=== PATIENT | male | born 1950 | race Caucasian/White ===

== ENCOUNTER 2019-10-10 12:33 | Observation (INO) | payer MEDICARE ==
[2019-10-10] MEDS ORDERED: BABY ASPIRIN 81 MG CHEW PO ONE (13:10)
[2019-10-10] MEDS ORDERED: DUONEB 0.5-3 MG/3 ml Neb IH ONE ×2 (13:11→13:31)
--- NOTE | 2019-10-10 13:13 | ERPHSYRPT ---
- History of Present Illness Time Seen by Provider: 10/10/19 12:55 Historian: patient Exam Limitations: no limitations Patient Subjective Stated Complaint: I started having pain last night in my left side of my back that went around into my left arm and left chest. I also had a lot of shortness of breath so I just stayed awake. I have had a lot of heart issues so I took two nitros and that helped. The pain started back this morning and I called my doctor and he told me to come to the ER. I don't have any pain right now. Triage Nursing Assessment: Pt presents to ER per PCP request for intermittent chest pains and shortness of breath that began last night. Pt stated his pain began in left sided back that radiates to left arm and left sided chest. Pt states it did keep him up most of the night. Pain decreased with the use of nitro x 2. States has not taken any ASA. Is on "7 or 8 cardiac meds". Pt is currently not experiencing chest pains or shortness of breath but does have significant cardiac histroy so PCP wanted him evaulated in ER. Pt is alert and oriented x 3. Denies shortness of breath at this time. Pt lungs clear and equal throughout. Pulses strong and no edema noted. Pt ambulates with steady gait but does state he gets dizzy. Abd soft and nontender. Pt denies n/v/d. Skin is pink , warm, and dry. Physician History: 69 years old male with extensive history of coronary artery disease with multiple stenting/CABG, tobacco abuse, COPD, hypertension, hyperlipidemia presented in the ER with chief complaint of sudden onset left back pain with radiation to left anterior chest and will left arm around 3 AM which woke him up from sleep. Patient took 2 nitros and pain started to ease up. Home health nurse came in and called his primary care who recommended evaluation in the ER. Patient currently denies any pain but has some pressure in the left side without any significant aggravating or relieving factors. Patient report this morning along with the pain he had some brief episode of shortness of breath but currently not short of breath. Denies fever chills. Does have a chronic smoker cough which is not any different than usual. Timing/Duration: today, sudden, improved Activities at Onset: sleep Quality: dullness, sharpness Location: back Chest Pain Radiation: arm Severity of Pain-Max: moderate Severity of Pain-Current: mild Modifying Factors: Improves With: nitroglycerin Associated Symptoms: shortness of breath Prior Chest Pain/Cardiac Workup: angina, cardiac cath, echocardiography, heart attack Nitro Today/Relief: 0.4 mg x 2 Aspirin Treatment Today: 81 mg x 1 Allergies/Adverse Reactions: No Known Drug Allergies Allergy (Verified 10/10/19 12:53) Home Medications: Amiodarone HCl 200 mg PO DAILY 10/10/19 [History] Apixaban [Eliquis] 5 mg PO BID 10/10/19 [History] Clopidogrel Bisulfate [Clopidogrel] 75 mg PO DAILY 10/10/19 [History] Levothyroxine Sodium 25 mcg PO DAILY 10/10/19 [History] Loratadine 10 mg PO DAILY 10/10/19 [History] Metformin HCl [Fortamet] 500 mg PO DAILY 10/10/19 [History] Nebivolol HCl 5 MG [Bystolic 5 MG] 5 mg PO DAILY 10/10/19 [History] Nitroglycerin 0.4 mg SL Q2H/PRN PRN 10/10/19 [History] Tamsulosin HCl 0.4 mg [Flomax 0.4 MG] 0.4 mg PO DAILY 10/10/19 [History] Terazosin HCl 10 mg PO HS 10/10/19 [History] allopurinoL [Allopurinol] 100 mg PO HS 10/10/19 [History] Hx Tetanus, Diphtheria Vaccination/Date Given: Yes Hx Influenza Vaccination/Date Given: Yes Hx Pneumococcal Vaccination/Date Given: Yes Immunizations Up to Date: Yes Travel Risk - International Travel Have you traveled outside of the country in past 3 weeks: No Have you or anyone close to you been diagnosed with or: No Do your reside in a community with a known COVID-19 case?: Yes If Yes where:: [facility] - Coronavirus Screening Has patient experienced Coronavirus symptoms: Yes Symptoms experienced: respiratory symptoms (i.e.Cought,shortness of breath) - Review of Systems Constitutional: No Symptoms Eyes: No Symptoms Ears, Nose, & Throat: No Symptoms Respiratory: Cough, Dyspnea Cardiac: Chest Pain Abdominal/Gastrointestinal: No Symptoms Genitourinary Symptoms: No Symptoms Musculoskeletal: No Symptoms Skin: No Symptoms Neurological: No Symptoms Psychological: No Symptoms Endocrine: No Symptoms Hematologic/Lymphatic: No Symptoms Immunological/Allergic: No Symptoms - Past Medical History Pertinent Past Medical History: Yes Neurological History: TIA ENT History: Cataracts Cardiac History: Congenital Heart Disease, Congestive Heart Failure, High Cholesterol, Myocardial Infarction ([place]) Respiratory History: CHF, COPD Endocrine Medical History: Diabetes Type II Psycho-Social History: Anxiety, Depression - Past Surgical History Past Surgical History: Yes Cardiac: CABG, Cardiac Catheterization, Cardiac Stent Other Surgical History: RUPTURED BELLY BUTTON - Social History Smoking Status: Current every day smoker How long have you smoked: YEARS Exposure to second hand smoke: No Drug Use: none Patient Lives Alone: Yes - Nursing Vital Signs Nursing Vital Signs: Initial Vital Signs Temperature 97.6 F 10/10/19 12:34 Pulse Rate 61 10/10/19 12:34 Respiratory Rate 18 10/10/19 12:34 Blood Pressure 112/52 10/10/19 12:34 O2 Sat by Pulse Oximetry 99 10/10/19 12:34 Pain Scale Pain Intensity 0 - Physical Exam General Appearance: no apparent distress Eye Exam: PERRL/EOMI, eyes nml inspection Ears, Nose, Throat Exam: normal ENT inspection, TMs normal, pharynx normal Neck Exam: normal inspection Respiratory Exam: normal breath sounds, wheezing, No chest tenderness Cardiovascular Exam: regular rate/rhythm, normal heart sounds Gastrointestinal/Abdomen Exam: soft, No tenderness Back Exam: normal inspection, normal range of motion, No CVA tenderness Extremity Exam: normal inspection, normal range of motion Neurologic Exam: alert, oriented x 3, cooperative Skin Exam: normal color, warm SpO2 Interpretation: normal SpO2: 99 O2 Delivery: Room Air - Course Nursing assessment & vital signs reviewed: Yes EKG Interpreted by Me: RATE (71), NORMAL AXIS, NORMAL INTERVALS, Other (Atrial paced rhythm) Ordered Tests: Active Orders 24 hr Category Date Time Status Manager [employer]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 STAT Care 10/10/19 13:11 Active EKG-ER Only STAT Care 10/10/19 13:10 Active IV Insertion STAT Care 10/10/19 13:10 Active CHEST 2 VIEWS (PA AND LAT) Stat Exams 10/10/19 13:10 Completed CBC W DIFF Stat Lab 10/10/19 13:30 Completed CMP Stat Lab 10/10/19 13:30 Completed NT PRO BNP Stat Lab 10/10/19 13:30 Completed TROPONIN Q3H Lab 10/10/19 13:30 Completed TROPONIN Q3H Lab 10/10/19 16:15 Ordered TROPONIN Q3H Lab 10/10/19 19:15 Ordered TROPONIN Q3H Lab 10/10/19 22:15 Ordered TROPONIN Q3H Lab 10/11/19 01:15 Ordered Respiratory Therapy Assessment DAILY RT 10/10/19 13:37 Active Medication Summary Discontinued Medications Generic Name Dose Route Start Last Admin Trade Name Gamaq PRN Reason Stop Dose Admin Albuterol/Ipratropium 3 ml 10/10/19 13:11 10/10/19 13:33 Duoneb 0.5-3 Mg/3 Ml Neb IH 10/10/19 13:12 3 ml STAT ONE Administration Albuterol/Ipratropium Confirm 10/10/19 13:31 Duoneb 0.5-3 Mg/3 Ml Neb Administered 10/10/19 13:32 Dose 3 ml IH .STK-MED ONE Aspirin 324 mg 10/10/19 13:10 10/10/19 13:29 Baby Aspirin 81 Mg Chew PO 10/10/19 13:11 324 mg STAT ONE Administration Aspirin Confirm 10/10/19 13:33 Baby Aspirin 81 Mg Chew Administered 10/10/19 13:34 Dose 324 mg .ROUTE .STK-MED ONE Lab/Rad Data: Laboratory Result Diagrams 10/10/19 13:30 10/10/19 13:30 Laboratory Results 10/10/19 10/10/19 10/10/19 Range/Units 13:30 13:30 13:30 WBC 7.8 (4.0-10.5) K/mm3 RBC 4.95 (4.1-5.6) M/mm3 Hgb 13.3 (12.5-18.0) gm/dl Hct 43.2 (42-50) % MCV 87.3 (78-100) fl MCH 26.9 (26-32) pg MCHC 30.8 L (32-36) g/dl RDW 15.7 H (11.5-14.0) % Plt Count 189 (150-450) K/mm3 MPV 10.8 (7.5-11.0) fl Gran % 73.6 H (36.0-66.0) % Eos # (Auto) 0.16 (0-0.5) Absolute Lymphs (auto) 1.28 (1.0-4.6) Absolute Monos (auto) 0.60 (0.0-1.3) Lymphocytes % 16.4 L (24.0-44.0) % Monocytes % 7.7 (0.0-12.0) % Eosinophils % 2.0 (0.00-5.0) % Basophils % 0.3 (0.0-0.4) % Absolute Granulocytes 5.75 (1.4-6.9) Basophils # 0.02 (0-0.4) Sodium 142 (137-145) mmol/L Potassium 3.8 (3.5-5.1) mmol/L Chloride 106 (98-107) mmol/L Carbon Dioxide 29 (22-30) mmol/L Anion Gap 11.1 (5-15) MEQ/L BUN 14 (9-20) mg/dL Creatinine 1.00 (0.66-1.25) mg/dL Estimated GFR > 60.0 ML/MIN Glucose 125 H (74-106) mg/dL Calcium 9.1 (8.4-10.2) mg/dL Total Bilirubin 0.50 (0.2-1.3) mg/dL AST 25 (17-59) U/L ALT 22 (0-50) U/L Alkaline Phosphatase 76 (38-126) U/L Troponin I < 0.012 (0.000-0.034) ng/mL NT-Pro-B Natriuret Pep 362 (0-900) pg/mL Serum Total Protein 7.6 (6.3-8.2) g/dL Albumin 4.1 (3.5-5.0) g/dL - Progress Progress: improved, re-examined Air Movement: good Progress Note: 10/10/19 15:31 69 years old is evaluated for chest pain. EKG showed paced rhythm with no acute ST elevation. Patient chest pain is much improved prior to arrival and has minimal pressure. Given aspirin and later Nitropaste. On reevaluation patient is sleeping comfortably. Initial troponins are negative. Unremarkable chest x-ray for any acute findings but has some old changes. Patient has multiple risk factor for CAD, discussed with Dr. Munoz and patient is being admitted for observation for rule out. Blood Culture(s) Obtained: No Antibiotics given: No Discussed with : Annamaria Counseled pt/family regarding: lab results, diagnosis, rad results, smoking cessation - Departure Departure Disposition: Observation Clinical Impression: Chest pain, rule out acute myocardial infarction Condition: Stable Critical Care Time: No Referrals: RODRICK LEAL MD [Primary Care Provider] -
[2019-10-10] MEDS ORDERED: BABY ASPIRIN 81 MG CHEW ONE (13:33)
--- NOTE | 2019-10-10 13:33 | XRAY ---
Indication: Cough and chest pain. Comparison: None PA/lateral chest hyperinflated with minimal left base fibrosis/scarring. No focal infiltrate, consolidation, or large effusion. Heart is not enlarged with CABG surgery and left dual-lead pacemaker. Bony thorax intact with minimal degenerative changes. Impression: Nonacute hyperinflated chest with chronic features.
[2019-10-10 13:43] LABS: Absolute Neutrophil Ct (ANC) 5.75 (1.4-6.9); BASOPHIL % 0.3 % (0.0-0.4); Basophil (Absolute #) 0.02 (0-0.4); Eosinophil (Absolute #) 0.16 (0-0.5); Hematocrit 43.2 % (42-50); Hemoglobin 13.3 gm/dl (12.5-18.0); Lymphocyte (Absolute #) 1.28 (1.0-4.6); Lymphocytes % 16.4 % (24.0-44.0); Mean Cell Volume 87.3 fl (78-100); Mean Corpuscular Hemoglobin 26.9 pg (26-32); Mean Corpuscular Hgb Concent. 30.8 g/dl (32-36); Mean Platelet Volume 10.8 fl (7.5-11.0); Monocytes % 7.7 % (0.0-12.0); Neutrophil % 73.6 % (36.0-66.0); Platelet Count 189 K/mm3 (150-450); Red Blood Count 4.95 M/mm3 (4.1-5.6); Red Cell Distribution Width 15.7 % (11.5-14.0); White Blood Count 7.8 K/mm3 (4.0-10.5)
[2019-10-10 14:10] LABS: ALBUMIN 4.1 g/dL (3.5-5.0); ALKALINE PHOSPHATASE 76 U/L (38-126); ANION GAP 11.1 MEQ/L (5-15); BLOOD UREA NITROGEN 14 mg/dL (9-20); CHLORIDE 106 mmol/L (98-107); Calcium 9.1 mg/dL (8.4-10.2); Carbon Dioxide 29 mmol/L (22-30); Glucose 125 mg/dL (74-106); NT PRO BNP 362 pg/mL (0-900); Potassium 3.8 mmol/L (3.5-5.1); SGOT/AST 25 U/L (17-59); SGPT/ALT 22 U/L (0-50); SODIUM 142 mmol/L (137-145); Total Protein 7.6 g/dL (6.3-8.2)
[2019-10-10] MEDS ORDERED: NITRO-BID 2% UD PACKETS TOP ONE (15:30)
[2019-10-10] MEDS ORDERED: NITRO-BID 2% UD PACKETS ONE (15:39)
[2019-10-10] MEDS ORDERED: Senokot-S Tablet PO PRN (16:11)
[2019-10-10] MEDS ORDERED: MAALOX ES 30 ML UNIT DOSE PO PRN (16:11)
[2019-10-10] MEDS ORDERED: TYLENOL 325 MG PO PRN (16:11)
[2019-10-10] MEDS ORDERED: MILK OF MAGNESIA 30 ML PO PRN (16:11)
[2019-10-10] MEDS ORDERED: Zofran 4 MG/2 ML VIAL IV PRN (16:11)
[2019-10-10] MEDS: Nicoderm CQ 21 MG TOP SCH (16:43)
[2019-10-10] MEDS ORDERED: Nitrostat 0.4 MG Tablet SL PRN (17:16)
[2019-10-10] MEDS: HUMALOG SQ PRN (21:30)
[2019-10-10] MEDS: Pepcid 20 MG PO SCH (21:30)
[2019-10-10] MEDS: ELIQUIS 2.5 MG TABLET PO SCH (21:30)
[2019-10-10] MEDS ORDERED: ZYLOPRIM 100 MG PO SCH (22:00)
[2019-10-10] MEDS ORDERED: HYTRIN 1 MG PO SCH (22:00)
[2019-10-11 02:20] LABS: Risk Ratio 2.7
[2019-10-11] MEDS ORDERED: Sodium Chloride 0.9% 10 ML FLUSH Syringe IV SCH (06:00)
[2019-10-11] MEDS ORDERED: Glucophage 500 MG PO SCH (08:00)
[2019-10-11] MEDS: HUMALOG SQ PRN (08:06)
[2019-10-11] MEDS: Nicoderm CQ 21 MG TOP SCH (09:34)
[2019-10-11] MEDS: ELIQUIS 2.5 MG TABLET PO SCH (09:35)
[2019-10-11] MEDS: Pepcid 20 MG PO SCH (09:35)
[2019-10-11 09:36] LABS: Hematocrit 42.6 % (42-50); Hemoglobin 13.1 gm/dl (12.5-18.0); Mean Cell Volume 87.1 fl (78-100); Mean Corpuscular Hemoglobin 26.8 pg (26-32); Mean Corpuscular Hgb Concent. 30.8 g/dl (32-36); Mean Platelet Volume 11.1 fl (7.5-11.0); Platelet Count 199 K/mm3 (150-450); Red Blood Count 4.89 M/mm3 (4.1-5.6); Red Cell Distribution Width 15.7 % (11.5-14.0); White Blood Count 7.7 K/mm3 (4.0-10.5)
[2019-10-11 09:47] LABS: ALKALINE PHOSPHATASE 71 U/L (38-126); ANION GAP 10.9 MEQ/L (5-15); BLOOD UREA NITROGEN 17 mg/dL (9-20); CHLORIDE 106 mmol/L (98-107); Carbon Dioxide 30 mmol/L (22-30); Creatinine 1 1.16 mg/dL (0.66-1.25); Glucose 97 mg/dL (74-106); Potassium 4.1 mmol/L (3.5-5.1); SGOT/AST 27 U/L (17-59); SGPT/ALT 22 U/L (0-50); SODIUM 143 mmol/L (137-145); Total Protein 7.2 g/dL (6.3-8.2)
[2019-10-11] MEDS ORDERED: Bystolic 5 MG PO SCH (10:00)
[2019-10-11] MEDS ORDERED: CLARITIN 10 MG PO SCH (10:00)
[2019-10-11] MEDS ORDERED: Flomax 0.4 MG PO SCH (10:00)
[2019-10-11] MEDS ORDERED: SYNTHROID 25 MCG PO SCH (10:00)
[2019-10-11] MEDS ORDERED: PLAVIX 75 MG Tablet PO SCH (10:00)
[2019-10-11] MEDS ORDERED: Cordarone 200 MG PO SCH (10:00)
[2019-10-11] MEDS ORDERED: Imdur 30 MG PO ONE (11:30)
--- NOTE | 2019-10-11 14:05 | PCM.SSS ---
History of Present Illness - Chief Complaint Chief Complaint: Chest pain rule out DC Date: 10/11/19 History of Present Illness: is a 69 year old male seen and examined this am following ER admission for chest pain. Patient reports that he has difficulty remembering things but reports that he started with chest pain yesterday. He took nitro at home and it did not resolve so he came to ER. He also had developed some shortness of breath as well. Patient reports he had an episode of chest pain about 2-3 weeks ago. He reports his chest pain happens even at rest. Patient reports that he had more chest pain overnight and was given nitro at that time which helped. He denies chest pain at this time but reports he was still short of breath this morning. He reports a hx of cardiac bypass and stents placed.He sees Dr Camron Recinos for cardiology. Patient reports that he remembers seeing Minoo Recinos as well and that he was supposed to have some type of urologic procedure but was unable to as he was not cleared by cardiology. He reports taking his PRN nitro at least 2- 3 times per week. Patient also reports that he had stopped smoking for about 17 years and then about 2.5 years ago he started smoking again 1.5 ppd. - Review of Systems Constitutional: No Fever, No Chills Eyes: Other (Patient reports blurry vision and he wears glasses) Ears, Nose, & Throat: Tinnitus (Reports hx of tinnitus), Sinus Drainage Respiratory: Short Of Breath, No Cough Cardiac: Chest Pain, Other (Pacemaker), No Edema, No Palpitations Abdominal/Gastrointestinal: Constipation, Hematochezia, Melena, Other (Hx of hernia repair), No Abdominal Pain, No Nausea, No Vomiting Genitourinary Symptoms: Frequency, Hematuria, Hesitancy, Other (Patient reports seeing urology unsure who but was found to have enlarged prostate. Plan was for a procedure to be done unsure if it was a TURP to help debulk prostate. Patient reports dribbling nocturia and hematuria) Musculoskeletal: Other (No reported concerns) Skin: No Rash Neurological: Headache (Occasional ), Parasthesia (Hands) Psychological: Anxiety, Depression, Other (Patient reports hx of alcohol use meth and cocaine use but denies any recent use. ), No Suicidal Ideations, No Homicidal Ideations Hematologic/Lymphatic: No Anemia, No Blood Clots, No Easy Bleeding Medications & Allergies Home Medications: Home Medication List Amiodarone HCl 200 mg PO DAILY 10/10/19 [History Confirmed 10/10/19] Apixaban [Eliquis] 5 mg PO BID 10/10/19 [History Confirmed 10/10/19] Clopidogrel Bisulfate [Clopidogrel] 75 mg PO DAILY 10/10/19 [History Confirmed 10/10/19] Levothyroxine Sodium 25 mcg PO DAILY 10/10/19 [History Confirmed 10/10/19] Loratadine 10 mg PO DAILY 10/10/19 [History Confirmed 10/10/19] Metformin HCl [Fortamet] 500 mg PO DAILY 10/10/19 [History Confirmed 10/10/19] Nebivolol HCl 5 MG [Bystolic 5 MG] 5 mg PO DAILY 10/10/19 [History Confirmed 10/10/19] Nitroglycerin 0.4 mg SL Q2H/PRN PRN 10/10/19 [History Confirmed 10/10/19] Tamsulosin HCl 0.4 mg [Flomax 0.4 MG] 0.4 mg PO DAILY 10/10/19 [History Confirmed 10/10/19] Terazosin HCl 10 mg PO HS 10/10/19 [History Confirmed 10/10/19] allopurinoL [Allopurinol] 100 mg PO HS 10/10/19 [History Confirmed 10/10/19] Isosorbide Mononitrate 30 mg [Imdur 30 MG] 30 mg PO DAILY #30 tab 10/11/19 [Rx] Allergies/Adverse Reactions: Allergies Allergy/AdvReac Type Severity Reaction Status Date / Time No Known Drug Allergies Allergy Verified 10/10/19 12:53 - Past Medical History Past Medical History: Yes Neurological History: TIA ENT History: Cataracts Cardiac History: Congenital Heart Disease, Congestive Heart Failure, High Cholesterol, Myocardial Infarction (DC) CARDIAC HISTORY: Angina Respiratory History: CHF, COPD Endocrine Medical History: Diabetes Type II History: Other (BPH) Pyscho-Social History: Anxiety, Depression - Past Surgical History Past Surgical History: Yes Cardiac History: CABG, Cardiac Catheterization, Cardiac Stent, Pacemaker GI Surgical History: Other (hernia repair) Other Surgical History: RUPTURED BELLY BUTTON - Social History Smoking Status: Current every day smoker How long have you smoked: YEARS Exposure to second hand smoke: No Alcohol: None Drug Use: none - Physical Exam Vital Signs: Vital Signs - 24 hr Temp Pulse Resp BP BP Pulse Ox 10/11/19 12:00 97.6 F 62 16 129/66 99 10/11/19 11:00 98 10/11/19 07:30 98 10/11/19 07:29 97.7 F 60 15 118/63 98 10/11/19 04:00 97.4 F 64 20 120/64 98 10/11/19 00:00 98.8 F 60 18 106/55 99 10/10/19 20:37 98 10/10/19 20:00 98.6 F 70 20 151/72 95/50 98 10/10/19 16:30 97.8 F 76 151/72 99 10/10/19 16:14 97.8 F 76 18 151/72 99 10/10/19 15:32 99 10/10/19 15:06 60 15 120/64 98 General Appearance: no apparent distress, anxiety Neurologic Exam: alert, oriented x 3, cooperative, manager brand II-XII nml as tested, normal mood/affect Eye Exam: eyes nml inspection, No scleral icterus Ears, Nose, Throat Exam: moist mucous membranes, other (poor dentition) Neck Exam: normal inspection Respiratory Exam: normal breath sounds, No respiratory distress, No crackles/ rales, No wheezing Cardiovascular Exam: regular rate/rhythm, normal heart sounds, murmur, No friction rub, No gallop Gastrointestinal/Abdomen Exam: soft, normal bowel sounds, No tenderness Rectal Exam: deferred Extremity Exam: normal inspection Skin Exam: normal color, warm, dry Results - Labs Lab/Micro Results: Accuchecks Date 10/11/19 Time 11:51 Accucheck Value: 115 Accucheck Value: 151 Accucheck Value: 162 Lab Results-Last 24 Hours 10/10/19 10/10/19 10/10/19 Range/Units 13:30 13:30 13:30 WBC 7.8 (4.0-10.5) K/mm3 RBC 4.95 (4.1-5.6) M/mm3 Hgb 13.3 (12.5-18.0) gm/dl Hct 43.2 (42-50) % MCV 87.3 (78-100) fl MCH 26.9 (26-32) pg MCHC 30.8 L (32-36) g/dl RDW 15.7 H (11.5-14.0) % Plt Count 189 (150-450) K/mm3 MPV 10.8 (7.5-11.0) fl Gran % 73.6 H (36.0-66.0) % Eos # (Auto) 0.16 (0-0.5) Absolute Lymphs (auto) 1.28 (1.0-4.6) Absolute Monos (auto) 0.60 (0.0-1.3) Lymphocytes % 16.4 L (24.0-44.0) % Monocytes % 7.7 (0.0-12.0) % Eosinophils % 2.0 (0.00-5.0) % Basophils % 0.3 (0.0-0.4) % Absolute Granulocytes 5.75 (1.4-6.9) Basophils # 0.02 (0-0.4) Sodium 142 (137-145) mmol/L Potassium 3.8 (3.5-5.1) mmol/L Chloride 106 (98-107) mmol/L Carbon Dioxide 29 (22-30) mmol/L Anion Gap 11.1 (5-15) MEQ/L BUN 14 (9-20) mg/dL Creatinine 1.00 (0.66-1.25) mg/dL Estimated GFR > 60.0 ML/MIN Glucose 125 H (74-106) mg/dL Hemoglobin A1c (4.5-6.0) % Calcium 9.1 (8.4-10.2) mg/dL Total Bilirubin 0.50 (0.2-1.3) mg/dL AST 25 (17-59) U/L ALT 22 (0-50) U/L Alkaline Phosphatase 76 (38-126) U/L Troponin I < 0.012 (0.000-0.034) ng/mL NT-Pro-B Natriuret Pep 362 (0-900) pg/mL Serum Total Protein 7.6 (6.3-8.2) g/dL Albumin 4.1 (3.5-5.0) g/dL Triglycerides (30-150) mg/dL Cholesterol (50-200) mg/dL LDL Cholesterol (30-100) mg/dL HDL Cholesterol (40-60) mg/dL Heart Disease Risk Ratio 10/10/19 10/10/19 10/10/19 Range/Units 16:42 19:40 22:16 WBC (4.0-10.5) K/mm3 RBC (4.1-5.6) M/mm3 Hgb (12.5-18.0) gm/dl Hct (42-50) % MCV (78-100) fl MCH (26-32) pg MCHC (32-36) g/dl RDW (11.5-14.0) % Plt Count (150-450) K/mm3 MPV (7.5-11.0) fl Gran % (36.0-66.0) % Eos # (Auto) (0-0.5) Absolute Lymphs (auto) (1.0-4.6) Absolute Monos (auto) (0.0-1.3) Lymphocytes % (24.0-44.0) % Monocytes % (0.0-12.0) % Eosinophils % (0.00-5.0) % Basophils % (0.0-0.4) % Absolute Granulocytes (1.4-6.9) Basophils # (0-0.4) Sodium (137-145) mmol/L Potassium (3.5-5.1) mmol/L Chloride (98-107) mmol/L Carbon Dioxide (22-30) mmol/L Anion Gap (5-15) MEQ/L BUN (9-20) mg/dL Creatinine (0.66-1.25) mg/dL Estimated GFR ML/MIN Glucose (74-106) mg/dL Hemoglobin A1c (4.5-6.0) % Calcium (8.4-10.2) mg/dL Total Bilirubin (0.2-1.3) mg/dL AST (17-59) U/L ALT (0-50) U/L Alkaline Phosphatase (38-126) U/L Troponin I < 0.012 < 0.012 < 0.012 (0.000-0.034) ng/mL NT-Pro-B Natriuret Pep (0-900) pg/mL Serum Total Protein (6.3-8.2) g/dL Albumin (3.5-5.0) g/dL Triglycerides (30-150) mg/dL Cholesterol (50-200) mg/dL LDL Cholesterol (30-100) mg/dL HDL Cholesterol (40-60) mg/dL Heart Disease Risk Ratio 10/10/19 10/11/19 10/11/19 Range/Units Unknown 01:45 01:45 WBC (4.0-10.5) K/mm3 RBC (4.1-5.6) M/mm3 Hgb (12.5-18.0) gm/dl Hct (42-50) % MCV (78-100) fl MCH (26-32) pg MCHC (32-36) g/dl RDW (11.5-14.0) % Plt Count (150-450) K/mm3 MPV (7.5-11.0) fl Gran % (36.0-66.0) % Eos # (Auto) (0-0.5) Absolute Lymphs (auto) (1.0-4.6) Absolute Monos (auto) (0.0-1.3) Lymphocytes % (24.0-44.0) % Monocytes % (0.0-12.0) % Eosinophils % (0.00-5.0) % Basophils % (0.0-0.4) % Absolute Granulocytes (1.4-6.9) Basophils # (0-0.4) Sodium (137-145) mmol/L Potassium (3.5-5.1) mmol/L Chloride (98-107) mmol/L Carbon Dioxide (22-30) mmol/L Anion Gap (5-15) MEQ/L BUN (9-20) mg/dL Creatinine (0.66-1.25) mg/dL Estimated GFR ML/MIN Glucose (74-106) mg/dL Hemoglobin A1c 6.10 H (4.5-6.0) % Calcium (8.4-10.2) mg/dL Total Bilirubin (0.2-1.3) mg/dL AST (17-59) U/L ALT (0-50) U/L Alkaline Phosphatase (38-126) U/L Troponin I < 0.012 (0.000-0.034) ng/mL NT-Pro-B Natriuret Pep (0-900) pg/mL Serum Total Protein (6.3-8.2) g/dL Albumin (3.5-5.0) g/dL Triglycerides 119 (30-150) mg/dL Cholesterol 87 (50-200) mg/dL LDL Cholesterol 44 (30-100) mg/dL HDL Cholesterol 32 L (40-60) mg/dL Heart Disease Risk Ratio 2.7 10/11/19 10/11/19 Range/Units 09:00 09:00 WBC 7.7 (4.0-10.5) K/mm3 RBC 4.89 (4.1-5.6) M/mm3 Hgb 13.1 (12.5-18.0) gm/dl Hct 42.6 (42-50) % MCV 87.1 (78-100) fl MCH 26.8 (26-32) pg MCHC 30.8 L (32-36) g/dl RDW 15.7 H (11.5-14.0) % Plt Count 199 (150-450) K/mm3 MPV 11.1 H (7.5-11.0) fl Gran % (36.0-66.0) % Eos # (Auto) (0-0.5) Absolute Lymphs (auto) (1.0-4.6) Absolute Monos (auto) (0.0-1.3) Lymphocytes % (24.0-44.0) % Monocytes % (0.0-12.0) % Eosinophils % (0.00-5.0) % Basophils % (0.0-0.4) % Absolute Granulocytes (1.4-6.9) Basophils # (0-0.4) Sodium 143 (137-145) mmol/L Potassium 4.1 (3.5-5.1) mmol/L Chloride 106 (98-107) mmol/L Carbon Dioxide 30 (22-30) mmol/L Anion Gap 10.9 (5-15) MEQ/L BUN 17 (9-20) mg/dL Creatinine 1.16 (0.66-1.25) mg/dL Estimated GFR > 60.0 ML/MIN Glucose 97 (74-106) mg/dL Hemoglobin A1c (4.5-6.0) % Calcium 9.0 (8.4-10.2) mg/dL Total Bilirubin 0.50 (0.2-1.3) mg/dL AST 27 (17-59) U/L ALT 22 (0-50) U/L Alkaline Phosphatase 71 (38-126) U/L Troponin I (0.000-0.034) ng/mL NT-Pro-B Natriuret Pep (0-900) pg/mL Serum Total Protein 7.2 (6.3-8.2) g/dL Albumin 4.0 (3.5-5.0) g/dL Triglycerides (30-150) mg/dL Cholesterol (50-200) mg/dL LDL Cholesterol (30-100) mg/dL HDL Cholesterol (40-60) mg/dL Heart Disease Risk Ratio Accuchecks Date 10/11/19 Time 11:51 Accucheck Value: 115 Accucheck Value: 151 Accucheck Value: 162 - Radiology Impressions Radiology Exams & Impressions: Radiology Procedures Category Date Time Status ABDOMEN AND PELVIS W&WO CONTRA [CT] Urgent Exams 10/11/19 11:00 Taken CHEST 2 VIEWS (PA AND LAT) Stat Exams 10/10/19 13:10 Completed - Other Procedures and Tests Respiratory Therapy 10/10/19 22:11 Oxygen Nasal Cannula 2 lpm 10/12/19 05:00 EKG ONCE 10/13/19 05:00 EKG ONCE Assessment/Plan (1) Hx of hematuria Current Visit: Yes Status: Acute Code(s): Z87.448 - PERSONAL HISTORY OF OTHER DISEASES OF URINARY SYSTEM (2) History of melena Current Visit: Yes Status: Acute Code(s): Z87.19 - PERSONAL HISTORY OF OTHER DISEASES OF THE DIGESTIVE SYSTEM (3) Chest pain, rule out acute myocardial infarction Current Visit: Yes Status: Acute Code(s): R07.9 - CHEST PAIN, UNSPECIFIED Hospital Summary - Hospital Course Hospital Course: 69 years old male with extensive history of coronary artery disease with multiple stenting/CABG, tobacco abuse, COPD, hypertension, hyperlipidemia presented in the ER with chief complaint of sudden onset left back pain with radiation to left anterior chest and left arm around 3 AM which woke him up from sleep. Patient took 2 nitros and pain started to ease up. Home health nurse came in and called his primary care who recommended evaluation in the ER. Patient currently denies any pain but has some pressure in the left side without any significant aggravating or relieving factors. Patient reports this morning along with the pain he had some brief episode of shortness of breath but currently not short of breath. Denies fever chills. Does have a chronic smoker cough which is not any different than usual. Patient was admitted to the hospital for observation. He was monitored on tele and had trops x3 which were neg and EKG x2 which did not show ST changes. Patient reported that he had more chest pain overnight and was given nitro at that time which helped. He had another trop drawn which was neg and repeat EKG which still was neg for ST changes. He denies chest pain at this time but reports he was still short of breath this morning. He reports a hx of cardiac bypass and stents placed.He sees Dr Camron Recinos for cardiology. Patient reports that he remembers seeing Minoo Recinos as well and that he was supposed to have some type of urologic procedure but was unable to as he was not cleared by cardiology. He reports taking his PRN nitro at least 2-3 times per week. Patient also reports that he had stopped smoking for about 17 years and then about 2.5 years ago he started smoking again 1.5 ppd. I discussed this case with Dr Minoo Recinos. It was determined that patient could be given Imdur 30 mg and observed for the rest of the day. If patient remained chest pain free and stable vitals signs he could be discharged home to follow up with Dr Camron Recinos on Sun. If patient still was having chest pain Dr Minoo Recinos agreed to accept transfer to [place] to be evaluated. - Vitals & Intake/Output Vital Signs: Vital Signs Temperature 97.6 F 10/11/19 12:00 Pulse Rate 62 10/11/19 12:00 Respiratory Rate 16 10/11/19 12:00 Blood Pressure 129/66 10/11/19 12:00 O2 Sat by Pulse Oximetry 99 10/11/19 12:00 Intake & Output: Intake & Output 10/09/19 10/10/19 10/11/19 10/12/19 11:59 11:59 11:59 11:59 Intake Total 550 Output Total 300 Balance 250 Weight 71.3 kg - Lab Result Diagrams: 10/11/19 09:00 10/11/19 09:00 Lab Results-Last 24 Hrs: Accuchecks Date 10/11/19 Time 11:51 Accucheck Value: 115 Accucheck Value: 151 Accucheck Value: 162 Lab Results-Last 24 Hours 05/08/20 05/08/20 05/08/20 Range/Units 13:30 13:30 13:30 WBC 7.8 (4.0-10.5) K/mm3 RBC 4.95 (4.1-5.6) M/mm3 Hgb 13.3 (12.5-18.0) gm/dl Hct 43.2 (42-50) % MCV 87.3 (78-100) fl MCH 26.9 (26-32) pg MCHC 30.8 L (32-36) g/dl RDW 15.7 H (11.5-14.0) % Plt Count 189 (150-450) K/mm3 MPV 10.8 (7.5-11.0) fl Gran % 73.6 H (36.0-66.0) % Eos # (Auto) 0.16 (0-0.5) Absolute Lymphs (auto) 1.28 (1.0-4.6) Absolute Monos (auto) 0.60 (0.0-1.3) Lymphocytes % 16.4 L (24.0-44.0) % Monocytes % 7.7 (0.0-12.0) % Eosinophils % 2.0 (0.00-5.0) % Basophils % 0.3 (0.0-0.4) % Absolute Granulocytes 5.75 (1.4-6.9) Basophils # 0.02 (0-0.4) Sodium 142 (137-145) mmol/L Potassium 3.8 (3.5-5.1) mmol/L Chloride 106 (98-107) mmol/L Carbon Dioxide 29 (22-30) mmol/L Anion Gap 11.1 (5-15) MEQ/L BUN 14 (9-20) mg/dL Creatinine 1.00 (0.66-1.25) mg/dL Estimated GFR > 60.0 ML/MIN Glucose 125 H (74-106) mg/dL Hemoglobin A1c (4.5-6.0) % Calcium 9.1 (8.4-10.2) mg/dL Total Bilirubin 0.50 (0.2-1.3) mg/dL AST 25 (17-59) U/L ALT 22 (0-50) U/L Alkaline Phosphatase 76 (38-126) U/L Troponin I < 0.012 (0.000-0.034) ng/mL NT-Pro-B Natriuret Pep 362 (0-900) pg/mL Serum Total Protein 7.6 (6.3-8.2) g/dL Albumin 4.1 (3.5-5.0) g/dL Triglycerides (30-150) mg/dL Cholesterol (50-200) mg/dL LDL Cholesterol (30-100) mg/dL HDL Cholesterol (40-60) mg/dL Heart Disease Risk Ratio 10/10/19 10/10/19 10/10/19 Range/Units 16:42 19:40 22:16 WBC (4.0-10.5) K/mm3 RBC (4.1-5.6) M/mm3 Hgb (12.5-18.0) gm/dl Hct (42-50) % MCV (78-100) fl MCH (26-32) pg MCHC (32-36) g/dl RDW (11.5-14.0) % Plt Count (150-450) K/mm3 MPV (7.5-11.0) fl Gran % (36.0-66.0) % Eos # (Auto) (0-0.5) Absolute Lymphs (auto) (1.0-4.6) Absolute Monos (auto) (0.0-1.3) Lymphocytes % (24.0-44.0) % Monocytes % (0.0-12.0) % Eosinophils % (0.00-5.0) % Basophils % (0.0-0.4) % Absolute Granulocytes (1.4-6.9) Basophils # (0-0.4) Sodium (137-145) mmol/L Potassium (3.5-5.1) mmol/L Chloride (98-107) mmol/L Carbon Dioxide (22-30) mmol/L Anion Gap (5-15) MEQ/L BUN (9-20) mg/dL Creatinine (0.66-1.25) mg/dL Estimated GFR ML/MIN Glucose (74-106) mg/dL Hemoglobin A1c (4.5-6.0) % Calcium (8.4-10.2) mg/dL Total Bilirubin (0.2-1.3) mg/dL AST (17-59) U/L ALT (0-50) U/L Alkaline Phosphatase (38-126) U/L Troponin I < 0.012 < 0.012 < 0.012 (0.000-0.034) ng/mL NT-Pro-B Natriuret Pep (0-900) pg/mL Serum Total Protein (6.3-8.2) g/dL Albumin (3.5-5.0) g/dL Triglycerides (30-150) mg/dL Cholesterol (50-200) mg/dL LDL Cholesterol (30-100) mg/dL HDL Cholesterol (40-60) mg/dL Heart Disease Risk Ratio 10/10/19 10/11/19 10/11/19 Range/Units Unknown 01:45 01:45 WBC (4.0-10.5) K/mm3 RBC (4.1-5.6) M/mm3 Hgb (12.5-18.0) gm/dl Hct (42-50) % MCV (78-100) fl MCH (26-32) pg MCHC (32-36) g/dl RDW (11.5-14.0) % Plt Count (150-450) K/mm3 MPV (7.5-11.0) fl Gran % (36.0-66.0) % Eos # (Auto) (0-0.5) Absolute Lymphs (auto) (1.0-4.6) Absolute Monos (auto) (0.0-1.3) Lymphocytes % (24.0-44.0) % Monocytes % (0.0-12.0) % Eosinophils % (0.00-5.0) % Basophils % (0.0-0.4) % Absolute Granulocytes (1.4-6.9) Basophils # (0-0.4) Sodium (137-145) mmol/L Potassium (3.5-5.1) mmol/L Chloride (98-107) mmol/L Carbon Dioxide (22-30) mmol/L Anion Gap (5-15) MEQ/L BUN (9-20) mg/dL Creatinine (0.66-1.25) mg/dL Estimated GFR ML/MIN Glucose (74-106) mg/dL Hemoglobin A1c 6.10 H (4.5-6.0) % Calcium (8.4-10.2) mg/dL Total Bilirubin (0.2-1.3) mg/dL AST (17-59) U/L ALT (0-50) U/L Alkaline Phosphatase (38-126) U/L Troponin I < 0.012 (0.000-0.034) ng/mL NT-Pro-B Natriuret Pep (0-900) pg/mL Serum Total Protein (6.3-8.2) g/dL Albumin (3.5-5.0) g/dL Triglycerides 119 (30-150) mg/dL Cholesterol 87 (50-200) mg/dL LDL Cholesterol 44 (30-100) mg/dL HDL Cholesterol 32 L (40-60) mg/dL Heart Disease Risk Ratio 2.7 10/11/19 10/11/19 Range/Units 09:00 09:00 WBC 7.7 (4.0-10.5) K/mm3 RBC 4.89 (4.1-5.6) M/mm3 Hgb 13.1 (12.5-18.0) gm/dl Hct 42.6 (42-50) % MCV 87.1 (78-100) fl MCH 26.8 (26-32) pg MCHC 30.8 L (32-36) g/dl RDW 15.7 H (11.5-14.0) % Plt Count 199 (150-450) K/mm3 MPV 11.1 H (7.5-11.0) fl Gran % (36.0-66.0) % Eos # (Auto) (0-0.5) Absolute Lymphs (auto) (1.0-4.6) Absolute Monos (auto) (0.0-1.3) Lymphocytes % (24.0-44.0) % Monocytes % (0.0-12.0) % Eosinophils % (0.00-5.0) % Basophils % (0.0-0.4) % Absolute Granulocytes (1.4-6.9) Basophils # (0-0.4) Sodium 143 (137-145) mmol/L Potassium 4.1 (3.5-5.1) mmol/L Chloride 106 (98-107) mmol/L Carbon Dioxide 30 (22-30) mmol/L Anion Gap 10.9 (5-15) MEQ/L BUN 17 (9-20) mg/dL Creatinine 1.16 (0.66-1.25) mg/dL Estimated GFR > 60.0 ML/MIN Glucose 97 (74-106) mg/dL Hemoglobin A1c (4.5-6.0) % Calcium 9.0 (8.4-10.2) mg/dL Total Bilirubin 0.50 (0.2-1.3) mg/dL AST 27 (17-59) U/L ALT 22 (0-50) U/L Alkaline Phosphatase 71 (38-126) U/L Troponin I (0.000-0.034) ng/mL NT-Pro-B Natriuret Pep (0-900) pg/mL Serum Total Protein 7.2 (6.3-8.2) g/dL Albumin 4.0 (3.5-5.0) g/dL Triglycerides (30-150) mg/dL Cholesterol (50-200) mg/dL LDL Cholesterol (30-100) mg/dL HDL Cholesterol (40-60) mg/dL Heart Disease Risk Ratio Micro Results-Entire Visit: Accuchecks Date 10/11/19 Time 11:51 Accucheck Value: 115 Accucheck Value: 151 Accucheck Value: 162 - Radiology Exams Ordered Rad Exams-Entire Visit: Radiology Procedures Category Date Time Status ABDOMEN AND PELVIS W&WO CONTRA [CT] Urgent Exams 10/11/19 11:00 Taken CHEST 2 VIEWS (PA AND LAT) Stat Exams 10/10/19 13:10 Completed - Procedures and Test Procedures and Tests throughout Hospitalization: Therapy Orders & Screens 10/10/19 13:37 Respiratory Therapy Assessment DAILY Comment: 10/10/19 16:11 EKG Q8HX2,QAMX3,PRN Comment: 10/10/19 16:59 Smoking Cessation Education ONCE Comment: Diagnosis: Chest pain rule out DC Smoking Status: Current every day smoker How long have you smoked: YEARS Do you dip or chew tobacco: No 10/10/19 20:38 EKG ONCE Comment: Diagnosis: Chest pain rule out DC 10/10/19 22:11 Oxygen Nasal Cannula 2 lpm Comment: Diagnosis: Chest pain rule out DC 10/10/19 22:14 EKG STAT Comment: Diagnosis: Chest pain rule out DC 10/11/19 05:00 EKG ONCE Comment: Diagnosis: Chest pain rule out DC 10/12/19 05:00 EKG ONCE Comment: Diagnosis: Chest pain rule out DC 10/13/19 05:00 EKG ONCE Comment: Diagnosis: Chest pain rule out DC - Discharge Disposition: Home, Self-Care Condition: Stable Prescriptions: New Isosorbide Mononitrate 30 mg [Imdur 30 MG] 30 mg PO DAILY #30 tab Continue allopurinoL [Allopurinol] 100 mg PO HS Terazosin HCl 10 mg PO HS Tamsulosin HCl 0.4 mg [Flomax 0.4 MG] 0.4 mg PO DAILY Nitroglycerin 0.4 mg SL Q2H/PRN PRN PRN Reason: Chest Pain Nebivolol HCl 5 MG [Bystolic 5 MG] 5 mg PO DAILY Metformin HCl [Fortamet] 500 mg PO DAILY Loratadine 10 mg PO DAILY Levothyroxine Sodium 25 mcg PO DAILY Clopidogrel Bisulfate [Clopidogrel] 75 mg PO DAILY Apixaban [Eliquis] 5 mg PO BID Amiodarone HCl 200 mg PO DAILY Instructions: Chest Pain (DC) Additional Instructions: HOLD METFORMIN UNTIL Sunday10/13/19 AT 1:20PM FOLLOW UP WITH DR Camron RECINOS SUNDAY Follow up with: RODRICK LEAL MD [Primary Care Provider] - 1 Week
[2019-10-11 16:22] VITALS: BP 105/61; PULSE 61; O2SAT 98
--- NOTE | 2019-10-11 20:30 | XRAY ---
Indication: Painless hematuria. Black stools. Multiple contiguous axial images obtained through the abdomen and pelvis prior to and following 80 cc Isovue-370 contrast as ordered. Enteric contrast also used. Comparison: None Lung bases demonstrates bibasilar fibrosis/scarring. No infiltrate or effusion. Heart is not enlarged. Noncontrasted images demonstrates multiple tiny gallstones, largest 6-7 mm. No other visceral calcification/calculi. 13.3 cm splenomegaly. Contrasted stomach and bowel loops appear nonobstructed. Normal appendix. Mild diffuse scattered colonic fecal debris. Postcontrast images demonstrates normal visceral enhancement and renal excretion. 1 cm mid renal cyst bilaterally. Enlarged/nodular prostate gland impresses on the base of the bladder. Distended urine bladder demonstrates mild circumferential wall thickening, possible cystitis in the right clinical setting. Remaining liver, pancreas, spleen, adrenal glands, kidneys, ureters, and bladder appear unremarkable. Mild scattered aortoiliac calcifications. No AAA or pathological retroperitoneal lymphadenopathy. Osseous structures intact with minimal degenerative changes of the lower lumbar spine. Previous midline ventral hernia surgery with intact mesh graft. Impression: 1. Cholelithiasis. Gallbladder sonogram may yield further information if clinically warranted. 2. Mild fecal stasis without obstruction. 3. Mild circumferential urinary bladder wall thickening. Rule out cystitis. 4. Incidental splenomegaly, enlarged/nodular prostate gland, and bilateral renal cysts. 5. Remaining CT abdomen/pelvis with and without contrast exam is negative. Comment: Preliminary interpretation was made by [facility]. No critical discrepancy.
== END 2019-10-11 16:12 | disposition home or self-care (01) ==
LOC: ED 12:33 → MED SURG 16:06
PROVIDERS: ADMIT Family Medicine; ATTEND Family Medicine
DX: R07.9 Chest pain, unspecified (principal); R06.02 Shortness of breath; R51 Headache; F41.8 Other specified anxiety disorders; I10 Essential (primary) hypertension; E11.9 Type 2 diabetes mellitus without complications; I25.2 Old myocardial infarction; E78.5 Hyperlipidemia, unspecified; J44.9 Chronic obstructive pulmonary disease, unspecified; E78.00 Pure hypercholesterolemia, unspecified; Z72.0 Tobacco use; Z86.73 Personal history of transient ischemic attack (TIA), and cerebral infarction without residual deficits; Z79.01 Long term (current) use of anticoagulants; Z95.1 Presence of aortocoronary bypass graft; Z79.899 Other long term (current) drug therapy; Z87.448 Personal history of other diseases of urinary system; Z87.19 Personal history of other diseases of the digestive system
CPT/HCPCS: 36000; 36415; 71046; 74178; 80053; 80061; 82962; 83036; 83721; 83880; 84484; 85025; 85027; 93005; 93041; 93268; 94640; 94760; 99285; G0378; J1817; A9270-GY

== ENCOUNTER 2020-01-15 18:06 | Observation (INO) | payer MEDICARE ==
[2020-01-15 19:20] LABS: Absolute Neutrophil Ct (ANC) 14.49 (1.4-6.9); BASOPHIL % 0.1 % (0.0-0.4); Basophil (Absolute #) 0.02 (0-0.4); Eosinophil % 0.1 % (0.00-5.0); Eosinophil (Absolute #) 0.01 (0-0.5); Lymphocyte (Absolute #) 0.53 (1.0-4.6); Lymphocytes % 3.2 % (24.0-44.0); Mean Cell Volume 82.1 fl (78-100); Mean Corpuscular Hemoglobin 25.3 pg (26-32); Mean Corpuscular Hgb Concent. 30.8 g/dl (32-36); Monocyte (Absolute #) 1.54 (0.0-1.3); Monocytes % 9.3 % (0.0-12.0); Neutrophil % 87.3 % (36.0-66.0); Platelet Count 163 K/mm3 (150-450); Red Blood Count 4.75 M/mm3 (4.1-5.6); Red Cell Distribution Width 17.6 % (11.5-14.0); White Blood Count 16.6 K/mm3 (4.0-10.5)
[2020-01-15 19:21] LABS: Appearance TURBID (CLEAR); Bacteria MODERATE /HPF (NEGATIVE); Bilirubin NEGATIVE (NEGATIVE); Blood SMALL Ery/ul (0-5); Epithelial Cells RARE /HPF (FEW); Glucose NEGATIVE (NEGATIVE); Ketones NEGATIVE (NEGATIVE); Leukocyte Esterase LARGE (NEGATIVE); Nitrite POSITIVE (NEGATIVE); Protein,Urine Dip 100 (Negative); RBC 26-50 /HPF (0-2); Specific Gravity 1.016 (1.005-1.025); Urobilinogen NEGATIVE mg/dL (0-1); WBC >100 /HPF (0-5)
[2020-01-15 19:27] LABS: ALBUMIN 4.1 g/dL (3.5-5.0); ANION GAP 10.3 MEQ/L (5-15); BILIRUBIN,TOTAL 1.4 mg/dL (0.2-1.3); Calcium 9.2 mg/dL (8.4-10.2); Creatinine 1 1.38 mg/dL (0.66-1.25); MAGNESIUM 2.2 mg/dL (1.6-2.3); Potassium 4.2 mmol/L (3.5-5.1); Total Protein 7.5 g/dL (6.3-8.2)
[2020-01-15] MEDS ORDERED: ROCEPHIN 1 Gm-D5w 50 ml Bag** 1 G/50 ML IVPB IV ONE (19:43)
[2020-01-15] MEDS ORDERED: ROCEPHIN 1 Gm-D5w 50 ml Bag** 1 G/50 ML IVPB IV STA (19:43)
--- NOTE | 2020-01-15 19:44 | ERPHSYRPT ---
- History of Present Illness Time Seen by Provider: 01/15/20 18:30 Exam Limitations: no limitations Patient Subjective Stated Complaint: sob Triage Nursing Assessment: pt to ED c/o SOB, fever and chills since yesterday, no home fever treatment today, 99.5 oral on arrival to ED. pt has no known COVID exposure but states [place] "[place]." pt appears SOB on arrival, O2 sats 97% RA. lung sounds clear bilaterally, heart sounds clear. pulses palpable and strong. pt reports couughing black and yellow mucous x 2 months, does smoke cigarettes. Physician History: Patient is a 69-year-old male presents to our ED via EMS for evaluation of shortness of breath cough fever chills that has been ongoing for the past several days. Patient admits that he is a smoker. Patient has an extensive cardiac history with 9 stents and CABG x5. Patient admits that he has been experiencing intermittent chest pain for the past several weeks. Chest pain was worse this morning. No trauma. No nausea or vomiting. No diaphoresis. Symptoms are intermittent. Patient also complains of urinary frequency and urgency. Patient voices no other complaints at this time. Timing/Duration: day(s) Severity: moderate Modifying Factors: Improves With: nothing Associated Symptoms: shortness of breath, chills, fever, No nausea, No vomiting, No abdominal pain, No diaphoresis, No cough, No headaches, No malaise, No rash, No syncope Allergies/Adverse Reactions: No Known Drug Allergies Allergy (Verified 10/10/19 12:53) Home Medications: Amiodarone HCl 200 mg PO DAILY 10/10/19 [History] Apixaban [Eliquis] 5 mg PO BID 10/10/19 [History] Clopidogrel Bisulfate [Clopidogrel] 75 mg PO DAILY 10/10/19 [History] Levothyroxine Sodium 25 mcg PO DAILY 10/10/19 [History] Loratadine 10 mg PO DAILY 10/10/19 [History] Metformin HCl [Fortamet] 500 mg PO DAILY 10/10/19 [History] Nebivolol HCl 5 MG [Bystolic 5 MG] 5 mg PO DAILY 10/10/19 [History] Nitroglycerin 0.4 mg SL Q2H/PRN PRN 10/10/19 [History] Tamsulosin HCl 0.4 mg [Flomax 0.4 MG] 0.4 mg PO DAILY 10/10/19 [History] Terazosin HCl 10 mg PO HS 10/10/19 [History] allopurinoL [Allopurinol] 100 mg PO HS 10/10/19 [History] Hx Tetanus, Diphtheria Vaccination/Date Given: Yes Hx Influenza Vaccination/Date Given: Yes Hx Pneumococcal Vaccination/Date Given: Yes Immunizations Up to Date: Yes Travel Risk - International Travel Have you traveled outside of the country in past 3 weeks: No - Coronavirus Screening Are you exhibiting any of the following symptoms?: No Close contact with a COVID-19 positive Pt in past 14-21 Days: No - Review of Systems Constitutional: No Symptoms, No Fever, No Chills Eyes: No Symptoms Ears, Nose, & Throat: No Symptoms Respiratory: No Symptoms, Cough, Dyspnea on Exertion (SU), No Dyspnea Cardiac: Chest Pain, No Edema, No Syncope Abdominal/Gastrointestinal: No Abdominal Pain, No Nausea, No Vomiting, No Diarrh ea Genitourinary Symptoms: Frequency Musculoskeletal: No Symptoms, No Back Pain, No Neck Pain Skin: No Symptoms, No Rash Neurological: No Symptoms, No Dizziness, No Focal Weakness, No Sensory Changes Psychological: No Symptoms Endocrine: No Symptoms Hematologic/Lymphatic: No Symptoms Immunological/Allergic: No Symptoms All Other Systems: Reviewed and Negative - Past Medical History Pertinent Past Medical History: Yes Neurological History: TIA ENT History: Cataracts Cardiac History: Congenital Heart Disease, Congestive Heart Failure, High Cholesterol, Myocardial Infarction (DC) Respiratory History: CHF, COPD Endocrine Medical History: Diabetes Type II History: Other Psycho-Social History: Anxiety, Depression - Past Surgical History Past Surgical History: Yes Cardiac: CABG, Cardiac Catheterization, Cardiac Stent, Pacemaker Gastrointestinal: Other Other Surgical History: RUPTURED BELLY BUTTON - Social History Smoking Status: Current every day smoker How long have you smoked: YEARS Exposure to second hand smoke: No Drug Use: none Patient Lives Alone: No - Nursing Vital Signs Nursing Vital Signs: Initial Vital Signs Temperature 99.5 F 01/15/20 18:27 Pulse Rate 118 H 01/15/20 18:27 Respiratory Rate 21 01/15/20 18:27 Blood Pressure 119/74 01/15/20 18:27 O2 Sat by Pulse Oximetry 97 01/15/20 18:27 Pain Scale Pain Intensity 0 - Physical Exam General Appearance: no apparent distress, alert Eye Exam: PERRL/EOMI, eyes nml inspection Ears, Nose, Throat Exam: normal ENT inspection, TMs normal, pharynx normal, moist mucous membranes Neck Exam: normal inspection, non-tender, supple, full range of motion Respiratory Exam: normal breath sounds, lungs clear, No respiratory distress Cardiovascular Exam: regular rate/rhythm, normal heart sounds, normal peripheral pulses Gastrointestinal/Abdomen Exam: soft, normal bowel sounds, No tenderness, No mass Back Exam: normal inspection, normal range of motion, No CVA tenderness, No vertebral tenderness Extremity Exam: normal inspection, normal range of motion, pelvis stable Neurologic Exam: alert, oriented x 3, cooperative, normal mood/affect, nml cerebellar function, nml station & gait, sensation nml, No motor deficits Skin Exam: normal color, warm, dry, No rash Lymphatic Exam: No adenopathy SpO2 Interpretation: normal SpO2: 96 O2 Delivery: Room Air - Course Nursing assessment & vital signs reviewed: Yes EKG Interpreted by Me: RATE (77), Sinus Rhythm, NORMAL AXIS, NORMAL INTERVALS - Radiology Exams Chest X-ray Interpretation: Interpreted by me (No infiltrates or consolidation. Cardiomegaly normal bony thorax. 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 Care 01/15/20 18:40 Active EKG-ER Only STAT Care 01/15/20 18:39 Active IV Insertion STAT Care 01/15/20 18:39 Active Pulse Oximetry (ED) STAT Care 01/15/20 18:39 Active CHEST 1 VIEW (PORTABLE) Stat Exams 01/15/20 18:40 Taken CBC W DIFF Stat Lab 01/15/20 19:11 Completed CMP Stat Lab 01/15/20 19:11 Completed CULTURE,URINE Stat Lab 01/15/20 19:14 Received MAGNESIUM Stat Lab 01/15/20 19:11 Completed TROPONIN Q3H Lab 01/15/20 19:11 Completed TROPONIN Q3H Lab 01/15/20 21:45 Ordered TROPONIN Q3H Lab 01/16/20 00:45 Ordered TROPONIN Q3H Lab 01/16/20 03:45 Ordered TROPONIN Q3H Lab 01/16/20 06:45 Ordered UA W/RFX UR CULTURE Stat Lab 01/15/20 19:14 Completed Transfer Order Routine Transfer 01/15/20 Ordered Medication Summary Discontinued Medications Generic Name Dose Route Start Last Admin Trade Name Shravan PRN Reason Stop Dose Admin Ceftriaxone Sodium/Dextrose 1 g in 50 mls @ 100 mls/hr 01/15/20 19:43 01/15/20 20:24 Rocephin 1 Gm-D5w 50 Ml Bag IV 01/15/20 20:12 Infused STAT STA Infusion Ceftriaxone Sodium/Dextrose Confirm 01/15/20 19:43 Rocephin 1 Gm-D5w 50 Ml Bag Administered 01/15/20 19:44 Dose 1 g in 50 mls @ ud IV .[facility] Lab/Rad Data: Laboratory Result Diagrams 01/15/20 19:11 01/15/20 19:11 Laboratory Results 01/15/20 01/15/20 01/15/20 Range/Units 21:00 19:14 19:11 WBC (4.0-10.5) K/mm3 RBC (4.1-5.6) M/mm3 Hgb (12.5-18.0) gm/dl Hct (42-50) % MCV (78-100) fl MCH (26-32) pg MCHC (32-36) g/dl RDW (11.5-14.0) % Plt Count (150-450) K/mm3 MPV (7.5-11.0) fl Gran % (36.0-66.0) % Eos # (Auto) (0-0.5) Absolute Lymphs (auto) (1.0-4.6) Absolute Monos (auto) (0.0-1.3) Lymphocytes % (24.0-44.0) % Monocytes % (0.0-12.0) % Eosinophils % (0.00-5.0) % Basophils % (0.0-0.4) % Absolute Granulocytes (1.4-6.9) Basophils # (0-0.4) Sodium (137-145) mmol/L Potassium (3.5-5.1) mmol/L Chloride (98-107) mmol/L Carbon Dioxide (22-30) mmol/L Anion Gap (5-15) MEQ/L BUN (9-20) mg/dL Creatinine (0.66-1.25) mg/dL Estimated GFR ML/MIN Glucose (74-106) mg/dL Calcium (8.4-10.2) mg/dL Magnesium (1.6-2.3) mg/dL Total Bilirubin (0.2-1.3) mg/dL AST (17-59) U/L ALT (0-50) U/L Alkaline Phosphatase (38-126) U/L Troponin I < 0.012 (0.000-0.034) ng/mL Serum Total Protein (6.3-8.2) g/dL Albumin (3.5-5.0) g/dL Urine Color JUANY (YELLOW) Urine Appearance TURBID (CLEAR) Urine pH 7.0 (5-6) Ur Specific [place] 1.016 (1.005-1.025) Urine Protein 100 (Negative) Urine Ketones NEGATIVE (NEGATIVE) Urine Blood SMALL (0-5) Peter/ul Urine Nitrite POSITIVE (NEGATIVE) Urine Bilirubin NEGATIVE (NEGATIVE) Urine Urobilinogen NEGATIVE (0-1) mg/dL Ur Leukocyte Esterase LARGE (NEGATIVE) Urine WBC (Auto) >100 (0-5) /HPF Urine RBC (Auto) 26-50 (0-2) /HPF U Epithel Cells (Auto) RARE (FEW) /HPF Urine Bacteria (Auto) MODERATE (NEGATIVE) /HPF Urine Culture Reflexed YES (NO) Urine Glucose NEGATIVE (NEGATIVE) mg/dL SARS-CoV-2 (PCR) NEGATIVE (NEGATIVE) 01/15/20 01/15/20 Range/Units 19:11 19:11 WBC 16.6 H (4.0-10.5) K/mm3 RBC 4.75 (4.1-5.6) M/mm3 Hgb 12.0 L (12.5-18.0) gm/dl Hct 39.0 L (42-50) % MCV 82.1 (78-100) fl MCH 25.3 L (26-32) pg MCHC 30.8 L (32-36) g/dl RDW 17.6 H (11.5-14.0) % Plt Count 163 (150-450) K/mm3 MPV 11.0 (7.5-11.0) fl Gran % 87.3 H (36.0-66.0) % Eos # (Auto) 0.01 (0-0.5) Absolute Lymphs (auto) 0.53 L (1.0-4.6) Absolute Monos (auto) 1.54 H (0.0-1.3) Lymphocytes % 3.2 L (24.0-44.0) % Monocytes % 9.3 (0.0-12.0) % Eosinophils % 0.1 (0.00-5.0) % Basophils % 0.1 (0.0-0.4) % Absolute Granulocytes 14.49 H (1.4-6.9) Basophils # 0.02 (0-0.4) Sodium 137 (137-145) mmol/L Potassium 4.2 (3.5-5.1) mmol/L Chloride 103 (98-107) mmol/L Carbon Dioxide 28 (22-30) mmol/L Anion Gap 10.3 (5-15) MEQ/L BUN 18 (9-20) mg/dL Creatinine 1.38 H (0.66-1.25) mg/dL Estimated GFR 54.0 ML/MIN Glucose 147 H (74-106) mg/dL Calcium 9.2 (8.4-10.2) mg/dL Magnesium 2.2 (1.6-2.3) mg/dL Total Bilirubin 1.40 H (0.2-1.3) mg/dL AST 19 (17-59) U/L ALT 15 (0-50) U/L Alkaline Phosphatase 71 (38-126) U/L Troponin I (0.000-0.034) ng/mL Serum Total Protein 7.5 (6.3-8.2) g/dL Albumin 4.1 (3.5-5.0) g/dL Urine Color (YELLOW) Urine Appearance (CLEAR) Urine pH (5-6) Ur Specific [place] (1.005-1.025) Urine Protein (Negative) Urine Ketones (NEGATIVE) Urine Blood (0-5) Peter/ul Urine Nitrite (NEGATIVE) Urine Bilirubin (NEGATIVE) Urine Urobilinogen (0-1) mg/dL Ur Leukocyte Esterase (NEGATIVE) Urine WBC (Auto) (0-5) /HPF Urine RBC (Auto) (0-2) /HPF U Epithel Cells (Auto) (FEW) /HPF Urine Bacteria (Auto) (NEGATIVE) /HPF Urine Culture Reflexed (NO) Urine Glucose (NEGATIVE) mg/dL SARS-CoV-2 (PCR) (NEGATIVE) - Progress Progress: improved Progress Note: 01/15/20 20:32 Patient has acute coronary syndrome and a urinary tract infection. Leukocytosis of 16,000. In light of patient's extensive cardiac history we will admit patient for cardiac rule out. Patient will also receive antibiotics for UTI. Case discussed with Dr. Murillo who accepts admission to observation. Plan of care discussed with patient. He agrees to admission to [facility] for further evaluation and treatment. Discussed with .: Steve Will see patient in: hospital (observation) Counseled pt/family regarding: lab results, diagnosis, need for follow-up, rad results, smoking cessation - Departure Departure Disposition: Observation Clinical Impression: UTI (urinary tract infection), ACS (acute coronary syndrome), Acute renal injury, Cough Condition: Stable Critical Care Time: No [facility] [place] [Primary Care Provider] -
[2020-01-15] MEDS ORDERED: MAALOX ES 30 ML UNIT DOSE PO PRN (22:51)
[2020-01-15] MEDS ORDERED: Zofran 4 MG/2 ML VIAL IV PRN (22:51)
[2020-01-15] MEDS ORDERED: TYLENOL 325 MG PO PRN (22:51)
[2020-01-15] MEDS ORDERED: Senokot-S Tablet PO PRN (22:51)
[2020-01-15] MEDS ORDERED: MILK OF MAGNESIA 30 ML PO PRN (22:51)
[2020-01-15] MEDS ORDERED: Nicoderm CQ 21 MG TOP SCH (23:00)
[2020-01-16 07:32] LABS: Risk Ratio 5.1
--- NOTE | 2020-01-16 08:55 | PCM.HP ---
History of Present Illness - Chief Complaint Chief Complaint: acs, UTI Date: 01/16/20 History of Present Illness: is a 69 year old male. - Review of Systems Constitutional: Weakness, Other (noted problems with balance yesterday during the episode of 4 hours of chest pain), No Fever, No Chills Eyes: No Symptoms Ears, Nose, & Throat: No Symptoms Respiratory: No Cough, No Short Of Breath Cardiac: Chest Pain, No Edema, No Syncope Abdominal/Gastrointestinal: Nausea, No Abdominal Pain, No Vomiting, No Diarrhea Genitourinary Symptoms: No Dysuria Musculoskeletal: No Back Pain, No Neck Pain Skin: No Rash Neurological: No Dizziness, No Focal Weakness, No Sensory Changes Psychological: No Symptoms Endocrine: No Symptoms Hematologic/Lymphatic: No Symptoms Immunological/Allergic: No Symptoms Medications & Allergies Home Medications: Home Medication List Amiodarone HCl 200 mg PO DAILY 10/10/19 [History Confirmed 01/16/20] Clopidogrel Bisulfate [Clopidogrel] 75 mg PO DAILY 10/10/19 [History Confirmed 01/16/20] Levothyroxine Sodium 25 mcg PO DAILY 10/10/19 [History Confirmed 01/16/20] Loratadine 10 mg PO DAILY 10/10/19 [History Confirmed 01/16/20] Metformin HCl [Fortamet] 500 mg PO DAILY 10/10/19 [History Confirmed 01/16/20] Nebivolol HCl 5 MG [Bystolic 5 MG] 5 mg PO DAILY 10/10/19 [History Confirmed 01/16/20] Nitroglycerin 0.4 mg SL Q2H/PRN PRN 10/10/19 [History Confirmed 01/16/20] Tamsulosin HCl 0.4 mg [Flomax 0.4 MG] 0.4 mg PO DAILY 10/10/19 [History Confirmed 01/16/20] Terazosin HCl 10 mg PO HS 10/10/19 [History Confirmed 01/16/20] allopurinoL [Allopurinol] 100 mg PO DAILY 10/10/19 [History Confirmed 01/16/20] Isosorbide Mononitrate 30 mg [Imdur 30 MG] 30 mg PO BID 01/16/20 [History Confirmed 01/16/20] Allergies/Adverse Reactions: Allergies Allergy/AdvReac Type Severity Reaction Status Date / Time No Known Drug Allergies Allergy Verified 10/10/19 12:53 - Past Medical History Past Medical History: Yes Neurological History: TIA ENT History: Cataracts Cardiac History: Angina, Congestive Heart Failure, High Cholesterol, Myocardial Infarction (NM) CARDIAC HISTORY: Angina Respiratory History: CHF, COPD Endocrine Medical History: Diabetes Type II Musculoskelatal History: Other GI Medical History: Hepatitis History: Other Pyscho-Social History: No Pertinent History Male Reproductive Disorders: Prostate Problems - Past Surgical History Past Surgical History: Yes Neuro Surgical History: No Pertinent History Cardiac History: Angioplasty, CABG, Pacemaker Respiratory Surgery: No Pertinent History GI Surgical History: No Pertinent History Genitourinary Surgical Hx: No Pertinent History Musculskeletal Surgical Hx: No Pertinent History Male Surgical History: No Pertinent History Other Surgical History: RUPTURED BELLY BUTTON - Social History Smoking Status: Current every day smoker How long have you smoked: 51yrs ago Exposure to second hand smoke: Yes Alcohol: None Drug Use: none - Physical Exam Vital Signs: Vital Signs - 24 hr Temp Pulse Resp BP Pulse Ox 01/16/20 08:51 93 L 01/16/20 07:57 97 01/16/20 07:21 99.4 F 63 18 99/53 97 01/16/20 03:25 98 F 88 18 98 01/15/20 23:40 96 01/15/20 23:10 97 F 72 18 107/68 96 01/15/20 22:06 96 01/15/20 21:40 72 106/62 96 01/15/20 20:40 101 H 90/47 95 01/15/20 19:51 105 H 17 92/69 97 01/15/20 18:49 96 01/15/20 18:27 99.5 F 118 H 24 119/74 97 General Appearance: no apparent distress, alert Neurologic Exam: alert, oriented x 3, cooperative, normal mood/affect, nml cerebellar function, nml station & gait, sensation nml, No motor deficits Eye Exam: PERRL/EOMI, eyes nml inspection Ears, Nose, Throat Exam: normal ENT inspection, TMs normal, pharynx normal, moist mucous membranes Neck Exam: normal inspection, non-tender, supple, full range of motion Respiratory Exam: normal breath sounds, lungs clear, No respiratory distress Cardiovascular Exam: regular rate/rhythm, normal heart sounds, normal peripheral pulses Gastrointestinal/Abdomen Exam: soft, normal bowel sounds, No tenderness, No mass Back Exam: normal inspection, normal range of motion, No CVA tenderness, No vertebral tenderness Extremity Exam: normal inspection, normal range of motion, pelvis stable Skin Exam: normal color, warm, dry, No rash Lymphatic Exam: No adenopathy Results - Labs Lab/Micro Results: Lab Results-Last 24 Hours 01/15/20 01/15/20 01/15/20 Range/Units 19:11 19:11 19:11 WBC 16.6 H (4.0-10.5) K/mm3 RBC 4.75 (4.1-5.6) M/mm3 Hgb 12.0 L (12.5-18.0) gm/dl Hct 39.0 L (42-50) % MCV 82.1 (78-100) fl MCH 25.3 L (26-32) pg MCHC 30.8 L (32-36) g/dl RDW 17.6 H (11.5-14.0) % Plt Count 163 (150-450) K/mm3 MPV 11.0 (7.5-11.0) fl Gran % 87.3 H (36.0-66.0) % Eos # (Auto) 0.01 (0-0.5) Absolute Lymphs (auto) 0.53 L (1.0-4.6) Absolute Monos (auto) 1.54 H (0.0-1.3) Lymphocytes % 3.2 L (24.0-44.0) % Monocytes % 9.3 (0.0-12.0) % Eosinophils % 0.1 (0.00-5.0) % Basophils % 0.1 (0.0-0.4) % Absolute Granulocytes 14.49 H (1.4-6.9) Basophils # 0.02 (0-0.4) Sodium 137 (137-145) mmol/L Potassium 4.2 (3.5-5.1) mmol/L Chloride 103 (98-107) mmol/L Carbon Dioxide 28 (22-30) mmol/L Anion Gap 10.3 (5-15) MEQ/L BUN 18 (9-20) mg/dL Creatinine 1.38 H (0.66-1.25) mg/dL Estimated GFR 54.0 ML/MIN Glucose 147 H (74-106) mg/dL Calcium 9.2 (8.4-10.2) mg/dL Magnesium 2.2 (1.6-2.3) mg/dL Total Bilirubin 1.40 H (0.2-1.3) mg/dL AST 19 (17-59) U/L ALT 15 (0-50) U/L Alkaline Phosphatase 71 (38-126) U/L Troponin I < 0.012 (0.000-0.034) ng/mL Serum Total Protein 7.5 (6.3-8.2) g/dL Albumin 4.1 (3.5-5.0) g/dL Triglycerides (30-150) mg/dL Cholesterol (50-200) mg/dL LDL Cholesterol (30-100) mg/dL HDL Cholesterol (40-60) mg/dL Heart Disease Risk Ratio Urine Color (YELLOW) Urine Appearance (CLEAR) Urine pH (5-6) Ur Specific [place] (1.005-1.025) Urine Protein (Negative) Urine Ketones (NEGATIVE) Urine Blood (0-5) Peter/ul Urine Nitrite (NEGATIVE) Urine Bilirubin (NEGATIVE) Urine Urobilinogen (0-1) mg/dL Ur Leukocyte Esterase (NEGATIVE) Urine WBC (Auto) (0-5) /HPF Urine RBC (Auto) (0-2) /HPF U Epithel Cells (Auto) (FEW) /HPF Urine Bacteria (Auto) (NEGATIVE) /HPF Urine Culture Reflexed (NO) Urine Glucose (NEGATIVE) mg/dL SARS-CoV-2 (PCR) (NEGATIVE) 01/15/20 01/15/20 01/15/20 Range/Units 19:14 21:00 22:15 WBC (4.0-10.5) K/mm3 RBC (4.1-5.6) M/mm3 Hgb (12.5-18.0) gm/dl Hct (42-50) % MCV (78-100) fl MCH (26-32) pg MCHC (32-36) g/dl RDW (11.5-14.0) % Plt Count (150-450) K/mm3 MPV (7.5-11.0) fl Gran % (36.0-66.0) % Eos # (Auto) (0-0.5) Absolute Lymphs (auto) (1.0-4.6) Absolute Monos (auto) (0.0-1.3) Lymphocytes % (24.0-44.0) % Monocytes % (0.0-12.0) % Eosinophils % (0.00-5.0) % Basophils % (0.0-0.4) % Absolute Granulocytes (1.4-6.9) Basophils # (0-0.4) Sodium (137-145) mmol/L Potassium (3.5-5.1) mmol/L Chloride (98-107) mmol/L Carbon Dioxide (22-30) mmol/L Anion Gap (5-15) MEQ/L BUN (9-20) mg/dL Creatinine (0.66-1.25) mg/dL Estimated GFR ML/MIN Glucose (74-106) mg/dL Calcium (8.4-10.2) mg/dL Magnesium (1.6-2.3) mg/dL Total Bilirubin (0.2-1.3) mg/dL AST (17-59) U/L ALT (0-50) U/L Alkaline Phosphatase (38-126) U/L Troponin I < 0.012 (0.000-0.034) ng/mL Serum Total Protein (6.3-8.2) g/dL Albumin (3.5-5.0) g/dL Triglycerides (30-150) mg/dL Cholesterol (50-200) mg/dL LDL Cholesterol (30-100) mg/dL HDL Cholesterol (40-60) mg/dL Heart Disease Risk Ratio Urine Color JUANY (YELLOW) Urine Appearance TURBID (CLEAR) Urine pH 7.0 (5-6) Ur Specific [place] 1.016 (1.005-1.025) Urine Protein 100 (Negative) Urine Ketones NEGATIVE (NEGATIVE) Urine Blood SMALL (0-5) Peter/ul Urine Nitrite POSITIVE (NEGATIVE) Urine Bilirubin NEGATIVE (NEGATIVE) Urine Urobilinogen NEGATIVE (0-1) mg/dL Ur Leukocyte Esterase LARGE (NEGATIVE) Urine WBC (Auto) >100 (0-5) /HPF Urine RBC (Auto) 26-50 (0-2) /HPF U Epithel Cells (Auto) RARE (FEW) /HPF Urine Bacteria (Auto) MODERATE (NEGATIVE) /HPF Urine Culture Reflexed YES (NO) Urine Glucose NEGATIVE (NEGATIVE) mg/dL SARS-CoV-2 (PCR) NEGATIVE (NEGATIVE) 01/16/20 01/16/20 01/16/20 Range/Units 00:40 04:05 06:47 WBC (4.0-10.5) K/mm3 RBC (4.1-5.6) M/mm3 Hgb (12.5-18.0) gm/dl Hct (42-50) % MCV (78-100) fl MCH (26-32) pg MCHC (32-36) g/dl RDW (11.5-14.0) % Plt Count (150-450) K/mm3 MPV (7.5-11.0) fl Gran % (36.0-66.0) % Eos # (Auto) (0-0.5) Absolute Lymphs (auto) (1.0-4.6) Absolute Monos (auto) (0.0-1.3) Lymphocytes % (24.0-44.0) % Monocytes % (0.0-12.0) % Eosinophils % (0.00-5.0) % Basophils % (0.0-0.4) % Absolute Granulocytes (1.4-6.9) Basophils # (0-0.4) Sodium (137-145) mmol/L Potassium (3.5-5.1) mmol/L Chloride (98-107) mmol/L Carbon Dioxide (22-30) mmol/L Anion Gap (5-15) MEQ/L BUN (9-20) mg/dL Creatinine (0.66-1.25) mg/dL Estimated GFR ML/MIN Glucose (74-106) mg/dL Calcium (8.4-10.2) mg/dL Magnesium (1.6-2.3) mg/dL Total Bilirubin (0.2-1.3) mg/dL AST (17-59) U/L ALT (0-50) U/L Alkaline Phosphatase (38-126) U/L Troponin I < 0.012 < 0.012 < 0.012 (0.000-0.034) ng/mL Serum Total Protein (6.3-8.2) g/dL Albumin (3.5-5.0) g/dL Triglycerides (30-150) mg/dL Cholesterol (50-200) mg/dL LDL Cholesterol (30-100) mg/dL HDL Cholesterol (40-60) mg/dL Heart Disease Risk Ratio Urine Color (YELLOW) Urine Appearance (CLEAR) Urine pH (5-6) Ur Specific [place] (1.005-1.025) Urine Protein (Negative) Urine Ketones (NEGATIVE) Urine Blood (0-5) Peter/ul Urine Nitrite (NEGATIVE) Urine Bilirubin (NEGATIVE) Urine Urobilinogen (0-1) mg/dL Ur Leukocyte Esterase (NEGATIVE) Urine WBC (Auto) (0-5) /HPF Urine RBC (Auto) (0-2) /HPF U Epithel Cells (Auto) (FEW) /HPF Urine Bacteria (Auto) (NEGATIVE) /HPF Urine Culture Reflexed (NO) Urine Glucose (NEGATIVE) mg/dL SARS-CoV-2 (PCR) (NEGATIVE) 01/16/20 Range/Units 06:47 WBC (4.0-10.5) K/mm3 RBC (4.1-5.6) M/mm3 Hgb (12.5-18.0) gm/dl Hct (42-50) % MCV (78-100) fl MCH (26-32) pg MCHC (32-36) g/dl RDW (11.5-14.0) % Plt Count (150-450) K/mm3 MPV (7.5-11.0) fl Gran % (36.0-66.0) % Eos # (Auto) (0-0.5) Absolute Lymphs (auto) (1.0-4.6) Absolute Monos (auto) (0.0-1.3) Lymphocytes % (24.0-44.0) % Monocytes % (0.0-12.0) % Eosinophils % (0.00-5.0) % Basophils % (0.0-0.4) % Absolute Granulocytes (1.4-6.9) Basophils # (0-0.4) Sodium (137-145) mmol/L Potassium (3.5-5.1) mmol/L Chloride (98-107) mmol/L Carbon Dioxide (22-30) mmol/L Anion Gap (5-15) MEQ/L BUN (9-20) mg/dL Creatinine (0.66-1.25) mg/dL Estimated GFR ML/MIN Glucose (74-106) mg/dL Calcium (8.4-10.2) mg/dL Magnesium (1.6-2.3) mg/dL Total Bilirubin (0.2-1.3) mg/dL AST (17-59) U/L ALT (0-50) U/L Alkaline Phosphatase (38-126) U/L Troponin I (0.000-0.034) ng/mL Serum Total Protein (6.3-8.2) g/dL Albumin (3.5-5.0) g/dL Triglycerides 162 H (30-150) mg/dL Cholesterol 151 (50-200) mg/dL LDL Cholesterol 91 (30-100) mg/dL HDL Cholesterol 30 L (40-60) mg/dL Heart Disease Risk Ratio 5.1 Urine Color (YELLOW) Urine Appearance (CLEAR) Urine pH (5-6) Ur Specific [place] (1.005-1.025) Urine Protein (Negative) Urine Ketones (NEGATIVE) Urine Blood (0-5) Peter/ul Urine Nitrite (NEGATIVE) Urine Bilirubin (NEGATIVE) Urine Urobilinogen (0-1) mg/dL Ur Leukocyte Esterase (NEGATIVE) Urine WBC (Auto) (0-5) /HPF Urine RBC (Auto) (0-2) /HPF U Epithel Cells (Auto) (FEW) /HPF Urine Bacteria (Auto) (NEGATIVE) /HPF Urine Culture Reflexed (NO) Urine Glucose (NEGATIVE) mg/dL SARS-CoV-2 (PCR) (NEGATIVE) - Radiology Impressions Radiology Exams & Impressions: Radiology Procedures Category Date Time Status CHEST 1 VIEW (PORTABLE) Stat Exams 01/15/20 18:40 Taken - Other Procedures and Tests Respiratory Therapy 01/17/20 05:00 EKG ROUTINE 01/18/20 05:00 EKG ROUTINE 01/19/20 05:00 EKG ROUTINE Assessment/Plan (1) Vertigo Current Visit: Yes Status: Acute Assessment & Plan: work-up for possible TIA Code(s): R42 - DIZZINESS AND GIDDINESS (2) Chest pain, rule out acute myocardial infarction Current Visit: No Status: Acute Assessment & Plan: no changes in cardiac rhythm, and negative troponins, consider holter and will obtain echo Code(s): R07.9 - CHEST PAIN, UNSPECIFIED
--- NOTE | 2020-01-16 09:00 | XRAY ---
Indication: Short of breath. Comparison: October 10, 2019. Portable apical lordotic chest unchanged again hyperinflated with minimal left base fibrosis/scarring. Heart is not enlarged again with CABG surgery and left dual-lead pacemaker. Bony thorax intact. No new/acute findings.
[2020-01-16] MEDS ORDERED: ROCEPHIN 1 Gm-D5w 50 ml Bag** 1 G/50 ML IVPB IV SCH (10:00)
[2020-01-16] MEDS ORDERED: Bystolic 5 MG PO SCH (10:00)
[2020-01-16] MEDS ORDERED: Nitrostat 0.4 MG Tablet SL PRN (10:16)
[2020-01-16] MEDS ORDERED: PLAVIX 75 MG Tablet PO SCH (10:30)
[2020-01-16] MEDS ORDERED: CLARITIN 10 MG PO SCH (10:30)
[2020-01-16] MEDS ORDERED: SYNTHROID 25 MCG PO SCH (10:30)
[2020-01-16] MEDS ORDERED: Cordarone 200 MG PO SCH (10:30)
[2020-01-16] MEDS ORDERED: Imdur 30 MG PO SCH (10:30)
[2020-01-16] MEDS ORDERED: ZYLOPRIM 100 MG PO SCH (10:30)
[2020-01-16] MEDS ORDERED: Flomax 0.4 MG PO SCH (10:30)
[2020-01-16] MEDS ORDERED: Glucophage 500 MG PO SCH (11:00)
--- NOTE | 2020-01-16 11:04 | XRAY ---
Indication: Chest pain and dizziness. Two-dimensional sonogram and color Doppler imaging of the carotid arteries of the neck performed. Comparison: None Examination of the right carotid circulation demonstrates widely patent common carotid artery. Mild calcified plaquing at the level of the bulb extending into the origin of the internal carotid artery. External carotid artery widely patent. Normal antegrade vertebral artery flow. PSV of the CCA is 83 cm/s. PSV of the ICA is 95 cm/s. ICA/CCA ratio is 1.1. Examination of the left carotid circulation demonstrates widely patent common carotid artery. Mild calcified plaquing at the level of the bulb extending into origin of internal carotid artery. Widely patent external carotid artery. Normal antegrade vertebral artery flow. PSV of the CCA is 94 cm/s. PSV of the ICA is 108 cm/s. ICA/CCA ratio is 1.1. Impression: Mild calcified plaquing in both carotid bulbs and origin both internal carotid arteries. Velocity measurements and ratios are however negative for hemodynamically significant flow-limiting stenosis.
--- NOTE | 2020-01-16 12:10 | XRAY ---
Indication: Chest pain and dizziness. Multiple contiguous axial images obtained through the head without contrast. Comparison: None Age-appropriate global atrophy. No acute intracranial hemorrhage, abnormal extra-axial fluid collection, or mass effect. Fourth ventricle is midline without hydrocephalus. Cabral-white matter differentiation preserved. Bony calvarium intact. Visualized paranasal sinuses and mastoid air cells are clear. Impression: Negative CT head without contrast exam.
[2020-01-16 16:20] VITALS: BP 91/55; PULSE 62; O2SAT 95
[2020-01-16] MEDS ORDERED: HYTRIN 1 MG PO SCH (22:00)
[2020-01-16] MEDS ORDERED: TERAZOSIN HCL 10 MG PO SCH (22:00)
[2020-01-16] MEDS ORDERED: Nicoderm CQ 21 MG TOP SCH (22:00)
--- NOTE | 2020-01-17 11:33 | PCM.DS ---
Discharge Summary Date of Admission: 01/15/20 22:40 Date of Discharge: 01/16/20 Admitting Physician: LUANA ARMSTRONG Primary Care Provider: [facility] Allergies Allergies No Known Drug Allergies Allergy (Verified 10/10/19 12:53) Hospital Summary - Hospital Course Hospital Course: Pt. was admitted to hospital for further cardiac evaluation, upon h and p that am, I was concerned there may be neurologic component, therefore head ct, carot id doppers, and echo were done, those were found to be negative, pt. had no arrythmias and cardiac evaluation was negative, pt. was feeling normal and it was felt the patient could be safely discharged to home. Pt. will have a holter moniter placed for further evaluation, and follow-up with his insurance special agent, Dr. Pantoja for further cardiac evaluation as he feels warranted. - Vitals & Intake/Output Vital Signs: Vital Signs Temperature 99 F 01/16/20 16:00 Pulse Rate 62 01/16/20 16:00 Respiratory Rate 16 01/16/20 16:00 Blood Pressure 91/55 01/16/20 16:00 O2 Sat by Pulse Oximetry 95 01/16/20 16:00 Intake & Output: Intake & Output 01/14/20 01/15/20 01/16/20 01/17/20 11:59 11:59 11:59 11:59 Intake Total 360 1380 Output Total 300 100 Balance 60 1280 Weight 70.6 kg 70.6 kg - Lab Result Diagrams: 01/15/20 19:11 01/15/20 19:11 Lab Results-Last 24 Hrs: Accuchecks Accucheck Value: 126 Accucheck Value: 136 Micro Results-Entire Visit: Accuchecks Accucheck Value: 126 Accucheck Value: 136 - Radiology Exams Ordered Rad Exams-Entire Visit: Radiology Procedures Category Date Time Status CAROTID BILATERAL [US] Routine Exams 01/16/20 10:29 Completed CHEST 1 VIEW (PORTABLE) Stat Exams 01/15/20 18:40 Completed ECHO W/2D AND DOPPLER [US] Routine Exams 01/16/20 10:28 Taken HEAD WITHOUT CONTRAST [CT] Routine Exams 01/16/20 09:00 Completed - Procedures and Test Procedures and Tests throughout Hospitalization: Therapy Orders & Screens 01/16/20 02:11 EKG ROUTINE Comment: Diagnosis: ACS 01/16/20 18:05 Holter Monitor ROUTINE Comment: Reason For Exam: palpitations Diagnosis: acs, UTI 01/17/20 05:00 EKG ROUTINE Comment: Diagnosis: ACS 01/18/20 05:00 EKG ROUTINE Comment: Diagnosis: ACS 01/19/20 05:00 EKG ROUTINE Comment: Diagnosis: ACS Discharge Exam General Appearance: no apparent distress, alert Neurologic Exam: alert, oriented x 3, cooperative, normal mood/affect, nml cerebellar function, sensation nml, No motor deficits Eye Exam: PERRL, EOMI, eyes nml inspection Ears, Nose, Throat Exam: normal ENT inspection, pharynx normal, moist mucous membranes Neck Exam: normal inspection, non-tender, supple, full range of motion Respiratory Exam: normal breath sounds, lungs clear, No respiratory distress Cardiovascular Exam: regular rate/rhythm, normal heart sounds Gastrointestinal/Abdomen Exam: soft, No tenderness, No mass Male Genitalia Exam: deferred Rectal Exam: deferred Back Exam: normal inspection, normal range of motion, No CVA tenderness, No vertebral tenderness Extremity Exam: normal inspection, normal range of motion Skin Exam: normal color, warm, dry Final Diagnosis/Problem List - Final Discharge Diagnosis/Problem (1) Vertigo Status: Acute Assessment & Plan: Pt. was gently hydrated in ER, this was nearly resolved upon admission to ER and resolved upon admission to the floor. We will further evaluate with head ct, carotid doppler and echo Code(s): R42 - DIZZINESS AND GIDDINESS (2) Chest pain, rule out acute myocardial infarction Status: Acute Assessment & Plan: cardiac work-up was negative for acute cardiac event Code(s): R07.9 - CHEST PAIN, UNSPECIFIED - Discharge Discharge Date: 01/16/20 Disposition: Home, Self-Care Condition: Stable Prescriptions: Continue allopurinoL [Allopurinol] 100 mg PO DAILY Terazosin HCl 10 mg PO HS Tamsulosin HCl 0.4 mg [Flomax 0.4 MG] 0.4 mg PO DAILY Nitroglycerin 0.4 mg SL Q2H/PRN PRN PRN Reason: Chest Pain Nebivolol HCl 5 MG [Bystolic 5 MG] 5 mg PO DAILY Metformin HCl [Fortamet] 500 mg PO DAILY Loratadine 10 mg PO DAILY Levothyroxine Sodium 25 mcg PO DAILY Clopidogrel Bisulfate [Clopidogrel] 75 mg PO DAILY Amiodarone HCl 200 mg PO DAILY Isosorbide Mononitrate 30 mg [Imdur 30 MG] 30 mg PO BID Instructions: Urinary Tract Infection, Adult (DC), Chest Pain (DC) Additional Instructions: Call Gala Pantoja's office on Sunday morning to make a follow-up appointment. Wear Halter monitor for 24hrs and follow instructions per respiratory. Forms: Discharge Instructions
== END 2020-01-16 18:25 | disposition home or self-care (01) ==
LOC: ED 18:06 → MED SURG 22:40
PROVIDERS: ADMIT Family Medicine; ATTEND Family Medicine
DX: R42 Dizziness and giddiness (principal); R07.9 Chest pain, unspecified; N39.0 Urinary tract infection, site not specified; E11.9 Type 2 diabetes mellitus without complications; E78.00 Pure hypercholesterolemia, unspecified; Z86.73 Personal history of transient ischemic attack (TIA), and cerebral infarction without residual deficits; Z79.899 Other long term (current) drug therapy
CPT/HCPCS: 36000; 36415; 70450; 71045; 80053; 80061; 81001; 82962; 83721; 83735; 84484; 85025; 87077; 87086; 87186; 93005; 93041; 93225; 93306; 93880; 94760; 96365; 99284; U0003; 93268; G0378; J0696; A9270-GY

== ENCOUNTER 2020-02-20 02:56 | Observation (INO) | payer MEDICARE ==
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
[2020-02-20] MEDS ORDERED: Sodium Chloride 0.9% 1000 ML 1,000 ML IV SCH (03:30)
[2020-02-20 03:48] LABS: ALBUMIN 3.8 g/dL (3.5-5.0); ANION GAP 9.7 MEQ/L (5-15); BILIRUBIN,TOTAL 0.6 mg/dL (0.2-1.3); Calcium 8.9 mg/dL (8.4-10.2); Creatinine 1 1.27 mg/dL (0.66-1.25); EST GLOMERULAR FILTRATION RATE 59.4 ML/MIN; MAGNESIUM 2.2 mg/dL (1.6-2.3); Potassium 4.2 mmol/L (3.5-5.1); Total Protein 7.1 g/dL (6.3-8.2)
[2020-02-20] MEDS ORDERED: Sodium Chloride 0.9% 1000 ML 1,000 ML ONE (03:49)
[2020-02-20 03:52] LABS: Absolute Neutrophil Ct (ANC) 6.36 (1.4-6.9); BASOPHIL % 0.2 % (0.0-0.4); Basophil (Absolute #) 0.02 (0-0.4); Eosinophil % 2.3 % (0.00-5.0); Hematocrit 38.7 % (42-50); Hemoglobin 11.8 gm/dl (12.5-18.0); INR 1.1 (0.8-3.0); Lymphocyte (Absolute #) 1.68 (1.0-4.6); Lymphocytes % 18.9 % (24.0-44.0); Mean Cell Volume 82.3 fl (78-100); Mean Corpuscular Hemoglobin 25.1 pg (26-32); Mean Corpuscular Hgb Concent. 30.5 g/dl (32-36); Mean Platelet Volume 10.6 fl (7.5-11.0); Monocyte (Absolute #) 0.61 (0.0-1.3); Monocytes % 6.9 % (0.0-12.0); Neutrophil % 71.7 % (36.0-66.0); PROTIME 12.4 SECONDS (8.83-12.87); Platelet Count 186 K/mm3 (150-450); Red Cell Distribution Width 17.7 % (11.5-14.0); White Blood Count 8.9 K/mm3 (4.0-10.5)
[2020-02-20 03:56] LABS: Amourphous Crystal FEW /HPF (NEGATIVE); Appearance CLOUDY (CLEAR); Bacteria MANY /HPF (NEGATIVE); Bilirubin NEGATIVE (NEGATIVE); Blood NEGATIVE Ery/ul (0-5); Glucose NEGATIVE (NEGATIVE); Ketones NEGATIVE (NEGATIVE); Leukocyte Esterase LARGE (NEGATIVE); Mucus MANY /HPF (NEGATIVE); Nitrite POSITIVE (NEGATIVE); Non-Squamous Epithelial Cells RARE /HPF (FEW); Protein,Urine Dip 30 (Negative); Specific Gravity 1.012 (1.005-1.025); Urobilinogen NEGATIVE mg/dL (0-1); WBC >100 /HPF (0-5)
[2020-02-20 03:57] LABS: Epithelial Cells FEW /HPF (FEW)
[2020-02-20 04:05] LABS: Amphetamine,Urine NEGATIVE (NEGATIVE); Barbiturate,Urine NEGATIVE (NEGATIVE); Benzodiazepine,Urine NEGATIVE (NEGATIVE); Cocaine,Urine NEGATIVE (NEGATIVE); Methadone,Urine NEGATIVE (NEGATIVE); Opiate,Urine NEGATIVE (NEGATIVE); PCP,Urine NEGATIVE (NEGATIVE); THC,Urine NEGATIVE (NEGATIVE)
[2020-02-20] MEDS ORDERED: ROCEPHIN 1 Gm-D5w 50 ml Bag** 1 G/50 ML IVPB IV STA (04:14)
[2020-02-20] MEDS ORDERED: ROCEPHIN 1 Gm-D5w 50 ml Bag** 1 G/50 ML IVPB IV ONE (04:20)
[2020-02-20 04:45] LABS: T4 (Thyroxine) 6.5 ug/dL (5.53-10.96); TSH, 3RD Generation 3.98 mIU/L (0.47-4.68)
[2020-02-20] MEDS ORDERED: HUMULIN R SQ PRN (07:49)
[2020-02-20] MEDS ORDERED: TYLENOL 325 MG PO PRN (07:49)
[2020-02-20] MEDS ORDERED: Zofran 4 MG/2 ML VIAL IV PRN (07:49)
--- NOTE | 2020-02-20 08:49 | XRAY ---
Indication: Dizziness and blurry vision 3 days. Multiple contiguous axial images obtained through the head without contrast. Comparison: January 16, 2020. Stable age-appropriate global atrophy. Left mid centrum semiovale demonstrates new 1.4 cm ovoid focus of hypoattenuation favoring ischemia. No acute intracranial hemorrhage, abnormal extra-axial fluid collection, or mass effect. Fourth ventricle is midline without hydrocephalus. Bony calvarium intact. Visualized paranasal sinuses and mastoid air cells are clear. Impression: New small focus ischemia involving left centrum semiovale. No acute hemorrhage or mass effect. Comment: Preliminary interpretation was made by [facility]. No critical discrepancy.
--- NOTE | 2020-02-20 08:57 | XRAY ---
Indication: Weakness, dizziness, and blurry vision 3 days. Conventional contrast enhanced CTA neck performed using 80 cc Isovue 370 contrast. Two-dimensional sagittal and coronal reformatted images obtained. Additional 3-dimensional reformatted images obtained using a separate workstation. Comparison: None. There is a recent carotid ultrasound January 16, 2020. Visualized aortic arch demonstrates minimal calcifications without aneurysm/dissection. Normal branching right brachiocephalic, left common carotid, and left subclavian arteries with very minimal calcifications at the origin of the left common carotid and left subclavian arteries. Examination of the right carotid circulation demonstrates widely patent common carotid artery. At the level of the bulb, there is mild eccentric calcified plaquing slightly extending into the origin of the internal carotid artery without critical stenosis/obstruction. External carotid artery normal in CTA appearance. Examination of the left carotid circulation demonstrate widely patent common carotid artery. At the level of the bulb, there is minimal/mild eccentric calcified plaquing extending into the origin of the internal carotid artery without critical stenosis/obstruction. External carotid artery normal in CTA appearance. Vertebral arteries demonstrates very minimal calcifications in the mid left vertebral artery without critical stenosis/obstruction. Widely patent right vertebral artery. Visualized soft tissues demonstrates 8 mm right thyroid nodule/cyst. Small subcentimeter cervical/submandibular lymph nodes. No pathologic lymphadenopathy. Parotid and submandibular glands are bilaterally symmetric. Supra and infraglottic airway are widely patent. Cervical spine intact with mild multilevel degenerative changes greatest at the C5-C7 levels. Lung apices demonstrates pulmonary emphysema. CTA head and CT head reported separately. Impression: 1. Both carotid bulbs demonstrates minimal/mild arteriosclerotic calcifications, right greater than left without critical stenosis/obstruction. Findings consistent with recent carotid ultrasound. 2. Very minimal calcifications in the left mid vertebral artery without critical stenosis/obstruction. 3. Incidental subcentimeter right thyroid nodule/cyst and pulmonary emphysema. Comment: Preliminary interpretation was made by [facility]. No critical discrepancy.
--- NOTE | 2020-02-20 09:01 | XRAY ---
Indication: Weakness, dizziness, and blurry vision 3 days. Conventional contrast enhanced CTA head performed using 80 cc Isovue 370 contrast. Two-dimensional sagittal and coronal reformatted images obtained. Additional 3-dimensional reformatted images obtained using a separate workstation. Comparison: None. CTA neck reported separately. Distal internal carotid arteries are bilaterally symmetric with minimal calcifications seen in the parasellar segment without critical stenosis, dissection, or AV malformation. Normal carotid terminus with normal branching A1 and M1 segments bilaterally. More distal anterior cerebral, middle cerebral, anterior communicating, and posterior communicating arteries are normal in CTA appearance. Posterior circulation demonstrates distal left vertebral artery dominant in size. Basilar artery normal in course and caliber with normal branching posterior cerebral and superior cerebellar arteries bilaterally. Venous system unremarkable. Whole brain images are negative for abnormal enhancing intra-or extra-axial mass. Impression: 1. Minimal calcifications distal internal carotid arteries bilaterally. Remaining CTA brain is negative for critical stenosis, obstruction, or AV malformation. 2. No enhancing intra/extra-axial mass. Comment: Preliminary interpretation was made by [facility]. No critical discrepancy.
[2020-02-20] MEDS ORDERED: Nitrostat 0.4 MG Tablet SL PRN (09:42)
[2020-02-20] MEDS ORDERED: HUMALOG SQ PRN (09:45)
[2020-02-20] MEDS ORDERED: Nicoderm CQ 21 MG TOP SCH (10:00)
[2020-02-20] MEDS ORDERED: Flomax 0.4 MG PO SCH (10:00)
[2020-02-20] MEDS ORDERED: FLUZONE HIGH-DOSE QUAD 2020-21 IM ONE (10:00)
[2020-02-20] MEDS ORDERED: Lexapro 10 MG PO SCH (10:00)
[2020-02-20] MEDS ORDERED: SYNTHROID 25 MCG PO SCH (10:00)
[2020-02-20] MEDS ORDERED: PLAVIX 75 MG Tablet PO SCH (10:00)
[2020-02-20] MEDS ORDERED: ZYLOPRIM 100 MG PO SCH (10:00)
[2020-02-20] MEDS ORDERED: Bystolic 5 MG PO SCH (10:00)
[2020-02-20] MEDS: Imdur 30 MG PO SCH ×2 (10:46→22:37)
[2020-02-20] MEDS: Sodium Chloride 0.9% 1000 ML 1,000 ML IV SCH (21:22)
[2020-02-20] MEDS ORDERED: ROCEPHIN 1 Gm-D5w 50 ml Bag** 1 G/50 ML IVPB IV SCH (22:00)
[2020-02-20] MEDS ORDERED: TERAZOSIN HCL 10 MG PO SCH (22:00)
[2020-02-20] MEDS ORDERED: HYTRIN 1 MG PO SCH (22:00)
[2020-02-21 04:32] VITALS: PULSE 64
[2020-02-21] MEDS: Sodium Chloride 0.9% 1000 ML 1,000 ML IV SCH (06:16)
[2020-02-21 07:04] VITALS: BP 101/51; O2SAT 99
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
[2020-02-21] MEDS ORDERED: Glucophage 500 MG PO SCH (10:00)
== END 2020-02-21 08:38 | disposition home or self-care (01) ==
LOC: ED 02:56 → MED SURG 07:43 → INTOOBSV 07:43
PROVIDERS: ADMIT Family Medicine; ATTEND Family Medicine
DX: N39.0 Urinary tract infection, site not specified (principal); R41.82 Altered mental status, unspecified; R42 Dizziness and giddiness; R90.89 Other abnormal findings on diagnostic imaging of central nervous system; R51 Headache; E03.9 Hypothyroidism, unspecified; I10 Essential (primary) hypertension; Z79.899 Other long term (current) drug therapy; E11.9 Type 2 diabetes mellitus without complications; Z79.01 Long term (current) use of anticoagulants; Z95.0 Presence of cardiac pacemaker
CPT/HCPCS: 36000; 36415; 70450; 70496; 70498; 80053; 80307; 81001; 82962; 83036; 83605; 83735; 84436; 84443; 84484; 85025; 85610; 87077; 87086; 87186; 93005; 93041; 93268; 94760; 96360; 96365; 99285; 99291; G0008; G0378; Q3014; 90662; J0696; J1817; A9270-GY

== ENCOUNTER 2020-10-21 00:22 | Emergency (ER) | payer MEDICARE ==
[2020-10-21] MEDS ORDERED: Cardizem IV 50 MG/10 ML IV ONE ×2 (00:43→00:45)
[2020-10-21 00:52] LABS: Absolute Neutrophil Ct (ANC) 7.56 (1.4-6.9); BASOPHIL % 0.1 % (0.0-0.4); Basophil (Absolute #) 0.01 (0-0.4); Eosinophil (Absolute #) 0.21 (0-0.5); Lymphocyte (Absolute #) 2.11 (1.0-4.6); Mean Cell Volume 88.4 fl (78-100); Mean Corpuscular Hemoglobin 28.1 pg (26-32); Mean Corpuscular Hgb Concent. 31.8 g/dl (32-36); Monocyte (Absolute #) 0.68 (0.0-1.3); Monocytes % 6.4 % (0.0-12.0); Neutrophil % 71.5 % (36.0-66.0); Platelet Count 196 K/mm3 (150-450); Red Blood Count 4.98 M/mm3 (4.1-5.6); Red Cell Distribution Width 14.9 % (11.5-14.0); White Blood Count 10.6 K/mm3 (4.0-10.5)
[2020-10-21 01:07] LABS: INR 1.1 (0.8-3.0); PROTIME 12.4 SECONDS (8.83-12.87)
--- NOTE | 2020-10-21 01:09 | ERPHSYRPT ---
- History of Present Illness Historian: patient, EMS Exam Limitations: no limitations Patient Subjective Stated Complaint: pt states he has been having chest pain since approx 2200. describes as heaviness and radiates to lt arm, lt neck and jaw, and to back Triage Nursing Assessment: pt alert and oriented, answers questions approp. pt arrive per ambulance and transfers to stretcher per slef. respirations nonlabored with lungs cta. heart rate irreg- afib with rvr. Physician History: 70 yo wm w h/o CABG/CAD/MA/HTN/DM/Hyperlipidemia/1ppd smoker/Afib/Pacer w mid- sternal chest pain w rad to back/LUE since 22:00. Pain described as sharp in arm and tightness in chest. Pain rated 3/10 but has been up to 7/10. Pt had N/dyspnea/diaphoresis. He took 3SL NTG at home w mild relief, and EMS gave 324ASA/1SL NTG. Timing/Duration: other (22:00) Quality: tightness Location: substernal Chest Pain Radiation: arm, back Severity of Pain-Max: moderate Severity of Pain-Current: mild Modifying Factors: Improves With: nitroglycerin Associated Symptoms: nausea, shortness of breath, diaphoresis, No vomiting Prior Chest Pain/Cardiac Workup: angina, cardiac cath Aspirin Treatment Today: 325 mg x 1 Allergies/Adverse Reactions: No Known Drug Allergies Allergy (Verified 10/21/20 00:50) Home Medications: Clopidogrel Bisulfate [Clopidogrel] 75 mg PO DAILY 10/10/19 [History] Levothyroxine Sodium 25 mcg PO DAILY 10/10/19 [History] Metformin HCl [Fortamet] 500 mg PO DAILY 10/10/19 [History] Nebivolol HCl 5 MG [Bystolic 5 MG] 5 mg PO DAILY 10/10/19 [History] Nitroglycerin 0.4 mg SL Q2H/PRN PRN 10/10/19 [History] Tamsulosin HCl 0.4 mg [Flomax 0.4 MG] 0.4 mg PO DAILY 10/10/19 [History] Terazosin HCl 10 mg PO HS 10/10/19 [History] allopurinoL [Allopurinol] 100 mg PO DAILY 10/10/19 [History] Isosorbide Mononitrate 30 mg [Imdur 30 MG] 30 mg PO BID 01/16/20 [History] Escitalopram Oxalate 10 mg PO DAILY 02/20/20 [History] Hx Tetanus, Diphtheria Vaccination/Date Given: Yes Hx Influenza Vaccination/Date Given: Yes Hx Pneumococcal Vaccination/Date Given: Yes Immunizations Up to Date: Yes Travel Risk - International Travel Have you traveled outside of the country in past 3 weeks: No - Coronavirus Screening Are you exhibiting any of the following symptoms?: No Close contact with a COVID-19 positive Pt in past 14-21 Days: No - Vaccine Status Have you recieved a Covid-19 vaccination: No - Review of Systems Constitutional: No Symptoms Eyes: No Symptoms Ears, Nose, & Throat: No Symptoms Respiratory: No Symptoms, Dyspnea Cardiac: No Symptoms, Chest Pain Abdominal/Gastrointestinal: No Symptoms, Nausea Genitourinary Symptoms: No Symptoms Musculoskeletal: No Symptoms Skin: No Symptoms Neurological: No Symptoms Psychological: No Symptoms Endocrine: No Symptoms Hematologic/Lymphatic: No Symptoms Immunological/Allergic: Pollen Allergy - Past Medical History Pertinent Past Medical History: Yes Neurological History: Stroke, TIA ENT History: Cataracts Cardiac History: Angina, Arrhythmia, Congestive Heart Failure, High Cholesterol, Myocardial Infarction (MA) Respiratory History: CHF, COPD, Emphysema Endocrine Medical History: Diabetes Type II, Hypothyroidism Musculoskeletal History: Other GI Medical History: Hepatitis History: Other Psycho-Social History: Anxiety, Depression Male Reproductive Disorders: Prostate Problems Other Medical History: A-Fib - Past Surgical History Past Surgical History: Yes Neuro Surgical History: No Pertinent History Cardiac: Angioplasty, CABG, Pacemaker Respiratory: No Pertinent History Gastrointestinal: No Pertinent History Genitourinary: No Pertinent History Musculoskeletal: Other Male Surgical History: No Pertinent History Other Surgical History: RUPTURED BELLY BUTTON. Right foot surgery - Social History Smoking Status: Current every day smoker How long have you smoked: 51yrs ago Exposure to second hand smoke: Yes Drug Use: marijuana Patient Lives Alone: No Significant Family History: no pertinent family hx - Nursing Vital Signs Nursing Vital Signs: Initial Vital Signs Pulse Rate 133 H 10/21/20 00:23 Respiratory Rate 18 10/21/20 00:23 Blood Pressure 123/79 10/21/20 00:23 O2 Sat by Pulse Oximetry 98 10/21/20 00:23 Pain Scale Pain Intensity 2 - Physical Exam General Appearance: no apparent distress Eye Exam: PERRL/EOMI, eyes nml inspection Ears, Nose, Throat Exam: normal ENT inspection, TMs normal, pharynx normal, moist mucous membranes Neck Exam: normal inspection, non-tender, supple, full range of motion, No meningismus, No mass, No Brudzinski, No Kernig's, No carotid bruit Respiratory Exam: normal breath sounds, lungs clear, respiratory distress, airway intact, No chest tenderness Cardiovascular Exam: irregular (IR-IR) Gastrointestinal/Abdomen Exam: soft, normal bowel sounds, No tenderness Back Exam: normal inspection, normal range of motion, No CVA tenderness Extremity Exam: normal inspection, normal range of motion Neurologic Exam: alert, oriented x 3, cooperative, churn tender II-XII nml as tested, normal mood/affect, sensation nml, No motor deficits, No sensory deficit Skin Exam: normal color, warm, dry Lymphatic Exam: No adenopathy SpO2 Interpretation: normal SpO2: 98 O2 Delivery: Room Air - Course Nursing assessment & vital signs reviewed: Yes EKG Interpreted by Me: RATE (Afib w RVR/PVC's/Prolonged QTc/Poor R wave progression/ST depression V4-V5) - Radiology Exams Chest X-ray Interpretation: Interpreted by me (Pacer/post-surgical chest/Nothing acute) Ordered Tests: Active Orders 24 hr Category Date Time Status EKG-ER Only STAT Care 10/21/20 00:23 Completed CHEST 1 VIEW (PORTABLE) Stat Exams 10/21/20 00:24 Ordered CBC W DIFF Stat Lab 10/21/20 00:53 Completed CMP Stat Lab 10/21/20 00:53 Completed NT PRO BNP Stat Lab 10/21/20 00:53 Completed PROTIME WITH INR Stat Lab 10/21/20 00:53 Completed PTT Stat Lab 10/21/20 00:53 Completed TROPONIN Q3H Lab 10/21/20 00:53 Completed TROPONIN Q3H Lab 10/21/20 03:30 Ordered TROPONIN Q3H Lab 10/21/20 06:30 Ordered TROPONIN Q3H Lab 10/21/20 09:30 Ordered TROPONIN Q3H Lab 10/21/20 12:30 Ordered Medication Summary Discontinued Medications Generic Name Dose Route Start Last Admin Trade Name Freq PRN Reason Stop Dose Admin Diltiazem HCl 10 mg 10/21/20 00:43 10/21/20 00:46 Cardizem Iv 50 Mg/10 Ml IV 10/21/20 00:44 10 mg STAT ONE Administration Diltiazem HCl Confirm 10/21/20 00:45 Cardizem Iv 50 Mg/10 Ml Administered 10/21/20 00:46 Dose 50 mg IV .STK-MED ONE Lab/Rad Data: Laboratory Result Diagrams 10/21/20 00:53 10/21/20 00:53 Laboratory Results 10/21/20 10/21/20 10/21/20 Range/Units 00:53 00:53 00:53 WBC (4.0-10.5) K/mm3 RBC (4.1-5.6) M/mm3 Hgb (12.5-18.0) gm/dl Hct (42-50) % MCV (78-100) fl MCH (26-32) pg MCHC (32-36) g/dl RDW (11.5-14.0) % Plt Count (150-450) K/mm3 MPV (7.5-11.0) fl Gran % (36.0-66.0) % Eos # (Auto) (0-0.5) Absolute Lymphs (auto) (1.0-4.6) Absolute Monos (auto) (0.0-1.3) Lymphocytes % (24.0-44.0) % Monocytes % (0.0-12.0) % Eosinophils % (0.00-5.0) % Basophils % (0.0-0.4) % Absolute Granulocytes (1.4-6.9) Basophils # (0-0.4) PT 12.4 (8.83-12.87) SECONDS INR 1.10 (0.8-3.0) APTT 27.7 (24.1-36.1) SECONDS Sodium 140 (137-145) mmol/L Potassium 4.0 (3.5-5.1) mmol/L Chloride 109 H (98-107) mmol/L Carbon Dioxide 23 (22-30) mmol/L Anion Gap 12.0 (5-15) MEQ/L BUN 17 (9-20) mg/dL Creatinine 1.15 (0.66-1.25) mg/dL Estimated GFR > 60.0 ML/MIN Glucose 179 H (74-106) mg/dL Calcium 9.0 (8.4-10.2) mg/dL Total Bilirubin 0.40 (0.2-1.3) mg/dL AST 24 (17-59) U/L ALT 21 (0-50) U/L Alkaline Phosphatase 79 (38-126) U/L Troponin I < 0.012 (0.000-0.034) ng/mL NT-Pro-B Natriuret Pep 346 (0-900) pg/mL Serum Total Protein 6.8 (6.3-8.2) g/dL Albumin 3.8 (3.5-5.0) g/dL 10/21/20 Range/Units 00:53 WBC 10.6 H (4.0-10.5) K/mm3 RBC 4.98 (4.1-5.6) M/mm3 Hgb 14.0 (12.5-18.0) gm/dl Hct 44.0 (42-50) % MCV 88.4 (78-100) fl MCH 28.1 (26-32) pg MCHC 31.8 L (32-36) g/dl RDW 14.9 H (11.5-14.0) % Plt Count 196 (150-450) K/mm3 MPV 11.0 (7.5-11.0) fl Gran % 71.5 H (36.0-66.0) % Eos # (Auto) 0.21 (0-0.5) Absolute Lymphs (auto) 2.11 (1.0-4.6) Absolute Monos (auto) 0.68 (0.0-1.3) Lymphocytes % 20.0 L (24.0-44.0) % Monocytes % 6.4 (0.0-12.0) % Eosinophils % 2.0 (0.00-5.0) % Basophils % 0.1 (0.0-0.4) % Absolute Granulocytes 7.56 H (1.4-6.9) Basophils # 0.01 (0-0.4) PT (8.83-12.87) SECONDS INR (0.8-3.0) APTT (24.1-36.1) SECONDS Sodium (137-145) mmol/L Potassium (3.5-5.1) mmol/L Chloride (98-107) mmol/L Carbon Dioxide (22-30) mmol/L Anion Gap (5-15) MEQ/L BUN (9-20) mg/dL Creatinine (0.66-1.25) mg/dL Estimated GFR ML/MIN Glucose (74-106) mg/dL Calcium (8.4-10.2) mg/dL Total Bilirubin (0.2-1.3) mg/dL AST (17-59) U/L ALT (0-50) U/L Alkaline Phosphatase (38-126) U/L Troponin I (0.000-0.034) ng/mL NT-Pro-B Natriuret Pep (0-900) pg/mL Serum Total Protein (6.3-8.2) g/dL Albumin (3.5-5.0) g/dL - Progress Progress: improved Progress Note: 10/21/20 01:55 10mg IV Cardizem w improvement in [facility] Spoke w Dr. Pantoja, wants to admit pt to Hospitalist Pt accepted by Dr. Wallace [facility] beds at this time 10/21/20 03:36 Pt stable when ambulance assumed care of pt. Counseled pt/family regarding: lab results, diagnosis, rad results - Departure Departure Disposition: Transfer Clinical Impression: Chest pain, rule out acute myocardial infarction, afib w RVR Condition: Stable Critical Care Time: No Referrals: LUANA ARMSTRONG [Primary Care Provider] -
[2020-10-21 01:10] LABS: PTT 27.7 SECONDS (24.1-36.1)
[2020-10-21 01:21] LABS: ALBUMIN 3.8 g/dL (3.5-5.0); ALKALINE PHOSPHATASE 79 U/L (38-126); BLOOD UREA NITROGEN 17 mg/dL (9-20); CHLORIDE 109 mmol/L (98-107); Carbon Dioxide 23 mmol/L (22-30); Creatinine 1 1.15 mg/dL (0.66-1.25); EST GLOMERULAR FILTRATION RATE > 60.0 ML/MIN; Glucose 179 mg/dL (74-106); NT PRO BNP 346 pg/mL (0-900); SGOT/AST 24 U/L (17-59); SGPT/ALT 21 U/L (0-50); SODIUM 140 mmol/L (137-145); Total Protein 6.8 g/dL (6.3-8.2)
[2020-10-21 03:08] VITALS: BP 114/61; PULSE 67
[2020-10-21 03:39] VITALS: O2SAT 98
--- NOTE | 2020-10-21 09:49 | XRAY ---
Indication: Chest pain. Comparison: January 15, 2020. Portable chest again hyperinflated with minimal bibasilar fibrosis/scarring. No focal infiltrate, consolidation, or large effusion. Heart borderline enlarged again with CABG surgery and left dual-lead pacemaker. Bony thorax intact. Impression: Continued nonacute chest with chronic features.
== END 2020-10-21 03:31 | disposition short-term general hospital (02) ==
LOC: ED 00:22
DX: R07.89 Other chest pain (principal); I48.20 Chronic atrial fibrillation, unspecified; Z95.1 Presence of aortocoronary bypass graft; I25.10 Atherosclerotic heart disease of native coronary artery without angina pectoris; I10 Essential (primary) hypertension; E11.9 Type 2 diabetes mellitus without complications; E78.00 Pure hypercholesterolemia, unspecified; Z95.0 Presence of cardiac pacemaker; F17.200 Nicotine dependence, unspecified, uncomplicated; Z79.899 Other long term (current) drug therapy; I50.9 Heart failure, unspecified; E03.9 Hypothyroidism, unspecified
CPT/HCPCS: 36415; 71045; 80053; 83880; 84484; 85025; 85610; 85730; 93005; 96374; 99285

== ENCOUNTER 2020-12-29 23:55 | Emergency (ER) | payer MEDICARE ==
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
[2020-12-30 00:26] LABS: Absolute Neutrophil Ct (ANC) 5.46 (1.4-6.9); BASOPHIL % 0.1 % (0.0-0.4); Basophil (Absolute #) 0.01 (0-0.4); Eosinophil % 2.9 % (0.00-5.0); Eosinophil (Absolute #) 0.24 (0-0.5); Hematocrit 45.5 % (42-50); Hemoglobin 14.6 gm/dl (12.5-18.0); Lymphocyte (Absolute #) 1.69 (1.0-4.6); Lymphocytes % 20.7 % (24.0-44.0); Mean Cell Volume 88.9 fl (78-100); Mean Corpuscular Hemoglobin 28.5 pg (26-32); Mean Corpuscular Hgb Concent. 32.1 g/dl (32-36); Mean Platelet Volume 10.8 fl (7.5-11.0); Monocyte (Absolute #) 0.76 (0.0-1.3); Monocytes % 9.3 % (0.0-12.0); Platelet Count 184 K/mm3 (150-450); Red Blood Count 5.12 M/mm3 (4.1-5.6); Red Cell Distribution Width 16.1 % (11.5-14.0); White Blood Count 8.2 K/mm3 (4.0-10.5)
[2020-12-30 00:44] LABS: ANION GAP 12.9 MEQ/L (5-15); BILIRUBIN,TOTAL 0.5 mg/dL (0.2-1.3); Calcium 9.4 mg/dL (8.4-10.2); Creatinine 1 1.52 mg/dL (0.66-1.25); EST GLOMERULAR FILTRATION RATE 48.2 ML/MIN; Potassium 4.1 mmol/L (3.5-5.1); Total Protein 7.1 g/dL (6.3-8.2)
[2020-12-30] MEDS ORDERED: BABY ASPIRIN 81 MG CHEW PO ONE (01:03)
[2020-12-30 01:25] LABS: Appearance CLEAR (CLEAR); Bilirubin NEGATIVE (NEGATIVE); Blood NEGATIVE Ery/ul (0-5); Glucose NEGATIVE (NEGATIVE); Ketones NEGATIVE (NEGATIVE); Leukocyte Esterase NEGATIVE (NEGATIVE); Mucus SLIGHT /HPF (NEGATIVE); Nitrite NEGATIVE (NEGATIVE); Protein,Urine Dip NEGATIVE (Negative); Specific Gravity 1.008 (1.005-1.025); Urobilinogen NEGATIVE mg/dL (0-1)
[2020-12-30 01:36] LABS: Bacteria NONE SEEN /HPF (NEGATIVE)
[2020-12-30 01:37] LABS: Amphetamine,Urine NEGATIVE (NEGATIVE); Barbiturate,Urine NEGATIVE (NEGATIVE); Benzodiazepine,Urine NEGATIVE (NEGATIVE); Cocaine,Urine NEGATIVE (NEGATIVE); Methadone,Urine NEGATIVE (NEGATIVE); Opiate,Urine NEGATIVE (NEGATIVE); PCP,Urine NEGATIVE (NEGATIVE); THC,Urine NEGATIVE (NEGATIVE)
[2020-12-30 03:24] VITALS: O2SAT 100
[2020-12-30 03:55] VITALS: BP 101/60; PULSE 72
--- NOTE | 2020-12-30 09:03 | XRAY ---
Indication: Chest pain. Comparison: October 21, 2020. Portable chest unchanged again hyperinflated with minimal bibasilar fibrosis/scarring and borderline cardiomegaly with CABG and left pacemaker. Bony thorax intact. No new/acute abnormalities.
== END 2020-12-30 03:40 | disposition short-term general hospital (02) ==
LOC: ED 23:55
DX: I24.9 Acute ischemic heart disease, unspecified (principal); R07.9 Chest pain, unspecified; N17.9 Acute kidney failure, unspecified; I49.9 Cardiac arrhythmia, unspecified; I50.9 Heart failure, unspecified; E11.9 Type 2 diabetes mellitus without complications; J44.9 Chronic obstructive pulmonary disease, unspecified; E78.00 Pure hypercholesterolemia, unspecified; Z95.0 Presence of cardiac pacemaker
CPT/HCPCS: 36000; 36415; 71045; 80053; 80307; 81001; 83880; 84484; 85025; 93005; 93041; 94760; 99285; U0003; A9270-GY

== ENCOUNTER 2021-06-18 23:22 | Observation (INO) | payer MEDICARE ==
--- NOTE | 2021-06-18 23:32 | ERPHSYRPT ---
- History of Present Illness Time Seen by Provider: 06/18/21 23:27 Historian: patient Exam Limitations: no limitations Physician History: 71 years old male with a history of coronary artery disease status post CABG, paroxysmal atrial fibrillation, diabetes mellitus, tobacco abuse presented in the ER with chief complaint of sudden onset left-sided chest pain almost an hour prior to arrival when he bent over to brass pickler pencil on floor. Continuous, improved after taking 2 nitro and full dose aspirin and currently minimal pain. No difficulty breathing. Denies any palpitations. No fever chills cough or shortness of breath reported. Timing/Duration: hour(s) (1), constant, sudden, improved Activities at Onset: activity Quality: sharpness Location: substernal Chest Pain Radiation: no radiation Severity of Pain-Max: moderate Severity of Pain-Current: mild Modifying Factors: Improves With: nitroglycerin, aspirin Associated Symptoms: denies symptoms Prior Chest Pain/Cardiac Workup: cardiac cath, echocardiography, heart attack Nitro Today/Relief: 0.4 mg x 2 Aspirin Treatment Today: 81 mg x 4 Allergies/Adverse Reactions: No Known Drug Allergies Allergy (Verified 12/30/20 00:09) Home Medications: Clopidogrel Bisulfate [Clopidogrel] 75 mg PO DAILY 10/10/19 [History] Levothyroxine Sodium 25 mcg PO DAILY 10/10/19 [History] Metformin HCl [Fortamet] 500 mg PO DAILY 10/10/19 [History] Nebivolol HCl 5 MG [Bystolic 5 MG] 5 mg PO DAILY 10/10/19 [History] Nitroglycerin 0.4 mg SL Q2H/PRN PRN 10/10/19 [History] Tamsulosin HCl 0.4 mg [Flomax 0.4 MG] 0.4 mg PO DAILY 10/10/19 [History] Terazosin HCl 10 mg PO HS 10/10/19 [History] allopurinoL [Allopurinol] 100 mg PO DAILY 10/10/19 [History] Isosorbide Mononitrate 30 mg [Imdur 30 MG] 30 mg PO BID 01/16/20 [History] Escitalopram Oxalate 10 mg PO DAILY 02/20/20 [History] Hx Tetanus, Diphtheria Vaccination/Date Given: Yes Hx Influenza Vaccination/Date Given: Yes Hx Pneumococcal Vaccination/Date Given: Yes Travel Risk - Vaccine Status Have you recieved a Covid-19 vaccination: No - Review of Systems Constitutional: No Symptoms Eyes: No Symptoms Ears, Nose, & Throat: No Symptoms Respiratory: No Symptoms Cardiac: Chest Pain Abdominal/Gastrointestinal: No Symptoms Genitourinary Symptoms: No Symptoms Musculoskeletal: No Symptoms Skin: No Symptoms Neurological: No Symptoms Psychological: No Symptoms Endocrine: No Symptoms Hematologic/Lymphatic: No Symptoms Immunological/Allergic: No Symptoms - Past Medical History Pertinent Past Medical History: Yes Neurological History: Stroke, TIA ENT History: Cataracts Cardiac History: Angina, Arrhythmia, Congestive Heart Failure, High Cholesterol, Myocardial Infarction ([place]) Respiratory History: CHF, COPD, Emphysema Endocrine Medical History: Diabetes Type II, Hypothyroidism Musculoskeletal History: Other GI Medical History: Hepatitis History: Other Psycho-Social History: Anxiety, Depression Male Reproductive Disorders: Prostate Problems Other Medical History: A-Fib - Past Surgical History Past Surgical History: Yes Neuro Surgical History: No Pertinent History Cardiac: Angioplasty, CABG, Pacemaker Respiratory: No Pertinent History Gastrointestinal: No Pertinent History Genitourinary: No Pertinent History Musculoskeletal: Other Male Surgical History: No Pertinent History Other Surgical History: RUPTURED BELLY BUTTON. Right foot surgery - Social History Smoking Status: Current every day smoker How long have you smoked: 51yrs ago Exposure to second hand smoke: Yes Drug Use: marijuana Patient Lives Alone: No Significant Family History: no pertinent family hx - Nursing Vital Signs Nursing Vital Signs: Initial Vital Signs Temperature 98.1 F 06/18/21 23:27 Pulse Rate 93 H 06/18/21 23:27 Respiratory Rate 16 06/18/21 23:27 Blood Pressure 98/76 06/18/21 23:27 O2 Sat by Pulse Oximetry 99 06/18/21 23:27 Pain Scale Pain Intensity 4 - Physical Exam General Appearance: no apparent distress, alert Eye Exam: PERRL/EOMI, eyes nml inspection Ears, Nose, Throat Exam: normal ENT inspection, TMs normal, pharynx normal, moist mucous membranes Neck Exam: normal inspection, non-tender, supple, full range of motion Respiratory Exam: normal breath sounds, lungs clear, No chest tenderness Cardiovascular Exam: regular rate/rhythm, normal heart sounds Gastrointestinal/Abdomen Exam: soft, No tenderness Back Exam: normal inspection, normal range of motion Extremity Exam: normal inspection, normal range of motion Neurologic Exam: alert, oriented x 3, cooperative Skin Exam: normal color SpO2 Interpretation: normal SpO2: 98 O2 Delivery: Room Air - Course EKG Interpreted by Me: RATE (106), A-fib, NORMAL AXIS, prolonged QT interval, Non-specific ST Changes Ordered Tests: Active Orders 24 hr Category Date Time Status CHEST 1 VIEW (PORTABLE) Stat Exams 06/18/21 23:28 Taken CBC W DIFF Stat Lab 06/18/21 23:53 Completed CK-Creatinine Phosphokinase Stat Lab 06/18/21 23:53 Completed CMP Stat Lab 06/18/21 23:53 Completed Manual Differential NC Stat Lab 06/18/21 23:53 Completed NT PRO BNP Stat Lab 06/18/21 23:53 Completed TROPONIN Q3H Lab 06/18/21 23:53 Completed TROPONIN Q3H Lab 06/19/21 02:30 Ordered TROPONIN Q3H Lab 06/19/21 05:30 Ordered TROPONIN Q3H Lab 06/19/21 08:30 Ordered TROPONIN Q3H Lab 06/19/21 11:30 Ordered Transfer Order Routine Transfer 06/19/21 Ordered Lab/Rad Data: Laboratory Result Diagrams 06/18/21 23:53 06/18/21 23:53 Laboratory Results 06/18/21 06/18/21 06/18/21 Range/Units 23:53 23:53 23:53 WBC 9.1 (4.0-10.5) K/mm3 RBC 4.76 (4.1-5.6) M/mm3 Hgb 14.7 (12.5-18.0) gm/dl Hct 45.6 (42-50) % MCV 95.8 (78-100) fl MCH 30.9 (26-32) pg MCHC 32.2 (32-36) g/dl RDW 14.6 H (11.5-14.0) % Plt Count 179 (150-450) K/mm3 MPV 10.8 (7.5-11.0) fl Segmented Neutrophils 61 (36.-66.) % Lymphocytes (Manual) 28 (24-44) % Monocytes (Manual) 8 (0.0-12.0) % Eosinophils (Manual) 2 (0.00-3.0) % Basophils (Manual) 1 (0.0-1.0) % Platelet Estimate NORMAL (NORMAL) RBC Morphology NORMAL Sodium 138 (137-145) mmol/L Potassium 4.3 (3.5-5.1) mmol/L Chloride 107 (98-107) mmol/L Carbon Dioxide 25 (22-30) mmol/L Anion Gap 10.4 (5-15) MEQ/L BUN 26 H (9-20) mg/dL Creatinine 1.68 H (0.66-1.25) mg/dL Estimated GFR 42.8 ML/MIN Glucose 148 H (74-106) mg/dL Calcium 8.5 (8.4-10.2) mg/dL Total Bilirubin 0.70 (0.2-1.3) mg/dL AST 24 (17-59) U/L ALT 26 (0-50) U/L Alkaline Phosphatase 75 (38-126) U/L Creatine Kinase 72 (55-170) U/L Troponin I < 0.012 (0.000-0.034) ng/mL NT-Pro-B Natriuret Pep 200 (0-900) pg/mL Serum Total Protein 6.5 (6.3-8.2) g/dL Albumin 3.6 (3.5-5.0) g/dL - Progress Progress: improved Air Movement: fair Progress Note: 06/19/21 00:56 71 years old with multiple cardiac risk factors is evaluated for chest pain. EKG did not show any acute ST elevations. Negative initial troponins. Chest x- ray no acute findings reviewed by me, official report is pending. Patient chest pain is improved after nitro and aspirin. Patient pain started almost an hour prior to arrival. He needs trending of cardiac enzymes. I have discussed with Dr. Armijo and patient is admitted for observation. Blood Culture(s) Obtained: No Antibiotics given: No Discussed with : Doug Counseled pt/family regarding: lab results, diagnosis, rad results, smoking cessation - Departure Departure Disposition: Observation Clinical Impression: Chest pain, rule out acute myocardial infarction Condition: Stable Critical Care Time: No Referrals: RODRICK LEAL MD [Primary Care Provider] - Follow up/PCP as directed
[2021-06-18 23:56] LABS: Hematocrit 45.6 % (42-50); Hemoglobin 14.7 gm/dl (12.5-18.0); Mean Cell Volume 95.8 fl (78-100); Mean Corpuscular Hemoglobin 30.9 pg (26-32); Mean Corpuscular Hgb Concent. 32.2 g/dl (32-36); Mean Platelet Volume 10.8 fl (7.5-11.0); Platelet Count 179 K/mm3 (150-450); Red Blood Count 4.76 M/mm3 (4.1-5.6); Red Cell Distribution Width 14.6 % (11.5-14.0); White Blood Count 9.1 K/mm3 (4.0-10.5)
[2021-06-19 00:23] LABS: ALBUMIN 3.6 g/dL (3.5-5.0); ANION GAP 10.4 MEQ/L (5-15); BILIRUBIN,TOTAL 0.7 mg/dL (0.2-1.3); Calcium 8.5 mg/dL (8.4-10.2); Creatinine 1 1.68 mg/dL (0.66-1.25); EST GLOMERULAR FILTRATION RATE 42.8 ML/MIN; Potassium 4.3 mmol/L (3.5-5.1); Total Protein 6.5 g/dL (6.3-8.2)
[2021-06-19 01:12] LABS: Basophil 1 % (0.0-1.0); Eosinophil 2 % (0.00-3.0); Lymphocytes 28 % (24-44); Monocyte 8 % (0.0-12.0); Neutrophils 61 % (36.-66.); Platelet Estimate NORMAL (NORMAL); Total Cells Counted 100
[2021-06-19 02:57] LABS: INFLUENZA A NEGATIVE (NEGATIVE); INFLUENZA B NEGATIVE (NEGATIVE); RESPIRATORY SYNCTIAL VIRUS NEGATIVE (Negative); SARS-CoV-2 Xpert Express NEGATIVE (NEGATIVE)
[2021-06-19] MEDS ORDERED: HUMALOG SQ PRN (03:34)
[2021-06-19] MEDS ORDERED: MORPHINE SULFATE 2 MG INJ IV PRN (03:34)
[2021-06-19] MEDS ORDERED: Zofran 4 MG/2 ML VIAL IV PRN (03:34)
[2021-06-19] MEDS ORDERED: TYLENOL 325 MG PO PRN (03:34)
[2021-06-19] MEDS: DUONEB 0.5-3 MG/3 ml Neb IH SCH ×2 (05:50→19:51)
[2021-06-19] MEDS ORDERED: VENTOLIN COMMON CANISTER IH PRN (05:51)
[2021-06-19 06:40] LABS: Hematocrit 48.8 % (42-50); Hemoglobin 15.7 gm/dl (12.5-18.0); Mean Cell Volume 95.5 fl (78-100); Mean Corpuscular Hemoglobin 30.7 pg (26-32); Mean Corpuscular Hgb Concent. 32.2 g/dl (32-36); Mean Platelet Volume 11.2 fl (7.5-11.0); Platelet Count 187 K/mm3 (150-450); Red Blood Count 5.11 M/mm3 (4.1-5.6); Red Cell Distribution Width 14.8 % (11.5-14.0); White Blood Count 7.4 K/mm3 (4.0-10.5)
[2021-06-19 07:38] LABS: ALBUMIN 3.9 g/dL (3.5-5.0); ANION GAP 13.1 MEQ/L (5-15); BILIRUBIN,TOTAL 0.8 mg/dL (0.2-1.3); Calcium 8.9 mg/dL (8.4-10.2); Creatinine 1 1.6 mg/dL (0.66-1.25); EST GLOMERULAR FILTRATION RATE 45.3 ML/MIN; Potassium 4.4 mmol/L (3.5-5.1); Total Protein 6.9 g/dL (6.3-8.2)
--- NOTE | 2021-06-19 08:55 | XRAY ---
Indication: Chest pain. Comparison: December 30, 2020. Portable apical lordotic chest hyperinflated and clear. Heart remains borderline enlarged again with CABG and left pacemaker. Bony thorax intact again with mild osteopenia and degenerative changes. Impression: Continued nonacute hyperinflated chest with chronic features.
[2021-06-19] MEDS ORDERED: Nitrostat 0.4 MG Tablet SL PRN (09:47)
[2021-06-19] MEDS ORDERED: PROTONIX 40 MG IV IV SCH (10:00)
[2021-06-19] MEDS ORDERED: Toprol Xl 50 MG PO SCH (10:00)
[2021-06-19] MEDS: Cordarone 200 MG PO SCH (10:37)
[2021-06-19] MEDS: ZYLOPRIM 100 MG PO SCH (10:37)
[2021-06-19] MEDS: Flomax 0.4 MG PO SCH (10:37)
[2021-06-19] MEDS: Imdur 30 MG PO SCH (10:37)
[2021-06-19] MEDS: Toprol-Xl 25MG Tablets PO SCH ×2 (10:38→22:54)
[2021-06-19] MEDS: Cymbalta 30 MG Capsule PO SCH (10:38)
[2021-06-19] MEDS: ELIQUIS 2.5 MG TABLET PO SCH ×2 (10:38→22:53)
[2021-06-19] MEDS: Ranexa 500 MG PO SCH ×2 (10:38→22:53)
[2021-06-19] MEDS: JARDIANCE PO SCH (10:39)
[2021-06-19 13:18] LABS: BAND 4 % (0.0-2.0); Basophil 1 % (0.0-1.0); Lymphocytes 18 % (24-44); Monocyte 7 % (0.0-12.0); Neutrophils 70 % (36.-66.); Platelet Estimate NORMAL (NORMAL); Total Cells Counted 100
[2021-06-19] MEDS ORDERED: LIPITOR 40MG PO SCH (22:00)
[2021-06-19] MEDS ORDERED: ZOCOR 20MG PO SCH (22:00)
[2021-06-20] MEDS: Ranexa 500 MG PO SCH (08:59)
[2021-06-20] MEDS: Flomax 0.4 MG PO SCH (08:59)
[2021-06-20] MEDS: Toprol-Xl 25MG Tablets PO SCH (08:59)
[2021-06-20] MEDS: JARDIANCE PO SCH (09:00)
[2021-06-20] MEDS: Imdur 30 MG PO SCH (09:00)
[2021-06-20] MEDS: ELIQUIS 2.5 MG TABLET PO SCH (09:00)
[2021-06-20] MEDS: Cordarone 200 MG PO SCH (09:00)
[2021-06-20] MEDS: Cymbalta 30 MG Capsule PO SCH (09:00)
[2021-06-20] MEDS: ZYLOPRIM 100 MG PO SCH (09:00)
[2021-06-20 12:34] VITALS: BP 90/59; PULSE 96; O2SAT 97
--- NOTE | 2021-06-22 12:05 | SSS ---
DISCHARGE DIAGNOSIS: CHEST PAIN. HISTORY: The patient is a 71-year-old white male patient with a known history of coronary artery disease. He previously had a coronary artery bypass graft. He has atrial fibrillation. The patient was seen in [facility] last week and seen by Dr. Jered Pantoja for similar problem and was discharged within hours and told that he did not have a heart attack. The patient has no follow up from Dr. Jered Pantoja as he has burned his bridges with no show appointments. PAST MEDICAL/SURGICAL HISTORY: Otherwise significant for diabetes mellitus. He is still smoking. The patient's history otherwise is significant for previous stroke and transient ischemic attack. He has chronic obstructive pulmonary disease and emphysema, diabetes mellitus and hypothyroid. He previously also eisenberg angioplasty, coronary artery bypass graft and pacemaker placed. MEDICATIONS: He has medications for dementia although he does not appear to have any obvious dementia problems. He is on Jardiance as well. His home medication list includes: Allopurinol 100 mg at night, amiodarone 200 mg daily, Eliquis 2.5 mg b.i.d., atorvastatin 40 mg a day, benazepril 10 mg tablets one half tablet at night, duloxetine 30 mg a day, Jardiance 10 mg a day, Namenda 5 mg b.i.d., Toprol XL 50 mg 25 mg b.i.d., nitroglycerin sublingual PRN which he has used twice recently. Ranexa 1,000 mg b.i.d. and tamsulosin 0.4 mg at night. ALLERGIES: NKDA. PHYSICAL EXAMINATION: Revealed a well-nourished, well-developed 71-year-old white male patient currently in no acute distress. VITAL SIGNS: His temperature presently is 98.1F, pulse 92, respiratory rate 16, blood pressure 98/76 initially. O2 saturation 99%. HEENT: Normocephalic, atraumatic. Pupils equal round reactive to light. Extraocular movements intact. Oropharynx is pink and moist. NECK: Supple without lymphadenopathy, thyromegaly or JVD. CHEST: Clear to auscultation. HEART: Currently regular rate and rhythm without significant murmurs, rubs or gallops heard. ABDOMEN: Soft. No palpable masses. EXTREMITIES: Without cyanosis, clubbing or edema. NEUROLOGIC: The patient is alert and oriented x3. LAB DATA AND TESTS: The patient's laboratory studies thus far have shown four troponins all less than 0.012. The patient has described some chest pressure sensation since he has been in here but again the troponins have all been negative. His CBC was entirely normal. His metabolic panel showed a glucose 148 nonfasting with BUN of 26 and creatinine 1.68. Electrolytes were otherwise normal. Pro-BNP was normal. His COVID, influenza and respiratory syncytial virus were all negative. The patient's chest x-ray showed chronic nonacute hyperinflated chest. His rhythm tracing shows recent sinus dysrhythmia, few PVC's were noted. His 12-lead showed normal axis with what appeared to be atrial fibrillation at a rate of [address]-T wave changes noted. HOSPITAL COURSE: This is a patient with what appears to be unstable angina pectoris. He has been negative for his troponins presently and fairly recently at [facility] for similar issue. We will give the patient Imdur 30 mg a day and continue to observe him for another several hours. If his troponins continue to be negative and he has no more chest discomfort we will let him go home. He will have a follow up in my office in the next week and we will attempt to re-establish a cardiology consultation for him as apparently he will not be seeing Dr. Jered Pantoja.
== END 2021-06-20 15:58 | disposition home or self-care (01) ==
LOC: ED 23:22 → MED SURG 06-19 03:29
PROVIDERS: ADMIT Family Medicine; ATTEND Family Medicine
DX: R07.9 Chest pain, unspecified (principal); I25.10 Atherosclerotic heart disease of native coronary artery without angina pectoris; I48.0 Paroxysmal atrial fibrillation; E11.9 Type 2 diabetes mellitus without complications; I50.9 Heart failure, unspecified; E78.00 Pure hypercholesterolemia, unspecified; E03.9 Hypothyroidism, unspecified; J44.9 Chronic obstructive pulmonary disease, unspecified; I25.2 Old myocardial infarction; Z79.01 Long term (current) use of anticoagulants; Z20.828 Contact with and (suspected) exposure to other viral communicable diseases; Z72.0 Tobacco use; Z95.1 Presence of aortocoronary bypass graft; Z79.899 Other long term (current) drug therapy
CPT/HCPCS: 0241U; 36415; 71045; 80053; 82550; 82947; 83880; 84484; 85025; 94760; 99285; 93268; J2270; Q3014; A9270-GY; G0378

== ENCOUNTER 2021-08-23 13:52 | Emergency (ER) | payer MEDICARE ==
--- NOTE | 2021-08-23 14:09 | ERPHSYRPT ---
- History of Present Illness Time Seen by Provider: 08/23/21 14:00 Historian: patient Exam Limitations: no limitations Physician History: This is a 71-year-old white male who presents to the emergency department with chest pain. Patient states that the pain began in his left arm which radiated into the left chest anteriorly then into his back. He described this pain is sharp. This morning, the pain is been more of a pressure anteriorly but still radiates into his back. Patient has a significant cardiac history including coronary artery disease, myocardial infarction, four-vessel CABG, pacemaker placement, paroxysmal atrial fibrillation, and CHF. He has had a history of stroke in the past. Patient is on daily aspirin and Plavix. Today, patient did take 2 baby aspirin and 2 nitroglycerin. Patient also has a history of hypertension, diabetes, elevated cholesterol. Patient was seen last week at [facility] for the same issue. Patient is a current daily smoker of cigarettes. Patient's operator technician is Aureliano Pantoja MD Timing/Duration: yesterday Quality: pressure (Current), sharpness (First, initial) Location: central Chest Pain Radiation: back Severity of Pain-Max: moderate Severity of Pain-Current: moderate Modifying Factors: Improves With: nothing Associated Symptoms: denies symptoms Prior Chest Pain/Cardiac Workup: cardiac cath, heart attack, recently seen/treated Nitro Today/Relief: 0.4 mg x 2 Aspirin Treatment Today: 81 mg x 2, provided at home Allergies/Adverse Reactions: No Known Drug Allergies Allergy (Verified 12/30/20 00:09) Home Medications: Nitroglycerin 0.4 mg SL Q2H/PRN PRN 10/10/19 [History] Tamsulosin HCl 0.4 mg [Flomax 0.4 MG] 0.4 mg PO DAILY 10/10/19 [History] allopurinoL [Allopurinol] 100 mg PO DAILY 10/10/19 [History] Amiodarone HCl 200 mg [Cordarone 200 MG] 200 mg PO DAILY 06/19/21 [History] Apixaban [Eliquis 2.5 mg Tablet] 2.5 mg PO BID 06/19/21 [History] Atorvastatin Calcium [Lipitor 40Mg] 40 mg PO HS 06/19/21 [History] Donepezil HCl 10 mg [Aricept 10 MG] 5 mg PO HS 06/19/21 [History] Duloxetine HCl 30 mg [Cymbalta 30 MG Capsule] 30 mg PO DAILY 06/19/21 [History] Empagliflozin [Jardiance] 10 mg PO DAILY 06/19/21 [History] Memantine HCl 5 mg [Namenda 5 MG] 5 mg PO BID 06/19/21 [History] Metoprolol Succinate 50 mg [Toprol Xl 50 MG] 25 mg PO BID 06/19/21 [History] Ranolazine 500 MG [Ranexa 500 MG] 1,000 mg PO BID 06/19/21 [History] Hx Tetanus, Diphtheria Vaccination/Date Given: Yes Hx Influenza Vaccination/Date Given: Yes Hx Pneumococcal Vaccination/Date Given: Yes Travel Risk - International Travel Have you traveled outside of the country in past 3 weeks: No - Coronavirus Screening Are you exhibiting any of the following symptoms?: No Close contact with a COVID-19 positive Pt in past 14-21 Days: No - Vaccine Status Have you recieved a Covid-19 vaccination: No - Review of Systems Constitutional: No Symptoms Eyes: No Symptoms Ears, Nose, & Throat: No Symptoms Respiratory: No Symptoms Cardiac: Chest Pain Abdominal/Gastrointestinal: No Symptoms Genitourinary Symptoms: No Symptoms Musculoskeletal: No Symptoms Skin: No Symptoms Neurological: No Symptoms Psychological: No Symptoms Endocrine: No Symptoms Hematologic/Lymphatic: No Symptoms Immunological/Allergic: No Symptoms All Other Systems: Reviewed and Negative - Past Medical History Pertinent Past Medical History: Yes Neurological History: Stroke, TIA ENT History: Cataracts Cardiac History: Angina, Arrhythmia, Congestive Heart Failure, High Cholesterol, Myocardial Infarction ([place]) Respiratory History: CHF, COPD, Emphysema Endocrine Medical History: Diabetes Type II, Hypothyroidism Musculoskeletal History: Other GI Medical History: Hepatitis History: Other Psycho-Social History: Anxiety, Depression Male Reproductive Disorders: Prostate Problems Other Medical History: A-Fib - Past Surgical History Past Surgical History: Yes Neuro Surgical History: No Pertinent History Cardiac: Angioplasty, CABG, Pacemaker Respiratory: No Pertinent History Gastrointestinal: No Pertinent History Genitourinary: No Pertinent History Musculoskeletal: Other Male Surgical History: No Pertinent History Other Surgical History: RUPTURED BELLY BUTTON. Right foot surgery - Social History Smoking Status: Current every day smoker How long have you smoked: since 10 Exposure to second hand smoke: Yes Drug Use: marijuana Patient Lives Alone: No Significant Family History: no pertinent family hx - Nursing Vital Signs Nursing Vital Signs: Initial Vital Signs Temperature 98.3 F 08/23/21 13:53 Pulse Rate 72 08/23/21 13:53 Respiratory Rate 18 08/23/21 13:53 Blood Pressure 132/76 08/23/21 13:53 O2 Sat by Pulse Oximetry 97 08/23/21 13:53 Pain Scale Pain Intensity 2 - Physical Exam General Appearance: no apparent distress, alert, anxiety Eye Exam: PERRL/EOMI, eyes nml inspection Ears, Nose, Throat Exam: normal ENT inspection, moist mucous membranes Neck Exam: normal inspection, non-tender, supple, full range of motion Respiratory Exam: normal breath sounds, chest tenderness, lungs clear, airway intact, No respiratory distress Cardiovascular Exam: regular rate/rhythm, normal heart sounds, normal peripheral pulses Gastrointestinal/Abdomen Exam: soft, normal bowel sounds, No tenderness Rectal Exam: not done Back Exam: normal inspection, normal range of motion, No CVA tenderness, No vertebral tenderness Extremity Exam: normal inspection, normal range of motion, pelvis stable Neurologic Exam: alert, oriented x 3, cooperative, general doc II-XII nml as tested, normal mood/affect, nml cerebellar function, nml station & gait, sensation nml Skin Exam: normal color, warm, dry Lymphatic Exam: No adenopathy SpO2 Interpretation: normal SpO2: 97 O2 Delivery: Room Air - Course Nursing assessment & vital signs reviewed: Yes EKG Interpreted by Me: RATE (72), Non-specific ST Changes, Other (No acute isc hemic changes. No significant change from EKG dated 06/19/2019) Ordered Tests: Active Orders 24 hr Category Date Time Status EKG-ER Only STAT Care 08/23/21 14:15 Active IV Insertion STAT Care 08/23/21 14:15 Active Pulse Oximetry (ED) STAT Care 08/23/21 14:15 Active CHEST 1 VIEW (PORTABLE) Stat Exams 08/23/21 14:15 Completed CHEST WITH CONTRAST [CT] Stat Exams 08/23/21 15:11 Completed CBC W DIFF Stat Lab 08/23/21 14:00 Completed CMP Stat Lab 08/23/21 14:00 Completed D-DIMER QUANTITATIVE Stat Lab 08/23/21 14:00 Completed NT PRO BNP Stat Lab 08/23/21 14:00 Completed PROTIME WITH INR Stat Lab 08/23/21 14:00 Completed TROPONIN Q3H Lab 08/23/21 14:00 Completed TROPONIN Q3H Lab 08/23/21 17:16 Completed TROPONIN Q3H Lab 08/23/21 20:15 Ordered TROPONIN Q3H Lab 08/23/21 23:15 Ordered TROPONIN Q3H Lab 08/24/21 02:15 Ordered Medication Summary Generic Name Dose Route Start Last Admin Trade Name Freq PRN Reason Stop Dose Admin Sodium Chloride 1,000 mls @ 100 mls/hr 08/23/21 14:15 08/23/21 14:30 Sodium Chloride 0.9% 1000 Ml IV 09/22/21 14:14 100 mls/hr .Q10H LINA Administration Discontinued Medications Generic Name Dose Route Start Last Admin Trade Name Freq PRN Reason Stop Dose Admin Aspirin 162 mg 08/23/21 14:15 08/23/21 14:31 Aspirin 81 Mg Tab.Chew PO 08/23/21 14:16 162 mg STAT ONE Administration Aspirin Confirm 08/23/21 14:19 Aspirin 81 Mg Tab.Chew Administered 08/23/21 14:20 Dose 162 mg .ROUTE .STK-MED ONE Morphine Sulfate 4 mg 08/23/21 14:15 08/23/21 14:33 Morphine Sulfate 4 Mg/Ml Injection IV 08/23/21 14:16 4 mg STAT ONE Administration Morphine Sulfate Confirm 08/23/21 14:19 Morphine Sulfate 4 Mg/Ml Injection Administered 08/23/21 14:20 Dose 4 mg .ROUTE .STK-MED ONE Ondansetron HCl 4 mg 08/23/21 14:15 08/23/21 14:31 Ondansetron Hcl 4 Mg/2 Ml Vial IV 08/23/21 14:16 4 mg STAT ONE Administration Ondansetron HCl Confirm 08/23/21 14:19 Ondansetron Hcl 4 Mg/2 Ml Vial Administered 08/23/21 14:20 Dose 4 mg .ROUTE .STK-MED ONE Lab/Rad Data: Laboratory Result Diagrams 08/23/21 14:00 08/23/21 14:00 Laboratory Results 08/23/21 08/23/21 08/23/21 Range/Units 17:16 14:00 14:00 WBC (4.0-10.5) K/mm3 RBC (4.1-5.6) M/mm3 Hgb (12.5-18.0) gm/dl Hct (42-50) % MCV (78-100) fl MCH (26-32) pg MCHC (32-36) g/dl RDW (11.5-14.0) % Plt Count (150-450) K/mm3 MPV (7.5-11.0) fl Gran % (36.0-66.0) % Eos # (Auto) (0-0.5) Absolute Lymphs (auto) (1.0-4.6) Absolute Monos (auto) (0.0-1.3) Lymphocytes % (24.0-44.0) % Monocytes % (0.0-12.0) % Eosinophils % (0.00-5.0) % Basophils % (0.0-0.4) % Absolute Granulocytes (1.4-6.9) Basophils # (0-0.4) PT 13.0 H (9.4-12.5) SECONDS INR 1.10 (0.8-3.0) D-Dimer 787 H* (215-500) ng/mL Sodium 139 (137-145) mmol/L Potassium 4.6 (3.5-5.1) mmol/L Chloride 105 (98-107) mmol/L Carbon Dioxide 24 (22-30) mmol/L Anion Gap 13.9 (5-15) MEQ/L BUN 17 (9-20) mg/dL Creatinine 1.23 (0.66-1.25) mg/dL Estimated GFR > 60.0 ML/MIN Glucose 152 H (74-106) mg/dL Calcium 9.0 (8.4-10.2) mg/dL Total Bilirubin 0.80 (0.2-1.3) mg/dL AST 22 (17-59) U/L ALT 19 (0-50) U/L Alkaline Phosphatase 75 (38-126) U/L Troponin I < 0.012 (0.000-0.034) ng/mL NT-Pro-B Natriuret Pep 358 (0-900) pg/mL Serum Total Protein 6.9 (6.3-8.2) g/dL Albumin 3.9 (3.5-5.0) g/dL 08/23/21 08/23/21 Range/Units 14:00 14:00 WBC 9.1 (4.0-10.5) K/mm3 RBC 5.18 (4.1-5.6) M/mm3 Hgb 16.3 (12.5-18.0) gm/dl Hct 48.1 (42-50) % MCV 92.9 (78-100) fl MCH 31.5 (26-32) pg MCHC 33.9 (32-36) g/dl RDW 14.1 H (11.5-14.0) % Plt Count 222 (150-450) K/mm3 MPV 11.0 (7.5-11.0) fl Gran % 67.8 H (36.0-66.0) % Eos # (Auto) 0.18 (0-0.5) Absolute Lymphs (auto) 1.95 (1.0-4.6) Absolute Monos (auto) 0.77 (0.0-1.3) Lymphocytes % 21.5 L (24.0-44.0) % Monocytes % 8.5 (0.0-12.0) % Eosinophils % 2.0 (0.00-5.0) % Basophils % 0.2 (0.0-0.4) % Absolute Granulocytes 6.13 (1.4-6.9) Basophils # 0.02 (0-0.4) PT (9.4-12.5) SECONDS INR (0.8-3.0) D-Dimer (215-500) ng/mL Sodium (137-145) mmol/L Potassium (3.5-5.1) mmol/L Chloride (98-107) mmol/L Carbon Dioxide (22-30) mmol/L Anion Gap (5-15) MEQ/L BUN (9-20) mg/dL Creatinine (0.66-1.25) mg/dL Estimated GFR ML/MIN Glucose (74-106) mg/dL Calcium (8.4-10.2) mg/dL Total Bilirubin (0.2-1.3) mg/dL AST (17-59) U/L ALT (0-50) U/L Alkaline Phosphatase (38-126) U/L Troponin I < 0.012 (0.000-0.034) ng/mL NT-Pro-B Natriuret Pep (0-900) pg/mL Serum Total Protein (6.3-8.2) g/dL Albumin (3.5-5.0) g/dL - Progress Progress: improved, re-examined Air Movement: good Progress Note: 08/23/21 17:09 Chest x-ray shows new subtle right base infiltrate versus atelectasis. CTA of chest shows no pulmonary embolus. There is no acute cardiopulmonary abnormality. There is pulmonary emphysema. There are also sub-5 mm gallstones present within the gallbladder. 08/23/21 18:01 Medical decision making: This patient was reexamined. He has no further chest pain. He wants to go home. He does not want to stay in a hospital. I think this is reasonable as long as his second troponin is within normal limits. Patient had a similar work-up less than 1 week ago at [facility]. He was sent home from that visit as well. Patient has no evidence of pneumonia. Patient has no evidence of pulmonary embolus on CTA of the chest. He will contact his heart doctor tomorrow to make arrangements for follow-up appointment. 08/23/21 18:03 Blood Culture(s) Obtained: No Antibiotics given: No Counseled pt/family regarding: lab results, diagnosis, need for follow-up, rad results - Departure Departure Disposition: Home Clinical Impression: Chronic chest pain Condition: Stable Critical Care Time: No Referrals: RODRICK LEAL MD [Primary Care Provider] - Follow up/PCP as directed Additional Instructions: Take all your medications as prescribed. Call your operator technician tomorrow morning, 08/24/2021, to make arrangements for follow-up appointment. Return the emergency department if your symptoms recur.
[2021-08-23] MEDS ORDERED: Zofran 4 MG/2 ML VIAL IV ONE (14:15)
[2021-08-23] MEDS ORDERED: Sodium Chloride 0.9% 1000 ML 1,000 ML IV SCH (14:15)
[2021-08-23] MEDS ORDERED: BABY ASPIRIN 81 MG CHEW PO ONE (14:15)
[2021-08-23] MEDS ORDERED: MORPHINE SULFATE 4 MG INJ IV ONE (14:15)
[2021-08-23] MEDS ORDERED: Zofran 4 MG/2 ML VIAL ONE (14:19)
[2021-08-23] MEDS ORDERED: MORPHINE SULFATE 4 MG INJ ONE (14:19)
[2021-08-23] MEDS ORDERED: BABY ASPIRIN 81 MG CHEW ONE (14:19)
[2021-08-23] MEDS ORDERED: Sodium Chloride 0.9% 1000 ML 1,000 ML ONE (14:20)
[2021-08-23 14:37] LABS: Absolute Neutrophil Ct (ANC) 6.13 (1.4-6.9); Basophil (Absolute #) 0.02 (0-0.4); Eosinophil (Absolute #) 0.18 (0-0.5); Hematocrit 48.1 % (42-50); Hemoglobin 16.3 gm/dl (12.5-18.0); Lymphocyte (Absolute #) 1.95 (1.0-4.6); Lymphocytes % 21.5 % (24.0-44.0); Mean Cell Volume 92.9 fl (78-100); Mean Corpuscular Hemoglobin 31.5 pg (26-32); Mean Corpuscular Hgb Concent. 33.9 g/dl (32-36); Monocyte (Absolute #) 0.77 (0.0-1.3); Monocytes % 8.5 % (0.0-12.0); Neutrophil % 67.8 % (36.0-66.0); Platelet Count 222 K/mm3 (150-450); Red Blood Count 5.18 M/mm3 (4.1-5.6); Red Cell Distribution Width 14.1 % (11.5-14.0); White Blood Count 9.1 K/mm3 (4.0-10.5)
--- NOTE | 2021-08-23 14:47 | XRAY ---
Indication: Cough and short of breath. Comparison: June 18, 2021. Portable apical lordotic chest again hyperinflated with new subtle right base infiltrate versus atelectasis. Remaining heart and lungs unremarkable again with incidental CABG and left pacemaker. Bony thorax intact.
[2021-08-23 14:52] LABS: INR 1.1 (0.8-3.0)
[2021-08-23 15:07] LABS: ALBUMIN 3.9 g/dL (3.5-5.0); ALKALINE PHOSPHATASE 75 U/L (38-126); ANION GAP 13.9 MEQ/L (5-15); BLOOD UREA NITROGEN 17 mg/dL (9-20); CHLORIDE 105 mmol/L (98-107); Carbon Dioxide 24 mmol/L (22-30); Creatinine 1 1.23 mg/dL (0.66-1.25); EST GLOMERULAR FILTRATION RATE > 60.0 ML/MIN; Glucose 152 mg/dL (74-106); NT PRO BNP 358 pg/mL (0-900); Potassium 4.6 mmol/L (3.5-5.1); SGOT/AST 22 U/L (17-59); SGPT/ALT 19 U/L (0-50); SODIUM 139 mmol/L (137-145); Total Protein 6.9 g/dL (6.3-8.2)
--- NOTE | 2021-08-23 16:27 | XRAY ---
Indication: Chest pain. Elevated d-dimer. Multiple contiguous axial images obtained through the chest using 100 cc Isovue 370 contrast and PE protocol. Comparison: None There is good opacification of the pulmonary arteries to include the lobar and segmental branches. No pulmonary embolus. Heart not enlarged demonstrating CABG and left dual-lead pacemaker. Prominent bilateral epicardiac fat. Aorta is mildly arteriosclerotic without aneurysm/dissection. No pathologic mediastinal/hilar lymphadenopathy. Lungs demonstrates moderate diffuse pulmonary emphysema and minimal bibasilar dependent atelectasis. No suspicious pulmonary mass, infiltrate, or effusion. Bony thorax intact with mild osteopenia and mild degenerative changes throughout the spine. Limited upper abdomen demonstrates a few tiny sub-5 mm gallstones. Impression: 1. Negative pulmonary embolus. No acute cardiopulmonary abnormalities. 2. Pulmonary emphysema and sub-5 mm gallstones.
[2021-08-23 17:10] VITALS: O2SAT 97
[2021-08-23 18:15] VITALS: BP 115/66; PULSE 90
== END 2021-08-23 18:15 | disposition home or self-care (01) ==
LOC: ED 13:52
DX: R07.9 Chest pain, unspecified (principal); G89.29 Other chronic pain; E78.5 Hyperlipidemia, unspecified; I11.0 Hypertensive heart disease with heart failure; I50.9 Heart failure, unspecified; E11.9 Type 2 diabetes mellitus without complications; I48.91 Unspecified atrial fibrillation; Z79.01 Long term (current) use of anticoagulants; J43.9 Emphysema, unspecified; Z72.0 Tobacco use; Z79.899 Other long term (current) drug therapy
CPT/HCPCS: 36000; 36415; 71045; 71260; 80053; 83880; 84484; 85025; 85379; 85610; 93005; 94760; 96374; 96375; 99284; J2270; J2405; A9270-GY

== ENCOUNTER 2021-10-02 02:06 | Emergency (ER) | payer MEDICARE ==
--- NOTE | 2021-10-02 02:15 | ERPHSYRPT ---
- History of Present Illness Time Seen by Provider: 10/02/21 02:10 Historian: patient, EMS Exam Limitations: no limitations Physician History: pt had onset CP 45 minutes ago and took 2 nitro with good relief but still some pressure/SOBreath. Has 9 stents and also CABG. He reports he missed his Cardio visit last month due to [place]. pt has chronic controlled afib and takes elliquis Timing/Duration: today Activities at Onset: none Quality: burning, fullness, pressure, tightness Location: substernal Chest Pain Radiation: arm Severity of Pain-Max: moderate Severity of Pain-Current: moderate Modifying Factors: Improves With: nitroglycerin, oxygen Associated Symptoms: shortness of breath Prior Chest Pain/Cardiac Workup: angina, cardiac cath, recently seen/treated Nitro Today/Relief: 0.4 mg x 2, provided at home, mild relief Aspirin Treatment Today: no aspirin today (pt not taking ASA and not given due to his being on Elliquis with increased bleeding risk. ) Allergies/Adverse Reactions: No Known Drug Allergies Allergy (Verified 10/02/21 02:29) Home Medications: Nitroglycerin 0.4 mg SL Q2H/PRN PRN 10/10/19 [History] Tamsulosin HCl 0.4 mg [Flomax 0.4 MG] 0.4 mg PO DAILY 10/10/19 [History] allopurinoL [Allopurinol] 100 mg PO DAILY 10/10/19 [History] Amiodarone HCl 200 mg [Cordarone 200 MG] 200 mg PO DAILY 06/19/21 [History] Apixaban [Eliquis 2.5 mg Tablet] 2.5 mg PO BID 06/19/21 [History] Atorvastatin Calcium [Lipitor 40Mg] 40 mg PO HS 06/19/21 [History] Donepezil HCl 10 mg [Aricept 10 MG] 5 mg PO HS 06/19/21 [History] Duloxetine HCl 30 mg [Cymbalta 30 MG Capsule] 30 mg PO DAILY 06/19/21 [History] Empagliflozin [Jardiance] 10 mg PO DAILY 06/19/21 [History] Memantine HCl 5 mg [Namenda 5 MG] 5 mg PO BID 06/19/21 [History] Metoprolol Succinate 50 mg [Toprol Xl 50 MG] 25 mg PO BID 06/19/21 [History] Ranolazine 500 MG [Ranexa 500 MG] 1,000 mg PO BID 06/19/21 [History] Hx Tetanus, Diphtheria Vaccination/Date Given: Yes Hx Influenza Vaccination/Date Given: Yes Hx Pneumococcal Vaccination/Date Given: Yes Travel Risk - Vaccine Status Have you recieved a Covid-19 vaccination: No - Review of Systems Constitutional: No Fever, No Chills Eyes: No Symptoms Ears, Nose, & Throat: No Symptoms Respiratory: Dyspnea, No Cough Cardiac: Chest Pain, No Edema, No Syncope Abdominal/Gastrointestinal: No Abdominal Pain, No Nausea, No Vomiting, No Diarrhea Genitourinary Symptoms: No Dysuria Musculoskeletal: No Back Pain, No Neck Pain Skin: No Rash Neurological: No Dizziness, No Focal Weakness, No Sensory Changes Psychological: No Symptoms Endocrine: No Symptoms Hematologic/Lymphatic: No Symptoms Immunological/Allergic: No Symptoms All Other Systems: Reviewed and Negative - Past Medical History Pertinent Past Medical History: Yes Neurological History: Stroke, TIA ENT History: Cataracts Cardiac History: Angina, Arrhythmia, Congestive Heart Failure, High Cholesterol, Myocardial Infarction ([place]) Respiratory History: CHF, COPD, Emphysema Endocrine Medical History: Diabetes Type II, Hypothyroidism Musculoskeletal History: Other GI Medical History: Hepatitis History: Other Psycho-Social History: Anxiety, Depression Male Reproductive Disorders: Prostate Problems Other Medical History: A-Fib - Past Surgical History Past Surgical History: Yes Neuro Surgical History: No Pertinent History Cardiac: Angioplasty, CABG, Pacemaker Respiratory: No Pertinent History Gastrointestinal: No Pertinent History Genitourinary: No Pertinent History Musculoskeletal: Other Male Surgical History: No Pertinent History Other Surgical History: RUPTURED BELLY BUTTON. Right foot surgery - Social History Smoking Status: Current every day smoker How long have you smoked: since 10 Exposure to second hand smoke: Yes Drug Use: marijuana Patient Lives Alone: No Significant Family History: no pertinent family hx - Nursing Vital Signs Nursing Vital Signs: Initial Vital Signs Temperature 98.0 F 10/02/21 02:16 Pulse Rate 61 10/02/21 02:16 Respiratory Rate 18 10/02/21 02:16 Blood Pressure 131/82 10/02/21 02:16 O2 Sat by Pulse Oximetry 97 10/02/21 02:16 Pain Scale Pain Intensity 1 - Physical Exam General Appearance: no apparent distress, alert Eye Exam: PERRL/EOMI, eyes nml inspection Ears, Nose, Throat Exam: normal ENT inspection, moist mucous membranes Neck Exam: normal inspection, non-tender, supple, full range of motion Respiratory Exam: normal breath sounds, lungs clear, No respiratory distress Cardiovascular Exam: regular rate/rhythm, normal heart sounds Gastrointestinal/Abdomen Exam: soft, No tenderness, No mass Rectal Exam: deferred Back Exam: normal inspection, No CVA tenderness, No vertebral tenderness Extremity Exam: normal inspection, normal range of motion Neurologic Exam: alert, oriented x 3, cooperative, normal mood/affect, sensation nml, No motor deficits Skin Exam: normal color, warm, dry SpO2 Interpretation: normal SpO2: 100 O2 Delivery: Room Air - Course Nursing assessment & vital signs reviewed: Yes EKG Interpreted by Me: A-fib, NORMAL AXIS, prolonged QT interval, NORMAL QRS, Non-specific ST Changes - Radiology Exams Chest X-ray Interpretation: Reviewed by me, No Pneumonia, Other (mild venous congestion) Ordered Tests: Active Orders 24 hr Category Date Time Status Diesel Dinkey Engineer STAT Care 10/02/21 02:17 Active EKG-ER Only STAT Care 10/02/21 02:16 Active IV Insertion STAT Care 10/02/21 02:16 Active Pulse Oximetry (ED) STAT Care 10/02/21 02:16 Active CHEST 1 VIEW (PORTABLE) Stat Exams 10/02/21 02:16 Taken CBC Stat Lab 10/02/21 02:53 Completed CMP Stat Lab 10/02/21 02:16 Completed D-DIMER QUANTITATIVE Stat Lab 10/02/21 02:16 Completed LIPASE Stat Lab 10/02/21 02:16 Completed NT PRO BNP Stat Lab 10/02/21 02:16 Completed TROPONIN Q3H Lab 10/02/21 02:30 Completed TROPONIN Q3H Lab 10/02/21 04:20 Completed TROPONIN Q3H Lab 10/02/21 08:30 Ordered TROPONIN Q3H Lab 10/02/21 11:30 Ordered TROPONIN Q3H Lab 10/02/21 14:30 Ordered Medication Summary Generic Name Dose Route Start Last Admin Trade Name Freq PRN Reason Stop Dose Admin Sodium Chloride 1,000 mls @ 100 mls/hr 10/02/21 02:30 10/02/21 02:36 Sodium Chloride 0.9% 1000 Ml IV 11/01/21 02:29 100 mls/hr .Q10H LINA Administration Discontinued Medications Generic Name Dose Route Start Last Admin Trade Name Shravan PRN Reason Stop Dose Admin Nitroglycerin 0.4 mg 10/02/21 02:16 10/02/21 02:37 Nitroglycerin 0.4 Mg (Ed) 0.4 Mg Tab.Subl SL 10/02/21 02:17 0.4 mg STAT ONE Administration Lab/Rad Data: Laboratory Result Diagrams 10/02/21 02:53 10/02/21 02:16 Laboratory Results 10/02/21 10/02/21 10/02/21 Range/Units 04:20 02:53 02:30 WBC 8.3 (4.0-10.5) K/mm3 RBC 4.96 (4.1-5.6) M/mm3 Hgb 15.9 (12.5-18.0) gm/dl Hct 47.5 (42-50) % MCV 95.8 (78-100) fl MCH 32.1 H (26-32) pg MCHC 33.5 (32-36) g/dl RDW 14.2 H (11.5-14.0) % Plt Count 173 (150-450) K/mm3 MPV 10.8 (7.5-11.0) fl D-Dimer (215-500) ng/mL Sodium (137-145) mmol/L Potassium (3.5-5.1) mmol/L Chloride (98-107) mmol/L Carbon Dioxide (22-30) mmol/L Anion Gap (5-15) MEQ/L BUN (9-20) mg/dL Creatinine (0.66-1.25) mg/dL Estimated GFR ML/MIN Glucose (74-106) mg/dL Calcium (8.4-10.2) mg/dL Total Bilirubin (0.2-1.3) mg/dL AST (17-59) U/L ALT (0-50) U/L Alkaline Phosphatase (38-126) U/L Troponin I < 0.012 < 0.012 (0.000-0.034) ng/mL NT-Pro-B Natriuret Pep (0-900) pg/mL Serum Total Protein (6.3-8.2) g/dL Albumin (3.5-5.0) g/dL Lipase (23-300) U/L 10/02/21 10/02/21 Range/Units 02:16 02:16 WBC (4.0-10.5) K/mm3 RBC (4.1-5.6) M/mm3 Hgb (12.5-18.0) gm/dl Hct (42-50) % MCV (78-100) fl MCH (26-32) pg MCHC (32-36) g/dl RDW (11.5-14.0) % Plt Count (150-450) K/mm3 MPV (7.5-11.0) fl D-Dimer 463 (215-500) ng/mL Sodium 138 (137-145) mmol/L Potassium 4.2 (3.5-5.1) mmol/L Chloride 101 (98-107) mmol/L Carbon Dioxide 28 (22-30) mmol/L Anion Gap 12.4 (5-15) MEQ/L BUN 20 (9-20) mg/dL Creatinine 1.18 (0.66-1.25) mg/dL Estimated GFR > 60.0 ML/MIN Glucose 390 H (74-106) mg/dL Calcium 9.0 (8.4-10.2) mg/dL Total Bilirubin 0.60 (0.2-1.3) mg/dL AST 23 (17-59) U/L ALT 22 (0-50) U/L Alkaline Phosphatase 78 (38-126) U/L Troponin I (0.000-0.034) ng/mL NT-Pro-B Natriuret Pep 490 (0-900) pg/mL Serum Total Protein 6.9 (6.3-8.2) g/dL Albumin 3.7 (3.5-5.0) g/dL Lipase 247 (23-300) U/L - Progress Progress: improved, re-examined Air Movement: good Progress Note: 10/02/21 03:[address] Hernandez at [facility], who relates that the pt is a super- user there without new actionable findings on recent caths, but did have remote disease and stents placed for that. Normally they do 2 EKGs and trops and if no bumps he follows up with Dr. Minoo Pantoja his senior director there. He currently has a neg trop and BNP and D-Dimer. 10/02/21 05:44 pt now has no CP and feels fine to f/u as outpt. Discussed with Dr. Crum covering and also advised pt of risks for ongoing cardiac event not yet detected ( including [place], complications or ) and he is comfortable with DC to outpt f/u without further workup in ER or hospital, and to return meantime if any symptoms recur. pt has the capacity and mental status to make this choice. 10/02/21 05:55 Blood Culture(s) Obtained: No Antibiotics given: No Discussed with : Gosia Will see patient in: other (Dr. Crum knows pt well and is comfortable with outpt f/u and social service to facilitate since symptoms have now resoved. ) Counseled pt/family regarding: lab results, diagnosis, need for follow-up, rad results - Departure Departure Disposition: Home Clinical Impression: chest pain- resolved Condition: Good Critical Care Time: No Referrals: RODRICK LEAL MD [Primary Care Provider] - Follow up/PCP as directed Instructions: Chest Pain (DC) Additional Instructions: follow-up with your senior director Dr. Pantoja this week with the assistance of licensed clinical social worker if need be. Return meantime if symptoms recur since you are at risk for cardiac events and complications which could occur at any time. Let us know as well if you require any assistance at any time.
[2021-10-02] MEDS ORDERED: Nitrostat 0.4 MG (ED) SL ONE (02:16)
[2021-10-02] MEDS ORDERED: Sodium Chloride 0.9% 1000 ML 1,000 ML IV SCH (02:30)
[2021-10-02] MEDS ORDERED: Sodium Chloride 0.9% 1000 ML 1,000 ML ONE (02:35)
[2021-10-02 02:51] LABS: ALBUMIN 3.7 g/dL (3.5-5.0); ALKALINE PHOSPHATASE 78 U/L (38-126); ANION GAP 12.4 MEQ/L (5-15); BLOOD UREA NITROGEN 20 mg/dL (9-20); CHLORIDE 101 mmol/L (98-107); Carbon Dioxide 28 mmol/L (22-30); Creatinine 1 1.18 mg/dL (0.66-1.25); EST GLOMERULAR FILTRATION RATE > 60.0 ML/MIN; Glucose 390 mg/dL (74-106); LIPASE 247 U/L (23-300); NT PRO BNP 490 pg/mL (0-900); Potassium 4.2 mmol/L (3.5-5.1); SGOT/AST 23 U/L (17-59); SGPT/ALT 22 U/L (0-50); SODIUM 138 mmol/L (137-145); Total Protein 6.9 g/dL (6.3-8.2)
[2021-10-02 02:58] LABS: Hematocrit 47.5 % (42-50); Hemoglobin 15.9 gm/dl (12.5-18.0); Mean Cell Volume 95.8 fl (78-100); Mean Corpuscular Hemoglobin 32.1 pg (26-32); Mean Corpuscular Hgb Concent. 33.5 g/dl (32-36); Mean Platelet Volume 10.8 fl (7.5-11.0); Platelet Count 173 K/mm3 (150-450); Red Blood Count 4.96 M/mm3 (4.1-5.6); Red Cell Distribution Width 14.2 % (11.5-14.0); White Blood Count 8.3 K/mm3 (4.0-10.5)
[2021-10-02 05:10] VITALS: PULSE 60
[2021-10-02 06:08] VITALS: BP 125/76; O2SAT 96
--- NOTE | 2021-10-02 07:41 | XRAY ---
Indication: Chest pain radiating left arm. Comparison: August 23, 2021. Portable apical lordotic chest hyperinflated and clear. Heart within normal limits for AP portable technique again with CABG and left pacemaker. No new/acute findings.
== END 2021-10-02 06:22 | disposition home or self-care (01) ==
LOC: ED 02:06
DX: R07.9 Chest pain, unspecified (principal); R06.02 Shortness of breath; I11.0 Hypertensive heart disease with heart failure; I50.9 Heart failure, unspecified; I48.91 Unspecified atrial fibrillation; J43.9 Emphysema, unspecified; E11.9 Type 2 diabetes mellitus without complications; Z72.0 Tobacco use; Z79.01 Long term (current) use of anticoagulants; Z79.84 Long term (current) use of oral hypoglycemic drugs; Z79.899 Other long term (current) drug therapy
CPT/HCPCS: 36000; 36415; 71045; 80053; 83690; 83880; 84484; 85027; 85379; 93005; 93041; 94760; 96360; 96361; 99285; A9270-GY

== ENCOUNTER 2022-11-15 19:54 | Observation (INO) | payer MEDICARE ==
[2022-11-15 20:29] LABS: Absolute Neutrophil Ct (ANC) 5.09 x10^3/uL (1.4-6.9); BASOPHIL % 0.4 % (0.0-0.4); Basophil (Absolute #) 0.03 x10^3/uL (0-0.4); Eosinophil % 2.2 % (0.00-5.0); Eosinophil (Absolute #) 0.17 x10^3/uL (0-0.5); IMMATURE GRAN # 0.06 x10^3u/L (0.00-0.03); IMMATURE GRAN % 0.8 % (0.00-0.4); Lymphocytes % 24.4 % (24.0-44.0); Mean Cell Volume 96.4 fL (78-100); Mean Corpuscular Hemoglobin 32.1 pg (26-32); Mean Corpuscular Hgb Concent. 33.3 g/dL (32-36); Mean Platelet Volume 10.5 fL (7.5-11.0); Monocyte (Absolute #) 0.55 x10^3/uL (0.0-1.3); Monocytes % 7.1 % (0.0-12.0); Neutrophil % 65.1 % (36.0-66.0); Platelet Count 182 x10^3/uL (150-450); Red Blood Count 4.67 x10^6/uL (4.1-5.6); Red Cell Distribution Width 13.5 % (11.5-14.0); White Blood Count 7.8 x10^3/uL (4.0-10.5)
--- NOTE | 2022-11-15 20:34 | ERPHSYRPT ---
- History of Present Illness Historian: patient, EMS Exam Limitations: other (Poor historian) Patient Subjective Stated Complaint: pt states "I was resting in my recliner when I started to feel a little chest heaviness as well as my heart racing. I went to lay down and it didn't get any better so I call for EMS" Triage Nursing Assessment: pt brought to room 6 via EMS stretcher, pt stood and walked a couple of steps to the bed independently with slow steady gait. pt is alert and oriented times three, able to move all extremities, resp even and unlabored, and able to speak in complete sentences. skin warm dry pink and intact. apical pulse auscultated irregular with rate in 140's. breath sounds clear bilat anterior. no edema noted. peripheral pulses palpable in all 4 extremities. denies chest "pain" at this time but is calling it a "heaviness" rated 7/10. denies nausea, sob, lightheadedness, or dizziness at this time. report earlier when he had chest pain he also felt nauseated but didn't vomit and had sharp pains down his left arm but that was all resolved with the 1 SL NTG he took prior to EMS arrival. Physician History: 72 yo WM w h/o Afib/RI/Stents/CABG/DM/HTN/hyperlipidemia/1-2 ppd tobacco abuse presents per EMS w Afib-Aflutter w RVR/Mid-sternal chest "heaviness" w radiation to his LUE/dyspnea/nausea/diaphoresis beginning at 20:00. Pt was given asa 324mg and SL NTG x2 per EMS. pain was an 8 but currently a 3/10. Initial EKG w Aflutter w RVR/prolonged QTc/Nonspecific ST-Twave changes. Rate spontaneously dropped to less than 100. Timing/Duration: other (1999) Activities at Onset: rest Quality: other (Heaviness) Location: substernal Chest Pain Radiation: arm (LUE) Severity of Pain-Max: severe Severity of Pain-Current: mild Modifying Factors: Improves With: nothing Associated Symptoms: nausea, shortness of breath, diaphoresis Prior Chest Pain/Cardiac Workup: non-cardiac, angina Nitro Today/Relief: 0.4 mg x 2, provided by EMS, mild relief Aspirin Treatment Today: 325 mg x 1, provided by ED Allergies/Adverse Reactions: No Known Drug Allergies Allergy (Verified 11/15/22 19:57) Home Medications: Nitroglycerin 0.4 mg SL Q2H/PRN PRN 10/10/19 [History] Tamsulosin HCl 0.4 mg [Flomax 0.4 MG] 0.4 mg PO DAILY 10/10/19 [History] allopurinoL [Allopurinol] 100 mg PO DAILY 10/10/19 [History] Amiodarone HCl 200 mg [Cordarone 200 MG] 200 mg PO DAILY 06/19/21 [History] Apixaban [Eliquis 2.5 mg Tablet] 2.5 mg PO BID 06/19/21 [History] Atorvastatin Calcium [Lipitor 40Mg] 40 mg PO HS 06/19/21 [History] Donepezil HCl 10 mg [Aricept 10 MG] 5 mg PO HS 06/19/21 [History] Duloxetine HCl 30 mg [Cymbalta 30 MG Capsule] 30 mg PO DAILY 06/19/21 [History] Empagliflozin [Jardiance] 10 mg PO DAILY 06/19/21 [History] Memantine HCl 5 mg [Namenda 5 MG] 5 mg PO BID 06/19/21 [History] Metoprolol Succinate 50 mg [Toprol Xl 50 MG] 25 mg PO BID 06/19/21 [History] Ranolazine 500 MG [Ranexa 500 MG] 1,000 mg PO BID 06/19/21 [History] Hx Tetanus, Diphtheria Vaccination/Date Given: Yes Hx Influenza Vaccination/Date Given: Yes Hx Pneumococcal Vaccination/Date Given: Yes Immunizations Up to Date: Yes Travel Risk - International Travel Have you traveled outside of the country in past 3 weeks: No - Coronavirus Screening Are you exhibiting any of the following symptoms?: No Close contact with a COVID-19 positive Pt in past 14-21 Days: No - Vaccine Status Have you recieved a Covid-19 vaccination: No - Review of Systems Constitutional: No Symptoms Eyes: No Symptoms Ears, Nose, & Throat: No Symptoms Respiratory: No Symptoms, Dyspnea Cardiac: No Symptoms, Chest Pain Abdominal/Gastrointestinal: No Symptoms Genitourinary Symptoms: No Symptoms Musculoskeletal: No Symptoms Skin: No Symptoms Neurological: No Symptoms Psychological: No Symptoms Endocrine: No Symptoms Hematologic/Lymphatic: No Symptoms Immunological/Allergic: No Symptoms - Past Medical History Pertinent Past Medical History: Yes Neurological History: Stroke, TIA ENT History: Cataracts Cardiac History: Angina, Arrhythmia, Congestive Heart Failure, Coronary Artery Disease, High Cholesterol, Myocardial Infarction ([place]) Respiratory History: CHF, COPD, Emphysema Endocrine Medical History: Diabetes Type II, Hypothyroidism Musculoskeletal History: Other GI Medical History: Hepatitis History: Other Psycho-Social History: Anxiety, Depression Male Reproductive Disorders: Prostate Problems Other Medical History: A-Fib - Past Surgical History Past Surgical History: Yes Neuro Surgical History: No Pertinent History Cardiac: Angioplasty, CABG, Pacemaker Respiratory: No Pertinent History Gastrointestinal: No Pertinent History Genitourinary: No Pertinent History Musculoskeletal: Other Male Surgical History: No Pertinent History Other Surgical History: RUPTURED BELLY BUTTON. Right foot surgery - Social History Smoking Status: Current every day smoker How long have you smoked: since 12 Exposure to second hand smoke: Yes Drug Use: none Patient Lives Alone: Yes Significant Family History: no pertinent family hx - Nursing Vital Signs Nursing Vital Signs: Initial Vital Signs Temperature 99.0 F 11/15/22 19:57 Pulse Rate 140 H 11/15/22 19:57 Respiratory Rate 14 11/15/22 19:57 Blood Pressure 145/87 11/15/22 19:57 O2 Sat by Pulse Oximetry 99 11/15/22 19:57 Pain Scale Pain Intensity 2 Tachy/Hypertensive - Physical Exam General Appearance: no apparent distress Eye Exam: PERRL/EOMI, eyes nml inspection Ears, Nose, Throat Exam: normal ENT inspection, TMs normal, pharynx normal, moist mucous membranes Neck Exam: normal inspection, supple, full range of motion Respiratory Exam: normal breath sounds, lungs clear, airway intact, No chest tenderness, No respiratory distress Cardiovascular Exam: tachycardia, capillary refill <2 sec Gastrointestinal/Abdomen Exam: soft, normal bowel sounds Back Exam: normal inspection, normal range of motion, No CVA tenderness, No vertebral tenderness Extremity Exam: normal inspection, normal range of motion Neurologic Exam: alert, oriented x 3, cooperative, manager agency II-XII nml as tested, normal mood/affect, nml cerebellar function, nml station & gait, sensation nml Skin Exam: normal color, warm, dry Lymphatic Exam: inguinal node tender (L), No adenopathy SpO2: 99 O2 Delivery: Room Air - Course Nursing assessment & vital signs reviewed: Yes EKG Interpreted by Me: RATE (Aflutter w RVR/Prolonged QTc/Nonspecific ST-Twave changes/EKG #2 NSR/Rate 76/Normal QT-QTc/IRBBB/No acute ST segment changes) - Radiology Exams Chest X-ray Interpretation: Interpreted by me (Pacer/chronic changes) Ordered Tests: Active Orders 24 hr Category Date Time Status Serology Teacher STAT Care 11/15/22 20:15 Completed EKG-ER Only STAT Care 11/15/22 20:09 Completed IV Insertion STAT Care 11/15/22 20:15 Completed Consistent Carbohydrate Diet 2000 Calorie Diet 11/16/22 Breakfast Active CHEST 1 VIEW (PORTABLE) Stat Exams 11/15/22 20:08 Taken CBC W DIFF Stat Lab 11/15/22 20:21 Completed CMP Stat Lab 11/15/22 20:21 Completed LIPID PROFILE AM.LAB Lab 11/16/22 04:00 Ordered NT PRO BNPII Stat Lab 11/15/22 20:21 Completed PROTIME WITH INR Stat Lab 11/15/22 20:21 Completed PTT Stat Lab 11/15/22 20:21 Completed TROPONIN Q4H Lab 11/15/22 20:21 Completed TROPONIN Q4H Lab 11/15/22 22:08 Completed TROPONIN Q4H Lab 11/16/22 00:15 Ordered TROPONIN Q4H Lab 11/16/22 02:15 Ordered TROPONIN Q4H Lab 11/16/22 04:15 Ordered TROPONIN Q4H Lab 11/16/22 06:15 Ordered EKG Q8HX2,QAMX3,PRN RT 11/15/22 23:00 Completed Transfer Order Routine Transfer 11/15/22 Completed Medication Summary Generic Name Dose Route Start Last Admin Trade Name Freq PRN Reason Stop Dose Admin Acetaminophen 650 mg 11/15/22 23:00 Acetaminophen 325 Mg Tablet PO 12/15/22 22:59 Q4H PRN PRN PAIN AND/OR FEVER Al Hydrox/Mg Hydrox/Simethicone 30 ml 11/15/22 23:00 Mag Hydrox/Al Hydrox/Simeth 30 Ml Udcup PO 12/15/22 22:59 Q4H PRN PRN INDIGESTION Insulin Human Lispro 0 unit 11/15/22 23:00 Insulin Lispro 1 Unit SQ 12/15/22 22:59 UD PRN HYPERGLYCEMIA Magnesium Hydroxide 30 - 60 ml 11/15/22 23:00 Magnesium Hydroxide 30 Ml Udcup PO 12/15/22 22:59 QDP PRN CONSTIPATION Nicotine 21 mg 11/15/22 23:15 Nicotine 21 Mg/Patch Patch TOP 12/15/22 23:14 Q24H LINA Nitroglycerin 0.4 mg 11/15/22 23:00 Nitroglycerin 0.4 Mg Tablet Bottle SL 12/15/22 22:59 .Q5MIN PRN CHEST PAIN Ondansetron HCl 4 mg 11/15/22 23:00 Ondansetron Hcl 4 Mg/2 Ml Vial IV 12/15/22 22:59 Q4H PRN PRN NAUSEA/VOMITING Senna/Docusate Sodium 2 udtab 11/15/22 23:00 Senna/Docusate Sodium 1 Udtab Tablet PO 12/15/22 22:59 BID PRN PRN CONSTIPATION Discontinued Medications Generic Name Dose Route Start Last Admin Trade Name Freq PRN Reason Stop Dose Admin Metoprolol Tartrate 25 mg 11/15/22 22:52 11/15/22 22:54 Metoprolol Tartrate 25 Mg Tab PO 11/15/22 22:53 25 mg STAT ONE Administration Metoprolol Tartrate Confirm 11/15/22 22:54 Metoprolol Tartrate 25 Mg Tab Administered 11/15/22 22:55 Dose 25 mg .ROUTE .[employer]-MED ONE Lab/Rad Data: Laboratory Result Diagrams 11/15/22 20:21 11/15/22 20:21 Laboratory Results 11/15/22 11/15/22 11/15/22 Range/Units 22:08 20:21 20:21 WBC (4.0-10.5) x10^3/uL RBC (4.1-5.6) x10^6/uL Hgb (12.5-18.0) g/dL Hct (42-50) % MCV (78-100) fL MCH (26-32) pg MCHC (32-36) g/dL RDW (11.5-14.0) % Plt Count (150-450) x10^3/uL MPV (7.5-11.0) fL Gran % (36.0-66.0) % Immature Gran % (Auto) (0.00-0.4) % Nucleat RBC Rel Count (0.00-0.1) % Eos # (Auto) (0-0.5) x10^3/uL Immature Gran # (Auto) (0.00-0.03) x10^3u/L Absolute Lymphs (auto) (1.0-4.6) x10^3/uL Absolute Monos (auto) (0.0-1.3) x10^3/uL Absolute Nucleated RBC (0.00-0.01) x10^3u/L Lymphocytes % (24.0-44.0) % Monocytes % (0.0-12.0) % Eosinophils % (0.00-5.0) % Basophils % (0.0-0.4) % Absolute Granulocytes (1.4-6.9) x10^3/uL Basophils # (0-0.4) x10^3/uL PT 10.6 (9.4-12.5) SECONDS INR 0.97 (0.8-3.0) APTT 27.8 (25.1-36.5) SECONDS Sodium (137-145) mmol/L Potassium (3.5-5.1) mmol/L Chloride (98-107) mmol/L Carbon Dioxide (22-30) mmol/L Anion Gap (5-15) MEQ/L BUN (9-20) mg/dL Creatinine (0.66-1.25) mg/dL Estimated GFR ML/MIN Glucose (74-106) mg/dL Calcium (8.4-10.2) mg/dL Total Bilirubin (0.2-1.3) mg/dL AST (17-59) U/L ALT (0-50) U/L Alkaline Phosphatase (38-126) U/L Troponin I < 0.012 < 0.012 (0.000-0.034) ng/mL NT-Pro-B Natriuret Pep 566 (<300) pg/mL Serum Total Protein (6.3-8.2) g/dL Albumin (3.5-5.0) g/dL 11/15/22 11/15/22 Range/Units 20:21 20:21 WBC 7.8 (4.0-10.5) x10^3/uL RBC 4.67 (4.1-5.6) x10^6/uL Hgb 15.0 (12.5-18.0) g/dL Hct 45.0 (42-50) % MCV 96.4 (78-100) fL MCH 32.1 H (26-32) pg MCHC 33.3 (32-36) g/dL RDW 13.5 (11.5-14.0) % Plt Count 182 (150-450) x10^3/uL MPV 10.5 (7.5-11.0) fL Gran % 65.1 (36.0-66.0) % Immature Gran % (Auto) 0.8 H (0.00-0.4) % Nucleat RBC Rel Count 0.0 (0.00-0.1) % Eos # (Auto) 0.17 (0-0.5) x10^3/uL Immature Gran # (Auto) 0.06 H (0.00-0.03) x10^3u/L Absolute Lymphs (auto) 1.90 (1.0-4.6) x10^3/uL Absolute Monos (auto) 0.55 (0.0-1.3) x10^3/uL Absolute Nucleated RBC 0.00 (0.00-0.01) x10^3u/L Lymphocytes % 24.4 (24.0-44.0) % Monocytes % 7.1 (0.0-12.0) % Eosinophils % 2.2 (0.00-5.0) % Basophils % 0.4 (0.0-0.4) % Absolute Granulocytes 5.09 (1.4-6.9) x10^3/uL Basophils # 0.03 (0-0.4) x10^3/uL PT (9.4-12.5) SECONDS INR (0.8-3.0) APTT (25.1-36.5) SECONDS Sodium 142 (137-145) mmol/L Potassium 4.4 (3.5-5.1) mmol/L Chloride 108 H (98-107) mmol/L Carbon Dioxide 26 (22-30) mmol/L Anion Gap 13.4 (5-15) MEQ/L BUN 28 H (9-20) mg/dL Creatinine 1.31 H (0.66-1.25) mg/dL Estimated GFR 56.8 ML/MIN Glucose 188 H (74-106) mg/dL Calcium 8.7 (8.4-10.2) mg/dL Total Bilirubin 0.60 (0.2-1.3) mg/dL AST 24 (17-59) U/L ALT 24 (0-50) U/L Alkaline Phosphatase 70 (38-126) U/L Troponin I (0.000-0.034) ng/mL NT-Pro-B Natriuret Pep (<300) pg/mL Serum Total Protein 6.6 (6.3-8.2) g/dL Albumin 3.6 (3.5-5.0) g/dL - Progress Progress Note: 11/15/22 23:02 Nursing note and vital signs reviewed No food or housing insecurities noted All lab results reviewed and shared w pt CXR result reviewed and shared w pt Obs per Dr. Dhillon Pt w obs admit for chest pain and intermittent Aflutter w RVR Pt in and out of Aflutter w RVR during entire ER visit. Every time he reached treatment threshold, rate would decrease to acceptable level. Pt is a full code Orders entered 11/15/22 23:08 Discussed with : Other Counseled pt/family regarding: lab results, diagnosis, rad results Medical Desision Making - Discussion of managment Care discussed with:: hospitalist Reviewed:: Test results Agreed on:: Treatment plan, place in obs Will see patient: in hospital - Diagnostic Testing Radiological Interpretation: Interpreted by me - Risk of complications The pt has a high risk of morbidity or mortality based on: Drug therapy requiring intensive monitoring for toxicity - Departure Departure Disposition: Observation Clinical Impression: Chest pain, Flutter-fibrillation Condition: Stable Critical Care Time: Yes Critical Care Time(excluding separately billable procedures): Critical 30-74 mins
[2022-11-15 20:40] LABS: ALBUMIN 3.6 g/dL (3.5-5.0); ANION GAP 13.4 MEQ/L (5-15); BILIRUBIN,TOTAL 0.6 mg/dL (0.2-1.3); Calcium 8.7 mg/dL (8.4-10.2); Creatinine 1 1.31 mg/dL (0.66-1.25); EST GLOMERULAR FILTRATION RATE 56.8 ML/MIN; Potassium 4.4 mmol/L (3.5-5.1); Total Protein 6.6 g/dL (6.3-8.2)
[2022-11-15 20:49] LABS: INR 0.97 (0.8-3.0); PROTIME 10.6 SECONDS (9.4-12.5); PTT 27.8 SECONDS (25.1-36.5)
[2022-11-15 20:52] LABS: NT PRO BNPII 566 pg/mL (<300); TROPONIN < 0.012 ng/mL (0.000-0.034)
[2022-11-15] MEDS ORDERED: Lopressor 25MG Tab PO ONE (22:52)
[2022-11-15] MEDS ORDERED: Lopressor 25MG Tab ONE (22:54)
[2022-11-15] MEDS ORDERED: HUMALOG SQ PRN (23:00)
[2022-11-15] MEDS ORDERED: MILK OF MAGNESIA 30 ML PO PRN (23:00)
[2022-11-15] MEDS ORDERED: MAALOX ES 30 ML UNIT DOSE PO PRN (23:00)
[2022-11-15] MEDS ORDERED: TYLENOL 325 MG PO PRN (23:00)
[2022-11-15] MEDS ORDERED: Nitrostat 0.4 MG Tablet SL PRN (23:00)
[2022-11-15] MEDS ORDERED: Senokot-S Tablet PO PRN (23:00)
[2022-11-15] MEDS ORDERED: Zofran 4 MG/2 ML VIAL IV PRN (23:00)
[2022-11-15] MEDS ORDERED: Nicoderm CQ 21 MG TOP SCH (23:15)
--- NOTE | 2022-11-16 01:09 | PCM.HP ---
History of Present Illness - Chief Complaint Chief Complaint: A-Flutter/Chest pain History of Present Illness: 72 yo wm with hx of CAD(hx of 4 vessel CABG 5 years ago, no cath since), DM, HTN, CKD presents with a 1 week hx of chest pain and fluttering sensation in chest. Pt states that he felt his heart racing. He has hx of afib but not flutter. He had CABG 5 years ago but no cath or stress recently. He notes with exertion(walking upstairs) he notes angina similar to sxs having at current. He was in aflutter on admit but now in NSR. He is now chest pain free. Trop unrevealing. - Review of Systems Constitutional: No Symptoms Eyes: No Symptoms Ears, Nose, & Throat: No Symptoms Respiratory: Short Of Breath Cardiac: Chest Pain Abdominal/Gastrointestinal: No Symptoms Genitourinary Symptoms: No Symptoms Musculoskeletal: No Symptoms Skin: No Symptoms Neurological: No Symptoms Psychological: No Symptoms Endocrine: No Symptoms Hematologic/Lymphatic: No Symptoms Medications & Allergies Home Medications: Home Medication List Nitroglycerin 0.4 mg SL Q2H/PRN PRN 10/10/19 [History Confirmed 11/15/22] Tamsulosin HCl 0.4 mg [Flomax 0.4 MG] 0.4 mg PO DAILY 10/10/19 [History Confirmed 11/15/22] allopurinoL [Allopurinol] 100 mg PO DAILY 10/10/19 [History Confirmed 11/15/22] Amiodarone HCl 200 mg [Cordarone 200 MG] 200 mg PO DAILY 06/19/21 [History Confirmed 11/15/22] Apixaban [Eliquis 2.5 mg Tablet] 2.5 mg PO BID 06/19/21 [History Confirmed 11/15/22] Atorvastatin Calcium [Lipitor 40Mg] 40 mg PO HS 06/19/21 [History Confirmed 11/15/22] Donepezil HCl 10 mg [Aricept 10 MG] 5 mg PO HS 06/19/21 [History Confirmed 11/15/22] Duloxetine HCl 30 mg [Cymbalta 30 MG Capsule] 30 mg PO DAILY 06/19/21 [History Confirmed 11/15/22] Empagliflozin [Jardiance] 10 mg PO DAILY 06/19/21 [History Confirmed 11/15/22] Memantine HCl 5 mg [Namenda 5 MG] 5 mg PO BID 06/19/21 [History Confirmed 11/15/22] Metoprolol Succinate 50 mg [Toprol Xl 50 MG] 25 mg PO BID 06/19/21 [History Confirmed 11/15/22] Ranolazine 500 MG [Ranexa 500 MG] 1,000 mg PO BID 06/19/21 [History Confirmed 11/15/22] Aspirin EC 81 mg [Ecotrin 81 mg] 81 mg PO DAILY #60 tablet 06/20/21 [Rx Confirmed 11/15/22] Isosorbide Mononitrate 30 mg [Imdur 30 MG] 30 mg PO DAILY #30 tab 06/20/21 [Rx Confirmed 11/15/22] Allergies/Adverse Reactions: Allergies Allergy/AdvReac Type Severity Reaction Status Date / Time No Known Drug Allergies Allergy Verified 11/15/22 19:57 - Past Medical History Past Medical History: Yes Neurological History: Stroke ENT History: Cataracts Cardiac History: Arrhythmia, Congestive Heart Failure, Coronary Artery Disease, High Cholesterol, Hypertension, Myocardial Infarction ([place]) Respiratory History: COPD Endocrine Medical History: Diabetes Type II Musculoskelatal History: No Pertinent History GI Medical History: Hepatitis History: No Pertinent History Pyscho-Social History: No Pertinent History Male Reproductive Disorders: No Pertinent History Comment: A-Fib - Past Surgical History Past Surgical History: Yes Neuro Surgical History: No Pertinent History Cardiac History: Angioplasty, CABG, Cardiac Catheterization, Cardiac Stent, Internal Defibrillator, Pacemaker Respiratory Surgery: Chest Surgery GI Surgical History: No Pertinent History Genitourinary Surgical Hx: No Pertinent History Musculskeletal Surgical Hx: No Pertinent History Male Surgical History: No Pertinent History Other Surgical History: RUPTURED BELLY BUTTON. Right foot surgery - Social History Smoking Status: Current every day smoker How long have you smoked: since 12 Exposure to second hand smoke: Yes Alcohol: None Drug Use: none Significant Family History: no pertinent family hx - Physical Exam Vital Signs: Vital Signs - 24 hr Temp Pulse Pulse Resp BP BP Pulse Ox 11/16/22 00:10 99 11/15/22 23:56 97.8 F 94 H 18 132/84 97 11/15/22 23:00 77 25 H 112/75 96 11/15/22 22:00 76 21 119/73 97 11/15/22 21:02 89 14 117/77 97 11/15/22 20:57 79 18 121/79 98 11/15/22 20:56 80 18 121/79 97 11/15/22 20:00 79 16 125/79 97 11/15/22 19:57 99.0 F 140 H 145 H 14 145/87 99 General Appearance: no apparent distress Neurologic Exam: alert, oriented x 3, cooperative Eye Exam: PERRL/EOMI Ears, Nose, Throat Exam: normal ENT inspection Neck Exam: normal inspection Respiratory Exam: normal breath sounds Cardiovascular Exam: regular rate/rhythm, normal heart sounds Gastrointestinal/Abdomen Exam: soft, normal bowel sounds, No tenderness Back Exam: normal inspection Extremity Exam: normal inspection Results - Labs Lab/Micro Results: Lab Results-Last 24 Hours 11/15/22 11/15/22 11/15/22 Range/Units 20:21 20:21 20:21 WBC 7.8 (4.0-10.5) x10^3/uL RBC 4.67 (4.1-5.6) x10^6/uL Hgb 15.0 (12.5-18.0) g/dL Hct 45.0 (42-50) % MCV 96.4 (78-100) fL MCH 32.1 H (26-32) pg MCHC 33.3 (32-36) g/dL RDW 13.5 (11.5-14.0) % Plt Count 182 (150-450) x10^3/uL MPV 10.5 (7.5-11.0) fL Gran % 65.1 (36.0-66.0) % Immature Gran % (Auto) 0.8 H (0.00-0.4) % Nucleat RBC Rel Count 0.0 (0.00-0.1) % Eos # (Auto) 0.17 (0-0.5) x10^3/uL Immature Gran # (Auto) 0.06 H (0.00-0.03) x10^3u/L Absolute Lymphs (auto) 1.90 (1.0-4.6) x10^3/uL Absolute Monos (auto) 0.55 (0.0-1.3) x10^3/uL Absolute Nucleated RBC 0.00 (0.00-0.01) x10^3u/L Lymphocytes % 24.4 (24.0-44.0) % Monocytes % 7.1 (0.0-12.0) % Eosinophils % 2.2 (0.00-5.0) % Basophils % 0.4 (0.0-0.4) % Absolute Granulocytes 5.09 (1.4-6.9) x10^3/uL Basophils # 0.03 (0-0.4) x10^3/uL PT 10.6 (9.4-12.5) SECONDS INR 0.97 (0.8-3.0) APTT 27.8 (25.1-36.5) SECONDS Sodium 142 (137-145) mmol/L Potassium 4.4 (3.5-5.1) mmol/L Chloride 108 H (98-107) mmol/L Carbon Dioxide 26 (22-30) mmol/L Anion Gap 13.4 (5-15) MEQ/L BUN 28 H (9-20) mg/dL Creatinine 1.31 H (0.66-1.25) mg/dL Estimated GFR 56.8 ML/MIN Glucose 188 H (74-106) mg/dL Calcium 8.7 (8.4-10.2) mg/dL Total Bilirubin 0.60 (0.2-1.3) mg/dL AST 24 (17-59) U/L ALT 24 (0-50) U/L Alkaline Phosphatase 70 (38-126) U/L Troponin I (0.000-0.034) ng/mL NT-Pro-B Natriuret Pep (<300) pg/mL Serum Total Protein 6.6 (6.3-8.2) g/dL Albumin 3.6 (3.5-5.0) g/dL 11/15/22 11/15/22 Range/Units 20:21 22:08 WBC (4.0-10.5) x10^3/uL RBC (4.1-5.6) x10^6/uL Hgb (12.5-18.0) g/dL Hct (42-50) % MCV (78-100) fL MCH (26-32) pg MCHC (32-36) g/dL RDW (11.5-14.0) % Plt Count (150-450) x10^3/uL MPV (7.5-11.0) fL Gran % (36.0-66.0) % Immature Gran % (Auto) (0.00-0.4) % Nucleat RBC Rel Count (0.00-0.1) % Eos # (Auto) (0-0.5) x10^3/uL Immature Gran # (Auto) (0.00-0.03) x10^3u/L Absolute Lymphs (auto) (1.0-4.6) x10^3/uL Absolute Monos (auto) (0.0-1.3) x10^3/uL Absolute Nucleated RBC (0.00-0.01) x10^3u/L Lymphocytes % (24.0-44.0) % Monocytes % (0.0-12.0) % Eosinophils % (0.00-5.0) % Basophils % (0.0-0.4) % Absolute Granulocytes (1.4-6.9) x10^3/uL Basophils # (0-0.4) x10^3/uL PT (9.4-12.5) SECONDS INR (0.8-3.0) APTT (25.1-36.5) SECONDS Sodium (137-145) mmol/L Potassium (3.5-5.1) mmol/L Chloride (98-107) mmol/L Carbon Dioxide (22-30) mmol/L Anion Gap (5-15) MEQ/L BUN (9-20) mg/dL Creatinine (0.66-1.25) mg/dL Estimated GFR ML/MIN Glucose (74-106) mg/dL Calcium (8.4-10.2) mg/dL Total Bilirubin (0.2-1.3) mg/dL AST (17-59) U/L ALT (0-50) U/L Alkaline Phosphatase (38-126) U/L Troponin I < 0.012 < 0.012 (0.000-0.034) ng/mL NT-Pro-B Natriuret Pep 566 (<300) pg/mL Serum Total Protein (6.3-8.2) g/dL Albumin (3.5-5.0) g/dL - Radiology Impressions Radiology Exams & Impressions: Radiology Procedures Category Date Time Status CHEST 1 VIEW (PORTABLE) Stat Exams 11/15/22 20:08 Taken - Other Procedures and Tests Respiratory Therapy 11/16/22 00:15 Smoking Cessation Education ONCE 11/16/22 06:00 EKG ROUTINE 11/17/22 06:00 EKG ROUTINE 11/18/22 06:00 EKG ROUTINE Assessment/Plan (1) Chest pain Current Visit: Yes Status: Acute Assessment & Plan: 1. Chest pain: suspect pt has stable angina. Per hx notes typical chest pain with heavy exertion. At current experienced CP with aflutter with RVR. Continue rule out. Suspect will need cath as outpt/ 2. Aflutter: complicated by RVR. Now back in NSR. Continue amio/metop. Continue AC 3. CHF: does not appear to be decompensated. Will follow. 4. CKD: Close to baseline. Will follow 5. DM: Continue outpt regimen 6. FEN: oral diet 7. PX: On AC. Ash Dhillon MD entire encounter done via telemedicine Code(s): R07.9 - CHEST PAIN, UNSPECIFIED Telemedicine Encounter - Telemedicine Encounter Telemedicine Encounter: The entirety of this encounter was performed via Telemedicine"
[2022-11-16 05:19] LABS: Risk Ratio 4.9
[2022-11-16 08:48] VITALS: BP 109/61; PULSE 67; O2SAT 96
--- NOTE | 2022-11-16 08:52 | XRAY ---
Indication: Chest pain. Comparison: October 02, 2021 Portable chest again hyperinflated and clear. Heart not enlarged for AP portable technique again with CABG and left pacemaker. Bony thorax intact again with osteopenia and mild degenerative changes. Impression: Continued nonacute hyperinflated chest with chronic features.
[2022-11-16] MEDS ORDERED: ELIQUIS 2.5 MG TABLET PO SCH (10:00)
[2022-11-16] MEDS ORDERED: ZYLOPRIM 100 MG PO SCH (10:00)
[2022-11-16] MEDS ORDERED: Ranexa 500 MG PO SCH (10:00)
[2022-11-16] MEDS ORDERED: Cordarone 200 MG PO SCH (10:00)
[2022-11-16] MEDS ORDERED: Namenda 5 MG PO SCH (10:00)
[2022-11-16] MEDS ORDERED: ECOTRIN 81 MG PO SCH (10:00)
[2022-11-16] MEDS ORDERED: Cymbalta 30 MG Capsule PO SCH (10:00)
[2022-11-16] MEDS ORDERED: Toprol Xl 50 MG PO SCH (10:00)
[2022-11-16] MEDS ORDERED: Imdur 30 MG PO SCH (10:00)
[2022-11-16] MEDS ORDERED: JARDIANCE PO SCH (10:00)
--- NOTE | 2022-11-16 13:49 | PCM.DS ---
Discharge Summary Date of Admission: 11/15/22 23:15 Date of Discharge: 11/16/2022 Admitting Physician: MEETA VELEZ MD Consults: None Primary Care Provider: RODRICK LEAL Allergies Allergies No Known Drug Allergies Allergy (Verified 11/15/22 19:57) Hospital Summary - Hospital Course Hospital Course: Mr. Davila is a 72 year-old gentleman with CAD, DM2, HTN, CKD, and Afib/Aflutter who presented on 11/15 with chest pain and shortness of breath in the setting of aflutter with RVR. He received IV metoprolol in the ED along with some fluids, and upon arrival to the floor, he was in NSR and symptom free. He will be discharged on his home medications with follow-up with Cardiology. - Vitals & Intake/Output Vital Signs: Vital Signs Temperature 96.9 F 11/16/22 08:00 Pulse Rate 67 11/16/22 08:00 Respiratory Rate 16 11/16/22 08:00 Blood Pressure 109/61 11/16/22 08:00 O2 Sat by Pulse Oximetry 96 11/16/22 08:00 Intake & Output: Intake & Output 11/14/22 11/15/22 11/16/22 11/17/22 11:59 11:59 11:59 11:59 Intake Total 480 Balance 480 Weight 77.9 kg - Lab Result Diagrams: 11/15/22 20:21 11/15/22 20:21 Lab Results-Last 24 Hrs: Lab Results-Last 24 Hours 11/15/22 11/15/22 11/15/22 Range/Units 20:21 20:21 20:21 WBC 7.8 (4.0-10.5) x10^3/uL RBC 4.67 (4.1-5.6) x10^6/uL Hgb 15.0 (12.5-18.0) g/dL Hct 45.0 (42-50) % MCV 96.4 (78-100) fL MCH 32.1 H (26-32) pg MCHC 33.3 (32-36) g/dL RDW 13.5 (11.5-14.0) % Plt Count 182 (150-450) x10^3/uL MPV 10.5 (7.5-11.0) fL Gran % 65.1 (36.0-66.0) % Immature Gran % (Auto) 0.8 H (0.00-0.4) % Nucleat RBC Rel Count 0.0 (0.00-0.1) % Eos # (Auto) 0.17 (0-0.5) x10^3/uL Immature Gran # (Auto) 0.06 H (0.00-0.03) x10^3u/L Absolute Lymphs (auto) 1.90 (1.0-4.6) x10^3/uL Absolute Monos (auto) 0.55 (0.0-1.3) x10^3/uL Absolute Nucleated RBC 0.00 (0.00-0.01) x10^3u/L Lymphocytes % 24.4 (24.0-44.0) % Monocytes % 7.1 (0.0-12.0) % Eosinophils % 2.2 (0.00-5.0) % Basophils % 0.4 (0.0-0.4) % Absolute Granulocytes 5.09 (1.4-6.9) x10^3/uL Basophils # 0.03 (0-0.4) x10^3/uL PT 10.6 (9.4-12.5) SECONDS INR 0.97 (0.8-3.0) APTT 27.8 (25.1-36.5) SECONDS Sodium 142 (137-145) mmol/L Potassium 4.4 (3.5-5.1) mmol/L Chloride 108 H (98-107) mmol/L Carbon Dioxide 26 (22-30) mmol/L Anion Gap 13.4 (5-15) MEQ/L BUN 28 H (9-20) mg/dL Creatinine 1.31 H (0.66-1.25) mg/dL Estimated GFR 56.8 ML/MIN Glucose 188 H (74-106) mg/dL Calcium 8.7 (8.4-10.2) mg/dL Total Bilirubin 0.60 (0.2-1.3) mg/dL AST 24 (17-59) U/L ALT 24 (0-50) U/L Alkaline Phosphatase 70 (38-126) U/L Troponin I (0.000-0.034) ng/mL NT-Pro-B Natriuret Pep (<300) pg/mL Serum Total Protein 6.6 (6.3-8.2) g/dL Albumin 3.6 (3.5-5.0) g/dL Triglycerides (30-150) mg/dL Cholesterol (50-200) mg/dL LDL Cholesterol (30-100) mg/dL HDL Cholesterol (40-60) mg/dL Heart Disease Risk Ratio 11/15/22 11/15/22 11/16/22 Range/Units 20:21 22:08 04:44 WBC (4.0-10.5) x10^3/uL RBC (4.1-5.6) x10^6/uL Hgb (12.5-18.0) g/dL Hct (42-50) % MCV (78-100) fL MCH (26-32) pg MCHC (32-36) g/dL RDW (11.5-14.0) % Plt Count (150-450) x10^3/uL MPV (7.5-11.0) fL Gran % (36.0-66.0) % Immature Gran % (Auto) (0.00-0.4) % Nucleat RBC Rel Count (0.00-0.1) % Eos # (Auto) (0-0.5) x10^3/uL Immature Gran # (Auto) (0.00-0.03) x10^3u/L Absolute Lymphs (auto) (1.0-4.6) x10^3/uL Absolute Monos (auto) (0.0-1.3) x10^3/uL Absolute Nucleated RBC (0.00-0.01) x10^3u/L Lymphocytes % (24.0-44.0) % Monocytes % (0.0-12.0) % Eosinophils % (0.00-5.0) % Basophils % (0.0-0.4) % Absolute Granulocytes (1.4-6.9) x10^3/uL Basophils # (0-0.4) x10^3/uL PT (9.4-12.5) SECONDS INR (0.8-3.0) APTT (25.1-36.5) SECONDS Sodium (137-145) mmol/L Potassium (3.5-5.1) mmol/L Chloride (98-107) mmol/L Carbon Dioxide (22-30) mmol/L Anion Gap (5-15) MEQ/L BUN (9-20) mg/dL Creatinine (0.66-1.25) mg/dL Estimated GFR ML/MIN Glucose (74-106) mg/dL Calcium (8.4-10.2) mg/dL Total Bilirubin (0.2-1.3) mg/dL AST (17-59) U/L ALT (0-50) U/L Alkaline Phosphatase (38-126) U/L Troponin I < 0.012 < 0.012 0.012 (0.000-0.034) ng/mL NT-Pro-B Natriuret Pep 566 (<300) pg/mL Serum Total Protein (6.3-8.2) g/dL Albumin (3.5-5.0) g/dL Triglycerides (30-150) mg/dL Cholesterol (50-200) mg/dL LDL Cholesterol (30-100) mg/dL HDL Cholesterol (40-60) mg/dL Heart Disease Risk Ratio 11/16/22 Range/Units 04:44 WBC (4.0-10.5) x10^3/uL RBC (4.1-5.6) x10^6/uL Hgb (12.5-18.0) g/dL Hct (42-50) % MCV (78-100) fL MCH (26-32) pg MCHC (32-36) g/dL RDW (11.5-14.0) % Plt Count (150-450) x10^3/uL MPV (7.5-11.0) fL Gran % (36.0-66.0) % Immature Gran % (Auto) (0.00-0.4) % Nucleat RBC Rel Count (0.00-0.1) % Eos # (Auto) (0-0.5) x10^3/uL Immature Gran # (Auto) (0.00-0.03) x10^3u/L Absolute Lymphs (auto) (1.0-4.6) x10^3/uL Absolute Monos (auto) (0.0-1.3) x10^3/uL Absolute Nucleated RBC (0.00-0.01) x10^3u/L Lymphocytes % (24.0-44.0) % Monocytes % (0.0-12.0) % Eosinophils % (0.00-5.0) % Basophils % (0.0-0.4) % Absolute Granulocytes (1.4-6.9) x10^3/uL Basophils # (0-0.4) x10^3/uL PT (9.4-12.5) SECONDS INR (0.8-3.0) APTT (25.1-36.5) SECONDS Sodium (137-145) mmol/L Potassium (3.5-5.1) mmol/L Chloride (98-107) mmol/L Carbon Dioxide (22-30) mmol/L Anion Gap (5-15) MEQ/L BUN (9-20) mg/dL Creatinine (0.66-1.25) mg/dL Estimated GFR ML/MIN Glucose (74-106) mg/dL Calcium (8.4-10.2) mg/dL Total Bilirubin (0.2-1.3) mg/dL AST (17-59) U/L ALT (0-50) U/L Alkaline Phosphatase (38-126) U/L Troponin I (0.000-0.034) ng/mL NT-Pro-B Natriuret Pep (<300) pg/mL Serum Total Protein (6.3-8.2) g/dL Albumin (3.5-5.0) g/dL Triglycerides 306 H (30-150) mg/dL Cholesterol 150 (50-200) mg/dL LDL Cholesterol 82 (30-100) mg/dL HDL Cholesterol 31 L (40-60) mg/dL Heart Disease Risk Ratio 4.9 - Radiology Exams Ordered Rad Exams-Entire Visit: Radiology Procedures Category Date Time Status CHEST 1 VIEW (PORTABLE) Stat Exams 11/15/22 20:08 Completed - Procedures and Test Procedures and Tests throughout Hospitalization: Therapy Orders & Screens 11/15/22 23:00 EKG Q8HX2,QAMX3,PRN Comment: 11/16/22 00:15 Smoking Cessation Education ONCE Comment: Diagnosis: A-Flutter/Chest pain Smoking Status: Current every day smoker How long have you smoked: since 12 Have you smoked in the past 12 months: Yes Approximately how many cigarettes per day: 30 Do you dip or chew tobacco: No 11/16/22 06:00 EKG ROUTINE Comment: 11/17/22 06:00 EKG ROUTINE Comment: 11/18/22 06:00 EKG ROUTINE Comment: Discharge Exam General Appearance: no apparent distress Neurologic Exam: alert, oriented x 3 Eye Exam: PERRL, EOMI Ears, Nose, Throat Exam: normal ENT inspection Neck Exam: normal inspection Respiratory Exam: normal breath sounds Cardiovascular Exam: regular rate/rhythm Gastrointestinal/Abdomen Exam: soft, normal bowel sounds Male Genitalia Exam: deferred Rectal Exam: deferred Back Exam: normal inspection Extremity Exam: normal inspection Final Diagnosis/Problem List - Final Discharge Diagnosis/Problem (1) Chest pain, rule out acute myocardial infarction Current Visit: No Status: Acute Assessment & Plan: PRINCIPLE DIAGNOSES Chest Pain Shortness of Breath Aflutter with RVR SECONDARY DIAGNOSES Coronary Artery Disease s/p CABG Chart Diagnosis of Congestive Heart Failure Hypertension Chronic Kidney Disease Atrial Fibrillation with RVR Code(s): R07.9 - CHEST PAIN, UNSPECIFIED - Discharge Disposition: Home, Self-Care Condition: Stable Prescriptions: No Action allopurinoL [Allopurinol] 100 mg PO DAILY Tamsulosin HCl 0.4 mg [Flomax 0.4 MG] 0.4 mg PO DAILY Nitroglycerin 0.4 mg SL Q2H/PRN PRN PRN Reason: Chest Pain Atorvastatin Calcium [Lipitor 40Mg] 40 mg PO HS Ranolazine 500 MG [Ranexa 500 MG] 1,000 mg PO BID Memantine HCl 5 mg [Namenda 5 MG] 5 mg PO BID Metoprolol Succinate 50 mg [Toprol Xl 50 MG] 25 mg PO BID Apixaban [Eliquis 2.5 mg Tablet] 2.5 mg PO BID Amiodarone HCl 200 mg [Cordarone 200 MG] 200 mg PO DAILY Empagliflozin [Jardiance] 10 mg PO DAILY Duloxetine HCl 30 mg [Cymbalta 30 MG Capsule] 30 mg PO DAILY Donepezil HCl 10 mg [Aricept 10 MG] 5 mg PO HS Aspirin EC 81 mg [Ecotrin 81 mg] 81 mg PO DAILY #60 tablet Isosorbide Mononitrate 30 mg [Imdur 30 MG] 30 mg PO DAILY #30 tab Instructions: Chest Pain That Is Not Caused by the Heart (DC) Additional Instructions: [employer] [facility] HAS BEEN SET UP. THEY WILL CONTACT YOU FOR AN APPOINTMENT. THEIR PHONE NUMBER IS [phone] Follow up with: LUANA ARMSTRONG MD [ACTIVE STAFF] - 11/28/22 11:00 am TOY RECINOS [CONSULTING PHYSICIAN] - 11/23/22 3:00 pm Forms: Discharge Instructions
[2022-11-16] MEDS ORDERED: ZOCOR 20MG PO SCH (22:00)
[2022-11-16] MEDS ORDERED: Aricept 10 MG PO SCH (22:00)
[2022-11-16] MEDS ORDERED: Flomax 0.4 MG PO SCH (22:00)
[2022-11-16] MEDS ORDERED: LIPITOR 40MG PO SCH (22:00)
== END 2022-11-16 11:03 | disposition home or self-care (01) ==
LOC: ED 19:54 → MED SURG 23:15
PROVIDERS: ADMIT Internal Medicine Critical Care Medicine; ATTEND Family Medicine
DX: R07.9 Chest pain, unspecified (principal); I48.20 Chronic atrial fibrillation, unspecified; I25.10 Atherosclerotic heart disease of native coronary artery without angina pectoris; E11.22 Type 2 diabetes mellitus with diabetic chronic kidney disease; I13.0 Hypertensive heart and chronic kidney disease with heart failure and stage 1 through stage 4 chronic kidney disease, or unspecified chronic kidney disease; N18.9 Chronic kidney disease, unspecified; I50.9 Heart failure, unspecified; Z79.01 Long term (current) use of anticoagulants; Z79.899 Other long term (current) drug therapy; Z20.828 Contact with and (suspected) exposure to other viral communicable diseases; Z95.1 Presence of aortocoronary bypass graft; Z72.0 Tobacco use
CPT/HCPCS: 36000; 36415; 71045; 80053; 80061; 83721; 83880; 84484; 85025; 85610; 85730; 93005; 93041; 93268; 99285; G0378; Q3014; A9270-GY

== ENCOUNTER 2022-11-20 22:05 | Emergency (ER) | payer MEDICARE ==
[2022-11-20] MEDS ORDERED: BABY ASPIRIN 81 MG CHEW PO ONE (22:20)
[2022-11-20] MEDS ORDERED: BABY ASPIRIN 81 MG CHEW ONE (22:23)
--- NOTE | 2022-11-20 22:26 | ERPHSYRPT ---
- History of Present Illness Time Seen by Provider: 11/20/22 22:06 Source: patient Exam Limitations: no limitations Patient Subjective Stated Complaint: pt states he has chest pressure. Triage Nursing Assessment: pt came into the er via ambulance; pt is axo x4; c/o chest pressure; pt denies CP; c/o nausea; clear apical heart tone; clear lung sounds; no edema present; strong addis radial pulses; strong addis pedal pulses; skin PDW; hypertensive; c/o SOB Physician History: Patient is here with chest pain. Patient has a known cardiac history. Was seen last week for chest pain and atrial flutter. Patient had negative troponins at that point time was admitted overnight. Patient states that he did call his personal lines insurance agent, Dr. Pantoja. However he is unsure of when his next appointment is. No falls or trauma. Patient states that he was at home when his chest pain developed. Nonexertional. No fever or chills, other symptoms tonight. Timing/Duration: today Severity: moderate Allergies/Adverse Reactions: No Known Drug Allergies Allergy (Verified 11/20/22 22:07) Home Medications: Nitroglycerin 0.4 mg SL Q2H/PRN PRN 10/10/19 [History] Tamsulosin HCl 0.4 mg [Flomax 0.4 MG] 0.4 mg PO DAILY 10/10/19 [History] allopurinoL [Allopurinol] 100 mg PO DAILY 10/10/19 [History] Amiodarone HCl 200 mg [Cordarone 200 MG] 200 mg PO DAILY 06/19/21 [History] Apixaban [Eliquis 2.5 mg Tablet] 2.5 mg PO BID 06/19/21 [History] Atorvastatin Calcium [Lipitor 40Mg] 40 mg PO HS 06/19/21 [History] Donepezil HCl 10 mg [Aricept 10 MG] 5 mg PO HS 06/19/21 [History] Duloxetine HCl 30 mg [Cymbalta 30 MG Capsule] 30 mg PO DAILY 06/19/21 [History] Empagliflozin [Jardiance] 10 mg PO DAILY 06/19/21 [History] Memantine HCl 5 mg [Namenda 5 MG] 5 mg PO BID 06/19/21 [History] Metoprolol Succinate 50 mg [Toprol Xl 50 MG] 25 mg PO BID 06/19/21 [History] Ranolazine 500 MG [Ranexa 500 MG] 1,000 mg PO BID 06/19/21 [History] Hx Tetanus, Diphtheria Vaccination/Date Given: Yes Hx Influenza Vaccination/Date Given: Yes Hx Pneumococcal Vaccination/Date Given: Yes Travel Risk - International Travel Have you traveled outside of the country in past 3 weeks: No - Coronavirus Screening Are you exhibiting any of the following symptoms?: No Close contact with a COVID-19 positive Pt in past 14-21 Days: No - Vaccine Status Have you recieved a Covid-19 vaccination: No - Review of Systems Constitutional: No Fever, No Chills Eyes: No Symptoms Ears, Nose, & Throat: No Symptoms Respiratory: No Cough, No Dyspnea Cardiac: Chest Pain, No Edema, No Syncope Abdominal/Gastrointestinal: No Abdominal Pain, No Nausea, No Vomiting, No Diarrhea Genitourinary Symptoms: No Dysuria Musculoskeletal: No Back Pain, No Neck Pain Skin: No Rash Neurological: No Dizziness, No Focal Weakness, No Sensory Changes Psychological: No Symptoms Endocrine: No Symptoms All Other Systems: Reviewed and Negative - Past Medical History Pertinent Past Medical History: Yes Neurological History: Stroke ENT History: Cataracts Cardiac History: Arrhythmia, Congestive Heart Failure, Coronary Artery Disease, High Cholesterol, Hypertension, Myocardial Infarction (SC) Respiratory History: COPD Endocrine Medical History: Diabetes Type II Musculoskeletal History: No Pertinent History GI Medical History: Hepatitis History: No Pertinent History Psycho-Social History: No Pertinent History Male Reproductive Disorders: No Pertinent History Other Medical History: A-Fib - Past Surgical History Past Surgical History: Yes Neuro Surgical History: No Pertinent History Cardiac: Angioplasty, CABG, Cardiac Catheterization, Cardiac Stent, Internal Defibrillator, Pacemaker Respiratory: Chest Surgery Gastrointestinal: No Pertinent History Genitourinary: No Pertinent History Musculoskeletal: No Pertinent History Male Surgical History: No Pertinent History Other Surgical History: RUPTURED BELLY BUTTON. Right foot surgery - Social History Smoking Status: Current every day smoker How long have you smoked: since 10 Exposure to second hand smoke: Yes Drug Use: none Patient Lives Alone: Yes Significant Family History: no pertinent family hx - Nursing Vital Signs Nursing Vital Signs: Initial Vital Signs Temperature 97.8 F 11/20/22 22:05 Pulse Rate 66 11/20/22 22:05 Respiratory Rate 14 11/20/22 22:05 Blood Pressure 157/84 11/20/22 22:05 O2 Sat by Pulse Oximetry 99 11/20/22 22:05 Pain Scale Pain Intensity 0 - Physical Exam General Appearance: no apparent distress, alert Eye Exam: PERRL/EOMI, eyes nml inspection Ears, Nose, Throat Exam: normal ENT inspection, TMs normal, pharynx normal, moist mucous membranes Neck Exam: normal inspection, non-tender, supple, full range of motion Respiratory Exam: normal breath sounds, lungs clear, No respiratory distress Cardiovascular Exam: regular rate/rhythm, normal heart sounds, normal peripheral pulses Gastrointestinal/Abdomen Exam: soft, normal bowel sounds, No tenderness, No mass Back Exam: normal inspection, normal range of motion, No CVA tenderness, No vertebral tenderness Extremity Exam: normal inspection, normal range of motion, pelvis stable Neurologic Exam: alert, oriented x 3, cooperative, normal mood/affect, nml cerebellar function, nml station & gait, sensation nml, No motor deficits Skin Exam: normal color, warm, dry, No rash Lymphatic Exam: No adenopathy SpO2: 99 - Course Nursing assessment & vital signs reviewed: Yes EKG Interpreted by Me: Sinus Rhythm (Sinus rhythm no EKG changes) Ordered Tests: Active Orders 24 hr Category Date Time Status EKG-ER Only STAT Care 11/20/22 22:20 Active IV Insertion STAT Care 11/20/22 22:20 Active CHEST 1 VIEW (PORTABLE) Stat Exams 11/20/22 22:20 Taken CBC W DIFF Stat Lab 11/20/22 22:30 Completed CMP Stat Lab 11/20/22 22:30 Completed D-DIMER QUANTITATIVE Stat Lab 11/20/22 22:30 Completed LIPASE Stat Lab 11/20/22 22:30 Completed NT PRO BNPII Stat Lab 11/20/22 22:30 Completed TROPONIN Q4H Lab 11/20/22 22:30 Completed TROPONIN Q4H Lab 11/21/22 00:20 Completed TROPONIN Q4H Lab 11/21/22 06:30 Ordered Medication Summary Discontinued Medications Generic Name Dose Route Start Last Admin Trade Name Freq PRN Reason Stop Dose Admin Aspirin 324 mg 11/20/22 22:20 11/20/22 22:23 Aspirin 81 Mg Tab.Chew PO 11/20/22 22:21 324 mg STAT ONE Administration Aspirin Confirm 11/20/22 22:23 Aspirin 81 Mg Tab.Chew Administered 11/20/22 22:24 Dose 324 mg .ROUTE .STK-MED ONE Lab/Rad Data: Laboratory Result Diagrams 11/20/22 22:30 11/20/22 22:30 Laboratory Results 11/21/22 11/20/22 11/20/22 Range/Units 00:20 22:30 22:30 WBC (4.0-10.5) x10^3/uL RBC (4.1-5.6) x10^6/uL Hgb (12.5-18.0) g/dL Hct (42-50) % MCV (78-100) fL MCH (26-32) pg MCHC (32-36) g/dL RDW (11.5-14.0) % Plt Count (150-450) x10^3/uL MPV (7.5-11.0) fL Gran % (36.0-66.0) % Immature Gran % (Auto) (0.00-0.4) % Nucleat RBC Rel Count (0.00-0.1) % Eos # (Auto) (0-0.5) x10^3/uL Immature Gran # (Auto) (0.00-0.03) x10^3u/L Absolute Lymphs (auto) (1.0-4.6) x10^3/uL Absolute Monos (auto) (0.0-1.3) x10^3/uL Absolute Nucleated RBC (0.00-0.01) x10^3u/L Lymphocytes % (24.0-44.0) % Monocytes % (0.0-12.0) % Eosinophils % (0.00-5.0) % Basophils % (0.0-0.4) % Absolute Granulocytes (1.4-6.9) x10^3/uL Basophils # (0-0.4) x10^3/uL D-Dimer (0.0-0.50) mg/L Sodium (137-145) mmol/L Potassium (3.5-5.1) mmol/L Chloride (98-107) mmol/L Carbon Dioxide (22-30) mmol/L Anion Gap (5-15) MEQ/L BUN (9-20) mg/dL Creatinine (0.66-1.25) mg/dL Estimated GFR ML/MIN Glucose (74-106) mg/dL Calcium (8.4-10.2) mg/dL Total Bilirubin (0.2-1.3) mg/dL AST (17-59) U/L ALT (0-50) U/L Alkaline Phosphatase (38-126) U/L Troponin I < 0.012 < 0.012 (0.000-0.034) ng/mL NT-Pro-B Natriuret Pep 126 (<300) pg/mL Serum Total Protein (6.3-8.2) g/dL Albumin (3.5-5.0) g/dL Lipase (23-300) U/L 11/20/22 11/20/22 11/20/22 Range/Units 22:30 22:30 22:30 WBC 8.3 (4.0-10.5) x10^3/uL RBC 4.53 (4.1-5.6) x10^6/uL Hgb 14.2 (12.5-18.0) g/dL Hct 42.6 (42-50) % MCV 94.0 (78-100) fL MCH 31.3 (26-32) pg MCHC 33.3 (32-36) g/dL RDW 13.4 (11.5-14.0) % Plt Count 187 (150-450) x10^3/uL MPV 10.2 (7.5-11.0) fL Gran % 74.3 H (36.0-66.0) % Immature Gran % (Auto) 0.8 H (0.00-0.4) % Nucleat RBC Rel Count 0.0 (0.00-0.1) % Eos # (Auto) 0.17 (0-0.5) x10^3/uL Immature Gran # (Auto) 0.07 H (0.00-0.03) x10^3u/L Absolute Lymphs (auto) 1.25 (1.0-4.6) x10^3/uL Absolute Monos (auto) 0.62 (0.0-1.3) x10^3/uL Absolute Nucleated RBC 0.00 (0.00-0.01) x10^3u/L Lymphocytes % 15.1 L (24.0-44.0) % Monocytes % 7.5 (0.0-12.0) % Eosinophils % 2.1 (0.00-5.0) % Basophils % 0.2 (0.0-0.4) % Absolute Granulocytes 6.16 (1.4-6.9) x10^3/uL Basophils # 0.02 (0-0.4) x10^3/uL D-Dimer 0.38 (0.0-0.50) mg/L Sodium 137 (137-145) mmol/L Potassium 4.4 (3.5-5.1) mmol/L Chloride 102 (98-107) mmol/L Carbon Dioxide 26 (22-30) mmol/L Anion Gap 13.3 (5-15) MEQ/L BUN 26 H (9-20) mg/dL Creatinine 1.18 (0.66-1.25) mg/dL Estimated GFR > 60.0 ML/MIN Glucose 132 H (74-106) mg/dL Calcium 8.8 (8.4-10.2) mg/dL Total Bilirubin 1.00 (0.2-1.3) mg/dL AST 21 (17-59) U/L ALT 20 (0-50) U/L Alkaline Phosphatase 69 (38-126) U/L Troponin I (0.000-0.034) ng/mL NT-Pro-B Natriuret Pep (<300) pg/mL Serum Total Protein 7.5 (6.3-8.2) g/dL Albumin 4.0 (3.5-5.0) g/dL Lipase 97 (23-300) U/L - Progress Progress: improved Progress Note: 11/20/22 22:26 differential diagnosis includes: PNA, STEMI, NSTEMI, other infection, musculoskeletal pain, pneumothorax - We'll obtain basic labs, fluids, EKG, troponin, chest x-ray - EKG shows no ST changes - my read. See full read below. - O2 saturations consistently greater than 95%. - CXR shows no pneumonia, pneumothorax - my read 11/21/22 01:08 Patient has 2 negative troponins here in the emergency department tonight. Chest pain improved. Given recent full cardiac rule out last week I do believe we are okay with 2 negative troponins tonight. I do not believe that patient would benefit from another overnight hospital admission. Low suspicion for acute myocardial infarction given no ischemic changes on EKG and 2 negative troponins. Patient will call his personal lines insurance agent for seen tomorrow morning. He may return here sooner for new or changing symptoms. Counseled pt/family regarding: lab results, diagnosis, need for follow-up, rad results Medical Desision Making - External Record(s) Reviewed Records reviewed as a part of evaluation & management: Discharge Summary - Diagnostic Testing Diagnostic test were ordered, analyzed, and reviewed by me: Yes Radiological Interpretation: Interpreted by me, Reviewed by me - Departure Departure Disposition: Home Clinical Impression: Atypical chest pain Condition: Stable Critical Care Time: No Referrals: RODRICK LEAL MD [Primary Care Provider] - Follow up/PCP as directed Instructions: Chest Pain (DC) Additional Instructions: follow up with your primary care provider.
[2022-11-20 22:38] LABS: Absolute Neutrophil Ct (ANC) 6.16 x10^3/uL (1.4-6.9); BASOPHIL % 0.2 % (0.0-0.4); Basophil (Absolute #) 0.02 x10^3/uL (0-0.4); Eosinophil % 2.1 % (0.00-5.0); Eosinophil (Absolute #) 0.17 x10^3/uL (0-0.5); Hematocrit 42.6 % (42-50); Hemoglobin 14.2 g/dL (12.5-18.0); IMMATURE GRAN # 0.07 x10^3u/L (0.00-0.03); IMMATURE GRAN % 0.8 % (0.00-0.4); Lymphocyte (Absolute #) 1.25 x10^3/uL (1.0-4.6); Lymphocytes % 15.1 % (24.0-44.0); Mean Corpuscular Hemoglobin 31.3 pg (26-32); Mean Corpuscular Hgb Concent. 33.3 g/dL (32-36); Mean Platelet Volume 10.2 fL (7.5-11.0); Monocyte (Absolute #) 0.62 x10^3/uL (0.0-1.3); Monocytes % 7.5 % (0.0-12.0); Neutrophil % 74.3 % (36.0-66.0); Platelet Count 187 x10^3/uL (150-450); Red Blood Count 4.53 x10^6/uL (4.1-5.6); Red Cell Distribution Width 13.4 % (11.5-14.0); White Blood Count 8.3 x10^3/uL (4.0-10.5)
[2022-11-20 22:58] LABS: ALKALINE PHOSPHATASE 69 U/L (38-126); ANION GAP 13.3 MEQ/L (5-15); BLOOD UREA NITROGEN 26 mg/dL (9-20); CHLORIDE 102 mmol/L (98-107); Calcium 8.8 mg/dL (8.4-10.2); Carbon Dioxide 26 mmol/L (22-30); Creatinine 1 1.18 mg/dL (0.66-1.25); EST GLOMERULAR FILTRATION RATE > 60.0 ML/MIN; Glucose 132 mg/dL (74-106); LIPASE 97 U/L (23-300); Potassium 4.4 mmol/L (3.5-5.1); SGOT/AST 21 U/L (17-59); SGPT/ALT 20 U/L (0-50); SODIUM 137 mmol/L (137-145); Total Protein 7.5 g/dL (6.3-8.2)
[2022-11-21 01:05] VITALS: O2SAT 99
[2022-11-21 01:08] VITALS: BP 136/78; PULSE 72
--- NOTE | 2022-11-21 08:48 | XRAY ---
Indication: Chest pain. Comparison: November 15, 2022 Portable apical lordotic chest again hyperinflated and clear. Heart not enlarged again with CABG and left pacemaker. Bony thorax intact again with osteopenia and mild degenerative changes. No new/acute findings.
== END 2022-11-21 01:16 | disposition home or self-care (01) ==
LOC: ED 22:05
DX: R07.89 Other chest pain (principal); E78.5 Hyperlipidemia, unspecified; I11.0 Hypertensive heart disease with heart failure; I50.9 Heart failure, unspecified; E11.9 Type 2 diabetes mellitus without complications; Z79.01 Long term (current) use of anticoagulants; Z79.84 Long term (current) use of oral hypoglycemic drugs; Z79.899 Other long term (current) drug therapy; Z28.310 Unvaccinated for COVID-19; Z72.0 Tobacco use
CPT/HCPCS: 36000; 36415; 71045; 80053; 83690; 83880; 84484; 85025; 85379; 93005; 99284; A9270-GY

== ENCOUNTER 2023-04-23 12:56 | Emergency (ER) | payer MEDICARE ==
--- NOTE | 2023-04-23 13:12 | ERPHSYRPT ---
- History of Present Illness Time Seen by Provider: 04/23/23 13:11 Source: patient, family (Additional history and independent history of this patient was provided by the patient's brother) Exam Limitations: no limitations Physician History: This is a 73-year-old white male patient who presents to the emergency department with increasing confusion over the last several weeks per his and his brother's report. In talking to his brother, the patient has been noncompliant with his medication. In fact, the brother says he does not have any of it. Part of his drug regimen is a medication to help control dementia (Aricept). Patient is getting lost walking around his home and outside his home and cannot find his way back to his home. Patient does not have a headache. He denies chest pain. He denies shortness of breath. He has no abdominal pain. Patient continues to smoke cigarettes daily. Patient has a history of gout, hypertension, diabetes, hyperlipidemia, atrial fibrillation on Eliquis, dementia, CHF, COPD. He takes amiodarone for control of his atrial fibrillation. Patient also has significant coronary artery disease (atrial fibrillation, CABG, cardiac stent, internal pacemaker/defibrillator). Timing/Duration: week(s) (Over several weeks), worse Severity: mild (Abdomen is worsening) Character of Deficits: none Deficits: no difficulties Baseline/Normal Cognition: alert but confused Current Cognition: alert but confused Baseline Gait: walks w/o assistance Associated Symptoms: confusion, No slurred speech, No trouble walking, No chest pain Allergies/Adverse Reactions: No Known Drug Allergies Allergy (Verified 11/20/22 22:07) Home Medications: Nitroglycerin 0.4 mg SL Q2H/PRN PRN 10/10/19 [History] Tamsulosin HCl 0.4 mg [Flomax 0.4 MG] 0.4 mg PO DAILY 10/10/19 [History] allopurinoL [Allopurinol] 100 mg PO DAILY 10/10/19 [History] Amiodarone HCl 200 mg [Cordarone 200 MG] 200 mg PO DAILY 06/19/21 [History] Apixaban [Eliquis 2.5 mg Tablet] 2.5 mg PO BID 06/19/21 [History] Atorvastatin Calcium [Lipitor 40Mg] 40 mg PO HS 06/19/21 [History] Donepezil HCl 10 mg [Aricept 10 MG] 5 mg PO HS 06/19/21 [History] Duloxetine HCl 30 mg [Cymbalta 30 MG Capsule] 30 mg PO DAILY 06/19/21 [History] Empagliflozin [Jardiance] 10 mg PO DAILY 06/19/21 [History] Memantine HCl 5 mg [Namenda 5 MG] 5 mg PO BID 06/19/21 [History] Metoprolol Succinate 50 mg [Toprol Xl 50 MG] 25 mg PO BID 06/19/21 [History] Ranolazine 500 MG [Ranexa 500 MG] 1,000 mg PO BID 06/19/21 [History] Hx Tetanus, Diphtheria Vaccination/Date Given: Yes Hx Influenza Vaccination/Date Given: Yes Hx Pneumococcal Vaccination/Date Given: Yes Travel Risk - International Travel Have you traveled outside of the country in past 3 weeks: No - Coronavirus Screening Are you exhibiting any of the following symptoms?: No Close contact with a COVID-19 positive Pt in past 14-21 Days: No - Vaccine Status Have you recieved a Covid-19 vaccination: No - Review of Systems Constitutional: No Symptoms Eyes: No Symptoms Ears, Nose, & Throat: No Symptoms Respiratory: No Symptoms Cardiac: No Symptoms Abdominal/Gastrointestinal: No Symptoms Genitourinary Symptoms: No Symptoms Musculoskeletal: No Symptoms Skin: No Symptoms Neurological: Other (Increasing confusion over the last several weeks) Psychological: No Symptoms Endocrine: No Symptoms Hematologic/Lymphatic: No Symptoms Immunological/Allergic: No Symptoms All Other Systems: Reviewed and Negative - Past Medical History Pertinent Past Medical History: Yes Neurological History: Stroke ENT History: Cataracts Cardiac History: Arrhythmia, Congestive Heart Failure, Coronary Artery Disease, High Cholesterol, Hypertension, Myocardial Infarction (NM) Respiratory History: COPD Endocrine Medical History: Diabetes Type II Musculoskeletal History: No Pertinent History GI Medical History: Hepatitis History: No Pertinent History Psycho-Social History: No Pertinent History Male Reproductive Disorders: No Pertinent History Other Medical History: A-Fib - Past Surgical History Past Surgical History: Yes Neuro Surgical History: No Pertinent History Cardiac: Angioplasty, CABG, Cardiac Catheterization, Cardiac Stent, Internal Defibrillator, Pacemaker Respiratory: Chest Surgery Gastrointestinal: No Pertinent History Genitourinary: No Pertinent History Musculoskeletal: No Pertinent History Male Surgical History: No Pertinent History Other Surgical History: RUPTURED BELLY BUTTON. Right foot surgery - Social History Smoking Status: Current every day smoker How long have you smoked: since 10 Exposure to second hand smoke: Yes Drug Use: none Patient Lives Alone: Yes Significant Family History: no pertinent family hx - Nursing Vital Signs Nursing Vital Signs: Initial Vital Signs Pulse Rate 79 04/23/23 13:14 Respiratory Rate 16 04/23/23 13:14 Blood Pressure 133/67 04/23/23 13:14 O2 Sat by Pulse Oximetry 98 04/23/23 13:14 Pain Scale Pain Intensity 0 - [place] Coma Scale Best Eye Response (Jeff): (4) open spontaneously Best Verbal Response (Jeff): (4) confused conversation Best Motor Response ([place]): (6) obeys commands [place] Total: 14 - Physical Exam General Appearance: no apparent distress, alert, anxiety Eye Exam: bilateral eye: normal inspection, PERRL, EOMI Ears, Nose, Throat Exam: normal ENT inspection, moist mucous membranes Neck Exam: normal inspection, non-tender, supple, full range of motion Respiratory: normal breath sounds, lungs clear, airway intact, No chest ten derness, No respiratory distress Cardiovascular: regular rate/rhythm, normal heart sounds, normal peripheral pulses Gastrointestinal: soft, normal bowel sounds, No tenderness Rectal Exam: not done Back Exam: normal inspection, normal range of motion, No CVA tenderness, No vertebral tenderness Extremity Exam: normal inspection, normal range of motion, pelvis stable Mental Status: alert, oriented x 3 caseworker protective services Exam: normal hearing, normal speech, PERRL, tongue midline Coordination/Gait: normal gait, normal cerebellar function Motor/Sensory: no motor deficit, no sensory deficit, no pronator drift Skin Exam: normal color, warm, dry SpO2 Interpretation: normal O2 Delivery: Room Air - Course Nursing assessment & vital signs reviewed: Yes EKG Interpreted by Me: RATE (64), Non-specific ST Changes, Other (This patient has an internal pacemaker/defibrillator. There is atrial paced complexes present. There is no evidence of any acute ischemic changes on today's twelve- lead EKG.) Ordered Tests: Active Orders 24 hr Category Date Time Status EKG-ER Only STAT Care 04/23/23 13:26 Active IV Insertion STAT Care 04/23/23 13:26 Active NPO (ED) STAT Care 04/23/23 13:27 Active Pulse Oximetry (ED) STAT Care 04/23/23 13:26 Active HEAD WITHOUT CONTRAST [CT] Stat Exams 04/23/23 13:27 Completed CBC W DIFF Stat Lab 04/23/23 13:50 Completed CMP Stat Lab 04/23/23 13:50 Completed MAGNESIUM Stat Lab 04/23/23 13:50 Completed TROPONIN Q4H Lab 04/23/23 13:50 Completed TROPONIN Q4H Lab 04/23/23 17:30 Ordered TROPONIN Q4H Lab 04/23/23 21:30 Ordered UA W/RFX UR CULTURE Stat Lab 04/23/23 15:17 Completed Medication Summary Generic Name Dose Route Start Last Admin Trade Name Freq PRN Reason Stop Dose Admin Sodium Chloride 1,000 mls @ 50 mls/hr 04/23/23 13:30 04/23/23 13:52 Sodium Chloride 0.9% 1000 Ml IV 05/23/23 13:29 50 mls/hr .Q20H LINA Administration Discontinued Medications Generic Name Dose Route Start Last Admin Trade Name Freq PRN Reason Stop Dose Admin Insulin Human Regular 12 unit 04/23/23 15:11 04/23/23 15:42 Insulin Regular, Human 1 Unit IV 04/23/23 15:12 12 unit STAT ONE Administration Insulin Human Regular Confirm 04/23/23 15:38 Insulin Regular, Human 1 Unit Administered 04/23/23 15:39 Dose 12 unit .ROUTE [employer] [facility] Lab/Rad Data: Laboratory Result Diagrams 04/23/23 13:50 04/23/23 13:50 Laboratory Results 04/23/23 04/23/23 04/23/23 Range/Units 15:17 13:50 13:50 WBC (4.0-10.5) x10^3/uL RBC (4.1-5.6) x10^6/uL Hgb (12.5-18.0) g/dL Hct (42-50) % MCV (78-100) fL MCH (26-32) pg MCHC (32-36) g/dL RDW (11.5-14.0) % Plt Count (150-450) x10^3/uL MPV (7.5-11.0) fL Gran % (36.0-66.0) % Immature Gran % (Auto) (0.00-0.4) % Nucleat RBC Rel Count (0.00-0.1) % Eos # (Auto) (0-0.5) x10^3/uL Immature Gran # (Auto) (0.00-0.03) x10^3u/L Absolute Lymphs (auto) (1.0-4.6) x10^3/uL Absolute Monos (auto) (0.0-1.3) x10^3/uL Absolute Nucleated RBC (0.00-0.01) x10^3u/L Lymphocytes % (24.0-44.0) % Monocytes % (0.0-12.0) % Eosinophils % (0.00-5.0) % Basophils % (0.0-0.4) % Absolute Granulocytes (1.4-6.9) x10^3/uL Basophils # (0-0.4) x10^3/uL Sodium (137-145) mmol/L Potassium (3.5-5.1) mmol/L Chloride (98-107) mmol/L Carbon Dioxide (22-30) mmol/L Anion Gap (5-15) MEQ/L BUN (9-20) mg/dL Creatinine (0.66-1.25) mg/dL Estimated GFR ML/MIN Glucose (74-106) mg/dL Calcium (8.4-10.2) mg/dL Magnesium (1.6-2.3) mg/dL Total Bilirubin (0.2-1.3) mg/dL AST (17-59) U/L ALT (0-50) U/L Alkaline Phosphatase (38-126) U/L Ammonia < 9 L (9-30) umol/L Troponin I < 0.012 (0.000-0.034) ng/mL Serum Total Protein (6.3-8.2) g/dL Albumin (3.5-5.0) g/dL Urine Color Yellow (Yellow) Urine Appearance Clear (Clear) Urine pH 6.5 (4.6-8.0) Ur Specific [place] >=1.030 A (1.005-1.030) Urine Protein Negative (Negative) Urine Glucose (UA) >=1000 A (Negative) mg/dL Urine Ketones Negative (Negative) Urine Blood Negative (Negative) Urine Nitrite Negative (Negative) Urine Bilirubin Negative (Negative) Urine Urobilinogen 1.0 A (0.2) mg/dL Ur Leukocyte Esterase Negative (Negative) U Hyaline Cast (Auto) NONE SEEN (0-2) /LPF Urine Microscopic RBC 0-2 (0-5) /HPF Urine Microscopic WBC NONE SEEN (0-5) /HPF Ur Epithelial Cells Rare (None Seen) /HPF Urine Bacteria None Seen (None Seen) /HPF Urine Culture Reflexed NO (NO) 04/23/23 04/23/23 Range/Units 13:50 13:50 WBC 9.3 (4.0-10.5) x10^3/uL RBC 4.68 (4.1-5.6) x10^6/uL Hgb 15.5 (12.5-18.0) g/dL Hct 43.5 (42-50) % MCV 92.9 (78-100) fL MCH 33.1 H (26-32) pg MCHC 35.6 (32-36) g/dL RDW 11.9 (11.5-14.0) % Plt Count 183 (150-450) x10^3/uL MPV 10.7 (7.5-11.0) fL Gran % 73.1 H (36.0-66.0) % Immature Gran % (Auto) 0.6 H (0.00-0.4) % Nucleat RBC Rel Count 0.0 (0.00-0.1) % Eos # (Auto) 0.14 (0-0.5) x10^3/uL Immature Gran # (Auto) 0.06 H (0.00-0.03) x10^3u/L Absolute Lymphs (auto) 1.65 (1.0-4.6) x10^3/uL Absolute Monos (auto) 0.62 (0.0-1.3) x10^3/uL Absolute Nucleated RBC 0.00 (0.00-0.01) x10^3u/L Lymphocytes % 17.8 L (24.0-44.0) % Monocytes % 6.7 (0.0-12.0) % Eosinophils % 1.5 (0.00-5.0) % Basophils % 0.3 (0.0-0.4) % Absolute Granulocytes 6.75 (1.4-6.9) x10^3/uL Basophils # 0.03 (0-0.4) x10^3/uL Sodium 127 L (137-145) mmol/L Potassium 4.7 (3.5-5.1) mmol/L Chloride 98 (98-107) mmol/L Carbon Dioxide 21 L (22-30) mmol/L Anion Gap 13.0 (5-15) MEQ/L BUN 22 H (9-20) mg/dL Creatinine 1.10 (0.66-1.25) mg/dL Estimated GFR 70.0 ML/MIN Glucose 468 H (74-106) mg/dL Calcium 8.7 (8.4-10.2) mg/dL Magnesium 2.2 (1.6-2.3) mg/dL Total Bilirubin 1.40 H (0.2-1.3) mg/dL AST 23 (17-59) U/L ALT 20 (0-50) U/L Alkaline Phosphatase 84 (38-126) U/L Ammonia (9-30) umol/L Troponin I (0.000-0.034) ng/mL Serum Total Protein 6.9 (6.3-8.2) g/dL Albumin 3.6 (3.5-5.0) g/dL Urine Color (Yellow) Urine Appearance (Clear) Urine pH (4.6-8.0) Ur Specific [place] (1.005-1.030) Urine Protein (Negative) Urine Glucose (UA) (Negative) mg/dL Urine Ketones (Negative) Urine Blood (Negative) Urine Nitrite (Negative) Urine Bilirubin (Negative) Urine Urobilinogen (0.2) mg/dL Ur Leukocyte Esterase (Negative) U Hyaline Cast (Auto) (0-2) /LPF Urine Microscopic RBC (0-5) /HPF Urine Microscopic WBC (0-5) /HPF Ur Epithelial Cells (None Seen) /HPF Urine Bacteria (None Seen) /HPF Urine Culture Reflexed (NO) - Progress Progress: improved, re-examined Progress Note: 04/23/23 15:09 This patient's medical issue is 1 of moderate complexity. Level complexity in the work-up performed is based on review the patient's past medical history, review of the patient's medication list, review of patient's drug allergy list, history present illness and physical findings on examination. Patient's brother provided additional, independent history. Work-up in this patient includes placement of intravenous line, twelve-lead EKG, troponin level, CT scan of the head, urinalysis, CBC, CMP, ammonia level. CT scan of the head without contrast was interpreted by the radiologist and the impression reads stable atrophy with small remote infarct left centrum semiovale. No new or acute intracranial abnormalities. 04/23/23 15:54 I reviewed and interpreted the laboratory results on this patient. Patient does have a low sodium of 127. He has hyperglycemia. There is no evidence of DKA. We will provide the patient with a liter of normal saline solution. We will provide the patient with 12 units of regular insulin and recheck his blood sugar level in approximately 1 hour after the intravenous insulin is given. Patient has been noncompliant with his medication. We will attempt to obtain an early follow-up appointment with the patient's primary care provider. I believe that the patient's dementia is worsening. In addition, he is noncompliant with medication and this can exacerbate his symptoms. Counseled pt/family regarding: lab results, diagnosis, need for follow-up, rad results Medical Desision Making - Independent Historian Additional History obtained from: Family - Diagnostic Testing Radiological Interpretation: Reviewed by me, Teleradiologist Report - Risk of complications Low Risk: Low risk of morbidity from additional dx testing or treatment - Departure Departure Disposition: Home Clinical Impression: Noncompliance, Dementia, Hyperglycemia, Hyponatremia Condition: Stable Critical Care Time: No Referrals: RODRICK LEAL MD [COURTESY STAFF] - Follow up/PCP as directed Additional Instructions: Drink plenty of fluids. Take your medications as prescribed. Follow-up with your primary care provider at the scheduled date and time of your appointment.
[2023-04-23] MEDS ORDERED: Sodium Chloride 0.9% 1000 ML 1,000 ML ONE (13:51)
[2023-04-23] MEDS: Sodium Chloride 0.9% 1000 ML 1,000 ML IV SCH (13:52)
[2023-04-23 13:54] LABS: Absolute Neutrophil Ct (ANC) 6.75 x10^3/uL (1.4-6.9); BASOPHIL % 0.3 % (0.0-0.4); Basophil (Absolute #) 0.03 x10^3/uL (0-0.4); Eosinophil % 1.5 % (0.00-5.0); Eosinophil (Absolute #) 0.14 x10^3/uL (0-0.5); Hematocrit 43.5 % (42-50); Hemoglobin 15.5 g/dL (12.5-18.0); IMMATURE GRAN # 0.06 x10^3u/L (0.00-0.03); IMMATURE GRAN % 0.6 % (0.00-0.4); Lymphocyte (Absolute #) 1.65 x10^3/uL (1.0-4.6); Lymphocytes % 17.8 % (24.0-44.0); Mean Cell Volume 92.9 fL (78-100); Mean Corpuscular Hemoglobin 33.1 pg (26-32); Mean Corpuscular Hgb Concent. 35.6 g/dL (32-36); Mean Platelet Volume 10.7 fL (7.5-11.0); Monocyte (Absolute #) 0.62 x10^3/uL (0.0-1.3); Monocytes % 6.7 % (0.0-12.0); Neutrophil % 73.1 % (36.0-66.0); Platelet Count 183 x10^3/uL (150-450); Red Blood Count 4.68 x10^6/uL (4.1-5.6); Red Cell Distribution Width 11.9 % (11.5-14.0); White Blood Count 9.3 x10^3/uL (4.0-10.5)
[2023-04-23 14:08] LABS: ALBUMIN 3.6 g/dL (3.5-5.0); BILIRUBIN,TOTAL 1.4 mg/dL (0.2-1.3); Calcium 8.7 mg/dL (8.4-10.2); Creatinine 1 1.1 mg/dL (0.66-1.25); MAGNESIUM 2.2 mg/dL (1.6-2.3); Potassium 4.7 mmol/L (3.5-5.1); Total Protein 6.9 g/dL (6.3-8.2)
--- NOTE | 2023-04-23 14:15 | XRAY ---
Indication: Confusion. Multiple contiguous axial images obtained through the head without contrast. Comparison: February 20, 2020 Again age-appropriate global atrophy with small remote infarct left mid centrum semiovale. No acute intracranial hemorrhage, abnormal extra-axial fluid collection, or mass effect. Fourth ventricle is midline without hydrocephalus. Bony calvarium intact. Visualized paranasal sinuses and mastoid air cells are clear. Impression: Stable atrophy and small remote infarct left centrum semiovale. No new or acute intracranial abnormalities.
[2023-04-23 15:06] VITALS: BP 110/64; PULSE 63; RESP 16; O2SAT 96
[2023-04-23] MEDS ORDERED: HUMULIN R ONE (15:38)
[2023-04-23] MEDS: HUMULIN R IV ONE (15:42)
[2023-04-23 15:43] LABS: Appearance Clear (Clear); Bacteria None Seen /HPF (None Seen); Bilirubin Negative (Negative); Blood Negative (Negative); Epithelial Cells Rare /HPF (None Seen); Glucose, Urine >=1000 mg/dL (Negative); Hyaline Casts NONE SEEN /LPF (0-2); Ketones Negative (Negative); Leukocyte Esterase Negative (Negative); Nitrite Negative (Negative); Ph 6.5 (4.6-8.0); Protein,Urine Dip Negative (Negative); RBC 0-2 /HPF (0-5); Specific Gravity >=1.030 (1.005-1.030)
[2023-04-23 15:53] LABS: ADD URINE CULTURE? NO (NO); WBC NONE SEEN /HPF (0-5)
[2023-04-23] MEDS ORDERED: Sodium Chloride 0.9% 500 ML 500 ML IV ONE (16:06)
[2023-04-23] MEDS: Sodium Chloride 0.9% 500 ML 500 ML IV ONE (16:07)
== END 2023-04-23 18:46 | disposition home or self-care (01) ==
LOC: ED 12:56
DX: F03.90 Unspecified dementia, unspecified severity, without behavioral disturbance, psychotic disturbance, mood disturbance, and anxiety (principal); E11.65 Type 2 diabetes mellitus with hyperglycemia; E87.1 Hypo-osmolality and hyponatremia; Z91.148 Patient's other noncompliance with medication regimen for other reason; R07.9 Chest pain, unspecified; I10 Essential (primary) hypertension; E78.5 Hyperlipidemia, unspecified; Z79.01 Long term (current) use of anticoagulants; Z79.84 Long term (current) use of oral hypoglycemic drugs; Z79.899 Other long term (current) drug therapy; Z28.310 Unvaccinated for COVID-19; Z72.0 Tobacco use
CPT/HCPCS: 36000; 36415; 70450; 80053; 81001; 82140; 82947; 83735; 84484; 85025; 93005; 94760; 96360; 96361; 96374; 99284; J1815

== ENCOUNTER 2023-12-05 11:50 | Emergency (ER) | payer MEDICARE, OTHER ==
--- NOTE | 2023-12-05 12:04 | ERPHSYRPT ---
- History of Present Illness Time Seen by Provider: 12/05/23 12:04 Source: patient, family Exam Limitations: clinical condition Physician History: This is a 73-year-old white male patient of Dr. Armstrong who has multiple, significant medical issues including progressively worsening dementia, prostate issues, hypertension, hypothyroidism, hyperlipidemia, atrial fibrillation on Eliquis, CHF, coronary artery disease (CABG and stent) hepatitis and has an internal defibrillator/pacemaker in place and continues to smoke tobacco cigarettes and presents with worsening confusion and possible facial droop that has been present for 4 days. Patient lives with his brother who is his primary clinical biostatistician. Home health evaluated the patient today and and because of the above concerns, pain was brought into the emergency department. Patient is also lost 50 pounds in 6 months and has not been eating well. Patient denies chest pain and denies shortness of breath. The NIHSS scale is negative. Timing/Duration: day(s) (4) Severity: mild Associated Symptoms: denies symptoms Allergies/Adverse Reactions: No Known Drug Allergies Allergy (Verified 12/05/23 12:15) Home Medications: Nitroglycerin 0.4 mg SL Q2H/PRN PRN 10/10/19 [History] Tamsulosin HCl 0.4 mg [Flomax 0.4 MG] 0.4 mg PO DAILY 10/10/19 [History] allopurinoL [Allopurinol] 100 mg PO DAILY 10/10/19 [History] Apixaban [Eliquis 2.5 mg Tablet] 2.5 mg PO BID 06/19/21 [History] Atorvastatin Calcium [Lipitor 40Mg] 40 mg PO HS 06/19/21 [History] Donepezil HCl 10 mg [Aricept 10 MG] 28 mg PO HS 06/19/21 [History] Duloxetine HCl 30 mg [Cymbalta 30 MG Capsule] 30 mg PO DAILY 06/19/21 [History] Memantine HCl 5 mg [Namenda 5 MG] 5 mg PO BID 06/19/21 [History] Metoprolol Succinate 50 mg [Toprol Xl 50 MG] 25 mg PO BID 06/19/21 [History] Ranolazine 500 MG [Ranexa 500 MG] 1,000 mg PO BID 06/19/21 [History] Levothyroxine Sodium 25 mcg PO DAILY 12/05/23 [History] Midodrine HCl 2.5 mg PO TID 12/05/23 [History] Tirzepatide [Mounjaro] 2.5 mg SQ WEEKLY 12/05/23 [History] Hx Tetanus, Diphtheria Vaccination/Date Given: Yes Hx Influenza Vaccination/Date Given: Yes Hx Pneumococcal Vaccination/Date Given: Yes Travel Risk - International Travel Have you traveled outside of the country in past 3 weeks: No - Emerging Infectious Disease Are you exhibiting symptoms associated with any current EIDs: No - Review of Systems Constitutional: No Symptoms Eyes: No Symptoms Ears, Nose, & Throat: No Symptoms Respiratory: No Symptoms Cardiac: No Symptoms Abdominal/Gastrointestinal: No Symptoms Genitourinary Symptoms: No Symptoms Musculoskeletal: No Symptoms Skin: No Symptoms Neurological: No Symptoms Psychological: Other (Pleasantly confused) Endocrine: No Symptoms Hematologic/Lymphatic: No Symptoms Immunological/Allergic: No Symptoms All Other Systems: Reviewed and Negative - Past Medical History Pertinent Past Medical History: Yes Neurological History: Stroke ENT History: Cataracts Cardiac History: Arrhythmia, Congestive Heart Failure, Coronary Artery Disease, High Cholesterol, Hypertension, Myocardial Infarction ([place]) Respiratory History: COPD Endocrine Medical History: Diabetes Type II Musculoskeletal History: No Pertinent History GI Medical History: Hepatitis History: No Pertinent History Psycho-Social History: No Pertinent History Male Reproductive Disorders: No Pertinent History Other Medical History: A-Fib - Past Surgical History Past Surgical History: Yes Neuro Surgical History: No Pertinent History Cardiac: Angioplasty, CABG, Cardiac Catheterization, Cardiac Stent, Internal Defibrillator, Pacemaker Respiratory: Chest Surgery Gastrointestinal: No Pertinent History Genitourinary: No Pertinent History Musculoskeletal: No Pertinent History Male Surgical History: No Pertinent History Other Surgical History: RUPTURED BELLY BUTTON. Right foot surgery Significant Family History: no pertinent family hx - Social History Smoking Status: Current every day smoker How long have you smoked: since 10 Exposure to second hand smoke: Yes Drug Use: none Patient Lives Alone: Yes - Nursing Vital Signs Nursing Vital Signs: Initial Vital Signs Blood Pressure 116/70 12/05/23 12:02 Pain Scale Pain Intensity 0 - Physical Exam General Appearance: no apparent distress, alert Eye Exam: PERRL/EOMI, eyes nml inspection Ears, Nose, Throat Exam: normal ENT inspection, moist mucous membranes Neck Exam: normal inspection, non-tender, supple, full range of motion Respiratory Exam: normal breath sounds, lungs clear, airway intact, No chest tenderness, No respiratory distress Cardiovascular Exam: regular rate/rhythm, normal heart sounds, normal peripheral pulses Gastrointestinal/Abdomen Exam: soft, normal bowel sounds, No tenderness Rectal Exam: not done Back Exam: normal inspection, normal range of motion, No CVA tenderness Extremity Exam: normal inspection, normal range of motion, pelvis stable Neurologic Exam: alert, cooperative, 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 Patient has significant dementia) Skin Exam: normal color, warm, dry Lymphatic Exam: No adenopathy SpO2 Interpretation: normal O2 Delivery: Room Air - Course Nursing assessment & vital signs reviewed: Yes EKG Interpreted by Me: RATE (60), NORMAL AXIS, Other (This is an atrial paced twelve-lead EKG without evidence of any acute ischemia. QTc measured 442.) Ordered Tests: Active Orders 24 hr Category Date Time Status Microbiology Director STAT Care 12/05/23 12:29 Active EKG-ER Only STAT Care 12/05/23 12:28 Active IV Insertion STAT Care 12/05/23 12:28 Active NPO (ED) STAT Care 12/05/23 12:28 Active Pulse Oximetry (ED) STAT Care 12/05/23 12:28 Active Re-Check Vital Signs STAT Care 12/05/23 12:28 Completed HEAD WITHOUT CONTRAST [CT] Stat Exams 12/05/23 12:29 Completed CBC W DIFF Stat Lab 12/05/23 12:48 Completed CMP Stat Lab 12/05/23 12:48 Completed CULTURE,URINE Stat Lab 12/05/23 14:25 Received MAGNESIUM Stat Lab 12/05/23 12:48 Completed MONO SCREEN Stat Lab 12/05/23 12:48 Completed TSH [TSH, 3RD Generation] Stat Lab 12/05/23 12:48 Completed UA W/RFX UR CULTURE Stat Lab 12/05/23 13:57 Completed Lab/Rad Data: Laboratory Result Diagrams 12/05/23 12:48 12/05/23 12:48 Laboratory Results 12/05/23 12/05/23 12/05/23 Range/Units 13:57 12:48 12:48 WBC (4.23-9.07) x10^3/uL RBC (4.63-6.08) x10^6/uL Hgb (13.7-17.5) g/dL Hct (40.1-51.0) % MCV (79.0-92.2) fL MCH (25.7-32.2) pg MCHC (32.3-36.5) g/dL RDW (11.6-14.4) % Plt Count (163-337) x10^3/uL MPV (9.4-12.4) fL Gran % (34.0-67.9) % Immature Gran % (Auto) (0.001-0.429) % Nucleat RBC Rel Count (0.00-0.2) % Eos # (Auto) (0.04-0.54) x10^3/uL Immature Gran # (Auto) (0.001-0.031) x10^3u/L Absolute Lymphs (auto) (1.32-3.57) x10^3/uL Absolute Monos (auto) (0.30-0.82) x10^3/uL Absolute Nucleated RBC (0.00-0.012) x10^3u/L Lymphocytes % (21.8-53.1) % Monocytes % (5.3-12.2) % Eosinophils % (0.8-7.0) % Basophils % (0.2-1.2) % Absolute Granulocytes (1.78-5.38) x10^3/uL Basophils # (0.01-0.08) x10^3/uL Sodium (135-145) mmol/L Potassium (3.5-5.1) mmol/L Chloride (98-107) mmol/L Carbon Dioxide (22-30) mmol/L Anion Gap (5-15) MEQ/L BUN (9-20) mg/dL Creatinine (0.66-1.25) mg/dL Estimated GFR ML/MIN Glucose (74-106) mg/dL Calcium (8.4-10.2) mg/dL Magnesium (1.6-2.3) mg/dL Total Bilirubin (0.2-1.3) mg/dL AST (17-59) U/L ALT (0-50) U/L Alkaline Phosphatase (38-126) U/L Ammonia (9-30) umol/L Serum Total Protein (6.3-8.2) g/dL Albumin (3.5-5.0) g/dL Free T4 (0.78-2.19) ng/dL TSH 3rd Generation (0.470-4.680) mIU/L Urine Color Dark Yellow (Yellow) Urine Appearance Clear (Clear) Urine pH 6.0 (4.6-8.0) Ur Specific Coral >=1.030 A (1.005-1.030) Urine Protein 30 (Negative) Urine Glucose (UA) Negative (Negative) mg/dL Urine Ketones Trace A (Negative) Urine Blood Negative (Negative) Urine Nitrite Negative (Negative) Urine Bilirubin Negative (Negative) Urine Urobilinogen 1.0 A (0.2) mg/dL Ur Leukocyte Esterase Negative (Negative) U Hyaline Cast (Auto) NONE SEEN (0-2) /LPF Urine Microscopic RBC 0-2 (0-5) /HPF Urine Microscopic WBC 3-5 (0-5) /HPF Ur Epithelial Cells None Seen (None Seen) /HPF Urine Bacteria None Seen (None Seen) /HPF Urine Culture Reflexed ORDERED SEPARATELY (NO) Monoscreen NEGATIVE (NEGATIVE) Influenza Type A Ag NEGATIVE (NEGATIVE) Influenza Type B Ag NEGATIVE (NEGATIVE) RSV (PCR) NEGATIVE (NEGATIVE) SARS-CoV-2 (PCR) NEGATIVE (NEGATIVE) 12/05/23 12/05/23 12/05/23 Range/Units 12:48 12:48 12:48 WBC (4.23-9.07) x10^3/uL RBC (4.63-6.08) x10^6/uL Hgb (13.7-17.5) g/dL Hct (40.1-51.0) % MCV (79.0-92.2) fL MCH (25.7-32.2) pg MCHC (32.3-36.5) g/dL RDW (11.6-14.4) % Plt Count (163-337) x10^3/uL MPV (9.4-12.4) fL Gran % (34.0-67.9) % Immature Gran % (Auto) (0.001-0.429) % Nucleat RBC Rel Count (0.00-0.2) % Eos # (Auto) (0.04-0.54) x10^3/uL Immature Gran # (Auto) (0.001-0.031) x10^3u/L Absolute Lymphs (auto) (1.32-3.57) x10^3/uL Absolute Monos (auto) (0.30-0.82) x10^3/uL Absolute Nucleated RBC (0.00-0.012) x10^3u/L Lymphocytes % (21.8-53.1) % Monocytes % (5.3-12.2) % Eosinophils % (0.8-7.0) % Basophils % (0.2-1.2) % Absolute Granulocytes (1.78-5.38) x10^3/uL Basophils # (0.01-0.08) x10^3/uL Sodium (135-145) mmol/L Potassium (3.5-5.1) mmol/L Chloride (98-107) mmol/L Carbon Dioxide (22-30) mmol/L Anion Gap (5-15) MEQ/L BUN (9-20) mg/dL Creatinine (0.66-1.25) mg/dL Estimated GFR ML/MIN Glucose (74-106) mg/dL Calcium (8.4-10.2) mg/dL Magnesium (1.6-2.3) mg/dL Total Bilirubin (0.2-1.3) mg/dL AST (17-59) U/L ALT (0-50) U/L Alkaline Phosphatase (38-126) U/L Ammonia < 9 L (9-30) umol/L Serum Total Protein (6.3-8.2) g/dL Albumin (3.5-5.0) g/dL Free T4 1.41 (0.78-2.19) ng/dL TSH 3rd Generation 0.515 (0.470-4.680) mIU/L Urine Color (Yellow) Urine Appearance (Clear) Urine pH (4.6-8.0) Ur Specific Coral (1.005-1.030) Urine Protein (Negative) Urine Glucose (UA) (Negative) mg/dL Urine Ketones (Negative) Urine Blood (Negative) Urine Nitrite (Negative) Urine Bilirubin (Negative) Urine Urobilinogen (0.2) mg/dL Ur Leukocyte Esterase (Negative) U Hyaline Cast (Auto) (0-2) /LPF Urine Microscopic RBC (0-5) /HPF Urine Microscopic WBC (0-5) /HPF Ur Epithelial Cells (None Seen) /HPF Urine Bacteria (None Seen) /HPF Urine Culture Reflexed (NO) Monoscreen (NEGATIVE) Influenza Type A Ag (NEGATIVE) Influenza Type B Ag (NEGATIVE) RSV (PCR) (NEGATIVE) SARS-CoV-2 (PCR) (NEGATIVE) 12/05/23 12/05/23 Range/Units 12:48 12:48 WBC 8.7 (4.23-9.07) x10^3/uL RBC 4.41 L (4.63-6.08) x10^6/uL Hgb 14.2 (13.7-17.5) g/dL Hct 40.7 (40.1-51.0) % MCV 92.3 H (79.0-92.2) fL MCH 32.2 (25.7-32.2) pg MCHC 34.9 (32.3-36.5) g/dL RDW 12.4 (11.6-14.4) % Plt Count 212 (163-337) x10^3/uL MPV 9.9 (9.4-12.4) fL Gran % 68.8 H (34.0-67.9) % Immature Gran % (Auto) 2.1 H (0.001-0.429) % Nucleat RBC Rel Count 0.0 (0.00-0.2) % Eos # (Auto) 0.12 (0.04-0.54) x10^3/uL Immature Gran # (Auto) 0.18 H (0.001-0.031) x10^3u/L Absolute Lymphs (auto) 1.68 (1.32-3.57) x10^3/uL Absolute Monos (auto) 0.71 (0.30-0.82) x10^3/uL Absolute Nucleated RBC 0.00 (0.00-0.012) x10^3u/L Lymphocytes % 19.3 L (21.8-53.1) % Monocytes % 8.1 (5.3-12.2) % Eosinophils % 1.4 (0.8-7.0) % Basophils % 0.3 (0.2-1.2) % Absolute Granulocytes 6.00 H (1.78-5.38) x10^3/uL Basophils # 0.03 (0.01-0.08) x10^3/uL Sodium 136 (135-145) mmol/L Potassium 3.9 (3.5-5.1) mmol/L Chloride 102 (98-107) mmol/L Carbon Dioxide 29 (22-30) mmol/L Anion Gap 9.5 (5-15) MEQ/L BUN 22 H (9-20) mg/dL Creatinine 1.16 (0.66-1.25) mg/dL Estimated GFR 65.7 ML/MIN Glucose 143 H (74-106) mg/dL Calcium 9.1 (8.4-10.2) mg/dL Magnesium 2.0 (1.6-2.3) mg/dL Total Bilirubin 0.60 (0.2-1.3) mg/dL AST 24 (17-59) U/L ALT 19 (0-50) U/L Alkaline Phosphatase 66 (38-126) U/L Ammonia (9-30) umol/L Serum Total Protein 6.4 (6.3-8.2) g/dL Albumin 3.5 (3.5-5.0) g/dL Free T4 (0.78-2.19) ng/dL TSH 3rd Generation (0.470-4.680) mIU/L Urine Color (Yellow) Urine Appearance (Clear) Urine pH (4.6-8.0) Ur Specific Coral (1.005-1.030) Urine Protein (Negative) Urine Glucose (UA) (Negative) mg/dL Urine Ketones (Negative) Urine Blood (Negative) Urine Nitrite (Negative) Urine Bilirubin (Negative) Urine Urobilinogen (0.2) mg/dL Ur Leukocyte Esterase (Negative) U Hyaline Cast (Auto) (0-2) /LPF Urine Microscopic RBC (0-5) /HPF Urine Microscopic WBC (0-5) /HPF Ur Epithelial Cells (None Seen) /HPF Urine Bacteria (None Seen) /HPF Urine Culture Reflexed (NO) Monoscreen (NEGATIVE) Influenza Type A Ag (NEGATIVE) Influenza Type B Ag (NEGATIVE) RSV (PCR) (NEGATIVE) SARS-CoV-2 (PCR) (NEGATIVE) - Progress Progress: unchanged Progress Note: 12/05/23 13:05 My medical decision making and the assignment of moderate complexity in this p atient today is based on review of the patient's past medical history, review of the patient's medication list, review the patient drug allergy list, history present illness and physical findings on examination. The workup in this patient includes placement of intravenous line, infusion of normal saline solution, urinalysis, ammonia level, magnesium level, C, CMP, twelve-lead EKG, CT scan of the head without contrast, monotest and viral studies. Differential diagnosis includes but is not limited to viral illness, urinary tract infection, dehydration, electrolyte abnormalities, acute intracranial abnormality. 12/05/23 13:46 CT scan of the head without contrast was interpreted by the radiologist and I reviewed the impression. Impression states stable global atrophy. Small remote infarct left centrum semiovale. No new or acute intracranial abnormalities. 12/05/23 14:51 I interpreted the patient's laboratory data results. Based on the patient's laboratory data results, the patient does not have any acute or emergent medical findings. Counseled pt/family regarding: lab results, diagnosis, need for follow-up, rad results Medical Desision Making - Independent Historian Additional History obtained from: Family - Diagnostic Testing Diagnostic test were ordered, analyzed, and reviewed by me: Yes Radiological Interpretation: Reviewed by me, Teleradiologist Report - Risk of complications Low Risk: Low risk of morbidity from additional dx testing or treatment - Departure Departure Disposition: Home Clinical Impression: Dementia, Confusion Condition: Stable Critical Care Time: No Referrals: LUANA ARMSTRONG MD [Primary Care Provider] - Follow up/PCP as directed Additional Instructions: Give patient plenty of liquids to drink before advancing diet. Call the patient's primary care provider today to make arrangement for follow-up appointment for further evaluation and management. Continue this patient's other medications.
[2023-12-05 12:15] VITALS: TEMP 97.3
[2023-12-05 12:53] LABS: BASOPHIL % 0.3 % (0.2-1.2); Basophil (Absolute #) 0.03 x10^3/uL (0.01-0.08); Eosinophil % 1.4 % (0.8-7.0); Eosinophil (Absolute #) 0.12 x10^3/uL (0.04-0.54); Hematocrit 40.7 % (40.1-51.0); Hemoglobin 14.2 g/dL (13.7-17.5); IMMATURE GRAN # 0.18 x10^3u/L (0.001-0.031); IMMATURE GRAN % 2.1 % (0.001-0.429); Lymphocyte (Absolute #) 1.68 x10^3/uL (1.32-3.57); Lymphocytes % 19.3 % (21.8-53.1); Mean Cell Volume 92.3 fL (79.0-92.2); Mean Corpuscular Hemoglobin 32.2 pg (25.7-32.2); Mean Corpuscular Hgb Concent. 34.9 g/dL (32.3-36.5); Mean Platelet Volume 9.9 fL (9.4-12.4); Monocyte (Absolute #) 0.71 x10^3/uL (0.30-0.82); Monocytes % 8.1 % (5.3-12.2); Neutrophil % 68.8 % (34.0-67.9); Platelet Count 212 x10^3/uL (163-337); Red Blood Count 4.41 x10^6/uL (4.63-6.08); Red Cell Distribution Width 12.4 % (11.6-14.4); White Blood Count 8.7 x10^3/uL (4.23-9.07)
[2023-12-05 13:23] LABS: ALBUMIN 3.5 g/dL (3.5-5.0); ANION GAP 9.5 MEQ/L (5-15); BILIRUBIN,TOTAL 0.6 mg/dL (0.2-1.3); Calcium 9.1 mg/dL (8.4-10.2); Creatinine 1 1.16 mg/dL (0.66-1.25); EST GLOMERULAR FILTRATION RATE 65.7 ML/MIN; Potassium 3.9 mmol/L (3.5-5.1); Total Protein 6.4 g/dL (6.3-8.2)
--- NOTE | 2023-12-05 13:31 | XRAY ---
Indication: Confusion. Facial drooping. Multiple contiguous axial images obtained throughout without contrast. Comparison: April 23, 2023 Again age-appropriate global atrophy and small remote infarct left mid centrum semiovale. Again no acute intracranial hemorrhage, abnormal extra-axial fluid collection, or mass effect. Fourth ventricle is midline without hydrocephalus. Bony calvarium intact. Visualized paranasal sinuses and mastoid air cells are clear. Impression: Stable atrophy and small remote infarct left centrum semiovale. No new or acute intracranial abnormalities.
[2023-12-05 13:48] LABS: INFLUENZA A NEGATIVE (NEGATIVE); INFLUENZA B NEGATIVE (NEGATIVE); RESPIRATORY SYNCTIAL VIRUS NEGATIVE (NEGATIVE); SARS-CoV-2 Xpert Express NEGATIVE (NEGATIVE)
[2023-12-05 14:33] VITALS: BP 97/48; PULSE 60; RESP 19; O2SAT 98
[2023-12-05 14:38] LABS: Appearance Clear (Clear); Bacteria None Seen /HPF (None Seen); Bilirubin Negative (Negative); Blood Negative (Negative); Epithelial Cells None Seen /HPF (None Seen); Glucose, Urine Negative (Negative); Hyaline Casts NONE SEEN /LPF (0-2); Ketones Trace (Negative); Leukocyte Esterase Negative (Negative); Nitrite Negative (Negative); Protein,Urine Dip 30 (Negative); RBC 0-2 /HPF (0-5); Specific Gravity >=1.030 (1.005-1.030)
[2023-12-05 14:39] LABS: ADD URINE CULTURE? ORDERED SEPARATELY (NO)
== END 2023-12-05 15:13 | disposition home or self-care (01) ==
LOC: ED 11:50
DX: F03.90 Unspecified dementia, unspecified severity, without behavioral disturbance, psychotic disturbance, mood disturbance, and anxiety (principal); F05 Delirium due to known physiological condition; I11.0 Hypertensive heart disease with heart failure; I50.9 Heart failure, unspecified; E78.5 Hyperlipidemia, unspecified; E11.9 Type 2 diabetes mellitus without complications; Z79.01 Long term (current) use of anticoagulants; Z79.85 Long-term (current) use of injectable non-insulin antidiabetic drugs; Z79.899 Other long term (current) drug therapy; Z72.0 Tobacco use
CPT/HCPCS: 0241U; 36000; 36415; 70450; 80053; 81001; 82140; 83735; 84439; 84443; 85025; 86308; 87086; 93005; 93041; 94760; 99284

== ENCOUNTER 2023-12-07 14:35 | Emergency (ER) | payer MEDICARE, OTHER ==
[2023-12-07 14:39] VITALS: TEMP 97.7
--- NOTE | 2023-12-07 15:26 | ERPHSYRPT ---
<OTONIEL DOMINGO DeborahBeatriz - Last Filed: 12/07/23 21:46> - History of Present Illness Source: patient Exam Limitations: no limitations Patient Subjective Stated Complaint: pt here for general co of not feeling well, unsure who called ambulance, pt is normally confused . Triage Nursing Assessment: pt arrived per ems alert, but confused, resp easy, skin w/d/p. abd soft, moves all ext well, no edema noted Timing/Duration: today Severity: mild Modifying Factors: Improves With: nothing Associated Symptoms: weakness Hx Tetanus, Diphtheria Vaccination/Date Given: Yes Hx Influenza Vaccination/Date Given: Yes Hx Pneumococcal Vaccination/Date Given: Yes Immunizations Up to Date: Yes <ABRAHAM PEARSON - Last Filed: 12/10/23 00:37> - History of Present Illness Time Seen by Provider: 12/07/23 15:26 Physician History: The patient, with a history of Alzheimer's disease, presents with worsening confusion and weakness. The family member reports that the patient was unable to stand, had an altered color, and was slurring his words. The patient admits to feeling a little confused for quite a while. He also reports weakness but deny any recent falls. The patient has been experiencing breathing difficulties, which have been ongoing for the past week. He was previously hospitalized for tests related to this issue. The patient denies any recent fevers, sickness, chest pain, or urinary symptoms. He also denies any abdominal pain. The patient's Alzheimer's disease has been worsening, with increased difficulty following directions. The family member reports that the patient's condition has been deteriorating for quite a while. (ABRAHAM PEARSON) Allergies/Adverse Reactions: No Known Drug Allergies Allergy (Verified 12/07/23 14:37) Home Medications: Nitroglycerin 0.4 mg SL Q2H/PRN PRN 10/10/19 [History] Tamsulosin HCl 0.4 mg [Flomax 0.4 MG] 0.4 mg PO DAILY 10/10/19 [History] allopurinoL [Allopurinol] 100 mg PO DAILY 10/10/19 [History] Apixaban [Eliquis 2.5 mg Tablet] 2.5 mg PO BID 06/19/21 [History] Atorvastatin Calcium [Lipitor 40Mg] 40 mg PO HS 06/19/21 [History] Donepezil HCl 10 mg [Aricept 10 MG] 28 mg PO HS 06/19/21 [History] Duloxetine HCl 30 mg [Cymbalta 30 MG Capsule] 30 mg PO DAILY 06/19/21 [History] Memantine HCl 5 mg [Namenda 5 MG] 5 mg PO BID 06/19/21 [History] Metoprolol Succinate 50 mg [Toprol Xl 50 MG] 25 mg PO BID 06/19/21 [Histo ry] Ranolazine 500 MG [Ranexa 500 MG] 1,000 mg PO BID 06/19/21 [History] Levothyroxine Sodium 25 mcg PO DAILY 12/05/23 [History] Midodrine HCl 2.5 mg PO TID 12/05/23 [History] Tirzepatide [Mounjaro] 2.5 mg SQ WEEKLY 12/05/23 [History] Travel Risk - International Travel Have you traveled outside of the country in past 3 weeks: No - Emerging Infectious Disease Are you exhibiting symptoms associated with any current EIDs: No <ABRAHAM PEARSON - Last Filed: 12/10/23 00:37> - Review of Systems All Other Systems: Reviewed and Negative <ABRAHAM PEARSON - Last Filed: 12/10/23 00:37> - Past Medical History Pertinent Past Medical History: Yes Neurological History: Stroke ENT History: Cataracts Cardiac History: Arrhythmia, Congestive Heart Failure, Coronary Artery Disease, High Cholesterol, Hypertension, Myocardial Infarction ([place]) Respiratory History: COPD Endocrine Medical History: Diabetes Type II Musculoskeletal History: No Pertinent History GI Medical History: Hepatitis History: No Pertinent History Psycho-Social History: No Pertinent History Male Reproductive Disorders: No Pertinent History Other Medical History: A-Fib - Past Surgical History Past Surgical History: Yes Neuro Surgical History: No Pertinent History Cardiac: Angioplasty, CABG, Cardiac Catheterization, Cardiac Stent, Internal Defibrillator, Pacemaker Respiratory: Chest Surgery Gastrointestinal: No Pertinent History Genitourinary: No Pertinent History Musculoskeletal: No Pertinent History Male Surgical History: No Pertinent History Other Surgical History: RUPTURED BELLY BUTTON. Right foot surgery Significant Family History: no pertinent family hx - Social History Smoking Status: Current every day smoker How long have you smoked: since 10 Exposure to second hand smoke: Yes Drug Use: none Patient Lives Alone: Yes - Social Determinants of Health Will the patient participate in the screening: Yes Do you worry about a steady place to live?: No Do you have any problems with any of the following?: No known problems In the past 12 months,have you had to go without utilities?: No Transportation Issues: No Has anyone in your support network made you feel unsafe?: No Have you or anyone in your house had to go without enough: No <ABRAHAM PEARSON - Last Filed: 12/10/23 00:37> - Physical Exam General Appearance: no apparent distress Eye Exam: PERRL/EOMI, eyes nml inspection Ears, Nose, Throat Exam: normal ENT inspection Neck Exam: normal inspection, non-tender, supple, full range of motion Respiratory Exam: normal breath sounds, lungs clear, airway intact, No respiratory distress Cardiovascular Exam: regular rate/rhythm, normal heart sounds, capillary refill <2 sec, No edema Gastrointestinal/Abdomen Exam: soft, normal bowel sounds, No tenderness Neurologic Exam: alert, cooperative, orthopedic dentist II-XII nml as tested, normal mood/affect, nml cerebellar function, sensation nml, disoriented, confusion, No motor deficits, No facial droop, No slurred speech, No dysarthria Skin Exam: normal color, warm, dry SpO2 Interpretation: normal SpO2: 99 O2 Delivery: Room Air <ABRAHAM PEARSON - Last Filed: 12/10/23 00:37> - Nursing Vital Signs Nursing Vital Signs: Initial Vital Signs Temperature 97.7 F 12/07/23 14:37 Pulse Rate 69 12/07/23 14:37 Respiratory Rate 18 12/07/23 14:37 Blood Pressure 115/73 12/07/23 14:37 O2 Sat by Pulse Oximetry 99 12/07/23 14:37 Pain Scale Pain Intensity 0 - Course Nursing assessment & vital signs reviewed: Yes <ABRAHAM PEARSON - Last Filed: 12/10/23 00:37> Ordered Tests: Medication Summary Discontinued Medications Generic Name Dose Route Start Last Admin Trade Name Freq PRN Reason Stop Dose Admin Sodium Chloride 1,000 mls @ 999 mls/hr 12/07/23 15:37 12/07/23 17:20 Sodium Chloride 0.9% 1000 Ml IV 12/07/23 16:37 Infused .Q1H1M STA Infusion Sodium Chloride Confirm 12/07/23 16:18 Sodium Chloride 0.9% 1000 Ml Administered 12/07/23 16:19 Dose 1,000 mls @ ud .ROUTE .K-MED ONE Lab/Rad Data: Laboratory Result Diagrams 12/07/23 15:36 12/07/23 15:45 Laboratory Results 12/07/23 12/07/23 12/07/23 Range/Units 21:35 18:47 15:55 WBC (4.23-9.07) x10^3/uL RBC (4.63-6.08) x10^6/uL Hgb (13.7-17.5) g/dL Hct (40.1-51.0) % MCV (79.0-92.2) fL MCH (25.7-32.2) pg MCHC (32.3-36.5) g/dL RDW (11.6-14.4) % Plt Count (163-337) x10^3/uL MPV (9.4-12.4) fL Gran % (34.0-67.9) % Immature Gran % (Auto) (0.001-0.429) % Nucleat RBC Rel Count (0.00-0.2) % Eos # (Auto) (0.04-0.54) x10^3/uL Immature Gran # (Auto) (0.001-0.031) x10^3u/L Absolute Lymphs (auto) (1.32-3.57) x10^3/uL Absolute Monos (auto) (0.30-0.82) x10^3/uL Absolute Nucleated RBC (0.00-0.012) x10^3u/L Lymphocytes % (21.8-53.1) % Monocytes % (5.3-12.2) % Eosinophils % (0.8-7.0) % Basophils % (0.2-1.2) % Absolute Granulocytes (1.78-5.38) x10^3/uL Basophils # (0.01-0.08) x10^3/uL Sodium (135-145) mmol/L Potassium (3.5-5.1) mmol/L Chloride (98-107) mmol/L Carbon Dioxide (22-30) mmol/L Anion Gap (5-15) MEQ/L BUN (9-20) mg/dL Creatinine (0.66-1.25) mg/dL Estimated GFR ML/MIN Glucose (74-106) mg/dL Lactic Acid (0.4-2.0) Calcium (8.4-10.2) mg/dL Magnesium (1.6-2.3) mg/dL Total Bilirubin (0.2-1.3) mg/dL AST (17-59) U/L ALT (0-50) U/L Alkaline Phosphatase (38-126) U/L Ammonia < 9 L (9-30) umol/L Serum Total Protein (6.3-8.2) g/dL Albumin (3.5-5.0) g/dL Urine Color Yellow (Yellow) Urine Appearance Clear (Clear) Urine pH 6.0 (4.6-8.0) Ur Specific [place] 1.015 (1.005-1.030) Urine Protein Negative (Negative) Urine Glucose (UA) Negative (Negative) mg/dL Urine Ketones Negative (Negative) Urine Blood Negative (Negative) Urine Nitrite Negative (Negative) Urine Bilirubin Negative (Negative) Urine Urobilinogen 0.2 (0.2) mg/dL Ur Leukocyte Esterase Negative (Negative) U Hyaline Cast (Auto) NONE SEEN (0-2) /LPF Urine Microscopic RBC 0-2 (0-5) /HPF Urine Microscopic WBC 0-2 (0-5) /HPF Ur Epithelial Cells None Seen (None Seen) /HPF Urine Bacteria None Seen (None Seen) /HPF Urine Culture Reflexed NO (NO) Influenza Type A Ag NEGATIVE (NEGATIVE) Influenza Type B Ag NEGATIVE (NEGATIVE) RSV (PCR) NEGATIVE (NEGATIVE) SARS-CoV-2 (PCR) NEGATIVE (NEGATIVE) 12/07/23 12/07/23 12/07/23 Range/Units 15:45 15:45 15:36 WBC (4.23-9.07) x10^3/uL RBC (4.63-6.08) x10^6/uL Hgb (13.7-17.5) g/dL Hct (40.1-51.0) % MCV (79.0-92.2) fL MCH (25.7-32.2) pg MCHC (32.3-36.5) g/dL RDW (11.6-14.4) % Plt Count (163-337) x10^3/uL MPV (9.4-12.4) fL Gran % (34.0-67.9) % Immature Gran % (Auto) (0.001-0.429) % Nucleat RBC Rel Count (0.00-0.2) % Eos # (Auto) (0.04-0.54) x10^3/uL Immature Gran # (Auto) (0.001-0.031) x10^3u/L Absolute Lymphs (auto) (1.32-3.57) x10^3/uL Absolute Monos (auto) (0.30-0.82) x10^3/uL Absolute Nucleated RBC (0.00-0.012) x10^3u/L Lymphocytes % (21.8-53.1) % Monocytes % (5.3-12.2) % Eosinophils % (0.8-7.0) % Basophils % (0.2-1.2) % Absolute Granulocytes (1.78-5.38) x10^3/uL Basophils # (0.01-0.08) x10^3/uL Sodium 138 (135-145) mmol/L Potassium 4.0 (3.5-5.1) mmol/L Chloride 103 (98-107) mmol/L Carbon Dioxide 28 (22-30) mmol/L Anion Gap 10.5 (5-15) MEQ/L BUN 13 (9-20) mg/dL Creatinine 1.13 (0.66-1.25) mg/dL Estimated GFR 67.8 ML/MIN Glucose 144 H (74-106) mg/dL Lactic Acid 2.0 (0.4-2.0) Calcium 9.3 (8.4-10.2) mg/dL Magnesium 2.1 (1.6-2.3) mg/dL Total Bilirubin 0.60 (0.2-1.3) mg/dL AST 28 (17-59) U/L ALT 21 (0-50) U/L Alkaline Phosphatase 67 (38-126) U/L Ammonia (9-30) umol/L Serum Total Protein 6.8 (6.3-8.2) g/dL Albumin 3.6 (3.5-5.0) g/dL Urine Color (Yellow) Urine Appearance (Clear) Urine pH (4.6-8.0) Ur Specific [place] (1.005-1.030) Urine Protein (Negative) Urine Glucose (UA) (Negative) mg/dL Urine Ketones (Negative) Urine Blood (Negative) Urine Nitrite (Negative) Urine Bilirubin (Negative) Urine Urobilinogen (0.2) mg/dL Ur Leukocyte Esterase (Negative) U Hyaline Cast (Auto) (0-2) /LPF Urine Microscopic RBC (0-5) /HPF Urine Microscopic WBC (0-5) /HPF Ur Epithelial Cells (None Seen) /HPF Urine Bacteria (None Seen) /HPF Urine Culture Reflexed (NO) Influenza Type A Ag (NEGATIVE) Influenza Type B Ag (NEGATIVE) RSV (PCR) (NEGATIVE) SARS-CoV-2 (PCR) (NEGATIVE) 12/07/23 Range/Units 15:36 WBC 10.1 H (4.23-9.07) x10^3/uL RBC 4.58 L (4.63-6.08) x10^6/uL Hgb 14.6 (13.7-17.5) g/dL Hct 42.6 (40.1-51.0) % MCV 93.0 H (79.0-92.2) fL MCH 31.9 (25.7-32.2) pg MCHC 34.3 (32.3-36.5) g/dL RDW 12.5 (11.6-14.4) % Plt Count 264 (163-337) x10^3/uL MPV 10.3 (9.4-12.4) fL Gran % 68.8 H (34.0-67.9) % Immature Gran % (Auto) 2.1 H (0.001-0.429) % Nucleat RBC Rel Count 0.0 (0.00-0.2) % Eos # (Auto) 0.11 (0.04-0.54) x10^3/uL Immature Gran # (Auto) 0.21 H (0.001-0.031) x10^3u/L Absolute Lymphs (auto) 2.04 (1.32-3.57) x10^3/uL Absolute Monos (auto) 0.75 (0.30-0.82) x10^3/uL Absolute Nucleated RBC 0.00 (0.00-0.012) x10^3u/L Lymphocytes % 20.2 L (21.8-53.1) % Monocytes % 7.4 (5.3-12.2) % Eosinophils % 1.1 (0.8-7.0) % Basophils % 0.4 (0.2-1.2) % Absolute Granulocytes 6.97 H (1.78-5.38) x10^3/uL Basophils # 0.04 (0.01-0.08) x10^3/uL Sodium (135-145) mmol/L Potassium (3.5-5.1) mmol/L Chloride (98-107) mmol/L Carbon Dioxide (22-30) mmol/L Anion Gap (5-15) MEQ/L BUN (9-20) mg/dL Creatinine (0.66-1.25) mg/dL Estimated GFR ML/MIN Glucose (74-106) mg/dL Lactic Acid (0.4-2.0) Calcium (8.4-10.2) mg/dL Magnesium (1.6-2.3) mg/dL Total Bilirubin (0.2-1.3) mg/dL AST (17-59) U/L ALT (0-50) U/L Alkaline Phosphatase (38-126) U/L Ammonia (9-30) umol/L Serum Total Protein (6.3-8.2) g/dL Albumin (3.5-5.0) g/dL Urine Color (Yellow) Urine Appearance (Clear) Urine pH (4.6-8.0) Ur Specific [place] (1.005-1.030) Urine Protein (Negative) Urine Glucose (UA) (Negative) mg/dL Urine Ketones (Negative) Urine Blood (Negative) Urine Nitrite (Negative) Urine Bilirubin (Negative) Urine Urobilinogen (0.2) mg/dL Ur Leukocyte Esterase (Negative) U Hyaline Cast (Auto) (0-2) /LPF Urine Microscopic RBC (0-5) /HPF Urine Microscopic WBC (0-5) /HPF Ur Epithelial Cells (None Seen) /HPF Urine Bacteria (None Seen) /HPF Urine Culture Reflexed (NO) Influenza Type A Ag (NEGATIVE) Influenza Type B Ag (NEGATIVE) RSV (PCR) (NEGATIVE) SARS-CoV-2 (PCR) (NEGATIVE) - Progress Progress: improved, re-examined Counseled pt/family regarding: lab results, diagnosis, need for follow-up <OTONIEL DOMINGO - Last Filed: 12/07/23 21:46> - Progress Progress Note: 12/07/23 21:47 Transfer of care of this patient to [place] at shift change (7 PM). Dr[address] Pearson performed history physical exam on this patient and ordered several studies. I followed up on the study results and interpreted them. Patient does not have any acute, emergent findings based on his laboratory data results. Patient received 1 L of normal saline solution. He states he is feeling better. Patient was reexamined by me. Patient is smiling happy and eating [employer] hamburger without any complaints. We are awaiting the viral study results. Once these return, I anticipate him being discharged to home. (OTONIEL DOMINGO) Medical Desision Making - Independent Historian Additional History obtained from: Family - Diagnostic Testing Diagnostic test were ordered, analyzed, and reviewed by me: Yes - Risk of complications Low Risk: Low risk of morbidity from additional dx testing or treatment <OTONIEL DOMINGO - Last Filed: 12/07/23 21:46> - Departure Departure Disposition: Home Critical Care Time: No <OTONIEL DOMINGO - Last Filed: 12/07/23 21:46> <ABRAHAM PEARSON - Last Filed: 12/10/23 00:37> - Departure Clinical Impression: Chronic fatigue and malaise Condition: Stable Referrals: LUANA ARMSTRONG MD [Primary Care Provider] - Follow up/PCP as directed Instructions: Fatigue ED Additional Instructions: Plenty of fluids. Take your medication as prescribed. Call your primary care provider on 12/10/2023 to make arrangements for follow-up to be seen in the next 3 to 5 days.
[2023-12-07 15:28] VITALS: RESP 16
[2023-12-07 15:43] LABS: Absolute Neutrophil Ct (ANC) 6.97 x10^3/uL (1.78-5.38); BASOPHIL % 0.4 % (0.2-1.2); Basophil (Absolute #) 0.04 x10^3/uL (0.01-0.08); Eosinophil % 1.1 % (0.8-7.0); Eosinophil (Absolute #) 0.11 x10^3/uL (0.04-0.54); Hematocrit 42.6 % (40.1-51.0); Hemoglobin 14.6 g/dL (13.7-17.5); IMMATURE GRAN # 0.21 x10^3u/L (0.001-0.031); IMMATURE GRAN % 2.1 % (0.001-0.429); Lymphocyte (Absolute #) 2.04 x10^3/uL (1.32-3.57); Lymphocytes % 20.2 % (21.8-53.1); Mean Corpuscular Hemoglobin 31.9 pg (25.7-32.2); Mean Corpuscular Hgb Concent. 34.3 g/dL (32.3-36.5); Mean Platelet Volume 10.3 fL (9.4-12.4); Monocyte (Absolute #) 0.75 x10^3/uL (0.30-0.82); Monocytes % 7.4 % (5.3-12.2); Neutrophil % 68.8 % (34.0-67.9); Platelet Count 264 x10^3/uL (163-337); Red Blood Count 4.58 x10^6/uL (4.63-6.08); Red Cell Distribution Width 12.5 % (11.6-14.4); White Blood Count 10.1 x10^3/uL (4.23-9.07)
[2023-12-07 15:50] LABS: ALBUMIN 3.6 g/dL (3.5-5.0); ANION GAP 10.5 MEQ/L (5-15); BILIRUBIN,TOTAL 0.6 mg/dL (0.2-1.3); Calcium 9.3 mg/dL (8.4-10.2); Creatinine 1 1.13 mg/dL (0.66-1.25); EST GLOMERULAR FILTRATION RATE 67.8 ML/MIN; Total Protein 6.8 g/dL (6.3-8.2)
[2023-12-07] MEDS ORDERED: Sodium Chloride 0.9% 1000 ML 1,000 ML ONE (16:18)
[2023-12-07] MEDS: Sodium Chloride 0.9% 1000 ML 1,000 ML IV STA (16:19)
[2023-12-07 19:04] VITALS: PULSE 70
[2023-12-07 19:13] LABS: Appearance Clear (Clear); Bacteria None Seen /HPF (None Seen); Bilirubin Negative (Negative); Blood Negative (Negative); Epithelial Cells None Seen /HPF (None Seen); Glucose, Urine Negative (Negative); Hyaline Casts NONE SEEN /LPF (0-2); Ketones Negative (Negative); Leukocyte Esterase Negative (Negative); Nitrite Negative (Negative); Protein,Urine Dip Negative (Negative); RBC 0-2 /HPF (0-5); Specific Gravity 1.015 (1.005-1.030); Urobilinogen 0.2 mg/dL (0.2); WBC 0-2 /HPF (0-5)
[2023-12-07 19:14] LABS: ADD URINE CULTURE? NO (NO)
[2023-12-07 22:18] LABS: INFLUENZA A NEGATIVE (NEGATIVE); INFLUENZA B NEGATIVE (NEGATIVE); RESPIRATORY SYNCTIAL VIRUS NEGATIVE (NEGATIVE); SARS-CoV-2 Xpert Express NEGATIVE (NEGATIVE)
[2023-12-07 22:36] VITALS: BP 99/50; O2SAT 99
== END 2023-12-07 22:39 | disposition home or self-care (01) ==
LOC: ED 14:35
DX: R53.82 Chronic fatigue, unspecified (principal); R53.1 Weakness; R06.00 Dyspnea, unspecified; G30.9 Alzheimer's disease, unspecified; F02.80 Dementia in other diseases classified elsewhere, unspecified severity, without behavioral disturbance, psychotic disturbance, mood disturbance, and anxiety; I11.0 Hypertensive heart disease with heart failure; I50.9 Heart failure, unspecified; E11.9 Type 2 diabetes mellitus without complications; Z79.01 Long term (current) use of anticoagulants; Z79.85 Long-term (current) use of injectable non-insulin antidiabetic drugs; Z79.899 Other long term (current) drug therapy; Z72.0 Tobacco use
CPT/HCPCS: 0241U; 36000; 36415; 80053; 81001; 82140; 83605; 83735; 85025; 93041; 94760; 96360; 99284

== ENCOUNTER 2024-05-01 12:52 | Emergency (ER) | payer MEDICARE ==
[2024-05-01 13:17] VITALS: TEMP 97.4
[2024-05-01] MEDS ORDERED: TYLENOL 325 MG ONE (14:11)
[2024-05-01 14:15] VITALS: PULSE 58; O2SAT 96
[2024-05-01] MEDS: TYLENOL 325 MG PO STA (14:15)
--- NOTE | 2024-05-01 14:20 | XRAY ---
CLINICAL HISTORY: pain COMPARISON: No prior studies are available for comparison. TECHNIQUE: X-ray images of the left wrist were obtained in PA, lateral, and oblique projections. FINDINGS: Bone Structure: The bone structure is normal and aligned. No evidence of fracture or dislocation. No osseous lesions or abnormalities were identified. The sesamoid bone of the first metacarpal head. Mild osteoarthritis of the carpo-metacarpal, and first metacarpophalangeal joints. Joint Spaces: Joint spaces are normal. No evidence of joint effusion or subluxation. Soft Tissues: Mild soft tissue swelling. No calcifications or foreign bodies were noted. IMPRESSION: 1. No evidence of acute fracture, or dislocation. 2. Subtle sclerosis of the distal radius. 3. Mild soft tissue swelling. 4. Mild osteoarthritis of the carpo-metacarpal, and first metacarpophalangeal joints. DISCLAIMER:A subtle bone abnormality or fracture may not be readily apparent on x-rays, thus clinical correlation and further imaging including follow up CT, MRI, or follow up x-rays are advised as needed. Electronically Signed by: Hiren Ding MD. (05/01/2024 14:15:11 EST)
--- NOTE | 2024-05-01 14:43 | XRAY ---
CLINICAL HISTORY: pain COMPARISON: No prior studies are available for comparison. TECHNIQUE: X-ray images of the left hand were obtained in anteroposterior (AP), lateral, and oblique projections. FINDINGS: Bone Structure: The bone structure is normal and aligned. No evidence of fracture or dislocation. No osseous lesions or abnormalities were identified. Osteoarthritis of the carpo-metacarpal, and first metacarpophalangeal joints. Tiny calcification of the metatarsophalangeal joint. Joint Spaces: Reduced interphalangeal joint spaces. No evidence of joint effusion or subluxation. Soft Tissues: Mild soft tissue swelling. No calcifications or foreign bodies were noted. IMPRESSION: 1. No evidence of acute fracture, or dislocation. 2. Mild soft tissue swelling. 3. Subtle sclerosis of the distal radius. 4. Osteoarthritis of the carpo-metacarpal, and first metacarpophalangeal joints. Tiny calcification of the metatarsophalangeal joint. DISCLAIMER:A subtle bone abnormality or fracture may not be readily apparent on x-rays, thus clinical correlation and further imaging including follow up CT, MRI, or follow up x-rays are advised as needed. Electronically Signed by: Hiren Ding MD. (05/01/2024 14:39:56 EST)
--- NOTE | 2024-05-01 15:21 | ERPHSYRPT ---
- History of Present Illness Time Seen by Provider: 05/01/24 13:06 Source: patient Patient Subjective Stated Complaint: wrist/hand pain- left Triage Nursing Assessment: Patient ambulated back to ED and transferred self to bed. Patient A+O X 3. Patient's skin pink, warm and dry. Patient states he was changing his pants yesterday when he got tripped and fell landing on his left wrist/hand. Left wrist/hand noted to be red, warm, bruised, swollen and painful 01/11. Physician History: 74 years old male with history of atrial fibs/flutter on Eliquis, hypertension, some element of dementia, hypothyroidism is brought in the ER by his son with complaint of left wrist pain and swelling after he fell yesterday. Patient apparently was taking off his shorts and trying to put back on his pants which got stuck in the foot and he lost balance and tried to stop himself with his rest. Complaining of moderate intensity sharp pain with some swelling on the dorsal aspect of wrist and hand. No numbness or tingling in the fingertips. Did not hit his head or any other injuries. Painful movements at the fingers and wrist. Mild diffuse swelling dorsum of left hand and wrist with mild restricted range of motion at the wrist because of swelling. Minimal tenderness at the wrist. Some tenderness on the dorsum of hand. Distal neurovascular intact. He is given Tylenol for symptomatic relief, x-rays wrist and hand are negative for fracture dislocation. Placed in volar metal premade splint by RN with this intact distal neurovascular. Patient is on Eliquis, after prolonged discussion with patient and family about pain medication is given a few Hannibal's to go home and recommended using cane/walker to avoid a fall which could be more dangerous because of him being on Eliquis. They agreed to go hide with Hannibal's. Recommended outpatient follow-up. Discussed signs symptoms of worsening needing return to ER which the seem understanding. Stable for discharge. Allergies/Adverse Reactions: No Known Drug Allergies Allergy (Verified 05/01/24 13:07) Home Medications: Nitroglycerin 0.4 mg SL Q2H/PRN PRN 10/10/19 [History] Tamsulosin HCl 0.4 mg [Flomax 0.4 MG] 0.4 mg PO DAILY 10/10/19 [History] allopurinoL [Allopurinol] 100 mg PO DAILY 10/10/19 [History] Apixaban [Eliquis 2.5 mg Tablet] 2.5 mg PO BID 06/19/21 [History] Atorvastatin Calcium [Lipitor 40Mg] 40 mg PO HS 06/19/21 [History] Donepezil HCl 10 mg [Aricept 10 MG] 28 mg PO HS 06/19/21 [History] Duloxetine HCl 30 mg [Cymbalta 30 MG Capsule] 30 mg PO DAILY 06/19/21 [History] Memantine HCl 5 mg [Namenda 5 MG] 5 mg PO BID 06/19/21 [History] Metoprolol Succinate 50 mg [Toprol Xl 50 MG] 25 mg PO BID 06/19/21 [History] Ranolazine 500 MG [Ranexa 500 MG] 1,000 mg PO BID 06/19/21 [History] Levothyroxine Sodium 25 mcg PO DAILY 12/05/23 [History] Midodrine HCl 2.5 mg PO TID 12/05/23 [History] Tirzepatide [Mounjaro] 2.5 mg SQ WEEKLY 12/05/23 [History] Hx Tetanus, Diphtheria Vaccination/Date Given: Yes Hx Influenza Vaccination/Date Given: Yes Hx Pneumococcal Vaccination/Date Given: Yes Immunizations Up to Date: Yes Travel Risk - International Travel Have you traveled outside of the country in past 3 weeks: No - Emerging Infectious Disease Are you exhibiting symptoms associated with any current EIDs: No - Review of Systems Constitutional: No Symptoms Ears, Nose, & Throat: No Symptoms Respiratory: No Symptoms Cardiac: No Symptoms Abdominal/Gastrointestinal: No Symptoms Musculoskeletal: Fall, Injury, Joint Pain, Joint Swelling Skin: No Symptoms Neurological: No Symptoms Hematologic/Lymphatic: Easy Bleeding - Past Medical History Pertinent Past Medical History: Yes Neurological History: Stroke ENT History: Cataracts Cardiac History: Arrhythmia, Congestive Heart Failure, Coronary Artery Disease, High Cholesterol, Hypertension, Myocardial Infarction (SD) Respiratory History: COPD Endocrine Medical History: Diabetes Type II Musculoskeletal History: No Pertinent History GI Medical History: Hepatitis History: No Pertinent History Psycho-Social History: No Pertinent History Male Reproductive Disorders: No Pertinent History Other Medical History: A-Fib - Past Surgical History Past Surgical History: Yes Neuro Surgical History: No Pertinent History Cardiac: Angioplasty, CABG, Cardiac Catheterization, Cardiac Stent, Internal Defibrillator, Pacemaker Respiratory: Chest Surgery Gastrointestinal: No Pertinent History Genitourinary: No Pertinent History Musculoskeletal: No Pertinent History Male Surgical History: No Pertinent History Other Surgical History: RUPTURED BELLY BUTTON. Right foot surgery Significant Family History: no pertinent family hx - Social History Smoking Status: Current every day smoker How long have you smoked: since 10 Exposure to second hand smoke: Yes Drug Use: none Patient Lives Alone: Yes - Social Determinants of Health Will the patient participate in the screening: Yes Do you worry about a steady place to live?: No Do you have any problems with any of the following?: No known problems In the past 12 months,have you had to go without utilities?: No Transportation Issues: No Has anyone in your support network made you feel unsafe?: No Have you or anyone in your house had to go without enough: No - Nursing Vital Signs Nursing Vital Signs: Initial Vital Signs Blood Pressure 113/77 05/01/24 13:00 Pain Scale Pain Intensity 5 - Physical Exam General Appearance: no apparent distress Neck Exam: normal inspection, full range of motion Cardiovascular/Respiratory Exam: normal breath sounds, regular rate/rhythm Abdominal Exam: soft Back Exam: normal inspection, normal range of motion Shoulder Exam: normal inspection, non-tender, no evidence of injury Elbow/Forearm Exam: normal inspection, non-tender, no evidence of injury, normal ROM Wrist Exam: bone tenderness, limited ROM, soft tissue tenderness, swelling Hand Exam: normal inspection, no evidence of injury, normal ROM, bone tenderness (Dorsum of hand with some soft tissue swelling), soft tissue tenderness, swelling Neuro/Tendon Exam: normal sensation, normal motor functions Mental Status Exam: alert, oriented x 3, cooperative Skin Exam: normal color SpO2 Interpretation: normal SpO2: 96 O2 Delivery: Room Air Procedures - Splinting Location of Splint: Left Type of Splint: Aluminum Splint Ordered Tests: Active Orders 24 hr Category Date Time Status HAND (MINIMUM 3 VIEWS) Stat Exams 05/01/24 13:06 Completed WRIST (MIN 3 VIEWS) Stat Exams 05/01/24 13:06 Completed Medication Summary Discontinued Medications Generic Name Dose Route Start Last Admin Trade Name Freq PRN Reason Stop Dose Admin Acetaminophen 975 mg 05/01/24 14:03 05/01/24 14:15 Acetaminophen 325 Mg Tablet PO 05/01/24 14:04 975 mg STAT STA Administration Acetaminophen Confirm 05/01/24 14:11 Acetaminophen 325 Mg Tablet Administered 05/01/24 14:12 Dose 975 mg .ROUTE .STK-MED ONE Hydrocodone Bitart/Acetaminophen 2 tab 05/01/24 15:21 05/01/24 15:27 Hydrocodone/Apap 5/325 1 Tab Tablet PO 05/01/24 15:22 2 tab SENT HOME W/ PATIENT ONE Administration Hydrocodone Bitart/Acetaminophen Confirm 05/01/24 15:24 Hydrocodone/Apap 5/325 1 Tab Tablet Administered 05/01/24 15:25 Dose 2 tab .ROUTE .STK-MED ONE - Progress Progress: improved, pain not gone completely Progress Note: 05/01/24 15:33 74 years old male with history of atrial fibs/flutter on Eliquis, hypertension, some element of dementia, hypothyroidism is brought in the ER by his son with complaint of left wrist pain and swelling after he fell yesterday. Patient apparently was taking off his shorts and trying to put back on his pants which got stuck in the foot and he lost balance and tried to stop himself with his rest. Complaining of moderate intensity sharp pain with some swelling on the dorsal aspect of wrist and hand. No numbness or tingling in the fingertips. Did not hit his head or any other injuries. Painful movements at the fingers and wrist. Mild diffuse swelling dorsum of left hand and wrist with mild restricted range of motion at the wrist because of swelling. Minimal tenderness at the wrist. Some tenderness on the dorsum of hand. Distal neurovascular intact. He is given Tylenol for symptomatic relief, x-rays wrist and hand are negative for fracture dislocation. Placed in volar metal premade splint by RN with this intact distal neurovascular. Patient is on Eliquis, after prolonged discussion with patient and family about pain medication is given a few Hannibal's to go home and recommended using cane/walker to avoid a fall which could be more dangerous because of him being on Eliquis. They agreed to go hide with Hannibal's. Recommended outpatient follow-up. Discussed signs symptoms of worsening needing return to ER which the seem understanding. Stable for discharge. Counseled pt/family regarding: diagnosis, need for follow-up, rad results Medical Desision Making - Independent Historian Additional History obtained from: Child - Diagnostic Testing Diagnostic test were ordered, analyzed, and reviewed by me: Yes Radiological Interpretation: Interpreted by me, Reviewed by me, Teleradiologist Report - Risk of complications The pt has a mod risk of morbidity or mortality based on: Need for prescription drug management - Departure Departure Disposition: Home Clinical Impression: Wrist sprain Condition: Stable Critical Care Time: No Referrals: LUANA ARMSTRONG MD [Primary Care Provider] - Follow up with PCP 1 day DUY MARTINEZ MD [ACTIVE STAFF] - Follow up/PCP as directed (For reevaluation appointment on Sunday) Instructions: Common Wrist Injuries ED Additional Instructions: Take pain medication/Tylenol as needed only. Use cane or walker for ambulation to avoid a fall while being on pain medications. Intermittent ice application. Keep it elevated. Follow-up with orthopedics for reevaluation. Return to ER for increasing pain swelling, difficulty movements etc. Prescriptions: Hydrocodone/Acetaminophen [Hydrocodone-Acetamin 5-325 mg] 1 tab PO Q8HPRN PRN 3 Days #6 tablet MDD 3 PRN Reason: Pain
[2024-05-01 15:23] VITALS: BP 115/64; RESP 16
[2024-05-01] MEDS ORDERED: NORCO 5/325 MG ONE (15:24)
[2024-05-01] MEDS: NORCO 5/325 MG PO ONE (15:27)
== END 2024-05-01 15:34 | disposition home or self-care (01) ==
LOC: ED 12:52
DX: S63.502A Unspecified sprain of left wrist, initial encounter (principal); W18.39XA Other fall on same level, initial encounter; I11.0 Hypertensive heart disease with heart failure; I50.9 Heart failure, unspecified; E11.9 Type 2 diabetes mellitus without complications; Z79.01 Long term (current) use of anticoagulants; Z79.85 Long-term (current) use of injectable non-insulin antidiabetic drugs; Z79.891 Long term (current) use of opiate analgesic; Z79.899 Other long term (current) drug therapy; Z72.0 Tobacco use
CPT/HCPCS: 73110; 73130; 99283; A4570; A9270-GY

== ENCOUNTER 2024-10-02 13:25 | Observation (INO) | payer MEDICARE, OTHER ==
--- NOTE | 2024-10-02 14:28 | ERPHSYRPT ---
- History of Present Illness Time Seen by Provider: 10/02/24 14:15 Source: patient Exam Limitations: no limitations Patient Subjective Stated Complaint: pt states that he is having abd pain, upper back pain, chest pain Triage Nursing Assessment: pt ambulated into the er; pt is axo x4; c/o abd pain; pt states 4/10 pain to abd, upper back, chest; clear apical heart tone; active bowel sounds in all quads; pt denies N/V/D; no bruising or deformity to upper back; skin PDW; no respiratory distress present; vitals wnl Physician History: 74-year-old male history of diabetes, cardiac stents, high cholesterol, hypertension and is a current smoker presents to our ED for evaluation of chest pain, back pain, nausea. Chest pain x 1 day. Son at bedside states that patient has baseline dementia and is a poor historian however he does live alone. Patient's symptoms have been ongoing for several weeks. Symptoms have gotten progressively worse. Patient's oral intake has decreased. Son reports that patient has significant weight loss but could not quantify it. Symptoms are progressive. Symptoms are moderate in intensity. No specific worsening or improving factors. Patient voices no other complaints or concerns at this time. Portions of this note were created with voice recognition technology. There may be grammatical, spelling, punctuation or sound alike errors Timing/Duration: week(s) Severity: moderate Modifying Factors: Improves With: nothing Associated Symptoms: denies symptoms Allergies/Adverse Reactions: No Known Drug Allergies Allergy (Verified 10/02/24 13:43) Home Medications: Nitroglycerin 0.4 mg SL Q2H/PRN PRN 10/10/19 [History] Tamsulosin HCl 0.4 mg [Flomax 0.4 MG] 0.4 mg PO DAILY 10/10/19 [History] allopurinoL [Allopurinol] 100 mg PO DAILY 10/10/19 [History] Apixaban [Eliquis 2.5 mg Tablet] 2.5 mg PO BID 06/19/21 [History] Atorvastatin Calcium [Lipitor 40Mg] 40 mg PO HS 06/19/21 [History] Donepezil HCl 10 mg [Aricept 10 MG] 28 mg PO HS 06/19/21 [History] Duloxetine HCl 30 mg [Cymbalta 30 MG Capsule] 30 mg PO DAILY 06/19/21 [History] Memantine HCl 5 mg [Namenda 5 MG] 5 mg PO BID 06/19/21 [History] Metoprolol Succinate 50 mg [Toprol Xl 50 MG] 25 mg PO BID 06/19/21 [History] Ranolazine 500 MG [Ranexa 500 MG] 1,000 mg PO BID 06/19/21 [History] Levothyroxine Sodium 25 mcg PO DAILY 12/05/23 [History] Midodrine HCl 2.5 mg PO TID 12/05/23 [History] Tirzepatide [Mounjaro] 2.5 mg SQ WEEKLY 12/05/23 [History] Hx Tetanus, Diphtheria Vaccination/Date Given: Yes Hx Influenza Vaccination/Date Given: Yes Hx Pneumococcal Vaccination/Date Given: Yes Travel Risk - International Travel Have you traveled outside of the country in past 3 weeks: No - Emerging Infectious Disease Are you exhibiting symptoms associated with any current EIDs: Yes Symptoms: Abdominal Pain - Review of Systems Constitutional: No Symptoms, No Fever, No Chills Eyes: No Symptoms Ears, Nose, & Throat: No Symptoms Respiratory: No Symptoms, No Cough, No Dyspnea Cardiac: No Symptoms, No Chest Pain, No Edema, No Syncope Abdominal/Gastrointestinal: No Symptoms, No Abdominal Pain, No Nausea, No Vomiting, No Diarrhea Genitourinary Symptoms: No Symptoms, No Dysuria Musculoskeletal: No Symptoms, No Back Pain, No Neck Pain Skin: No Symptoms, No Rash Neurological: No Symptoms, No Dizziness, No Focal Weakness, No Sensory Changes Psychological: No Symptoms Endocrine: No Symptoms Hematologic/Lymphatic: No Symptoms Immunological/Allergic: No Symptoms All Other Systems: Reviewed and Negative - Past Medical History Pertinent Past Medical History: Yes Neurological History: Stroke ENT History: Cataracts Cardiac History: Arrhythmia, Congestive Heart Failure, Coronary Artery Disease, High Cholesterol, Hypertension, Myocardial Infarction ([place]) Respiratory History: COPD Endocrine Medical History: Diabetes Type II Musculoskeletal History: No Pertinent History GI Medical History: Hepatitis History: No Pertinent History Psycho-Social History: No Pertinent History Male Reproductive Disorders: No Pertinent History Other Medical History: A-Fib - Past Surgical History Past Surgical History: Yes Neuro Surgical History: No Pertinent History Cardiac: Angioplasty, CABG, Cardiac Catheterization, Cardiac Stent, Internal Defibrillator, Pacemaker Respiratory: Chest Surgery Gastrointestinal: No Pertinent History Genitourinary: No Pertinent History Musculoskeletal: No Pertinent History Male Surgical History: No Pertinent History Other Surgical History: RUPTURED BELLY BUTTON. Right foot surgery Significant Family History: no pertinent family hx - Social History Smoking Status: Current every day smoker How long have you smoked: since 10 Exposure to second hand smoke: Yes Drug Use: none - Social Determinants of Health Will the patient participate in the screening: Yes Do you worry about a steady place to live?: No Do you have any problems with any of the following?: No known problems In the past 12 months,have you had to go without utilities?: No Transportation Issues: No Has anyone in your support network made you feel unsafe?: No Have you or anyone in your house had to go w/o enough food: No - Nursing Vital Signs Nursing Vital Signs: Initial Vital Signs Temperature 96.4 F 10/02/24 13:43 Pulse Rate 87 10/02/24 13:43 Respiratory Rate 20 10/02/24 13:43 Blood Pressure 110/76 10/02/24 13:43 O2 Sat by Pulse Oximetry 99 10/02/24 13:43 Pain Scale Pain Intensity 4 - Physical Exam General Appearance: no apparent distress, alert Eye Exam: PERRL/EOMI, eyes nml inspection Ears, Nose, Throat Exam: normal ENT inspection, moist mucous membranes Neck Exam: normal inspection, non-tender, supple, full range of motion Respiratory Exam: normal breath sounds, lungs clear, airway intact, No respiratory distress Cardiovascular Exam: regular rate/rhythm, normal heart sounds, normal peripheral pulses Gastrointestinal/Abdomen Exam: soft, normal bowel sounds, No tenderness, No mass Back Exam: normal inspection, normal range of motion, No CVA tenderness, No vertebral tenderness Extremity Exam: normal inspection, normal range of motion, pelvis stable Neurologic Exam: alert, oriented x 3, cooperative, normal mood/affect, sensation nml, No motor deficits Skin Exam: normal color, warm, dry, No rash Lymphatic Exam: No adenopathy SpO2 Interpretation: normal SpO2: 99 O2 Delivery: Room Air - Course Nursing assessment & vital signs reviewed: Yes EKG Interpreted by Me: RATE (82 A-flutter), NORMAL AXIS, NORMAL INTERVALS, NORMAL QRS - CT Exams Abdomen/Pelvis CT Interpretation: Tele-radiologist Report (Emphysema, pulmonary fibrosis, fecal stasis, gallstones, bilateral renal cysts) Ordered Tests: Active Orders 24 hr Category Date Time Status [employer] Supervisor STAT Care 10/02/24 14:21 Active EKG-ER Only STAT Care 10/02/24 14:20 Active IV Insertion STAT Care 10/02/24 14:20 Active Pulse Oximetry (ED) STAT Care 10/02/24 14:20 Active ABDOMEN AND PELVIS W/0 CONTRAS [CT] Stat Exams 10/02/24 17:38 Taken CHEST 1 VIEW (PORTABLE) Stat Exams 10/02/24 14:21 Completed CBC W DIFF Stat Lab 10/02/24 14:33 Completed CMP Stat Lab 10/02/24 14:33 Completed D-DIMER QUANTITATIVE Stat Lab 10/02/24 14:33 Completed LIPASE Stat Lab 10/02/24 14:33 Completed MAG [MAGNESIUM] Stat Lab 10/02/24 17:25 Completed NT PRO BNPII Stat Lab 10/02/24 14:33 Completed TROPONIN Q4H Lab 10/02/24 14:33 Completed TROPONIN Q4H Lab 10/02/24 17:23 Completed TROPONIN Q4H Lab 10/02/24 22:30 Ordered Urine Triage Profile Stat Lab 10/02/24 17:42 Completed Transfer Order Routine Transfer 10/02/24 Ordered Medication Summary Generic Name Dose Route Start Last Admin Trade Name Freq PRN Reason Stop Dose Admin Sodium Chloride 1,000 mls @ 100 mls/hr 10/02/24 15:45 10/02/24 16:06 Sodium Chloride 0.9% 1000 Ml IV 11/01/24 15:44 100 mls/hr .Q10H LINA Administration Lab/Rad Data: Laboratory Result Diagrams 10/02/24 14:33 10/02/24 14:33 Laboratory Results 10/02/24 10/02/24 10/02/24 Range/Units 17:42 17:25 17:23 WBC (4.23-9.07) x10^3/uL RBC (4.63-6.08) x10^6/uL Hgb (13.7-17.5) g/dL Hct (40.1-51.0) % MCV (79.0-92.2) fL MCH (25.7-32.2) pg MCHC (32.3-36.5) g/dL RDW (11.6-14.4) % Plt Count (163-337) x10^3/uL MPV (9.4-12.4) fL Gran % (34.0-67.9) % Immature Gran % (Auto) (0.001-0.429) % Nucleat RBC Rel Count (0.00-0.2) % Eos # (Auto) (0.04-0.54) x10^3/uL Immature Gran # (Auto) (0.001-0.031) x10^3u/L Absolute Lymphs (auto) (1.32-3.57) x10^3/uL Absolute Monos (auto) (0.30-0.82) x10^3/uL Absolute Nucleated RBC (0.00-0.012) x10^3u/L Lymphocytes % (21.8-53.1) % Monocytes % (5.3-12.2) % Eosinophils % (0.8-7.0) % Basophils % (0.2-1.2) % Absolute Granulocytes (1.78-5.38) x10^3/uL Basophils # (0.01-0.08) x10^3/uL D-Dimer (0.0-0.50) mg/L Sodium (135-145) mmol/L Potassium (3.5-5.1) mmol/L Chloride (98-107) mmol/L Carbon Dioxide (22-30) mmol/L Anion Gap (5-15) MEQ/L BUN (9-20) mg/dL Creatinine (0.66-1.25) mg/dL Estimated GFR ML/MIN Glucose (74-106) mg/dL Calcium (8.4-10.2) mg/dL Magnesium 2.1 (1.6-2.3) mg/dL Total Bilirubin (0.2-1.3) mg/dL AST (17-59) U/L ALT (0-50) U/L Alkaline Phosphatase (38-126) U/L Troponin I < 0.012 (0.000-0.033) ng/mL NT-Pro-B Natriuret Pep (<300) pg/mL Serum Total Protein (6.3-8.2) g/dL Albumin (3.5-5.0) g/dL Lipase (23-300) U/L Urine Opiates Level NEGATIVE (NEGATIVE) Ur Methadone NEGATIVE (NEGATIVE) Urine Barbiturates NEGATIVE (NEGATIVE) Ur Phencyclidine (PCP) NEGATIVE (NEGATIVE) Urine Amphetamine NEGATIVE (NEGATIVE) U Benzodiazepine Level NEGATIVE (NEGATIVE) Urine Cocaine NEGATIVE (NEGATIVE) Urine Marijuana (THC) NEGATIVE (NEGATIVE) 10/02/24 10/02/24 10/02/24 Range/Units 14:33 14:33 14:33 WBC (4.23-9.07) x10^3/uL RBC (4.63-6.08) x10^6/uL Hgb (13.7-17.5) g/dL Hct (40.1-51.0) % MCV (79.0-92.2) fL MCH (25.7-32.2) pg MCHC (32.3-36.5) g/dL RDW (11.6-14.4) % Plt Count (163-337) x10^3/uL MPV (9.4-12.4) fL Gran % (34.0-67.9) % Immature Gran % (Auto) (0.001-0.429) % Nucleat RBC Rel Count (0.00-0.2) % Eos # (Auto) (0.04-0.54) x10^3/uL Immature Gran # (Auto) (0.001-0.031) x10^3u/L Absolute Lymphs (auto) (1.32-3.57) x10^3/uL Absolute Monos (auto) (0.30-0.82) x10^3/uL Absolute Nucleated RBC (0.00-0.012) x10^3u/L Lymphocytes % (21.8-53.1) % Monocytes % (5.3-12.2) % Eosinophils % (0.8-7.0) % Basophils % (0.2-1.2) % Absolute Granulocytes (1.78-5.38) x10^3/uL Basophils # (0.01-0.08) x10^3/uL D-Dimer 0.33 (0.0-0.50) mg/L Sodium 140 (135-145) mmol/L Potassium 4.5 (3.5-5.1) mmol/L Chloride 104 (98-107) mmol/L Carbon Dioxide 25 (22-30) mmol/L Anion Gap 15.6 H (5-15) MEQ/L BUN 18 (9-20) mg/dL Creatinine 1.58 H (0.66-1.25) mg/dL Estimated GFR 45.1 ML/MIN Glucose 102 (74-106) mg/dL Calcium 9.2 (8.4-10.2) mg/dL Magnesium (1.6-2.3) mg/dL Total Bilirubin 1.70 H (0.2-1.3) mg/dL AST 26 (17-59) U/L ALT 17 (0-50) U/L Alkaline Phosphatase 72 (38-126) U/L Troponin I < 0.012 (0.000-0.033) ng/mL NT-Pro-B Natriuret Pep 1670 (<300) pg/mL Serum Total Protein 6.8 (6.3-8.2) g/dL Albumin 4.1 (3.5-5.0) g/dL Lipase 81 (23-300) U/L Urine Opiates Level (NEGATIVE) Ur Methadone (NEGATIVE) Urine Barbiturates (NEGATIVE) Ur Phencyclidine (PCP) (NEGATIVE) Urine Amphetamine (NEGATIVE) U Benzodiazepine Level (NEGATIVE) Urine Cocaine (NEGATIVE) Urine Marijuana (THC) (NEGATIVE) 10/02/24 Range/Units 14:33 WBC 6.3 (4.23-9.07) x10^3/uL RBC 4.96 (4.63-6.08) x10^6/uL Hgb 15.3 (13.7-17.5) g/dL Hct 46.2 (40.1-51.0) % MCV 93.1 H (79.0-92.2) fL MCH 30.8 (25.7-32.2) pg MCHC 33.1 (32.3-36.5) g/dL RDW 13.7 (11.6-14.4) % Plt Count 198 (163-337) x10^3/uL MPV 10.1 (9.4-12.4) fL Gran % 72.2 H (34.0-67.9) % Immature Gran % (Auto) 0.5 H (0.001-0.429) % Nucleat RBC Rel Count 0.0 (0.00-0.2) % Eos # (Auto) 0.14 (0.04-0.54) x10^3/uL Immature Gran # (Auto) 0.03 (0.001-0.031) x10^3u/L Absolute Lymphs (auto) 1.07 L (1.32-3.57) x10^3/uL Absolute Monos (auto) 0.49 (0.30-0.82) x10^3/uL Absolute Nucleated RBC 0.00 (0.00-0.012) x10^3u/L Lymphocytes % 16.9 L (21.8-53.1) % Monocytes % 7.7 (5.3-12.2) % Eosinophils % 2.2 (0.8-7.0) % Basophils % 0.5 (0.2-1.2) % Absolute Granulocytes 4.57 (1.78-5.38) x10^3/uL Basophils # 0.03 (0.01-0.08) x10^3/uL D-Dimer (0.0-0.50) mg/L Sodium (135-145) mmol/L Potassium (3.5-5.1) mmol/L Chloride (98-107) mmol/L Carbon Dioxide (22-30) mmol/L Anion Gap (5-15) MEQ/L BUN (9-20) mg/dL Creatinine (0.66-1.25) mg/dL Estimated GFR ML/MIN Glucose (74-106) mg/dL Calcium (8.4-10.2) mg/dL Magnesium (1.6-2.3) mg/dL Total Bilirubin (0.2-1.3) mg/dL AST (17-59) U/L ALT (0-50) U/L Alkaline Phosphatase (38-126) U/L Troponin I (0.000-0.033) ng/mL NT-Pro-B Natriuret Pep (<300) pg/mL Serum Total Protein (6.3-8.2) g/dL Albumin (3.5-5.0) g/dL Lipase (23-300) U/L Urine Opiates Level (NEGATIVE) Ur Methadone (NEGATIVE) Urine Barbiturates (NEGATIVE) Ur Phencyclidine (PCP) (NEGATIVE) Urine Amphetamine (NEGATIVE) U Benzodiazepine Level (NEGATIVE) Urine Cocaine (NEGATIVE) Urine Marijuana (THC) (NEGATIVE) - Progress Progress: improved Progress Note: 74-year-old male Struve dementia with a significant cardiovascular history including diabetes, hypertension hypercholesterolemia CABG and cardiac stent, a flutter on Eliquis presents to our ED for evaluation of chest pain and nausea. Patient also complains of vague abdominal pain. Symptoms have been ongoing for over a day. Preliminary workup is negative. EKG sinus rhythm. Troponin negative. CT abdomen pelvis negative for acute pathology. Additionally patient has been experiencing decreased oral intake and generalized weakness. Patient lives alone and is a fall risk. Patient will be admitted for further evaluation and treatment. Case discussed with who accepts admission to observation. Portions of this note were created with voice recognition technology. There may be grammatical, spelling, punctuation or sound alike errors Complexity of problem addressed is moderate acute complicated. No critical care time. Complexity of data reviewed and analyzed as extensive. Test ordered test reviewed results analyzed and correlated clinically with history and physical exam. Risk of complication and or risk of morbidity/mortality of patient management is high. Patient requires hospitalization for further evaluation and treatment. Vital stable. Time spent to admit patient is approximately 20 minutes. Plan of care established for shared decision making. No social determinants of health present to impede follow-up. Portions of this note were created with voice recognition technology. There may be grammatical, spelling, punctuation or sound alike errors 10/02/24 19:[address] Barry at 7:38 PM 10/02/24 19:39 Counseled pt/family regarding: lab results, diagnosis, need for follow-up, rad results - Departure Departure Disposition: Observation Clinical Impression: Atrial flutter, Abdominal pain, Chest pain, ACS (acute coronary syndrome), Dementia, Acute renal injury, Generalized weakness Condition: Stable Critical Care Time: No Referrals: LUANA ARMSTRONG MD [Primary Care Provider, [facility]] - Follow up/PCP as directed
[2024-10-02 14:39] LABS: Absolute Neutrophil Ct (ANC) 4.57 x10^3/uL (1.78-5.38); BASOPHIL % 0.5 % (0.2-1.2); Basophil (Absolute #) 0.03 x10^3/uL (0.01-0.08); Eosinophil % 2.2 % (0.8-7.0); Eosinophil (Absolute #) 0.14 x10^3/uL (0.04-0.54); Hematocrit 46.2 % (40.1-51.0); Hemoglobin 15.3 g/dL (13.7-17.5); IMMATURE GRAN # 0.03 x10^3u/L (0.001-0.031); IMMATURE GRAN % 0.5 % (0.001-0.429); Lymphocyte (Absolute #) 1.07 x10^3/uL (1.32-3.57); Lymphocytes % 16.9 % (21.8-53.1); Mean Cell Volume 93.1 fL (79.0-92.2); Mean Corpuscular Hemoglobin 30.8 pg (25.7-32.2); Mean Corpuscular Hgb Concent. 33.1 g/dL (32.3-36.5); Mean Platelet Volume 10.1 fL (9.4-12.4); Monocyte (Absolute #) 0.49 x10^3/uL (0.30-0.82); Monocytes % 7.7 % (5.3-12.2); Neutrophil % 72.2 % (34.0-67.9); Platelet Count 198 x10^3/uL (163-337); Red Blood Count 4.96 x10^6/uL (4.63-6.08); Red Cell Distribution Width 13.7 % (11.6-14.4); White Blood Count 6.3 x10^3/uL (4.23-9.07)
--- NOTE | 2024-10-02 14:45 | XRAY ---
Indication: Chest pain. Comparison: November 20, 2022 Portable apical lordotic chest again hyperinflated. New minimal right base infiltrate/atelectasis without consolidation/large effusion. Heart not enlarged again with CABG and left pacemaker. Bony thorax intact again with osteopenia and mild degenerative changes.
[2024-10-02 15:08] LABS: ALBUMIN 4.1 g/dL (3.5-5.0); ANION GAP 15.6 MEQ/L (5-15); BILIRUBIN,TOTAL 1.7 mg/dL (0.2-1.3); Calcium 9.2 mg/dL (8.4-10.2); Creatinine 1 1.58 mg/dL (0.66-1.25); EST GLOMERULAR FILTRATION RATE 45.1 ML/MIN; Potassium 4.5 mmol/L (3.5-5.1); Total Protein 6.8 g/dL (6.3-8.2)
[2024-10-02] MEDS ORDERED: Sodium Chloride 0.9% 1000 ML 1,000 ML ONE (16:05)
[2024-10-02] MEDS: Sodium Chloride 0.9% 1000 ML 1,000 ML IV SCH ×2 (16:06→22:11)
[2024-10-02 18:25] LABS: Amphetamine,Urine NEGATIVE (NEGATIVE); Barbiturate,Urine NEGATIVE (NEGATIVE); Benzodiazepine,Urine NEGATIVE (NEGATIVE); Cocaine,Urine NEGATIVE (NEGATIVE); Methadone,Urine NEGATIVE (NEGATIVE); Opiate,Urine NEGATIVE (NEGATIVE); PCP,Urine NEGATIVE (NEGATIVE); THC,Urine NEGATIVE (NEGATIVE)
[2024-10-02] MEDS ORDERED: HUMALOG SQ PRN (20:59)
--- NOTE | 2024-10-02 21:04 | PCM.HP ---
History of Present Illness - Chief Complaint Chief Complaint: Chest pain, ACS Date: 10/02/24 History of Present Illness: is a 74 year old male With past medical significant for dementia, diabetes mellitus type 2, hypertension, hypothyroidism, atrial flutter on E liquis, gout, coronary artery disease status post CABG, active smoker who lives alone quite independent in his daily life came to ER complaining of chest pain with some nausea P patient told me chest pain is localized in left chest area radiating to his left arm jaw and right ear. He denied having shortness of breath. He did not have any other GI urinary symptoms. In the ER the EKG was completely unremarkable the initial 2 sets of the troponin were negative. BNP was running a bit high. X-ray was not impressive at all. He got CT abdomen pelvis that came out negative. He got admitted to rule out for ACS and for symptom management. - Review of Systems All Other Systems: Reviewed and Negative (14 systems reviewed and marked ve except mentioned in [facility]) Medications & Allergies Home Medications: Home Medication List Nitroglycerin 0.4 mg SL Q2H/PRN PRN 10/10/19 [History Confirmed 05/01/24] Tamsulosin HCl 0.4 mg [Flomax 0.4 MG] 0.4 mg PO DAILY 10/10/19 [History Confirmed 05/01/24] allopurinoL [Allopurinol] 100 mg PO DAILY 10/10/19 [History Confirmed 05/01/24] Apixaban [Eliquis 2.5 mg Tablet] 2.5 mg PO BID 06/19/21 [History Confirmed 05/01/24] Atorvastatin Calcium [Lipitor 40Mg] 40 mg PO HS 06/19/21 [History Confirmed 05/01/24] Donepezil HCl 10 mg [Aricept 10 MG] 28 mg PO HS 06/19/21 [History Confirmed 05/01/24] Duloxetine HCl 30 mg [Cymbalta 30 MG Capsule] 30 mg PO DAILY 06/19/21 [History Confirmed 05/01/24] Memantine HCl 5 mg [Namenda 5 MG] 5 mg PO BID 06/19/21 [History Confirmed 05/01/24] Metoprolol Succinate 50 mg [Toprol Xl 50 MG] 25 mg PO BID 06/19/21 [History Confirmed 05/01/24] Ranolazine 500 MG [Ranexa 500 MG] 1,000 mg PO BID 06/19/21 [History Confirmed 05/01/24] Aspirin EC 81 mg [Ecotrin 81 mg] 81 mg PO DAILY #60 tablet 06/20/21 [Rx Confirmed 05/01/24] Levothyroxine Sodium 25 mcg PO DAILY 12/05/23 [History Confirmed 05/01/24] Midodrine HCl 2.5 mg PO TID 12/05/23 [History Confirmed 05/01/24] Tirzepatide [Mounjaro] 2.5 mg SQ WEEKLY 12/05/23 [History Confirmed 05/01/24] Hydrocodone/Acetaminophen [Hydrocodone-Acetamin 5-325 mg] 1 tab PO Q8HPRN PRN 3 Days #6 tablet MDD 3 05/01/24 [Rx] Allergies/Adverse Reactions: Allergies Allergy/AdvReac Type Severity Reaction Status Date / Time No Known Drug Allergies Allergy Verified 10/02/24 13:43 - Past Medical History Past Medical History: Yes Neurological History: Stroke ENT History: Cataracts Cardiac History: Arrhythmia, Congestive Heart Failure, Coronary Artery Disease, High Cholesterol, Hypertension, Myocardial Infarction (MT) Respiratory History: COPD Endocrine Medical History: Diabetes Type II Musculoskelatal History: No Pertinent History GI Medical History: Hepatitis History: No Pertinent History Pyscho-Social History: No Pertinent History Male Reproductive Disorders: No Pertinent History Comment: A-Fib - Past Surgical History Past Surgical History: Yes Neuro Surgical History: No Pertinent History Cardiac History: Angioplasty, CABG, Cardiac Catheterization, Cardiac Stent, Internal Defibrillator, Pacemaker Respiratory Surgery: Chest Surgery GI Surgical History: No Pertinent History Genitourinary Surgical Hx: No Pertinent History Musculskeletal Surgical Hx: No Pertinent History Male Surgical History: No Pertinent History Other Surgical History: RUPTURED BELLY BUTTON. Right foot surgery. CABG x3 2005 Significant Family History: no pertinent family hx (No family history pertaining to this admission reported.) - Social History Smoking Status: Current every day smoker How long have you smoked: 35 years Exposure to second hand smoke: Yes Alcohol: None Drug Use: none - Social Determinants of Health Will the patient participate in the screening: Yes Do you worry about a steady place to live?: Yes Do you have any problems with any of the following?: No known problems In the past 12 months,have you had to go without utilities?: No Have you or anyone in your house had to go without enough: No Transportation Issues: No Has anyone in your support network made you feel unsafe?: No Does the patient want assistance with any of the above?: No - Physical Exam Vital Signs: Vital Signs - 24 hr Temp Pulse Resp BP BP Pulse Ox 10/02/24 20:19 97.7 F 63 17 107/64 95 10/02/24 20:00 60 17 103/64 97 10/02/24 19:39 99 10/02/24 19:30 70 21 104/70 95 10/02/24 19:00 83 14 104/69 97 10/02/24 18:30 74 19 97/73 97 10/02/24 18:00 89 12 111/73 98 10/02/24 17:30 113 H 17 109/69 99 10/02/24 17:00 94 H 20 107/70 96 10/02/24 16:30 84 19 98/65 97 10/02/24 16:01 94 H 18 102/64 96 10/02/24 15:30 139 H 28 H 108/71 95 10/02/24 15:00 108 H 20 110/79 98 10/02/24 14:43 96 10/02/24 14:30 80 17 89/66 98 10/02/24 14:00 147 H 16 106/69 97 10/02/24 13:44 98 H 14 110/76 97 10/02/24 13:43 96.4 F 87 20 110/76 99 Additional Findings: 10/02/24 21:43 HEENT Very old aged, average built in no distress NECK Supple,no thyromegaly, CVS S1+S2 + 0, no murmers RESP Bilateral equal air entry without Crepts/Wheezes heard GIT Soft non tender,non distended Skin, No rah, no Bruises LEGS No Edema PSYCH Normal,mood, impaired judgement NEURO AOX2, no focal deficit Results - Labs Lab/Micro Results: Lab Results-Last 24 Hours 10/02/24 10/02/24 10/02/24 Range/Units 14:33 14:33 14:33 WBC 6.3 (4.23-9.07) x10^3/uL RBC 4.96 (4.63-6.08) x10^6/uL Hgb 15.3 (13.7-17.5) g/dL Hct 46.2 (40.1-51.0) % MCV 93.1 H (79.0-92.2) fL MCH 30.8 (25.7-32.2) pg MCHC 33.1 (32.3-36.5) g/dL RDW 13.7 (11.6-14.4) % Plt Count 198 (163-337) x10^3/uL MPV 10.1 (9.4-12.4) fL Gran % 72.2 H (34.0-67.9) % Immature Gran % (Auto) 0.5 H (0.001-0.429) % Nucleat RBC Rel Count 0.0 (0.00-0.2) % Eos # (Auto) 0.14 (0.04-0.54) x10^3/uL Immature Gran # (Auto) 0.03 (0.001-0.031) x10^3u/L Absolute Lymphs (auto) 1.07 L (1.32-3.57) x10^3/uL Absolute Monos (auto) 0.49 (0.30-0.82) x10^3/uL Absolute Nucleated RBC 0.00 (0.00-0.012) x10^3u/L Lymphocytes % 16.9 L (21.8-53.1) % Monocytes % 7.7 (5.3-12.2) % Eosinophils % 2.2 (0.8-7.0) % Basophils % 0.5 (0.2-1.2) % Absolute Granulocytes 4.57 (1.78-5.38) x10^3/uL Basophils # 0.03 (0.01-0.08) x10^3/uL D-Dimer (0.0-0.50) mg/L Sodium 140 (135-145) mmol/L Potassium 4.5 (3.5-5.1) mmol/L Chloride 104 (98-107) mmol/L Carbon Dioxide 25 (22-30) mmol/L Anion Gap 15.6 H (5-15) MEQ/L BUN 18 (9-20) mg/dL Creatinine 1.58 H (0.66-1.25) mg/dL Estimated GFR 45.1 ML/MIN Glucose 102 (74-106) mg/dL Calcium 9.2 (8.4-10.2) mg/dL Magnesium (1.6-2.3) mg/dL Total Bilirubin 1.70 H (0.2-1.3) mg/dL AST 26 (17-59) U/L ALT 17 (0-50) U/L Alkaline Phosphatase 72 (38-126) U/L Troponin I < 0.012 (0.000-0.033) ng/mL NT-Pro-B Natriuret Pep 1670 (<300) pg/mL Serum Total Protein 6.8 (6.3-8.2) g/dL Albumin 4.1 (3.5-5.0) g/dL Lipase 81 (23-300) U/L Urine Opiates Level (NEGATIVE) Ur Methadone (NEGATIVE) Urine Barbiturates (NEGATIVE) Ur Phencyclidine (PCP) (NEGATIVE) Urine Amphetamine (NEGATIVE) U Benzodiazepine Level (NEGATIVE) Urine Cocaine (NEGATIVE) Urine Marijuana (THC) (NEGATIVE) 10/02/24 10/02/24 10/02/24 Range/Units 14:33 17:23 17:25 WBC (4.23-9.07) x10^3/uL RBC (4.63-6.08) x10^6/uL Hgb (13.7-17.5) g/dL Hct (40.1-51.0) % MCV (79.0-92.2) fL MCH (25.7-32.2) pg MCHC (32.3-36.5) g/dL RDW (11.6-14.4) % Plt Count (163-337) x10^3/uL MPV (9.4-12.4) fL Gran % (34.0-67.9) % Immature Gran % (Auto) (0.001-0.429) % Nucleat RBC Rel Count (0.00-0.2) % Eos # (Auto) (0.04-0.54) x10^3/uL Immature Gran # (Auto) (0.001-0.031) x10^3u/L Absolute Lymphs (auto) (1.32-3.57) x10^3/uL Absolute Monos (auto) (0.30-0.82) x10^3/uL Absolute Nucleated RBC (0.00-0.012) x10^3u/L Lymphocytes % (21.8-53.1) % Monocytes % (5.3-12.2) % Eosinophils % (0.8-7.0) % Basophils % (0.2-1.2) % Absolute Granulocytes (1.78-5.38) x10^3/uL Basophils # (0.01-0.08) x10^3/uL D-Dimer 0.33 (0.0-0.50) mg/L Sodium (135-145) mmol/L Potassium (3.5-5.1) mmol/L Chloride (98-107) mmol/L Carbon Dioxide (22-30) mmol/L Anion Gap (5-15) MEQ/L BUN (9-20) mg/dL Creatinine (0.66-1.25) mg/dL Estimated GFR ML/MIN Glucose (74-106) mg/dL Calcium (8.4-10.2) mg/dL Magnesium 2.1 (1.6-2.3) mg/dL Total Bilirubin (0.2-1.3) mg/dL AST (17-59) U/L ALT (0-50) U/L Alkaline Phosphatase (38-126) U/L Troponin I < 0.012 (0.000-0.033) ng/mL NT-Pro-B Natriuret Pep (<300) pg/mL Serum Total Protein (6.3-8.2) g/dL Albumin (3.5-5.0) g/dL Lipase (23-300) U/L Urine Opiates Level (NEGATIVE) Ur Methadone (NEGATIVE) Urine Barbiturates (NEGATIVE) Ur Phencyclidine (PCP) (NEGATIVE) Urine Amphetamine (NEGATIVE) U Benzodiazepine Level (NEGATIVE) Urine Cocaine (NEGATIVE) Urine Marijuana (THC) (NEGATIVE) 10/02/24 Range/Units 17:42 WBC (4.23-9.07) x10^3/uL RBC (4.63-6.08) x10^6/uL Hgb (13.7-17.5) g/dL Hct (40.1-51.0) % MCV (79.0-92.2) fL MCH (25.7-32.2) pg MCHC (32.3-36.5) g/dL RDW (11.6-14.4) % Plt Count (163-337) x10^3/uL MPV (9.4-12.4) fL Gran % (34.0-67.9) % Immature Gran % (Auto) (0.001-0.429) % Nucleat RBC Rel Count (0.00-0.2) % Eos # (Auto) (0.04-0.54) x10^3/uL Immature Gran # (Auto) (0.001-0.031) x10^3u/L Absolute Lymphs (auto) (1.32-3.57) x10^3/uL Absolute Monos (auto) (0.30-0.82) x10^3/uL Absolute Nucleated RBC (0.00-0.012) x10^3u/L Lymphocytes % (21.8-53.1) % Monocytes % (5.3-12.2) % Eosinophils % (0.8-7.0) % Basophils % (0.2-1.2) % Absolute Granulocytes (1.78-5.38) x10^3/uL Basophils # (0.01-0.08) x10^3/uL D-Dimer (0.0-0.50) mg/L Sodium (135-145) mmol/L Potassium (3.5-5.1) mmol/L Chloride (98-107) mmol/L Carbon Dioxide (22-30) mmol/L Anion Gap (5-15) MEQ/L BUN (9-20) mg/dL Creatinine (0.66-1.25) mg/dL Estimated GFR ML/MIN Glucose (74-106) mg/dL Calcium (8.4-10.2) mg/dL Magnesium (1.6-2.3) mg/dL Total Bilirubin (0.2-1.3) mg/dL AST (17-59) U/L ALT (0-50) U/L Alkaline Phosphatase (38-126) U/L Troponin I (0.000-0.033) ng/mL NT-Pro-B Natriuret Pep (<300) pg/mL Serum Total Protein (6.3-8.2) g/dL Albumin (3.5-5.0) g/dL Lipase (23-300) U/L Urine Opiates Level NEGATIVE (NEGATIVE) Ur Methadone NEGATIVE (NEGATIVE) Urine Barbiturates NEGATIVE (NEGATIVE) Ur Phencyclidine (PCP) NEGATIVE (NEGATIVE) Urine Amphetamine NEGATIVE (NEGATIVE) U Benzodiazepine Level NEGATIVE (NEGATIVE) Urine Cocaine NEGATIVE (NEGATIVE) Urine Marijuana (THC) NEGATIVE (NEGATIVE) - Radiology Impressions Radiology Exams & Impressions: Radiology Procedures Category Date Time Status ABDOMEN AND PELVIS W/0 CONTRAS [CT] Stat Exams 10/02/24 17:38 Taken CHEST 1 VIEW (PORTABLE) Stat Exams 10/02/24 14:21 Completed Telemedicine Encounter - Telemedicine Encounter Telemedicine Encounter: The entirety of this encounter was performed via TelemedicineThis visit was performed using real-time audio and video connection between my location and thepatients locationwith the assistance of a surrogateat the patients location. Written or verbal consent was obtained from the patient/guardian to perform this visit usingCloudEngine technology. Any patient questions regarding the telemedicine interaction were answered. Chest pain Admit on telemetry EKG unremarkable 2 sets of troponin negative Urine toxicology unremarkable Will obtain echocardiogram Nausea Without abdominal pain LFTs and lipase unremarkable CT abdominal pelvis negative Acute kidney injury Creatinine was 1.24 back in 2023 Current creatinine 1.5 Patient got needed fluid in ER I will keep holding further fluid Avoiding nephrotoxins and Repeat creatinine in the morning Diabetes mellitus type 2 Will check HbA1c Continue/scale coverage for now Hypertension Blood pressure towards softer side Holding home blood pressure meds Coronary artery disease Status post CABG Will resume home meds Atrial fibrillation Continue Eliquis/beta-lucie Heart rate well-controlled Dementia Will resume home meds Supportive therapy Patient lives alone might need placement will involve embedded case manager Active smoker Patient smokes 2 pack/day Offered nicotine patch DVT prophylaxis SCD/Eliquis CODE STATUS full Discharge planning pending clinical stability but I have reviewed patient lab medicine imaging in detail, meds reconcilation pending
[2024-10-02] MEDS: Nicoderm CQ 21 MG TOP SCH (21:34)
[2024-10-03 05:15] LABS: Hematocrit 44.9 % (40.1-51.0); Hemoglobin 14.9 g/dL (13.7-17.5); Mean Cell Volume 93.3 fL (79.0-92.2); Mean Corpuscular Hgb Concent. 33.2 g/dL (32.3-36.5); Mean Platelet Volume 10.3 fL (9.4-12.4); Platelet Count 193 x10^3/uL (163-337); Red Blood Count 4.81 x10^6/uL (4.63-6.08); Red Cell Distribution Width 13.9 % (11.6-14.4); White Blood Count 7.6 x10^3/uL (4.23-9.07)
[2024-10-03 05:30] LABS: ANION GAP 15.7 MEQ/L (5-15); Creatinine 1 1.47 mg/dL (0.66-1.25); EST GLOMERULAR FILTRATION RATE 49.1 ML/MIN; Potassium 4.2 mmol/L (3.5-5.1)
--- NOTE | 2024-10-03 05:36 | PCM.NOTE ---
Date and Time: 10/03/24529 Subjective Assessment: Mr. Davila is a 74-year-old male with a significant past medical history of dementia, coronary artery disease status post CABG, atrial flutter on Eliquis, hypertension, type 2 diabetes mellitus, hypothyroidism, and gout, who presented to the emergency department 10/02/24 with localized chest pain radiating to his left arm, jaw, and right ear, associated with nausea but without shortness of breath or other systemic complaints. Initial evaluation revealed an unremarkable EKG and two negative troponin sets. BNP was mildly elevated, but chest X-ray showed no acute cardiopulmonary findings. CT of the abdomen and pelvis was obtained due to associated nausea and was negative for intra-abdominal pathology. The patient was admitted for ACS rule-out and symptom monitoring on telemetry. Of note, creatinine was elevated at 1.47 compared to his 2023 baseline of 1.24, likely representing mild acute kidney injury, possibly prerenal in context of his ED presentation. His nausea appears non-specific and unrelated to any clear GI pathology, and he remains hemodynamically stable with no abdominal tenderness or lab abnormalities. Blood pressure has been trending low-normal, prompting a temporary hold on home antihypertensives. 10/03/24: Met and examined the patient at bedside. He endorses continued intermittent chest discomfort. He describes the pain as localized to the left chest and radiating to his left arm, jaw, and right ear, associated with nausea but without shortness of breath or other systemic complaints. No CP during my interview but states this occurred just about an hour ago. EKG reveals atrial flutter with a controlled ventricular rate of 69 bpm; however, nursing staff reports intermittent episodes of tachycardia with heart rates in the 130s. History is limited due to baseline cognitive impairment. After discussion with the patient's daughter and review of the outpatient medication list from his primary care provider, it appears the patient has not been adherent to his prescribed metoprolol regimen. Cardiology has been consulted for further evaluation and management of atrial flutter and rate control. - Review of Systems Constitutional: No Symptoms Eyes: No Symptoms Ears, Nose, & Throat: No Symptoms Respiratory: No Symptoms Cardiac: Chest Pain Abdominal/Gastrointestinal: No Symptoms Genitourinary Symptoms: No Symptoms Musculoskeletal: No Symptoms Skin: No Symptoms Neurological: No Symptoms Psychological: No Symptoms Endocrine: No Symptoms Hematologic/Lymphatic: No Symptoms Immunological/Allergic: No Symptoms Objective Exam General Appearance: no apparent distress Neurologic Exam: alert, oriented x 3, cooperative, confusion Skin Exam: normal color Eye Exam: PERRL Ears, Nose, Throat Exam: normal ENT inspection Neck Exam: normal inspection Lymphatic Exam: adenopathy Respiratory Exam: normal breath sounds, lungs clear Cardiovascular Exam: irregular Gastrointestinal/Abdomen Exam: soft, normal bowel sounds Extremity Exam: normal inspection Back Exam: normal inspection Male Genitalia Exam: deferred Rectal Exam: deferred Objective Data Vital Signs: Vital Signs - 24 hr Temp Pulse Resp BP BP Pulse Ox 10/03/24 04:00 98.6 F 89 16 96/62 95 10/03/24 00:00 98.9 F 69 17 114/58 96 10/02/24 20:19 97.7 F 63 17 107/64 95 10/02/24 20:00 60 17 103/64 97 10/02/24 19:39 99 10/02/24 19:30 70 21 104/70 95 10/02/24 19:00 83 14 104/69 97 10/02/24 18:30 74 19 97/73 97 10/02/24 18:00 89 12 111/73 98 10/02/24 17:30 113 H 17 109/69 99 10/02/24 17:00 94 H 20 107/70 96 10/02/24 16:30 84 19 98/65 97 10/02/24 16:01 94 H 18 102/64 96 10/02/24 15:30 139 H 28 H 108/71 95 10/02/24 15:00 108 H 20 110/79 98 10/02/24 14:43 96 10/02/24 14:30 80 17 89/66 98 10/02/24 14:00 147 H 16 106/69 97 10/02/24 13:44 98 H 14 110/76 97 10/02/24 13:43 96.4 F 87 20 110/76 99 Pain Assessment - Last Documented Pain Intensity 4 Intake and Output: Intake & Output 09/30/24 10/01/24 10/02/24 10/03/24 11:59 11:59 11:59 11:59 Intake Total 720 Output Total 750 Balance -30 Weight 67.6 kg Lab Results: Lab Results-Last 24 Hours 10/02/24 10/02/24 10/02/24 Range/Units 14:33 14:33 14:33 WBC 6.3 (4.23-9.07) x10^3/uL RBC 4.96 (4.63-6.08) x10^6/uL Hgb 15.3 (13.7-17.5) g/dL Hct 46.2 (40.1-51.0) % MCV 93.1 H (79.0-92.2) fL MCH 30.8 (25.7-32.2) pg MCHC 33.1 (32.3-36.5) g/dL RDW 13.7 (11.6-14.4) % Plt Count 198 (163-337) x10^3/uL MPV 10.1 (9.4-12.4) fL Gran % 72.2 H (34.0-67.9) % Immature Gran % (Auto) 0.5 H (0.001-0.429) % Nucleat RBC Rel Count 0.0 (0.00-0.2) % Eos # (Auto) 0.14 (0.04-0.54) x10^3/uL Immature Gran # (Auto) 0.03 (0.001-0.031) x10^3u/L Absolute Lymphs (auto) 1.07 L (1.32-3.57) x10^3/uL Absolute Monos (auto) 0.49 (0.30-0.82) x10^3/uL Absolute Nucleated RBC 0.00 (0.00-0.012) x10^3u/L Lymphocytes % 16.9 L (21.8-53.1) % Monocytes % 7.7 (5.3-12.2) % Eosinophils % 2.2 (0.8-7.0) % Basophils % 0.5 (0.2-1.2) % Absolute Granulocytes 4.57 (1.78-5.38) x10^3/uL Basophils # 0.03 (0.01-0.08) x10^3/uL D-Dimer (0.0-0.50) mg/L Sodium 140 (135-145) mmol/L Potassium 4.5 (3.5-5.1) mmol/L Chloride 104 (98-107) mmol/L Carbon Dioxide 25 (22-30) mmol/L Anion Gap 15.6 H (5-15) MEQ/L BUN 18 (9-20) mg/dL Creatinine 1.58 H (0.66-1.25) mg/dL Estimated GFR 45.1 ML/MIN Glucose 102 (74-106) mg/dL POC Glucometer (74 to 106) mg/dL Hemoglobin A1c (4.5-6.0) % Calcium 9.2 (8.4-10.2) mg/dL Magnesium (1.6-2.3) mg/dL Total Bilirubin 1.70 H (0.2-1.3) mg/dL AST 26 (17-59) U/L ALT 17 (0-50) U/L Alkaline Phosphatase 72 (38-126) U/L Troponin I < 0.012 (0.000-0.033) ng/mL NT-Pro-B Natriuret Pep 1670 (<300) pg/mL Serum Total Protein 6.8 (6.3-8.2) g/dL Albumin 4.1 (3.5-5.0) g/dL Lipase 81 (23-300) U/L Urine Opiates Level (NEGATIVE) Ur Methadone (NEGATIVE) Urine Barbiturates (NEGATIVE) Ur Phencyclidine (PCP) (NEGATIVE) Urine Amphetamine (NEGATIVE) U Benzodiazepine Level (NEGATIVE) Urine Cocaine (NEGATIVE) Urine Marijuana (THC) (NEGATIVE) 10/02/24 10/02/24 10/02/24 Range/Units 14:33 14:33 17:23 WBC (4.23-9.07) x10^3/uL RBC (4.63-6.08) x10^6/uL Hgb (13.7-17.5) g/dL Hct (40.1-51.0) % MCV (79.0-92.2) fL MCH (25.7-32.2) pg MCHC (32.3-36.5) g/dL RDW (11.6-14.4) % Plt Count (163-337) x10^3/uL MPV (9.4-12.4) fL Gran % (34.0-67.9) % Immature Gran % (Auto) (0.001-0.429) % Nucleat RBC Rel Count (0.00-0.2) % Eos # (Auto) (0.04-0.54) x10^3/uL Immature Gran # (Auto) (0.001-0.031) x10^3u/L Absolute Lymphs (auto) (1.32-3.57) x10^3/uL Absolute Monos (auto) (0.30-0.82) x10^3/uL Absolute Nucleated RBC (0.00-0.012) x10^3u/L Lymphocytes % (21.8-53.1) % Monocytes % (5.3-12.2) % Eosinophils % (0.8-7.0) % Basophils % (0.2-1.2) % Absolute Granulocytes (1.78-5.38) x10^3/uL Basophils # (0.01-0.08) x10^3/uL D-Dimer 0.33 (0.0-0.50) mg/L Sodium (135-145) mmol/L Potassium (3.5-5.1) mmol/L Chloride (98-107) mmol/L Carbon Dioxide (22-30) mmol/L Anion Gap (5-15) MEQ/L BUN (9-20) mg/dL Creatinine (0.66-1.25) mg/dL Estimated GFR ML/MIN Glucose (74-106) mg/dL POC Glucometer (74 to 106) mg/dL Hemoglobin A1c 6.75 H (4.5-6.0) % Calcium (8.4-10.2) mg/dL Magnesium (1.6-2.3) mg/dL Total Bilirubin (0.2-1.3) mg/dL AST (17-59) U/L ALT (0-50) U/L Alkaline Phosphatase (38-126) U/L Troponin I < 0.012 (0.000-0.033) ng/mL NT-Pro-B Natriuret Pep (<300) pg/mL Serum Total Protein (6.3-8.2) g/dL Albumin (3.5-5.0) g/dL Lipase (23-300) U/L Urine Opiates Level (NEGATIVE) Ur Methadone (NEGATIVE) Urine Barbiturates (NEGATIVE) Ur Phencyclidine (PCP) (NEGATIVE) Urine Amphetamine (NEGATIVE) U Benzodiazepine Level (NEGATIVE) Urine Cocaine (NEGATIVE) Urine Marijuana (THC) (NEGATIVE) 10/02/24 10/02/24 10/02/24 Range/Units 17:25 17:42 21:01 WBC (4.23-9.07) x10^3/uL RBC (4.63-6.08) x10^6/uL Hgb (13.7-17.5) g/dL Hct (40.1-51.0) % MCV (79.0-92.2) fL MCH (25.7-32.2) pg MCHC (32.3-36.5) g/dL RDW (11.6-14.4) % Plt Count (163-337) x10^3/uL MPV (9.4-12.4) fL Gran % (34.0-67.9) % Immature Gran % (Auto) (0.001-0.429) % Nucleat RBC Rel Count (0.00-0.2) % Eos # (Auto) (0.04-0.54) x10^3/uL Immature Gran # (Auto) (0.001-0.031) x10^3u/L Absolute Lymphs (auto) (1.32-3.57) x10^3/uL Absolute Monos (auto) (0.30-0.82) x10^3/uL Absolute Nucleated RBC (0.00-0.012) x10^3u/L Lymphocytes % (21.8-53.1) % Monocytes % (5.3-12.2) % Eosinophils % (0.8-7.0) % Basophils % (0.2-1.2) % Absolute Granulocytes (1.78-5.38) x10^3/uL Basophils # (0.01-0.08) x10^3/uL D-Dimer (0.0-0.50) mg/L Sodium (135-145) mmol/L Potassium (3.5-5.1) mmol/L Chloride (98-107) mmol/L Carbon Dioxide (22-30) mmol/L Anion Gap (5-15) MEQ/L BUN (9-20) mg/dL Creatinine (0.66-1.25) mg/dL Estimated GFR ML/MIN Glucose (74-106) mg/dL POC Glucometer 92 (74 to 106) mg/dL Hemoglobin A1c (4.5-6.0) % Calcium (8.4-10.2) mg/dL Magnesium 2.1 (1.6-2.3) mg/dL Total Bilirubin (0.2-1.3) mg/dL AST (17-59) U/L ALT (0-50) U/L Alkaline Phosphatase (38-126) U/L Troponin I (0.000-0.033) ng/mL NT-Pro-B Natriuret Pep (<300) pg/mL Serum Total Protein (6.3-8.2) g/dL Albumin (3.5-5.0) g/dL Lipase (23-300) U/L Urine Opiates Level NEGATIVE (NEGATIVE) Ur Methadone NEGATIVE (NEGATIVE) Urine Barbiturates NEGATIVE (NEGATIVE) Ur Phencyclidine (PCP) NEGATIVE (NEGATIVE) Urine Amphetamine NEGATIVE (NEGATIVE) U Benzodiazepine Level NEGATIVE (NEGATIVE) Urine Cocaine NEGATIVE (NEGATIVE) Urine Marijuana (THC) NEGATIVE (NEGATIVE) 10/02/24 10/03/24 10/03/24 Range/Units 21:56 05:12 05:12 WBC 7.6 (4.23-9.07) x10^3/uL RBC 4.81 (4.63-6.08) x10^6/uL Hgb 14.9 (13.7-17.5) g/dL Hct 44.9 (40.1-51.0) % MCV 93.3 H (79.0-92.2) fL MCH 31.0 (25.7-32.2) pg MCHC 33.2 (32.3-36.5) g/dL RDW 13.9 (11.6-14.4) % Plt Count 193 (163-337) x10^3/uL MPV 10.3 (9.4-12.4) fL Gran % (34.0-67.9) % Immature Gran % (Auto) (0.001-0.429) % Nucleat RBC Rel Count (0.00-0.2) % Eos # (Auto) (0.04-0.54) x10^3/uL Immature Gran # (Auto) (0.001-0.031) x10^3u/L Absolute Lymphs (auto) (1.32-3.57) x10^3/uL Absolute Monos (auto) (0.30-0.82) x10^3/uL Absolute Nucleated RBC (0.00-0.012) x10^3u/L Lymphocytes % (21.8-53.1) % Monocytes % (5.3-12.2) % Eosinophils % (0.8-7.0) % Basophils % (0.2-1.2) % Absolute Granulocytes (1.78-5.38) x10^3/uL Basophils # (0.01-0.08) x10^3/uL D-Dimer (0.0-0.50) mg/L Sodium 139 (135-145) mmol/L Potassium 4.2 (3.5-5.1) mmol/L Chloride 104 (98-107) mmol/L Carbon Dioxide 24 (22-30) mmol/L Anion Gap 15.7 H (5-15) MEQ/L BUN 24 H (9-20) mg/dL Creatinine 1.47 H (0.66-1.25) mg/dL Estimated GFR 49.1 ML/MIN Glucose 71 L (74-106) mg/dL POC Glucometer (74 to 106) mg/dL Hemoglobin A1c (4.5-6.0) % Calcium 9.0 (8.4-10.2) mg/dL Magnesium (1.6-2.3) mg/dL Total Bilirubin (0.2-1.3) mg/dL AST (17-59) U/L ALT (0-50) U/L Alkaline Phosphatase (38-126) U/L Troponin I < 0.012 (0.000-0.033) ng/mL NT-Pro-B Natriuret Pep (<300) pg/mL Serum Total Protein (6.3-8.2) g/dL Albumin (3.5-5.0) g/dL Lipase (23-300) U/L Urine Opiates Level (NEGATIVE) Ur Methadone (NEGATIVE) Urine Barbiturates (NEGATIVE) Ur Phencyclidine (PCP) (NEGATIVE) Urine Amphetamine (NEGATIVE) U Benzodiazepine Level (NEGATIVE) Urine Cocaine (NEGATIVE) Urine Marijuana (THC) (NEGATIVE) Radiology Exams: Radiology Procedures Category Date Time Status ABDOMEN AND PELVIS W/0 CONTRAS [CT] Stat Exams 10/02/24 17:38 Taken CHEST 1 VIEW (PORTABLE) Stat Exams 10/02/24 14:21 Completed ECHO W/2D AND DOPPLER [US] Routine Exams 10/03/24 21:42 Ordered Medications: Medications Generic Name Dose Route Start Last Admin Trade Name Freq PRN Reason Stop Dose Admin Insulin Human Lispro 0 unit 10/02/24 20:59 Insulin Lispro 1 Unit SQ 11/01/24 20:58 UD PRN HYPERGLYCEMIA Nicotine 21 mg 10/02/24 21:00 10/02/24 21:34 Nicotine 21 Mg/Patch Patch TOP 11/01/24 20:59 21 mg Q24H LINA Administration Discontinued Medications Generic Name Dose Route Start Last Admin Trade Name Freq PRN Reason Stop Dose Admin Sodium Chloride 1,000 mls @ 100 mls/hr 10/02/24 15:45 10/02/24 16:06 Sodium Chloride 0.9% 1000 Ml IV 11/01/24 15:44 100 mls/hr .Q10H LINA Administration Sodium Chloride Confirm 10/02/24 16:05 Sodium Chloride 0.9% 1000 Ml Administered 10/02/24 16:06 Dose 1,000 mls @ ud .ROUTE .STK-MED ONE Sodium Chloride 1,000 mls @ 100 mls/hr 10/02/24 21:00 10/02/24 22:11 Sodium Chloride 0.9% 1000 Ml IV 11/01/24 20:59 Not Given .Q10H LINA Assessment/Plan (1) Chest pain Current Visit: Yes Status: Acute Assessment & Plan: -EKG with aflutter HR 69 -Trops x 3 negative -tele -UDS negative -echo ordered and pending -CXR No cardiomegaly- minimal infiltrate/atelectasis without consolidation/effusion -abdominal CT with fecal stasis otherwise negative -Cardiology consulted - appreciate recs -Patient does not take home meds as prescribed Code(s): R07.9 - CHEST PAIN, UNSPECIFIED (2) Nausea Current Visit: Yes Status: Acute Assessment & Plan: -abdomen CT final as stated above -anti emetics prn -LFTs/lipase unremarkable Code(s): R11.0 - NAUSEA (3) MISHEL (acute kidney injury) Current Visit: Yes Status: Acute Assessment & Plan: -Creatinine was 1.24 back in 2023 -Admission creatinine 1.5 now at 1.47 - improved -Received IVF in ED -Avoid nephrotoxins -Monitor renal/lytes Code(s): N17.9 - ACUTE KIDNEY FAILURE, UNSPECIFIED (4) Type 2 diabetes mellitus Current Visit: Yes Status: Acute Assessment & Plan: -ADA diet -SSI -A1c (5) HTN (hypertension) Current Visit: Yes Status: Acute Assessment & Plan: -Holding BP meds due to hypotension on admission Code(s): I10 - ESSENTIAL (PRIMARY) HYPERTENSION (6) CAD (coronary artery disease) Current Visit: Yes Status: Acute Assessment & Plan: -Status post CABG -resume home meds Code(s): I25.10 - ATHSCL HEART DISEASE OF [place] CORONARY ARTERY W/O ANG PCTRS (7) Afib Current Visit: Yes Status: Acute Assessment & Plan: -Continue Eliquis/beta-lucie -Heart rate well-controlled Code(s): I48.91 - UNSPECIFIED ATRIAL FIBRILLATION (8) Dementia Current Visit: Yes Status: Acute Assessment & Plan: -continue home meds -Supportive therapy -Patient lives alone might need placement will involve case packer Code(s): F03.90 - UNSP DEMENTIA, UNSP SEVERITY, WITHOUT BEH/PSYCH/MOOD/ANX (9) Tobacco dependence Current Visit: Yes Status: Acute Assessment & Plan: -Patient smokes 2 pack/day -nicotine patch DVT prophylaxis SCD/Eliquis CODE STATUS full Discharge planning pending clinical stability Code(s): F17.200 - NICOTINE DEPENDENCE, UNSPECIFIED, UNCOMPLICATED
--- NOTE | 2024-10-03 08:39 | XRAY ---
Indication: Abdomen pain. Multiple contiguous axial images obtained through the abdomen and pelvis without contrast. Comparison: October 11, 2019 Lung bases again demonstrates pulmonary emphysema and scattered peripheral fibrosis/scarring. No infiltrate or effusion. Heart not enlarged again with pacer lead. Noncontrasted stomach and bowel loops appear nonobstructed with normal appendix. There is again mild diffuse scattered colonic fecal debris. Mildly distended gallbladder again demonstrates tiny gallstones. Again a few bilateral renal cysts, largest left midpole measuring 2.2 cm. No free fluid/air. Remaining liver, gallbladder, pancreas, spleen, adrenal glands, kidneys, ureters, and bladder are unremarkable for noncontrast exam. There remains mild scattered aortoiliac calcifications without AAA. Osseous structures intact again with osteopenia. No ventral or inguinal hernias. Impression: 1. Again mild diffuse colonic fecal stasis. 2. Chronic findings including pulmonary emphysema, pulmonary fibrosis/scarring, cholelithiasis, bilateral renal cysts, arteriosclerotic disease, and osteopenia. 2. No new/acute findings on this noncontrast exam.
[2024-10-03] MEDS: Toprol-Xl 25MG Tablets PO SCH (08:54)
[2024-10-03] MEDS: Toprol-Xl 25MG Tablets PO ONE (11:21)
[2024-10-03] MEDS ORDERED: NORCO 5/325 MG PO PRN (13:42)
[2024-10-03] MEDS: Flomax 0.4 MG PO SCH (14:09)
[2024-10-03] MEDS: Ranexa 500 MG PO SCH (14:09)
[2024-10-03] MEDS: SYNTHROID 25 MCG PO SCH (14:09)
[2024-10-03] MEDS: ECOTRIN 81 MG PO SCH (14:09)
[2024-10-03] MEDS: Abilify 10 MG PO SCH (14:09)
[2024-10-03] MEDS: PROAMATINE PO SCH (17:17)
[2024-10-03] MEDS: DESYREL 50 MG PO SCH (21:57)
[2024-10-03] MEDS: Namenda 5 MG PO SCH (21:57)
[2024-10-03] MEDS: ZOCOR 20MG PO SCH (21:57)
[2024-10-03] MEDS: Aricept 10 MG PO SCH (21:57)
[2024-10-04] MEDS: Ativan 1 MG PO PRN (02:08)
[2024-10-04 06:43] LABS: Absolute Neutrophil Ct (ANC) 4.71 x10^3/uL (1.78-5.38); BASOPHIL % 0.4 % (0.2-1.2); Basophil (Absolute #) 0.03 x10^3/uL (0.01-0.08); Eosinophil % 2.3 % (0.8-7.0); Eosinophil (Absolute #) 0.17 x10^3/uL (0.04-0.54); Hematocrit 43.7 % (40.1-51.0); Hemoglobin 14.2 g/dL (13.7-17.5); IMMATURE GRAN # 0.03 x10^3u/L (0.001-0.031); IMMATURE GRAN % 0.4 % (0.001-0.429); Lymphocyte (Absolute #) 1.89 x10^3/uL (1.32-3.57); Lymphocytes % 25.5 % (21.8-53.1); Mean Cell Volume 94.2 fL (79.0-92.2); Mean Corpuscular Hemoglobin 30.6 pg (25.7-32.2); Mean Corpuscular Hgb Concent. 32.5 g/dL (32.3-36.5); Mean Platelet Volume 10.1 fL (9.4-12.4); Monocyte (Absolute #) 0.59 x10^3/uL (0.30-0.82); Neutrophil % 63.4 % (34.0-67.9); Platelet Count 166 x10^3/uL (163-337); Red Blood Count 4.64 x10^6/uL (4.63-6.08); Red Cell Distribution Width 13.6 % (11.6-14.4); White Blood Count 7.4 x10^3/uL (4.23-9.07)
[2024-10-04 07:01] LABS: ALBUMIN 4.1 g/dL (3.5-5.0); ANION GAP 18.3 MEQ/L (5-15); BILIRUBIN,TOTAL 1.4 mg/dL (0.2-1.3); Calcium 9.3 mg/dL (8.4-10.2); Creatinine 1 1.54 mg/dL (0.66-1.25); EST GLOMERULAR FILTRATION RATE 46.5 ML/MIN; Potassium 4.3 mmol/L (3.5-5.1); Total Protein 6.8 g/dL (6.3-8.2)
[2024-10-04] MEDS ORDERED: Dextrose 5%-1/2NS IV Soln. 500 ML 500 ML IV SCH (08:00)
[2024-10-04] MEDS: Dextrose 5%-1/2NS IV Soln. 500 ML 500 ML IV SCH (08:39)
[2024-10-04] MEDS ORDERED: Toprol Xl 50 MG PO SCH (10:00)
--- NOTE | 2024-10-04 10:16 | PCM.NOTE ---
Date and Time: 10/04/24 1010 Subjective Assessment: Mr. Davila is a 74-year-old male with a significant past medical history of dementia, coronary artery disease status post CABG, atrial flutter on Eliquis, hypertension, type 2 diabetes mellitus, hypothyroidism, and gout, who presented to the emergency department 10/02/24 with localized chest pain radiating to his left arm, jaw, and right ear, associated with nausea but without shortness of breath or other systemic complaints. Initial evaluation revealed an unremarkable EKG and two negative troponin sets. BNP was mildly elevated, but chest X-ray showed no acute cardiopulmonary findings. CT of the abdomen and pelvis was obtained due to associated nausea and was negative for intra-abdominal pathology. The patient was admitted for ACS rule-out and symptom monitoring on telemetry. Of note, creatinine was elevated at 1.47 compared to his 2023 baseline of 1.24, likely representing mild acute kidney injury, possibly prerenal in context of his ED presentation. His nausea appears non-specific and unrelated to any clear GI pathology, and he remains hemodynamically stable with no abdominal tenderness or lab abnormalities. Blood pressure has been trending low-normal, prompting a temporary hold on home antihypertensives. 10/03/24: Met and examined the patient at bedside. He endorses continued intermittent chest discomfort. He describes the pain as localized to the left chest and radiating to his left arm, jaw, and right ear, associated with nausea but without shortness of breath or other systemic complaints. No CP during my interview but states this occurred just about an hour ago. EKG reveals atrial flutter with a controlled ventricular rate of 69 bpm; however, nursing staff reports intermittent episodes of tachycardia with heart rates in the 130s. History is limited due to baseline cognitive impairment. After discussion with the patient's daughter and review of the outpatient medication list from his primary care provider, it appears the patient has not been adherent to his prescribed metoprolol regimen. Cardiology has been consulted for further evaluation and management of atrial flutter and rate control. 10/04/24: Met with and examined the patient at bedside. He again reports ongoing intermittent chest discomfort, described as localized to the left chest with radiation to the left arm, jaw, and right ear. The discomfort is associated with nausea but no shortness of breath or other systemic symptoms. He again was asymptomatic during our encounter today. Cardiology has been consulted for further evaluation and management of atrial flutter and rate control. The patient is noted to be hypernatremic today with MISHEL; heart rate is currently controlled, and we are awaiting cardiology recommendations for ongoing management. Echo from 10/04/24 shows mild atrial enlargement and normal ventricular chamber sizes. Mild concentric LVH is present with mildly reduced systolic function (EF 4045%) due to mild global hypokinesis. Diastolic function couldnt be assessed due to atrial flutter. RV function is normal. There is mild aortic sclerosis without stenosis and mild tricuspid regurgitation. PA pressure and RA pressure are normal. No pericardial effusion. Pacer leads noted in the right atrium and ventricle. - Review of Systems Constitutional: No Symptoms Eyes: No Symptoms Ears, Nose, & Throat: No Symptoms Respiratory: Short Of Breath Cardiac: Chest Pain Abdominal/Gastrointestinal: No Symptoms Genitourinary Symptoms: No Symptoms Musculoskeletal: No Symptoms Skin: No Symptoms Neurological: No Symptoms Psychological: No Symptoms Endocrine: No Symptoms Hematologic/Lymphatic: No Symptoms Immunological/Allergic: No Symptoms Objective Exam General Appearance: no apparent distress Neurologic Exam: alert, oriented x 3, cooperative, disoriented, confusion Skin Exam: normal color Eye Exam: PERRL Ears, Nose, Throat Exam: normal ENT inspection Neck Exam: normal inspection Respiratory Exam: normal breath sounds, lungs clear Cardiovascular Exam: irregular Gastrointestinal/Abdomen Exam: soft, normal bowel sounds Extremity Exam: normal inspection Back Exam: normal inspection Male Genitalia Exam: deferred Rectal Exam: deferred Objective Data Vital Signs: Vital Signs - 24 hr Temp Pulse Resp BP Pulse Ox 10/04/24 07:43 98.3 F 70 16 113/58 94 L 10/04/24 04:00 97.3 F 84 20 120/89 95 10/03/24 23:37 97.0 F 80 17 119/70 95 10/03/24 20:46 72 10/03/24 19:10 96.9 F 69 20 109/61 94 L 10/03/24 16:00 98.0 F 60 20 116/74 96 10/03/24 11:20 98.1 F 133 H 22 114/71 95 Pain Assessment - Last Documented Pain Intensity 0 Intake and Output: Intake & Output 10/01/24 10/02/24 10/03/24 10/04/24 11:59 11:59 11:59 11:59 Intake Total 960 1800 Output Total 1100 600 Balance -140 1200 Weight 67.6 kg Lab Results: Lab Results-Last 24 Hours 10/03/24 10/03/24 10/03/24 Range/Units 11:07 13:45 21:50 WBC (4.23-9.07) x10^3/uL RBC (4.63-6.08) x10^6/uL Hgb (13.7-17.5) g/dL Hct (40.1-51.0) % MCV (79.0-92.2) fL MCH (25.7-32.2) pg MCHC (32.3-36.5) g/dL RDW (11.6-14.4) % Plt Count (163-337) x10^3/uL MPV (9.4-12.4) fL Gran % (34.0-67.9) % Immature Gran % (Auto) (0.001-0.429) % Nucleat RBC Rel Count (0.00-0.2) % Eos # (Auto) (0.04-0.54) x10^3/uL Immature Gran # (Auto) (0.001-0.031) x10^3u/L Absolute Lymphs (auto) (1.32-3.57) x10^3/uL Absolute Monos (auto) (0.30-0.82) x10^3/uL Absolute Nucleated RBC (0.00-0.012) x10^3u/L Lymphocytes % (21.8-53.1) % Monocytes % (5.3-12.2) % Eosinophils % (0.8-7.0) % Basophils % (0.2-1.2) % Absolute Granulocytes (1.78-5.38) x10^3/uL Basophils # (0.01-0.08) x10^3/uL Sodium (135-145) mmol/L Potassium (3.5-5.1) mmol/L Chloride (98-107) mmol/L Carbon Dioxide (22-30) mmol/L Anion Gap (5-15) MEQ/L BUN (9-20) mg/dL Creatinine (0.66-1.25) mg/dL Estimated GFR ML/MIN Glucose (74-106) mg/dL POC Glucometer 130 H 83 (74 to 106) mg/dL Calcium (8.4-10.2) mg/dL Total Bilirubin (0.2-1.3) mg/dL AST (17-59) U/L ALT (0-50) U/L Alkaline Phosphatase (38-126) U/L Troponin I < 0.012 (0.000-0.033) ng/mL Serum Total Protein (6.3-8.2) g/dL Albumin (3.5-5.0) g/dL 10/04/24 10/04/24 10/04/24 Range/Units 06:42 06:42 07:32 WBC 7.4 (4.23-9.07) x10^3/uL RBC 4.64 (4.63-6.08) x10^6/uL Hgb 14.2 (13.7-17.5) g/dL Hct 43.7 (40.1-51.0) % MCV 94.2 H (79.0-92.2) fL MCH 30.6 (25.7-32.2) pg MCHC 32.5 (32.3-36.5) g/dL RDW 13.6 (11.6-14.4) % Plt Count 166 (163-337) x10^3/uL MPV 10.1 (9.4-12.4) fL Gran % 63.4 (34.0-67.9) % Immature Gran % (Auto) 0.4 (0.001-0.429) % Nucleat RBC Rel Count 0.0 (0.00-0.2) % Eos # (Auto) 0.17 (0.04-0.54) x10^3/uL Immature Gran # (Auto) 0.03 (0.001-0.031) x10^3u/L Absolute Lymphs (auto) 1.89 (1.32-3.57) x10^3/uL Absolute Monos (auto) 0.59 (0.30-0.82) x10^3/uL Absolute Nucleated RBC 0.00 (0.00-0.012) x10^3u/L Lymphocytes % 25.5 (21.8-53.1) % Monocytes % 8.0 (5.3-12.2) % Eosinophils % 2.3 (0.8-7.0) % Basophils % 0.4 (0.2-1.2) % Absolute Granulocytes 4.71 (1.78-5.38) x10^3/uL Basophils # 0.03 (0.01-0.08) x10^3/uL Sodium 148 H D (135-145) mmol/L Potassium 4.3 (3.5-5.1) mmol/L Chloride 108 H (98-107) mmol/L Carbon Dioxide 26 (22-30) mmol/L Anion Gap 18.3 H (5-15) MEQ/L BUN 23 H (9-20) mg/dL Creatinine 1.54 H (0.66-1.25) mg/dL Estimated GFR 46.5 ML/MIN Glucose 99 (74-106) mg/dL POC Glucometer 81 (74 to 106) mg/dL Calcium 9.3 (8.4-10.2) mg/dL Total Bilirubin 1.40 H (0.2-1.3) mg/dL AST 30 (17-59) U/L ALT 23 (0-50) U/L Alkaline Phosphatase 66 (38-126) U/L Troponin I (0.000-0.033) ng/mL Serum Total Protein 6.8 (6.3-8.2) g/dL Albumin 4.1 (3.5-5.0) g/dL Radiology Exams: Radiology Procedures Category Date Time Status ABDOMEN AND PELVIS W/0 CONTRAS [CT] Stat Exams 10/02/24 17:38 Completed CHEST 1 VIEW (PORTABLE) Stat Exams 10/02/24 14:21 Completed ECHO W/2D AND DOPPLER [US] Routine Exams 10/03/24 21:42 Taken Medications: Medications Generic Name Dose Route Start Last Admin Trade Name Freq PRN Reason Stop Dose Admin Hydrocodone Bitart/Acetaminophen 1 tab 10/03/24 13:42 Hydrocodone/Apap 5/325 1 Tab Tablet PO 10/08/24 13:41 Q8HPRN PRN PAIN Aripiprazole 5 mg 10/03/24 14:00 10/04/24 08:41 Aripiprazole 10 Mg Tablet PO 11/02/24 13:59 5 mg DAILY LINA Administration Aspirin 81 mg 10/03/24 14:00 10/04/24 08:40 Aspirin 81 Mg Tablet.Ec PO 11/02/24 13:59 81 mg DAILY LINA Administration Donepezil HCl 10 mg 10/03/24 22:00 10/04/24 08:40 Donepezil Hcl 10 Mg Tablet PO 11/02/24 21:59 10 mg BID LINA Administration Dextrose/Sodium Chloride 500 mls @ 50 mls/hr 10/04/24 08:00 10/04/24 08:39 Dextrose 5%-1/2ns Iv Soln. 500 Ml IV 10/04/24 17:59 50 mls/hr .Q10H LINA Administration Insulin Human Lispro 0 unit 10/02/24 20:59 Insulin Lispro 1 Unit SQ 11/01/24 20:58 UD PRN HYPERGLYCEMIA Levothyroxine Sodium 25 mcg 10/03/24 14:00 10/04/24 08:41 Levothyroxine Sodium 25 Mcg Tablet PO 11/02/24 13:59 25 mcg DAILY LINA Administration Lorazepam 1 mg 10/03/24 13:42 10/04/24 02:08 Lorazepam 1 Mg Tablet PO 11/02/24 13:41 1 mg TID PRN PRN Administration ANXIETY Memantine 10 mg 10/03/24 22:00 10/03/24 21:57 Memantine Hcl 5 Mg Tablet PO 11/02/24 21:59 10 mg BID LINA Administration Metoprolol Succinate 25 mg 10/03/24 10:00 10/04/24 08:41 Metoprolol Succinate 25 Mg Xl Tab PO 11/02/24 09:59 25 mg DAILY LINA Administration Midodrine 2.5 mg 10/03/24 17:00 10/04/24 08:41 Midodrine Hcl 5 Mg Tablet PO 11/02/24 16:59 2.5 mg TIDWM LINA Administration Nicotine 21 mg 10/02/24 21:00 10/03/24 21:56 Nicotine 21 Mg/Patch Patch TOP 11/01/24 20:59 21 mg Q24H LINA Administration Nitroglycerin 0.4 mg 10/03/24 13:42 Nitroglycerin 0.4 Mg Tablet Bottle SL 11/02/24 13:41 .PRN PRN CHEST PAIN Ranolazine 1,000 mg 10/03/24 14:00 10/04/24 08:40 Ranolazine 500 Mg Tab.Sr.12h PO 11/02/24 13:59 1,000 mg DAILY LINA Administration Simvastatin 40 mg 10/03/24 22:00 10/03/24 21:57 Simvastatin 20 Mg Tablet PO 11/02/24 21:59 40 mg HS LINA Administration Tamsulosin HCl 0.8 mg 10/03/24 14:00 10/04/24 08:39 Tamsulosin Hcl 0.4 Mg Cap PO 11/02/24 13:59 0.8 mg DAILY LINA Administration Trazodone HCl 50 mg 10/03/24 22:00 10/03/24 21:57 Trazodone Hcl 50 Mg Tablet PO 11/02/24 21:59 50 mg HS LINA Administration Discontinued Medications Generic Name Dose Route Start Last Admin Trade Name Freq PRN Reason Stop Dose Admin Sodium Chloride 1,000 mls @ 100 mls/hr 10/02/24 15:45 10/02/24 16:06 Sodium Chloride 0.9% 1000 Ml IV 11/01/24 15:44 100 mls/hr .Q10H LINA Administration Sodium Chloride Confirm 10/02/24 16:05 Sodium Chloride 0.9% 1000 Ml Administered 10/02/24 16:06 Dose 1,000 mls @ ud .ROUTE .STK-MED ONE Sodium Chloride 1,000 mls @ 100 mls/hr 10/02/24 21:00 10/02/24 22:11 Sodium Chloride 0.9% 1000 Ml IV 11/01/24 20:59 Not Given .Q10H LINA Dextrose/Sodium Chloride 500 mls @ 50 mls/hr 10/04/24 08:00 Dextrose 5%-1/2ns Iv Soln. 500 Ml IV 11/03/24 07:59 .Q10H LINA Metoprolol Succinate 12.5 mg 10/03/24 08:30 10/03/24 11:21 Metoprolol Succinate 25 Mg Xl Tab PO 10/03/24 08:31 Not Given ONCE ONE Multi-Disciplinary Progress Notes: Multi-Disciplinary Progress Notes 10/04/24 01:36 Radiology Note by MARTINEZ RUIZ TRANSTHORACIC ECHOCARDIOGRAM 10/04/2024: 1. Mildly dilated atria. Normal ventricular chamber sizes. 2. Mild concentric left ventricular hypertrophy. 3. Mildly depressed left ventricular systolic function due to mild global hypokinesis. Estimated EF 40-45%. 4. Unable to determine grade of diastolic dysfunction due to underlying atrial flutter. 5. Normal right ventricular systolic function. 6. Mild aortic sclerosis without stenosis. 7. Doppler: Mild tricuspid regurgitation. 8. Normal PA systolic pressure (25 mmHg). 9. Normal right atrial pressure (3 mmHg). 10. No pericardial effusion. 11. Pacer lead noted in right atrium and right ventricle. Martinez Ruiz MD [facility] Initialized on 10/04/24 01:36 - END OF NOTE 10/03/24 13:20 Case Management Note by Princess Bowles S/W JENNY AND NILAM (JESUS AND SISTER) AND EXPLAINED PATIENT HAD RIGHT TO REFUSE PLACEMENT.THEY REQUESTED WE CONTACT YANCI PHELAN AT DR ARMSTRONG'S OFFICE TO SEE IF SHE WOULD EXPLAIN THAT PATIENT NEEDS MORE HELP THAN LIVING AT HOME. CALLED YANCI AT MD OFFICE AND SHE STATED THAT THEY THOUGHT PATIENT NEEDED NH PLACEMENT. EXPLAINED THAT PATIENT WAS REFUSING AND THAT IF MD FELT HE WAS NOT CAPABLE OF MAKING THAT DECISION, THEN HE COULD DETERMINE IF PATIENT WAS INCOMPETENT. AT THAT POINT, FAMILY COULD PURSUE [employer] AFTER DOCUMENTATION OF THAT INCOMPETENCE. FAMILY HAS APPT WITH DR ARMSTRONG NEXT SUNDAY TO BEGIN THE PROCESS. [facility] SET UP. CONTACTED [facility] AND LEFT MESSAGE TO CONITNUE SERVICES AND TO SEE IF HE QUALIFIED FOR ADDITIONAL SERVICES. [facility]CO CONTACTED AND THEY WILL F/U WITH PATIENT. S/W PATIENT AND SISTER, NILAM, IN THE ROOM AND EXPLAINED THE ABOVE. SISTER STATED THAT HER HAD TO HAVE SURGERY IN [facility] AND THEY WOULD NOT BE HOME MUCH IN OCTOBER AND THEY ARE THE PRIMARY CAREGIVERS. JENNY LEE, ALSO STATED THEY HAVE LOOKING INTO ASSISTED LIVING AND HE WILL F/U THAT. Initialized on 10/03/24 13:20 - END OF NOTE 10/03/24 11:44 Case Management Note by Princess Bowles [facility]. THEY WILL NEED NOTIFIED AT [place] [phone]. THEY WILL NEED FAXED THE DC INSTRUCTIONS, DC MED LIST AND DC SUMMARY (IF AVAILABLE) TO [phone]. Initialized on 10/03/24 11:44 - END OF NOTE 10/03/24 10:17 Case Management Note by Brianna Vaughan LONG DISCUSSION WITH PT REGARDING HIS FAMILY'S WISHES FOR HIM TO GO TO THE [place]. PATIENT IS ADAMANT THAT HE WILL NOT GO TO THE [place]AY UNDER ANY CIRCUMSTANCES. REPORTS THAT THE HE IS INDEPENDENT WITH ALL ADL'S. COOKS HIS MEALS WITH HIS [employer]. PAYS ALL OF HIS OWN BILLS AND MANAGES HIS OWN MONEY. DOES REPORT THAT HE HAS USED MEALS ON WHEELS WITH [facility]. IS VERY OPEN TO HAVING [facility] WELL A REFERRAL TO THE ACO AND [facility] FOR ANY [facility] SUPPORT SERVICES THAT HE WILL QUALIFY FOR. STATES, "I AM 74 YEARS OLD, AND I HAVE BEEN TAKING CARE OF MYSELF FOR A LONG TIME, AND I AM GOING TO STAY IN MY HOME AND TAKE CARE OF MYSELF." DISCUSSED THAT HIS FAMILY IS VERY CONCERNED FOR HIS WELL BEING AND SAFETY. PT STATES, "I AM SICK OF MY SISTER ARGUING WITH ME, SHE THINKS SHE IS ALWAYS RIGHT, AND I WILL FIRE HER FROM POWER OF TERRITORY MANAGER." EMOTIONAL SUPPORT PROVIDED. Initialized on 10/03/24 10:17 - END OF NOTE Assessment/Plan (1) Chest pain Current Visit: Yes Status: Acute Assessment & Plan: -EKG with aflutter HR 69 -Trops x 3 negative -tele -UDS negative -echo ordered and pending -CXR No cardiomegaly- minimal infiltrate/atelectasis without consolidation/effusion -abdominal CT with fecal stasis otherwise negative -Cardiology consulted - appreciate recs -Patient does not take home meds as prescribed 10/04: -cards consult pending -Echo from 10/04/24 shows mild atrial enlargement and normal ventricular chamber sizes. Mild concentric LVH is present with mildly reduced systolic function (EF 4045%) due to mild global hypokinesis. Diastolic function couldnt be assessed due to atrial flutter. RV function is normal. There is mild aortic sclerosis without stenosis and mild tricuspid regurgitation. PA pressure and RA pressure are normal. No pericardial effusion. Pacer leads noted in the right atrium and ventricle. Code(s): R07.9 - CHEST PAIN, UNSPECIFIED (2) Nausea Current Visit: Yes Status: Acute Assessment & Plan: -abdomen CT final as stated above -anti emetics prn -LFTs/lipase unremarkable 10/04: -resolved Code(s): R11.0 - NAUSEA (3) MISHEL (acute kidney injury) Current Visit: Yes Status: Acute Assessment & Plan: -Creatinine was 1.24 back in 2023 -Admission creatinine 1.5 now at 1.47 - improved -Received IVF in ED -Avoid nephrotoxins -Monitor renal/lytes 10/04: -creat at 1.54- gentle hydration initiated in the setting of hypernatremia - d5 1/2 NS Code(s): N17.9 - ACUTE KIDNEY FAILURE, UNSPECIFIED Hypernatremia - sodium level at 148- no edema on exam -Will start d5 06/05 NS- for 500ml and reassess this afternoon - monitor for fluid overload (4) Type 2 diabetes mellitus Current Visit: Yes Status: Acute Assessment & Plan: -ADA diet -SSI -A1c (5) HTN (hypertension) Current Visit: Yes Status: Acute Assessment & Plan: -Holding BP meds due to hypotension on admission Code(s): I10 - ESSENTIAL (PRIMARY) HYPERTENSION (6) CAD (coronary artery disease) Current Visit: Yes Status: Acute Assessment & Plan: -Status post CABG -resume home meds Code(s): I25.10 - ATHSCL HEART DISEASE OF [place] CORONARY ARTERY W/O ANG PCTRS (7) Afib Current Visit: Yes Status: Acute Assessment & Plan: -Continue Eliquis/beta-lucie -Heart rate now controlled -cards consulted for further evaluation and management of atrial flutter and rate control Code(s): I48.91 - UNSPECIFIED ATRIAL FIBRILLATION (8) Dementia Current Visit: Yes Status: Acute Assessment & Plan: -continue home meds -Supportive therapy -Patient lives alone might need placement will involve catalytic case operator Code(s): F03.90 - UNSP DEMENTIA, UNSP SEVERITY, WITHOUT BEH/PSYCH/MOOD/ANX (9) Tobacco dependence Current Visit: Yes Status: Acute Assessment & Plan: -Patient smokes 2 pack/day -nicotine patch DVT prophylaxis SCD/Eliquis CODE STATUS full Code(s): R07.9 - CHEST PAIN, UNSPECIFIED (2) Nausea Current Visit: Yes Status: Acute Code(s): R11.0 - NAUSEA (3) MISHEL (acute kidney injury) Current Visit: Yes Status: Acute Code(s): N17.9 - ACUTE KIDNEY FAILURE, UNSPECIFIED (4) Type 2 diabetes mellitus Current Visit: Yes Status: Acute (5) HTN (hypertension) Current Visit: Yes Status: Acute Code(s): I10 - ESSENTIAL (PRIMARY) HYPERTENSION (6) CAD (coronary artery disease) Current Visit: Yes Status: Acute Code(s): I25.10 - ATHSCL HEART DISEASE OF [place] CORONARY ARTERY W/O ANG PCTRS (7) Afib Current Visit: Yes Status: Acute Code(s): I48.91 - UNSPECIFIED ATRIAL FIBRILLATION (8) Dementia Current Visit: Yes Status: Acute Code(s): F03.90 - UNSP DEMENTIA, UNSP SE VERITY, WITHOUT BEH/PSYCH/MOOD/ANX (9) Tobacco dependence Current Visit: Yes Status: Acute Code(s): F17.200 - NICOTINE DEPENDENCE, UNSPECIFIED, UNCOMPLICATED (10) Hypernatremia Current Visit: Yes Status: Acute Code(s): E87.0 - HYPEROSMOLALITY AND HYPERNATREMIA (11) Hyponatremia Current Visit: No Status: Acute Code(s): E87.1 - HYPO-OSMOLALITY AND HYPONATREMIA
[2024-10-04 11:44] LABS: ANION GAP 14.3 MEQ/L (5-15); BILIRUBIN,TOTAL 1.3 mg/dL (0.2-1.3); Creatinine 1 1.57 mg/dL (0.66-1.25); EST GLOMERULAR FILTRATION RATE 45.4 ML/MIN; Potassium 3.8 mmol/L (3.5-5.1); Total Protein 6.8 g/dL (6.3-8.2)
[2024-10-04] MEDS ORDERED: Zofran 4 MG/2 ML VIAL IV PRN (13:02)
[2024-10-04] MEDS: Nitrostat 0.4 MG Tablet SL PRN (13:35)
--- NOTE | 2024-10-04 14:24 | PCM.CONS ---
History of Present Illness - Date of Consult Date of Encounter: 10/04/24 Consulting Director Of Search Engine Marketing: MARTINEZ RUIZ MD Requesting Provider: Attending Provider: KAN FONG MD Primary Care Provider: PCP: LUANA ARMSTRONG Consent was: Given for this tele-med encounter - Consult Narrative Reason for Consult: Chest pain HPI: Patient is a 74-year-old male with history of CADS/P CABGx3 in 2005 S/P PCi x3 (last time greater than 7 years ago), CHF, atrial fibrillation, CVA, HTN, and hypercholesterolemiawho presented with chest pain. cc:: The requesting physician will be sent a copy of the consult. Review of Systems - Review of Systems ROS Unobtainable: due to mental status (Has dementia) - Past Medical History Past Medical History: Yes Neurological History: Stroke ENT History: Cataracts Cardiac History: Arrhythmia, Congestive Heart Failure, Coronary Artery Disease, High Cholesterol, Hypertension, Myocardial Infarction ([place]) Respiratory History: COPD Endocrine Medical History: Diabetes Type II Musculoskelatal History: No Pertinent History GI Medical History: Hepatitis History: No Pertinent History Pyscho-Social History: No Pertinent History Male Reproductive Disorders: No Pertinent History Comment: A-Fib - Past Surgical History Past Surgical History: Yes Neuro Surgical History: No Pertinent History Cardiac History: Angioplasty, CABG, Cardiac Catheterization, Cardiac Stent, Internal Defibrillator, Pacemaker Respiratory Surgery: Chest Surgery GI Surgical History: No Pertinent History Genitourinary Surgical Hx: No Pertinent History Musculskeletal Surgical Hx: No Pertinent History Male Surgical History: No Pertinent History Other Surgical History: RUPTURED BELLY BUTTON. Right foot surgery. CABG x3 2005 Significant Family History: no pertinent family hx (No family history pertaining to this admission reported.) - Social History Smoking Status: Current every day smoker How long have you smoked: 35 years Exposure to second hand smoke: Yes Alcohol: None Drug Use: none - Social Determinants of Health Will the patient participate in the screening: Yes Do you worry about a steady place to live?: Yes Do you have any problems with any of the following?: No known problems In the past 12 months,have you had to go without utilities?: No Have you or anyone in your house had to go without enough: No Transportation Issues: No Has anyone in your support network made you feel unsafe?: No Does the patient want assistance with any of the above?: No Medications & Allergies Home Medications: Home Medication List Nitroglycerin 0.4 mg SL .PRN PRN 10/10/19 [History Confirmed 10/03/24] Tamsulosin HCl 0.4 mg [Flomax 0.4 MG] 0.8 mg PO DAILY 10/10/19 [History Confirmed 10/03/24] Atorvastatin Calcium [Lipitor 40Mg] 40 mg PO HS 06/19/21 [History Confirmed 10/03/24] Donepezil HCl 10 mg [Aricept 10 MG] 23 mg PO HS 06/19/21 [History Confirmed 10/03/24] Memantine HCl 5 mg [Namenda 5 MG] 10 mg PO BID 06/19/21 [History Confirmed 10/03/24] Ranolazine 500 MG [Ranexa 500 MG] 1,000 mg PO DAILY 06/19/21 [History Confirmed 10/03/24] Aspirin EC 81 mg [Ecotrin 81 mg] 81 mg PO DAILY #60 tablet 06/20/21 [Rx Confirmed 10/03/24] Levothyroxine Sodium 25 mcg PO DAILY 12/05/23 [History Confirmed 10/03/24] Midodrine HCl 2.5 mg PO TID 12/05/23 [History Confirmed 10/03/24] Aripiprazole 10 mg [Abilify 10 MG] 5 mg PO DAILY 10/03/24 [History Confirmed 10/03/24] Metformin HCl [Metformin HCl ER] 1,000 mg PO DAILY 10/05/24 [History Confirmed 10/05/24] Metoprolol Succinate 25 mg Xl* [Toprol-Xl 25MG Tablets] 25 mg PO BID 30 Days #60 tablet 10/06/24 [Rx] Rivaroxaban [Xarelto] 15 mg PO HS 21 Days #21 tablet 10/06/24 [Rx] Allergies/Adverse Reactions: Allergies Allergy/AdvReac Type Severity Reaction Status Date / Time No Known Drug Allergies Allergy Verified 10/02/24 13:43 Exam - Vitals Vital Signs: Vital Signs - 24 hr Temp Pulse Resp BP BP Pulse Ox 10/04/24 13:40 90 116/57 10/04/24 13:35 74 117/66 10/04/24 11:34 98.2 F 56 L 18 104/58 96 10/04/24 07:43 98.3 F 70 16 113/58 94 L 10/04/24 04:00 97.3 F 84 20 120/89 95 10/03/24 23:37 97.0 F 80 17 119/70 95 10/03/24 20:46 72 10/03/24 19:10 96.9 F 69 20 109/61 94 L 10/03/24 16:00 98.0 F 60 20 116/74 96 General:: no acute distress, alert HEENT: EOMI, No JVD Cardiovascular Exam: normal heart sounds, irregular, No murmur, No friction rub, No gallop Respiratory Exam: lungs clear SpO2: 96 Gastrointestinal/Abdomen Exam: normal bowel sounds Extremity Exam: other (2+ DP pulses bilaterally), No edema Neurologic: 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, confusion (mild related to his dementia), No motor deficits Results Vital Signs: Vital Signs - 24 hr Temp Pulse Resp BP BP Pulse Ox 10/04/24 13:40 90 116/57 10/04/24 13:35 74 117/66 10/04/24 11:34 98.2 F 56 L 18 104/58 96 10/04/24 07:43 98.3 F 70 16 113/58 94 L 10/04/24 04:00 97.3 F 84 20 120/89 95 10/03/24 23:37 97.0 F 80 17 119/70 95 10/03/24 20:46 72 10/03/24 19:10 96.9 F 69 20 109/61 94 L 10/03/24 16:00 98.0 F 60 20 116/74 96 Pain Assessment - Last Documented Pain Intensity 5 Pain Scale Used 0-10 Pain Scale Intake and Output: Intake & Output 10/02/24 10/03/24 10/04/24 10/05/24 11:59 11:59 11:59 11:59 Intake Total 960 1800 340 Output Total 1100 600 Balance -140 1200 340 Weight 67.6 kg LAB: I have reviewed the Labs in [employer]. Radiology Exams: Radiology Procedures Category Date Time Status ABDOMEN AND PELVIS W/0 CONTRAS [CT] Stat Exams 10/02/24 17:38 Completed CHEST 1 VIEW (PORTABLE) Stat Exams 10/02/24 14:21 Completed ECHO W/2D AND DOPPLER [US] Routine Exams 10/03/24 21:42 Taken TTE 10/04/2024: 1. Mildly dilated atria. Normal ventricular chamber sizes. 2. Mild concentric left ventricular hypertrophy. 3. Mildly depressed left ventricular systolic function due to mild global hypokinesis. Estimated EF 40-45%. 4. Unable to determine grade of diastolic dysfunction due to underlying atrial flutter. 5. Normal right ventricular systolic function. 6. Mild aortic sclerosis without stenosis. 7. Doppler: Mild tricuspid regurgitation. 8. Normal PA systolic pressure (25 mmHg). 9. Normal right atrial pressure (3 mmHg). 10. No pericardial effusion. 11. Pacer leads noted in right atrium and right ventricle. CXR (AP) 10/02/2024: S/P CABG. Left sided dual chamber PPM. NACPD. Regadenoson MPS 08/13/2023: 1. No ischemia. 2. LVEF 30%. CT of Abdomen and Pelvis without contrast 10/02/2024: 1. No acute findings. Tracing 1 Attestation: I have reviewed this EKG and interpreted as documented below. EKG Narrative: ECGs: 10/03/2024: Typical atrial flutter with variable AV block with occasional ventricular pacing at 69 bpm. No ischemic changes. 10/02/2024: Typical atrial flutter with variable AV block with occasional ventricular pacing at 82 bpm. No ischemic changes. Multi-Disciplinary Progress Notes: Multi-Disciplinary Progress Notes 10/04/24 01:36 Radiology Note by MARTINEZ RUIZ TRANSTHORACIC ECHOCARDIOGRAM 10/04/2024: 1. Mildly dilated atria. Normal ventricular chamber sizes. 2. Mild concentric left ventricular hypertrophy. 3. Mildly depressed left ventricular systolic function due to mild global hypokinesis. Estimated EF 40-45%. 4. Unable to determine grade of diastolic dysfunction due to underlying atrial flutter. 5. Normal right ventricular systolic function. 6. Mild aortic sclerosis without stenosis. 7. Doppler: Mild tricuspid regurgitation. 8. Normal PA systolic pressure (25 mmHg). 9. Normal right atrial pressure (3 mmHg). 10. No pericardial effusion. 11. Pacer lead noted in right atrium and right ventricle. Martinez Ruiz MD [facility] Initialized on 10/04/24 01:36 - END OF NOTE Assessment & Plan (1) Chest pain Current Visit: Yes Status: Acute Assessment & Plan: Presentation is not consistent with acute coronary syndrome with his negative troponin-I HS. Has both typical and atypical features for angina. Was not nitrate response with episode during today's encounter. Unable to reach his [id number] with medical POA by phone today to get more details of his medical history. Patient's dementia limits his ability to give a complete history. Will increase metoprolol succinate to 25 mg BID and recheck 2 troponins today 3 hours apart. Will follow BP on higher metoprolol dose with him also taking midodrine. Code(s): R07.9 - CHEST PAIN, UNSPECIFIED (2) CAD (coronary artery disease) Current Visit: Yes Status: Chronic Qualifiers: Coronary Disease-Associated Artery/Lesion type: bypass graft [place] vs. transplanted heart: [place] heart Associated angina: without angina Qualified Code(s): I25.810 - Atherosclerosis of coronary artery bypass graft(s) without angina pectoris Assessment & Plan: S/P CABG x3 in 2004 S/P PCI at unknown time. Lack of coronary ischemia on regadenoson MPS 14 month ago is reassuring as well as his negative troponins on day of presentation. Suspect his symptoms are noncardiac but will check repeat troponins today. If negative, OK to discharge patient from cardiac perspective and follow-up with his civil rights representative. Code(s): I25.10 - ATHSCL HEART DISEASE OF [place] CORONARY ARTERY W/O ANG PCTRS (3) Typical atrial flutter Current Visit: Yes Status: Chronic Assessment & Plan: Rapid ventricular response developed 5/2 am secondary to staff not knowing he was on metoprolol at home. This resolved with restarting this AV solange blocking agent. Due to his high risk of having an embolic event, will start Eliquis 5 mg by mouth BID. Code(s): I48.3 - TYPICAL ATRIAL FLUTTER - Encounter Encounter: "The entirety of this encounter was performed via Telemedicine using audio and visual". Patient granted permission for this type of encounter. Case discussed with Dariela Monteiro NP. Martinez Ruiz MD [facility] [phone]
[2024-10-04] MEDS: ZOFRAN ODT 4 MG PO PRN (14:45)
[2024-10-04] MEDS: Toprol-Xl 25MG Tablets PO SCH (22:12)
--- NOTE | 2024-10-05 05:43 | PCM.NOTE ---
Date and Time: 10/05/24 0542 Subjective Assessment: Mr. Davila is a 74-year-old male with a significant past medical history of dementia, coronary artery disease status post CABG, atrial flutter on Eliquis, hypertension, type 2 diabetes mellitus, hypothyroidism, and gout, who presented to the emergency department 10/02/24 with localized chest pain radiating to his left arm, jaw, and right ear, associated with nausea but without shortness of breath or other systemic complaints. Initial evaluation revealed an unremarkable EKG and two negative troponin sets. BNP was mildly elevated, but chest X-ray showed no acute cardiopulmonary findings. CT of the abdomen and pelvis was obtained due to associated nausea and was negative for intra-abdominal pathology. The patient was admitted for ACS rule-out and symptom monitoring on telemetry. Of note, creatinine was elevated at 1.47 compared to his 2023 baseline of 1.24, likely representing mild acute kidney injury, possibly prerenal in context of his ED presentation. His nausea appears non-specific and unrelated to any clear GI pathology, and he remains hemodynamically stable with no abdominal tenderness or lab abnormalities. Blood pressure has been trending low-normal, prompting a temporary hold on home antihypertensives. 10/03/24: Met and examined the patient at bedside. He endorses continued intermittent chest discomfort. He describes the pain as localized to the left chest and radiating to his left arm, jaw, and right ear, associated with nausea but without shortness of breath or other systemic complaints. No CP during my interview but states this occurred just about an hour ago. EKG reveals atrial flutter with a controlled ventricular rate of 69 bpm; however, nursing staff reports intermittent episodes of tachycardia with heart rates in the 130s. History is limited due to baseline cognitive impairment. After discussion with the patient's daughter and review of the outpatient medication list from his primary care provider, it appears the patient has not been adherent to his prescribed metoprolol regimen. Cardiology has been consulted for further evaluation and management of atrial flutter and rate control. 10/04/24: Met with and examined the patient at bedside. He again reports ongoing intermittent chest discomfort, described as localized to the left chest with radiation to the left arm, jaw, and right ear. The discomfort is associated with nausea but no shortness of breath or other systemic symptoms. He again was asymptomatic during our encounter today. Cardiology has been consulted for further evaluation and management of atrial flutter and rate control. The patient is noted to be hypernatremic today with MISHEL; heart rate is currently controlled, and we are awaiting cardiology recommendations for ongoing management. Echo from 10/04/24 shows mild atrial enlargement and normal ventricular chamber sizes. Mild concentric LVH is present with mildly reduced systolic function (EF 4045%) due to mild global hypokinesis. Diastolic function couldnt be assessed due to atrial flutter. RV function is normal. There is mild aortic sclerosis without stenosis and mild tricuspid regurgitation. PA pressure and RA pressure are normal. No pericardial effusion. Pacer leads noted in the right atrium and ventricle. 10/05/24: Met with patient bedside. No complaints this morning. During hospitalization, the patient was noted to have marked cognitive impairment with fluctuating lucidity. Due to significant confusion, poor short-term memory, and inability to safely manage medications or care independently, the patient is not safe for discharge home. He has expressed openness to care home placement. Case management has been engaged to assist with disposition planning, including [place] [facility]. Cardiology consulted and discussed case with Dr. Jeffrey. He does not feel that chest pain is consistent with acute coronary syndrome with his negative troponin-I HS. Has both typical and atypical features for angina. Was not nitrate response with episode during yesterday's encounter. Patient has a history of AFIB and was not taking his metoprolol at home. With HR's up to the 130's during admisision -Plan to increase metoprolol succinate to 25 mg BID and recheck 2 troponins today 3 hours apart. Will follow BP on higher metoprolol dose with him also taking midodrine. 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 commission director - Review of Systems Constitutional: No Symptoms Eyes: No Symptoms Ears, Nose, & Throat: No Symptoms Respiratory: No Symptoms Cardiac: No Symptoms Abdominal/Gastrointestinal: No Symptoms Genitourinary Symptoms: No Symptoms Musculoskeletal: No Symptoms Skin: No Symptoms Neurological: No Symptoms Psychological: No Symptoms Endocrine: No Symptoms Hematologic/Lymphatic: No Symptoms Immunological/Allergic: No Symptoms Objective Exam General Appearance: no apparent distress Neurologic Exam: alert, cooperative, disoriented, confusion Skin Exam: normal color Eye Exam: PERRL Ears, Nose, Throat Exam: normal ENT inspection Neck Exam: normal inspection Respiratory Exam: normal breath sounds, lungs clear Cardiovascular Exam: irregular Gastrointestinal/Abdomen Exam: soft, normal bowel sounds Extremity Exam: normal inspection Back Exam: normal inspection Male Genitalia Exam: deferred Rectal Exam: deferred Objective Data Vital Signs: Vital Signs - 24 hr Temp Pulse Resp BP BP Pulse Ox 10/05/24 04:00 97.9 F 62 20 124/57 95 10/04/24 23:39 97.2 F 62 18 119/57 95 10/04/24 20:00 67 10/04/24 19:47 97.1 F 61 20 116/65 96 10/04/24 16:00 97.5 F 60 18 110/63 94 L 10/04/24 14:35 96 10/04/24 13:40 90 116/57 10/04/24 13:35 74 117/66 10/04/24 11:34 98.2 F 56 L 18 104/58 96 10/04/24 07:43 98.3 F 70 16 113/58 94 L Pain Assessment - Last Documented Pain Intensity 5 Pain Scale Used 0-10 Pain Scale Intake and Output: Intake & Output 10/02/24 10/03/24 10/04/24 10/05/24 11:59 11:59 11:59 11:59 Intake Total 960 1800 1320 Output Total 1100 600 Balance -140 1200 1320 Weight 67.6 kg Lab Results: Lab Results-Last 24 Hours 10/04/24 10/04/24 10/04/24 Range/Units 06:42 06:42 07:32 WBC 7.4 (4.23-9.07) x10^3/uL RBC 4.64 (4.63-6.08) x10^6/uL Hgb 14.2 (13.7-17.5) g/dL Hct 43.7 (40.1-51.0) % MCV 94.2 H (79.0-92.2) fL MCH 30.6 (25.7-32.2) pg MCHC 32.5 (32.3-36.5) g/dL RDW 13.6 (11.6-14.4) % Plt Count 166 (163-337) x10^3/uL MPV 10.1 (9.4-12.4) fL Gran % 63.4 (34.0-67.9) % Immature Gran % (Auto) 0.4 (0.001-0.429) % Nucleat RBC Rel Count 0.0 (0.00-0.2) % Eos # (Auto) 0.17 (0.04-0.54) x10^3/uL Immature Gran # (Auto) 0.03 (0.001-0.031) x10^3u/L Absolute Lymphs (auto) 1.89 (1.32-3.57) x10^3/uL Absolute Monos (auto) 0.59 (0.30-0.82) x10^3/uL Absolute Nucleated RBC 0.00 (0.00-0.012) x10^3u/L Lymphocytes % 25.5 (21.8-53.1) % Monocytes % 8.0 (5.3-12.2) % Eosinophils % 2.3 (0.8-7.0) % Basophils % 0.4 (0.2-1.2) % Absolute Granulocytes 4.71 (1.78-5.38) x10^3/uL Basophils # 0.03 (0.01-0.08) x10^3/uL Sodium 148 H D (135-145) mmol/L Potassium 4.3 (3.5-5.1) mmol/L Chloride 108 H (98-107) mmol/L Carbon Dioxide 26 (22-30) mmol/L Anion Gap 18.3 H (5-15) MEQ/L BUN 23 H (9-20) mg/dL Creatinine 1.54 H (0.66-1.25) mg/dL Estimated GFR 46.5 ML/MIN Glucose 99 (74-106) mg/dL POC Glucometer 81 (74 to 106) mg/dL Calcium 9.3 (8.4-10.2) mg/dL Total Bilirubin 1.40 H (0.2-1.3) mg/dL AST 30 (17-59) U/L ALT 23 (0-50) U/L Alkaline Phosphatase 66 (38-126) U/L Troponin I (0.000-0.033) ng/mL Serum Total Protein 6.8 (6.3-8.2) g/dL Albumin 4.1 (3.5-5.0) g/dL 10/04/24 10/04/24 10/04/24 Range/Units 11:17 11:26 16:08 WBC (4.23-9.07) x10^3/uL RBC (4.63-6.08) x10^6/uL Hgb (13.7-17.5) g/dL Hct (40.1-51.0) % MCV (79.0-92.2) fL MCH (25.7-32.2) pg MCHC (32.3-36.5) g/dL RDW (11.6-14.4) % Plt Count (163-337) x10^3/uL MPV (9.4-12.4) fL Gran % (34.0-67.9) % Immature Gran % (Auto) (0.001-0.429) % Nucleat RBC Rel Count (0.00-0.2) % Eos # (Auto) (0.04-0.54) x10^3/uL Immature Gran # (Auto) (0.001-0.031) x10^3u/L Absolute Lymphs (auto) (1.32-3.57) x10^3/uL Absolute Monos (auto) (0.30-0.82) x10^3/uL Absolute Nucleated RBC (0.00-0.012) x10^3u/L Lymphocytes % (21.8-53.1) % Monocytes % (5.3-12.2) % Eosinophils % (0.8-7.0) % Basophils % (0.2-1.2) % Absolute Granulocytes (1.78-5.38) x10^3/uL Basophils # (0.01-0.08) x10^3/uL Sodium 141 (135-145) mmol/L Potassium 3.8 (3.5-5.1) mmol/L Chloride 104 (98-107) mmol/L Carbon Dioxide 27 (22-30) mmol/L Anion Gap 14.3 (5-15) MEQ/L BUN 24 H (9-20) mg/dL Creatinine 1.57 H (0.66-1.25) mg/dL Estimated GFR 45.4 ML/MIN Glucose 138 H (74-106) mg/dL POC Glucometer 124 H (74 to 106) mg/dL Calcium 9.0 (8.4-10.2) mg/dL Total Bilirubin 1.30 (0.2-1.3) mg/dL AST 27 (17-59) U/L ALT 19 (0-50) U/L Alkaline Phosphatase 59 (38-126) U/L Troponin I < 0.012 (0.000-0.033) ng/mL Serum Total Protein 6.8 (6.3-8.2) g/dL Albumin 4.0 (3.5-5.0) g/dL 10/04/24 10/04/24 10/04/24 Range/Units 16:46 18:55 22:16 WBC (4.23-9.07) x10^3/uL RBC (4.63-6.08) x10^6/uL Hgb (13.7-17.5) g/dL Hct (40.1-51.0) % MCV (79.0-92.2) fL MCH (25.7-32.2) pg MCHC (32.3-36.5) g/dL RDW (11.6-14.4) % Plt Count (163-337) x10^3/uL MPV (9.4-12.4) fL Gran % (34.0-67.9) % Immature Gran % (Auto) (0.001-0.429) % Nucleat RBC Rel Count (0.00-0.2) % Eos # (Auto) (0.04-0.54) x10^3/uL Immature Gran # (Auto) (0.001-0.031) x10^3u/L Absolute Lymphs (auto) (1.32-3.57) x10^3/uL Absolute Monos (auto) (0.30-0.82) x10^3/uL Absolute Nucleated RBC (0.00-0.012) x10^3u/L Lymphocytes % (21.8-53.1) % Monocytes % (5.3-12.2) % Eosinophils % (0.8-7.0) % Basophils % (0.2-1.2) % Absolute Granulocytes (1.78-5.38) x10^3/uL Basophils # (0.01-0.08) x10^3/uL Sodium (135-145) mmol/L Potassium (3.5-5.1) mmol/L Chloride (98-107) mmol/L Carbon Dioxide (22-30) mmol/L Anion Gap (5-15) MEQ/L BUN (9-20) mg/dL Creatinine (0.66-1.25) mg/dL Estimated GFR ML/MIN Glucose (74-106) mg/dL POC Glucometer 163 H 153 H (74 to 106) mg/dL Calcium (8.4-10.2) mg/dL Total Bilirubin (0.2-1.3) mg/dL AST (17-59) U/L ALT (0-50) U/L Alkaline Phosphatase (38-126) U/L Troponin I < 0.012 (0.000-0.033) ng/mL Serum Total Protein (6.3-8.2) g/dL Albumin (3.5-5.0) g/dL Radiology Exams: Radiology Procedures Category Date Time Status ECHO W/2D AND DOPPLER [US] Routine Exams 10/03/24 21:42 Taken Medications: Medications Generic Name Dose Route Start Last Admin Trade Name Freq PRN Reason Stop Dose Admin Hydrocodone Bitart/Acetaminophen 1 tab 10/03/24 13:42 Hydrocodone/Apap 5/325 1 Tab Tablet PO 10/08/24 13:41 Q8HPRN PRN PAIN Aripiprazole 5 mg 10/03/24 14:00 10/04/24 08:41 Aripiprazole 10 Mg Tablet PO 11/02/24 13:59 5 mg DAILY LINA Administration Aspirin 81 mg 10/03/24 14:00 10/04/24 08:40 Aspirin 81 Mg Tablet.Ec PO 11/02/24 13:59 81 mg DAILY LINA Administration Donepezil HCl 10 mg 10/03/24 22:00 10/04/24 22:12 Donepezil Hcl 10 Mg Tablet PO 11/02/24 21:59 10 mg BID LINA Administration Insulin Human Lispro 0 unit 10/02/24 20:59 Insulin Lispro 1 Unit SQ 11/01/24 20:58 UD PRN HYPERGLYCEMIA Levothyroxine Sodium 25 mcg 10/03/24 14:00 10/04/24 08:41 Levothyroxine Sodium 25 Mcg Tablet PO 11/02/24 13:59 25 mcg DAILY LINA Administration Lorazepam 1 mg 10/03/24 13:42 10/04/24 02:08 Lorazepam 1 Mg Tablet PO 11/02/24 13:41 1 mg TID PRN PRN Administration ANXIETY Memantine 10 mg 10/03/24 22:00 10/04/24 22:12 Memantine Hcl 5 Mg Tablet PO 11/02/24 21:59 10 mg BID LINA Administration Metoprolol Succinate 25 mg 10/04/24 22:00 10/04/24 22:12 Metoprolol Succinate 25 Mg Xl Tab PO 11/03/24 21:59 25 mg BID LINA Administration Midodrine 2.5 mg 10/03/24 17:00 10/04/24 17:18 Midodrine Hcl 5 Mg Tablet PO 11/02/24 16:59 Not Given TIDWM LINA Nicotine 21 mg 10/02/24 21:00 10/04/24 22:10 Nicotine 21 Mg/Patch Patch TOP 11/01/24 20:59 21 mg Q24H LINA Administration Nitroglycerin 0.4 mg 10/03/24 13:42 10/04/24 13:40 Nitroglycerin 0.4 Mg Tablet Bottle SL 11/02/24 13:41 0.4 mg .PRN PRN Administration CHEST PAIN Ondansetron HCl 4 mg 10/04/24 13:29 10/04/24 14:45 Zofran 4 Mg/Udtablet Orally Disintegrating PO 11/03/24 13:28 4 mg Q4H PRN PRN Administration NAUSEA/VOMITING Ranolazine 1,000 mg 10/03/24 14:00 10/04/24 08:40 Ranolazine 500 Mg Tab.Sr.12h PO 11/02/24 13:59 1,000 mg DAILY LINA Administration Simvastatin 40 mg 10/03/24 22:00 10/04/24 22:12 Simvastatin 20 Mg Tablet PO 11/02/24 21:59 40 mg HS LINA Administration Tamsulosin HCl 0.8 mg 10/03/24 14:00 10/04/24 08:39 Tamsulosin Hcl 0.4 Mg Cap PO 11/02/24 13:59 0.8 mg DAILY LINA Administration Trazodone HCl 50 mg 10/03/24 22:00 10/04/24 22:12 Trazodone Hcl 50 Mg Tablet PO 11/02/24 21:59 50 mg HS LINA Administration Discontinued Medications Generic Name Dose Route Start Last Admin Trade Name Freq PRN Reason Stop Dose Admin Sodium Chloride 1,000 mls @ 100 mls/hr 10/02/24 15:45 10/02/24 16:06 Sodium Chloride 0.9% 1000 Ml IV 11/01/24 15:44 100 mls/hr .Q10H LINA Administration Sodium Chloride Confirm 10/02/24 16:05 Sodium Chloride 0.9% 1000 Ml Administered 10/02/24 16:06 Dose 1,000 mls @ ud .ROUTE .STK-MED ONE Sodium Chloride 1,000 mls @ 100 mls/hr 10/02/24 21:00 10/02/24 22:11 Sodium Chloride 0.9% 1000 Ml IV 11/01/24 20:59 Not Given .Q10H LINA Dextrose/Sodium Chloride 500 mls @ 50 mls/hr 10/04/24 08:00 Dextrose 5%-1/2ns Iv Soln. 500 Ml IV 11/03/24 07:59 .Q10H LINA Dextrose/Sodium Chloride 500 mls @ 50 mls/hr 10/04/24 08:00 10/04/24 08:39 Dextrose 5%-1/2ns Iv Soln. 500 Ml IV 10/04/24 17:59 50 mls/hr .Q10H LINA Administration Metoprolol Succinate 12.5 mg 10/03/24 08:30 10/03/24 11:21 Metoprolol Succinate 25 Mg Xl Tab PO 10/03/24 08:31 Not Given ONCE ONE Metoprolol Succinate 25 mg 10/03/24 10:00 10/04/24 08:41 Metoprolol Succinate 25 Mg Xl Tab PO 11/02/24 09:59 25 mg DAILY LINA Administration Ondansetron HCl 4 mg 10/04/24 13:02 Ondansetron Hcl 4 Mg/2 Ml Vial IV 11/03/24 13:01 Q6H PRN PRN NAUSEA/VOMITING Assessment/Plan (1) Chest pain Current Visit: Yes Status: Acute Assessment & Plan: -EKG with aflutter HR 69 -Trops x 3 negative -tele -UDS negative -echo ordered and pending -CXR No cardiomegaly- minimal infiltrate/atelectasis without consolidation/effusion -abdominal CT with fecal stasis otherwise negative -Cardiology consulted - appreciate recs -Patient does not take home meds as prescribed 10/04: -cards consult pending -Echo from 10/04/24 shows mild atrial enlargement and normal ventricular chamber sizes. Mild concentric LVH is present with mildly reduced systolic function (EF 4045%) due to mild global hypokinesis. Diastolic function couldnt be assessed due to atrial flutter. RV function is normal. There is mild aortic sclerosis without stenosis and mild tricuspid regurgitation. PA pressure and RA pressure are normal. No pericardial effusion. Pacer leads noted in the right atrium and ventricle. 10/05: -Discussed case with Dr. Jeffrey- agree with plan. He does not feel that chest pain is consistent with acute coronary syndrome with his negative troponin-I HS. Has both typical and atypical features for angina. Was not nitrate response with episode during yesterday's encounter. Patient has a history of AFIB and was not taking his metoprolol at home. With HR's up to the 130's during admisision -Plan to increase metoprolol succinate to 25 mg BID and recheck 2 troponins today 3 hours apart. Will follow BP on higher metoprolol dose with him also taking midodrine. 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 commission director Code(s): R07.9 - CHEST PAIN, UNSPECIFIED (2) Nausea Current Visit: Yes Status: Acute Assessment & Plan: -abdomen CT final as stated above -anti emetics prn -LFTs/lipase unremarkable 10/04: -resolved Code(s): R11.0 - NAUSEA (3) MISHEL (acute kidney injury) Current Visit: Yes Status: Acute Assessment & Plan: -Creatinine was 1.24 back in 2023 -Admission creatinine 1.5 now at 1.47 - improved -Received IVF in ED -Avoid nephrotoxins -Monitor renal/lytes 10/04: -creat at 1.54- gentle hydration initiated in the setting of hypernatremia - d5 1/2 NS 10/05: -Unable to maintain IV access in patient as he keeps removing it- unknown baseline creat truly -Nursing advised to encourage oral fluid intake Code(s): N17.9 - ACUTE KIDNEY FAILURE, UNSPECIFIED Hypernatremia - sodium level at 148- no edema on exam -Will start d5 1/2 NS- for 500ml and reassess this afternoon - monitor for fluid overload 10/05/24: -resolved - sodium reviewed at 141 (4) Type 2 diabetes mellitus Current Visit: Yes Status: Acute Assessment & Plan: -ADA diet -SSI -A1c (5) HTN (hypertension) Current Visit: Yes Status: Acute Assessment & Plan: -Holding BP meds due to hypotension on admission Code(s): I10 - ESSENTIAL (PRIMARY) HYPERTENSION (6) CAD (coronary artery disease) Current Visit: Yes Status: Acute Assessment & Plan: -Status post CABG -resume home meds Code(s): I25.10 - ATHSCL HEART DISEASE OF [place] CORONARY ARTERY W/O ANG PCTRS (7) Afib Current Visit: Yes Status: Acute Assessment & Plan: -Continue Eliquis/beta-lucie -Heart rate now controlled -cards consulted for further evaluation and management of atrial flutter and rate control 10/05: -Cardiology consulted- note reviewed and plan discussed - agree with increase metoprolol succinate to 25 mg BID and recheck 2 troponins today 3 hours apart. Will follow BP on higher metoprolol dose with him also taking midodrine. Okay to discharge Code(s): I48.91 - UNSPECIFIED ATRIAL FIBRILLATION (8) Dementia Current Visit: Yes Status: Acute Assessment & Plan: -continue home meds -Supportive therapy -Patient lives alone might need placement will involve child support case officer 10/05: -During hospitalization, the patient was noted to have marked cognitive impairment with fluctuating lucidity. Due to significant confusion, poor short- term memory, and inability to safely manage medications or care independently, the patient is not safe for discharge home. He has expressed openness to care home placement. Case management has been engaged to assist with disposition planning, including evaluation for [place] [facility] facility [facility]. Code(s): F03.90 - UNSP DEMENTIA, UNSP SEVERITY, WITHOUT BEH/PSYCH/MOOD/ANX (9) Tobacco dependence Current Visit: Yes Status: Acute Assessment & Plan: -Patient smokes 2 pack/day -nicotine patch DVT prophylaxis SCD/Eliquis CODE STATUS full Code(s): R07.9 - CHEST PAIN, UNSPECIFIED (2) Nausea Current Visit: Yes Status: Acute Code(s): R11.0 - NAUSEA (3) MISHEL (acute kidney injury) Current Visit: Yes Status: Acute Code(s): N17.9 - ACUTE KIDNEY FAILURE, UNSPECIFIED (4) Type 2 diabetes mellitus Current Visit: Yes Status: Acute (5) HTN (hypertension) Current Visit: Yes Status: Acute Code(s): I10 - ESSENTIAL (PRIMARY) HYPERTENSION (6) CAD (coronary artery disease) Current Visit: Yes Status: Chronic Qualifiers: Qualified Code(s): I25.810 - Atherosclerosis of coronary artery bypass graft(s) without angina pectoris Code(s): I25.10 - ATHSCL HEART DISEASE OF [place] CORONARY ARTERY W/O ANG PCTRS (7) Afib Current Visit: Yes Status: Acute Code(s): I48.91 - UNSPECIFIED ATRIAL FIBRILLATION (8) Dementia Current Visit: Yes Status: Acute Code(s): F03.90 - UNSP DEMENTIA, UNSP SEVERITY, WITHOUT BEH/PSYCH/MOOD/ANX (9) Tobacco dependence Current Visit: Yes Status: Acute Code(s): F17.200 - NICOTINE DEPENDENCE, UNSPECIFIED, UNCOMPLICATED (10) Hypernatremia Current Visit: Yes Status: Acute Code(s): E87.0 - HYPEROSMOLALITY AND HYPERNATREMIA (11) Hyponatremia Current Visit: No Status: Acute Code(s): E87.1 - HYPO-OSMOLALITY AND HYPONATREMIA
[2024-10-05 09:01] LABS: Absolute Neutrophil Ct (ANC) 3.78 x10^3/uL (1.78-5.38); BASOPHIL % 0.7 % (0.2-1.2); Basophil (Absolute #) 0.04 x10^3/uL (0.01-0.08); Eosinophil % 2.6 % (0.8-7.0); Eosinophil (Absolute #) 0.16 x10^3/uL (0.04-0.54); Hematocrit 40.1 % (40.1-51.0); Hemoglobin 13.2 g/dL (13.7-17.5); IMMATURE GRAN # 0.02 x10^3u/L (0.001-0.031); IMMATURE GRAN % 0.3 % (0.001-0.429); Lymphocyte (Absolute #) 1.57 x10^3/uL (1.32-3.57); Lymphocytes % 25.9 % (21.8-53.1); Mean Cell Volume 93.7 fL (79.0-92.2); Mean Corpuscular Hemoglobin 30.8 pg (25.7-32.2); Mean Corpuscular Hgb Concent. 32.9 g/dL (32.3-36.5); Mean Platelet Volume 10.5 fL (9.4-12.4); Monocytes % 8.2 % (5.3-12.2); Neutrophil % 62.3 % (34.0-67.9); Platelet Count 168 x10^3/uL (163-337); Red Blood Count 4.28 x10^6/uL (4.63-6.08); White Blood Count 6.1 x10^3/uL (4.23-9.07)
[2024-10-05 09:06] LABS: ALBUMIN 3.6 g/dL (3.5-5.0); ANION GAP 12.8 MEQ/L (5-15); BILIRUBIN,TOTAL 1.4 mg/dL (0.2-1.3); Calcium 8.8 mg/dL (8.4-10.2); Creatinine 1 1.22 mg/dL (0.66-1.25); EST GLOMERULAR FILTRATION RATE 61.4 ML/MIN; Total Protein 6.3 g/dL (6.3-8.2)
[2024-10-05] MEDS: ELIQUIS 2.5 MG TABLET PO SCH (12:50)
[2024-10-05] MEDS: XARELTO 10 MG TABLET PO ONE (21:04)
[2024-10-06 05:25] LABS: Absolute Neutrophil Ct (ANC) 5.41 x10^3/uL (1.78-5.38); BASOPHIL % 0.4 % (0.2-1.2); Basophil (Absolute #) 0.03 x10^3/uL (0.01-0.08); Eosinophil % 1.5 % (0.8-7.0); Eosinophil (Absolute #) 0.12 x10^3/uL (0.04-0.54); Hematocrit 44.4 % (40.1-51.0); Hemoglobin 14.3 g/dL (13.7-17.5); IMMATURE GRAN # 0.04 x10^3u/L (0.001-0.031); IMMATURE GRAN % 0.5 % (0.001-0.429); Lymphocyte (Absolute #) 1.66 x10^3/uL (1.32-3.57); Mean Cell Volume 94.9 fL (79.0-92.2); Mean Corpuscular Hemoglobin 30.6 pg (25.7-32.2); Mean Corpuscular Hgb Concent. 32.2 g/dL (32.3-36.5); Mean Platelet Volume 10.3 fL (9.4-12.4); Monocyte (Absolute #) 0.63 x10^3/uL (0.30-0.82); Neutrophil % 68.6 % (34.0-67.9); Platelet Count 167 x10^3/uL (163-337); Red Blood Count 4.68 x10^6/uL (4.63-6.08); Red Cell Distribution Width 13.8 % (11.6-14.4); White Blood Count 7.9 x10^3/uL (4.23-9.07)
[2024-10-06 05:46] LABS: ALBUMIN 3.8 g/dL (3.5-5.0); Calcium 8.9 mg/dL (8.4-10.2); Creatinine 1 1.42 mg/dL (0.66-1.25); EST GLOMERULAR FILTRATION RATE 51.2 ML/MIN; Potassium 4.1 mmol/L (3.5-5.1); Total Protein 6.6 g/dL (6.3-8.2)
--- NOTE | 2024-10-06 11:53 | PCM.DS ---
Discharge Summary Date of Admission: 10/02/24 20:12 Date of Discharge: 10/06/24 Admitting Physician: KAN FONG MD Consults: Consults on Case 10/03/24 12:27 Consult Cardiology ROUTINE Primary Care Provider: LUANA ARMSTRONG Allergies Allergies No Known Drug Allergies Allergy (Verified 10/02/24 13:43) Hospital Summary - Hospital Course Hospital Course: The patient is a 74-year-old male with a history of dementia, coronary artery disease (s/p CABG), atrial flutter, hypertension, type 2 diabetes, hypothyroidism, and gout, who has been hospitalized for 5 days following presentation with localized chest pain radiating to his left arm, jaw, and right ear, associated with nausea. Initial evaluation ruled out acute coronary syndrome (ACS) with negative troponins and unremarkable imaging. During hospitalization, the patient experienced intermittent chest discomfort and atrial flutter, which was poorly controlled due to non-adherence to his metoprolol regimen. Cardiology was consulted, and the metoprolol dose was increased to 25 mg BID. An echocardiogram showed mild left ventricular hypertrophy and a reduced ejection fraction (4045%), but no acute cardiac issues. His kidney function returned to baseline, and constipation was resolved. Due to marked cognitive impairment and an inability to safely manage medications, the patient is not safe for discharge home and is being considered for placement in a [facility] facility. The patient is stable with controlled heart rate, and case management is coordinating discharge. He reports feeling fine and is ready for discharge. Pt is psychologically stable and not a danger to himself or others. - Vitals & Intake/Output Vital Signs: Vital Signs Temperature 97.3 F 10/06/24 11:34 Pulse Rate 73 10/06/24 11:34 Respiratory Rate 20 10/06/24 11:34 Blood Pressure 101/59 10/06/24 11:34 O2 Sat by Pulse Oximetry 94 L 10/06/24 11:34 Intake & Output: Intake & Output 10/03/24 10/04/24 10/05/24 10/06/24 11:59 11:59 11:59 11:59 Intake Total 960 1800 1320 1420 Output Total 9115 848 2527 Balance -140 1200 1320 -230 Weight 67.6 kg - Lab Result Diagrams: 10/06/24 04:59 10/06/24 04:59 Lab Results-Last 24 Hrs: Lab Results-Last 24 Hours 10/05/24 10/05/24 10/06/24 Range/Units 16:12 21:25 04:59 WBC 7.9 (4.23-9.07) x10^3/uL RBC 4.68 (4.63-6.08) x10^6/uL Hgb 14.3 (13.7-17.5) g/dL Hct 44.4 (40.1-51.0) % MCV 94.9 H (79.0-92.2) fL MCH 30.6 (25.7-32.2) pg MCHC 32.2 L (32.3-36.5) g/dL RDW 13.8 (11.6-14.4) % Plt Count 167 (163-337) x10^3/uL MPV 10.3 (9.4-12.4) fL Gran % 68.6 H (34.0-67.9) % Immature Gran % (Auto) 0.5 H (0.001-0.429) % Nucleat RBC Rel Count 0.0 (0.00-0.2) % Eos # (Auto) 0.12 (0.04-0.54) x10^3/uL Immature Gran # (Auto) 0.04 H (0.001-0.031) x10^3u/L Absolute Lymphs (auto) 1.66 (1.32-3.57) x10^3/uL Absolute Monos (auto) 0.63 (0.30-0.82) x10^3/uL Absolute Nucleated RBC 0.00 (0.00-0.012) x10^3u/L Lymphocytes % 21.0 L (21.8-53.1) % Monocytes % 8.0 (5.3-12.2) % Eosinophils % 1.5 (0.8-7.0) % Basophils % 0.4 (0.2-1.2) % Absolute Granulocytes 5.41 H (1.78-5.38) x10^3/uL Basophils # 0.03 (0.01-0.08) x10^3/uL Sodium (135-145) mmol/L Potassium (3.5-5.1) mmol/L Chloride (98-107) mmol/L Carbon Dioxide (22-30) mmol/L Anion Gap (5-15) MEQ/L BUN (9-20) mg/dL Creatinine (0.66-1.25) mg/dL Estimated GFR ML/MIN Glucose (74-106) mg/dL POC Glucometer 230 H 104 (74 to 106) mg/dL Calcium (8.4-10.2) mg/dL Total Bilirubin (0.2-1.3) mg/dL AST (17-59) U/L ALT (0-50) U/L Alkaline Phosphatase (38-126) U/L Serum Total Protein (6.3-8.2) g/dL Albumin (3.5-5.0) g/dL 10/06/24 10/06/24 10/06/24 Range/Units 04:59 07:29 11:13 WBC (4.23-9.07) x10^3/uL RBC (4.63-6.08) x10^6/uL Hgb (13.7-17.5) g/dL Hct (40.1-51.0) % MCV (79.0-92.2) fL MCH (25.7-32.2) pg MCHC (32.3-36.5) g/dL RDW (11.6-14.4) % Plt Count (163-337) x10^3/uL MPV (9.4-12.4) fL Gran % (34.0-67.9) % Immature Gran % (Auto) (0.001-0.429) % Nucleat RBC Rel Count (0.00-0.2) % Eos # (Auto) (0.04-0.54) x10^3/uL Immature Gran # (Auto) (0.001-0.031) x10^3u/L Absolute Lymphs (auto) (1.32-3.57) x10^3/uL Absolute Monos (auto) (0.30-0.82) x10^3/uL Absolute Nucleated RBC (0.00-0.012) x10^3u/L Lymphocytes % (21.8-53.1) % Monocytes % (5.3-12.2) % Eosinophils % (0.8-7.0) % Basophils % (0.2-1.2) % Absolute Granulocytes (1.78-5.38) x10^3/uL Basophils # (0.01-0.08) x10^3/uL Sodium 139 (135-145) mmol/L Potassium 4.1 (3.5-5.1) mmol/L Chloride 106 (98-107) mmol/L Carbon Dioxide 23 (22-30) mmol/L Anion Gap 14.0 (5-15) MEQ/L BUN 28 H (9-20) mg/dL Creatinine 1.42 H (0.66-1.25) mg/dL Estimated GFR 51.2 ML/MIN Glucose 113 H (74-106) mg/dL POC Glucometer 141 H 132 H (74 to 106) mg/dL Calcium 8.9 (8.4-10.2) mg/dL Total Bilirubin 1.00 (0.2-1.3) mg/dL AST 26 (17-59) U/L ALT 16 (0-50) U/L Alkaline Phosphatase 63 (38-126) U/L Serum Total Protein 6.6 (6.3-8.2) g/dL Albumin 3.8 (3.5-5.0) g/dL Micro Results-Entire Visit: Accuchecks Date 10/06/24 Date 10/06/24 Date 10/05/24 Time 16:41 - Procedures and Test Procedures and Tests throughout Hospitalization: Therapy Orders & Screens 10/03/24 07:51 EKG STAT Comment: Diagnosis: Chest pain, ACS Discharge Exam General Appearance: no apparent distress, alert Neurologic Exam: alert, oriented x 3, cooperative, normal mood/affect, nml cerebellar function, sensation nml, No motor deficits Eye Exam: PERRL, EOMI, eyes nml inspection Ears, Nose, Throat Exam: normal ENT inspection, pharynx normal, moist mucous membranes Neck Exam: normal inspection, non-tender, supple, full range of motion Respiratory Exam: normal breath sounds, lungs clear, No respiratory distress Cardiovascular Exam: regular rate/rhythm, normal heart sounds Gastrointestinal/Abdomen Exam: soft, No tenderness, No mass Male Genitalia Exam: deferred Rectal Exam: deferred Back Exam: normal inspection, normal range of motion, No CVA tenderness, No vertebral tenderness Extremity Exam: normal inspection, normal range of motion Skin Exam: normal color, warm, dry Final Diagnosis/Problem List - Final Discharge Diagnosis/Problem (1) Flutter-fibrillation Current Visit: No Status: Acute Assessment & Plan: - Cardiology consult- reviewed note and agree with plan of care. - Metoprolol succinate increased to 25 mg BID - Continue Xarelto - CBC, CMP reviewed - TELE - EKG - Echo: TRANSTHORACIC ECHOCARDIOGRAM 10/04/2024: 1. Mildly dilated atria. Normal ventricular chamber sizes. 2. Mild concentric left ventricular hypertrophy. 3. Mildly depressed left ventricular systolic function due to mild global hypokinesis. Estimated EF 40-45%. 4. Unable to determine grade of diastolic dysfunction due to underlying atrial flutter. 5. Normal right ventricular systolic function. 6. Mild aortic sclerosis without stenosis. 7. Doppler: Mild tricuspid regurgitation. 8. Normal PA systolic pressure (25 mmHg). 9. Normal right atrial pressure (3 mmHg). 10. No pericardial effusion. 11. Pacer lead noted in right atrium and right ventricle. Code(s): OUG5096 - (2) Chest pain Current Visit: Yes Status: Acute Assessment & Plan: - CXR reviewed - TROPS negative - Echo reviewed - Metoprolol succinate increased to 25 mg BID - F/U OP with cardiology Code(s): R07.9 - CHEST PAIN, UNSPECIFIED (3) Nausea Current Visit: Yes Status: Acute Assessment & Plan: - Zofran ODT PRN Code(s): R11.0 - NAUSEA (4) Dementia Current Visit: Yes Status: Chronic Assessment & Plan: - Sxs worsen at night - Needs placement- CM to assist - Continue home meds Code(s): F03.90 - UNSP DEMENTIA, UNSP SEVERITY, WITHOUT BEH/PSYCH/MOOD/ANX (5) Hypothyroidism Current Visit: Yes Status: Chronic Assessment & Plan: - TSH pending - Continue Synthroid Code(s): E03.9 - HYPOTHYROIDISM, UNSPECIFIED (6) HTN (hypertension) Current Visit: Yes Status: Chronic Assessment & Plan: - Continue Metoprolol Code(s): I10 - ESSENTIAL (PRIMARY) HYPERTENSION (7) Tobacco dependence Current Visit: Yes Status: Chronic Assessment & Plan: - Advised cessation - Nicotine patch Code(s): F17.200 - NICOTINE DEPENDENCE, UNSPECIFIED, UNCOMPLICATED (8) Type 2 diabetes mellitus Current Visit: Yes Status: Chronic Assessment & Plan: -ADA diet -SSI/ accuchecks ac/hs -A1c 6.75- controlled (9) CAD (coronary artery disease) Current Visit: Yes Status: Chronic Assessment & Plan: -Status post CABG - Resume Xarelto and start metoprolol per cardiology recs Code(s): I25.10 - ATHSCL HEART DISEASE OF [place] CORONARY ARTERY W/O ANG PCTRS (10) [id number] renal failure Current Visit: Yes Status: Resolved Assessment & Plan: - At baseline renal function after reviewing old labs. Code(s): N17.9 - ACUTE KIDNEY FAILURE, UNSPECIFIED; N18.9 - CHRONIC KIDNEY DISEASE, UNSPECIFIED (11) Constipation Current Visit: Yes Status: Resolved Assessment & Plan: - + BM - resolved - Abd pain resolved - CT abd/pelvis reviewed Code(s): K59.00 - CONSTIPATION, UNSPECIFIED (12) Hypernatremia Current Visit: Yes Status: Resolved Assessment & Plan: - resolved Code(s): E87.0 - HYPEROSMOLALITY AND HYPERNATREMIA - Discharge Discharge Date: 10/06/24 ([facility]) Disposition: XFER OTHER Condition: Stable Prescriptions: New Metoprolol Succinate 25 mg Xl* [Toprol-Xl 25MG Tablets] 25 mg PO BID 30 Days #60 tablet Rivaroxaban [Xarelto] 15 mg PO HS 21 Days #21 tablet Continue Tamsulosin HCl 0.4 mg [Flomax 0.4 MG] 0.8 mg PO DAILY Nitroglycerin 0.4 mg SL .PRN PRN PRN Reason: Chest Pain Atorvastatin Calcium [Lipitor 40Mg] 40 mg PO HS Ranolazine 500 MG [Ranexa 500 MG] 1,000 mg PO DAILY Memantine HCl 5 mg [Namenda 5 MG] 10 mg PO BID Donepezil HCl 10 mg [Aricept 10 MG] 23 mg PO HS Aspirin EC 81 mg [Ecotrin 81 mg] 81 mg PO DAILY #60 tablet Midodrine HCl 2.5 mg PO TID Levothyroxine Sodium 25 mcg PO DAILY Aripiprazole 10 mg [Abilify 10 MG] 5 mg PO DAILY Metformin HCl [Metformin HCl ER] 1,000 mg PO DAILY Discontinued Metoprolol Succinate 50 mg [Toprol Xl 50 MG] 25 mg PO DAILY Additional Instructions: [facility] HAS BEEN SET UP. THEY WILL CONTACT YOU TO ARRANGE A TIME TO COME SEE YOU. THEIR PHONE # IS [phone]. Follow up with: LUANA ARMSTRONG MD [Primary Care Provider, [facility]] - 10/07/24 3:00 pm
[2024-10-06] MEDS: XARELTO 10 MG TABLET PO SCH (17:29)
[2024-10-07 04:49] LABS: Hematocrit 46.8 % (40.1-51.0); Hemoglobin 15.5 g/dL (13.7-17.5); Mean Cell Volume 92.5 fL (79.0-92.2); Mean Corpuscular Hemoglobin 30.6 pg (25.7-32.2); Mean Corpuscular Hgb Concent. 33.1 g/dL (32.3-36.5); Mean Platelet Volume 10.4 fL (9.4-12.4); Platelet Count 182 x10^3/uL (163-337); Red Blood Count 5.06 x10^6/uL (4.63-6.08); Red Cell Distribution Width 13.8 % (11.6-14.4); White Blood Count 9.4 x10^3/uL (4.23-9.07)
[2024-10-07 05:07] LABS: ANION GAP 12.6 MEQ/L (5-15); BILIRUBIN,TOTAL 0.9 mg/dL (0.2-1.3); Calcium 9.2 mg/dL (8.4-10.2); Creatinine 1 1.24 mg/dL (0.66-1.25); EST GLOMERULAR FILTRATION RATE 60.3 ML/MIN; Potassium 4.5 mmol/L (3.5-5.1); Total Protein 6.9 g/dL (6.3-8.2)
--- NOTE | 2024-10-07 09:48 | PCM.NOTE ---
Date and Time: 10/07/24 0942 Subjective Assessment: 10/06/24 The patient is a 74-year-old male with a history of dementia, coronary artery disease (s/p CABG), atrial flutter, hypertension, type 2 diabetes, hypothyroidism, and gout, who has been hospitalized for 5 days following presentation with localized chest pain radiating to his left arm, jaw, and right ear, associated with nausea. Initial evaluation ruled out acute coronary syndrome (ACS) with negative troponins and unremarkable imaging. During hospitalization, the patient experienced intermittent chest discomfort and atrial flutter, which was poorly controlled due to non-adherence to his metoprolol regimen. Cardiology was consulted, and the metoprolol dose was increased to 25 mg BID. An echocardiogram showed mild left ventricular hypertrophy and a reduced ejection fraction (4045%), but no acute cardiac issues. His kidney function returned to baseline, and constipation was resolved. Due to marked cognitive impairment and an inability to safely manage medications, the patient is not safe for discharge home and is being considered for placement in a care home facility. The patient is stable with controlled heart rate, and case management is coordinating discharge. He reports feeling fine and is ready for discharge. Pt is psychologically stable and not a danger to himself or others. 10/07/24 Plan was for pt to d/c yesterday however this was denied per case management. They are currently working on a d/c plan. He continues to be confused and the longer pt is in the hospital the more confused he is getting. He appears to have hospital related delirium. Will keep blinds open and lights on during the day. Pt only oriented to self today. He denies any further concerns at this time. - Review of Systems Constitutional: Weakness, No Fever, No Chills Eyes: No Symptoms Ears, Nose, & Throat: No Symptoms Respiratory: No Cough, No Short Of Breath Cardiac: No Chest Pain, No Edema, No Syncope Abdominal/Gastrointestinal: No Abdominal Pain, No Nausea, No Vomiting, No Diarrhea Genitourinary Symptoms: No Dysuria Musculoskeletal: No Back Pain, No Neck Pain Skin: No Rash Neurological: No Dizziness, No Focal Weakness, No Sensory Changes Psychological: No Symptoms, Memory Loss, Other (Confusion) Endocrine: No Symptoms Hematologic/Lymphatic: No Symptoms Immunological/Allergic: No Symptoms Objective Exam General Appearance: no apparent distress, alert Neurologic Exam: alert, oriented x 3, cooperative, normal mood/affect, nml cerebellar function, sensation nml, confusion, motor weakness, No motor deficits Skin Exam: normal color, warm, dry Eye Exam: PERRL, EOMI, eyes nml inspection Ears, Nose, Throat Exam: normal ENT inspection, pharynx normal, moist mucous membranes Neck Exam: normal inspection, non-tender, supple, full range of motion Respiratory Exam: normal breath sounds, lungs clear, No respiratory distress Cardiovascular Exam: regular rate/rhythm, normal heart sounds Gastrointestinal/Abdomen Exam: soft, No tenderness, No mass Extremity Exam: normal inspection, normal range of motion Back Exam: normal inspection, normal range of motion, No CVA tenderness, No vertebral tenderness Male Genitalia Exam: deferred Rectal Exam: deferred Objective Data Vital Signs: Vital Signs - 24 hr Temp Pulse Resp BP Pulse Ox 10/07/24 07:46 97.7 F 65 15 111/77 94 L 10/07/24 04:00 97.1 F 75 13 125/79 93 L 10/06/24 23:53 98.0 F 97 H 30 H 120/76 93 L 10/06/24 20:00 98.0 F 67 22 98/70 93 L 10/06/24 16:00 97.5 F 102 H 20 134/70 93 L 10/06/24 15:14 96 10/06/24 11:34 97.3 F 73 20 101/59 94 L Pain Assessment - Last Documented Pain Intensity 0 Pain Scale Used 0-10 Pain Scale Intake and Output: Intake & Output 10/04/24 10/05/24 10/06/24 10/07/24 11:59 11:59 11:59 11:59 Intake Total 1800 1320 1420 720 Output Total 600 2300 Balance 1200 1320 -880 720 Lab Results: Lab Results-Last 24 Hours 10/06/24 10/06/24 10/06/24 Range/Units 04:59 11:13 16:17 WBC (4.23-9.07) x10^3/uL RBC (4.63-6.08) x10^6/uL Hgb (13.7-17.5) g/dL Hct (40.1-51.0) % MCV (79.0-92.2) fL MCH (25.7-32.2) pg MCHC (32.3-36.5) g/dL RDW (11.6-14.4) % Plt Count (163-337) x10^3/uL MPV (9.4-12.4) fL Sodium (135-145) mmol/L Potassium (3.5-5.1) mmol/L Chloride (98-107) mmol/L Carbon Dioxide (22-30) mmol/L Anion Gap (5-15) MEQ/L BUN (9-20) mg/dL Creatinine (0.66-1.25) mg/dL Estimated GFR ML/MIN Glucose (74-106) mg/dL POC Glucometer 132 H 132 H (74 to 106) mg/dL Calcium (8.4-10.2) mg/dL Total Bilirubin (0.2-1.3) mg/dL AST (17-59) U/L ALT (0-50) U/L Alkaline Phosphatase (38-126) U/L Serum Total Protein (6.3-8.2) g/dL Albumin (3.5-5.0) g/dL TSH 3rd Generation 0.692 (0.470-4.680) mIU/L 10/06/24 10/07/24 10/07/24 Range/Units 20:48 04:44 04:44 WBC 9.4 H (4.23-9.07) x10^3/uL RBC 5.06 (4.63-6.08) x10^6/uL Hgb 15.5 (13.7-17.5) g/dL Hct 46.8 (40.1-51.0) % MCV 92.5 H (79.0-92.2) fL MCH 30.6 (25.7-32.2) pg MCHC 33.1 (32.3-36.5) g/dL RDW 13.8 (11.6-14.4) % Plt Count 182 (163-337) x10^3/uL MPV 10.4 (9.4-12.4) fL Sodium 140 (135-145) mmol/L Potassium 4.5 (3.5-5.1) mmol/L Chloride 107 (98-107) mmol/L Carbon Dioxide 25 (22-30) mmol/L Anion Gap 12.6 (5-15) MEQ/L BUN 29 H (9-20) mg/dL Creatinine 1.24 (0.66-1.25) mg/dL Estimated GFR 60.3 ML/MIN Glucose 129 H (74-106) mg/dL POC Glucometer 148 H (74 to 106) mg/dL Calcium 9.2 (8.4-10.2) mg/dL Total Bilirubin 0.90 (0.2-1.3) mg/dL AST 30 (17-59) U/L ALT 20 (0-50) U/L Alkaline Phosphatase 63 (38-126) U/L Serum Total Protein 6.9 (6.3-8.2) g/dL Albumin 4.0 (3.5-5.0) g/dL TSH 3rd Generation (0.470-4.680) mIU/L 10/07/24 Range/Units 07:28 WBC (4.23-9.07) x10^3/uL RBC (4.63-6.08) x10^6/uL Hgb (13.7-17.5) g/dL Hct (40.1-51.0) % MCV (79.0-92.2) fL MCH (25.7-32.2) pg MCHC (32.3-36.5) g/dL RDW (11.6-14.4) % Plt Count (163-337) x10^3/uL MPV (9.4-12.4) fL Sodium (135-145) mmol/L Potassium (3.5-5.1) mmol/L Chloride (98-107) mmol/L Carbon Dioxide (22-30) mmol/L Anion Gap (5-15) MEQ/L BUN (9-20) mg/dL Creatinine (0.66-1.25) mg/dL Estimated GFR ML/MIN Glucose (74-106) mg/dL POC Glucometer 122 H (74 to 106) mg/dL Calcium (8.4-10.2) mg/dL Total Bilirubin (0.2-1.3) mg/dL AST (17-59) U/L ALT (0-50) U/L Alkaline Phosphatase (38-126) U/L Serum Total Protein (6.3-8.2) g/dL Albumin (3.5-5.0) g/dL TSH 3rd Generation (0.470-4.680) mIU/L Medications: Medications Generic Name Dose Route Start Last Admin Trade Name Freq PRN Reason Stop Dose Admin Aripiprazole 5 mg 10/03/24 14:00 10/07/24 09:16 Aripiprazole 10 Mg Tablet PO 11/02/24 13:59 5 mg DAILY LINA Administration Donepezil HCl 10 mg 10/03/24 22:00 10/07/24 09:15 Donepezil Hcl 10 Mg Tablet PO 11/02/24 21:59 10 mg BID LINA Administration Insulin Human Lispro 0 unit 10/02/24 20:59 Insulin Lispro 1 Unit SQ 11/01/24 20:58 UD PRN HYPERGLYCEMIA Levothyroxine Sodium 25 mcg 10/03/24 14:00 10/07/24 09:16 Levothyroxine Sodium 25 Mcg Tablet PO 11/02/24 13:59 25 mcg DAILY LINA Administration Memantine 10 mg 10/03/24 22:00 10/07/24 09:15 Memantine Hcl 5 Mg Tablet PO 11/02/24 21:59 10 mg BID LINA Administration Metoprolol Succinate 25 mg 10/04/24 22:00 10/07/24 09:16 Metoprolol Succinate 25 Mg Xl Tab PO 11/03/24 21:59 25 mg BID LINA Administration Midodrine 2.5 mg 10/03/24 17:00 10/07/24 08:19 Midodrine Hcl 5 Mg Tablet PO 11/02/24 16:59 2.5 mg TIDWM LINA Administration Nicotine 21 mg 10/02/24 21:00 10/06/24 22:08 Nicotine 21 Mg/Patch Patch TOP 11/01/24 20:59 21 mg Q24H LINA Administration Nitroglycerin 0.4 mg 10/03/24 13:42 10/04/24 13:40 Nitroglycerin 0.4 Mg Tablet Bottle SL 11/02/24 13:41 0.4 mg .PRN PRN Administration CHEST PAIN Ondansetron HCl 4 mg 10/04/24 13:29 10/04/24 14:45 Zofran 4 Mg/Udtablet Orally Disintegrating PO 11/03/24 13:28 4 mg Q4H PRN PRN Administration NAUSEA/VOMITING Ranolazine 1,000 mg 10/03/24 14:00 10/07/24 09:16 Ranolazine 500 Mg Tab.Sr.12h PO 11/02/24 13:59 1,000 mg DAILY LINA Administration Rivaroxaban 15 mg 10/06/24 18:00 10/06/24 17:29 Rivaroxaban 10 Mg Tablet PO 11/05/24 17:59 15 mg EVENING MEAL LINA Administration Simvastatin 40 mg 10/03/24 22:00 10/06/24 22:10 Simvastatin 20 Mg Tablet PO 11/02/24 21:59 40 mg HS LINA Administration Tamsulosin HCl 0.8 mg 10/03/24 14:00 10/07/24 09:15 Tamsulosin Hcl 0.4 Mg Cap PO 11/02/24 13:59 0.8 mg DAILY LINA Administration Discontinued Medications Generic Name Dose Route Start Last Admin Trade Name Freq PRN Reason Stop Dose Admin Hydrocodone Bitart/Acetaminophen 1 tab 10/03/24 13:42 Hydrocodone/Apap 5/325 1 Tab Tablet PO 10/08/24 13:41 Q8HPRN PRN PAIN Apixaban 5 mg 10/05/24 12:28 10/05/24 12:50 Apixaban 2.5 Mg Tablet PO 11/04/24 12:27 5 mg BID LINA Administration Aspirin 81 mg 10/03/24 14:00 10/05/24 09:48 Aspirin 81 Mg Tablet.Ec PO 11/02/24 13:59 81 mg DAILY LINA Administration Sodium Chloride 1,000 mls @ 100 mls/hr 10/02/24 15:45 10/02/24 16:06 Sodium Chloride 0.9% 1000 Ml IV 11/01/24 15:44 100 mls/hr .Q10H LINA Administration Sodium Chloride Confirm 10/02/24 16:05 Sodium Chloride 0.9% 1000 Ml Administered 10/02/24 16:06 Dose 1,000 mls @ ud .ROUTE .STK-MED ONE Sodium Chloride 1,000 mls @ 100 mls/hr 10/02/24 21:00 10/02/24 22:11 Sodium Chloride 0.9% 1000 Ml IV 11/01/24 20:59 Not Given .Q10H LINA Dextrose/Sodium Chloride 500 mls @ 50 mls/hr 10/04/24 08:00 Dextrose 5%-1/2ns Iv Soln. 500 Ml IV 11/03/24 07:59 .Q10H LINA Dextrose/Sodium Chloride 500 mls @ 50 mls/hr 10/04/24 08:00 10/04/24 08:39 Dextrose 5%-1/2ns Iv Soln. 500 Ml IV 10/04/24 17:59 50 mls/hr .Q10H LINA Administration Lorazepam 1 mg 10/03/24 13:42 10/04/24 02:08 Lorazepam 1 Mg Tablet PO 11/02/24 13:41 1 mg TID PRN PRN Administration ANXIETY Metoprolol Succinate 12.5 mg 10/03/24 08:30 10/03/24 11:21 Metoprolol Succinate 25 Mg Xl Tab PO 10/03/24 08:31 Not Given ONCE ONE Metoprolol Succinate 25 mg 10/03/24 10:00 10/04/24 08:41 Metoprolol Succinate 25 Mg Xl Tab PO 11/02/24 09:59 25 mg DAILY LINA Administration Ondansetron HCl 4 mg 10/04/24 13:02 Ondansetron Hcl 4 Mg/2 Ml Vial IV 11/03/24 13:01 Q6H PRN PRN NAUSEA/VOMITING Rivaroxaban 15 mg 10/05/24 21:00 10/05/24 21:04 Rivaroxaban 10 Mg Tablet PO 10/05/24 21:01 15 mg 2100 ONE Administration Trazodone HCl 50 mg 10/03/24 22:00 10/04/24 22:12 Trazodone Hcl 50 Mg Tablet PO 11/02/24 21:59 50 mg HS LINA Administration Multi-Disciplinary Progress Notes: Multi-Disciplinary Progress Notes 10/07/24 09:35 Case Management Note by Meka Davis/Ayanna RAMIREZ WITH [facility]- SHE REPORTS SHE WAS PATIENT'S PRIOR SITE SUPERVISING TECHNICAL OPERATOR AND WAS WORKING TO TRY TO DO AN AT HOME ASSESSMENT FOR CONT'D SERVICES. AT THAT TIME ALL PATIENT WAS RECEIVING WAS HOME DELIVERED MEALS. SHE REPORTS THE SISTER WOULD NOT CALL HER BACK TO DO ASSESSMENT THEN CALLED HER AND SAID HE WAS GOING TO [facility] AND WANTED TO CANCEL [facility]. [facility] WERE CANCELLED AT THAT TIME. ASHLEY ALSO UNFAMILIAR WITH "REFER TO [facility]" INSTRUCTED BY [employer]- SHE IS GOING TO TALK WITH MANAGEMENT AT [facility] AND SEE IF SHE CAN ASSIST IN GUIDANCE OF NEXT STEP. ASHLEY'S CONTACT NUMBER [phone] EXT [phone] Initialized on 10/07/24 09:35 - END OF NOTE 10/07/24 08:30 Case Management Note by Princess Bowles S/W WITH CARISSA AT [facility] AND THEY WILL ACCEPT ONCE APPROVED THROUGH [facility]. Initialized on 10/07/24 08:30 - END OF NOTE 10/06/24 15:58 Case Management Note by Meka Davis Addendum entered by Meka Davis 10/06/24 16:03: BROTHER UPDATED ON STATUS Original Note: S/W BROTHER IN LAW JENNY- HE REPORTS IF PATIENT IS AGREEABLE, HE WOULD STILL LIKE FOR HIM TO GO TO [facility] AT [place]. PATIENT CONFUSED BUT AGREEABLE TO PLACEMENT. PATIENT SHORT TERM MEMORY VERY BAD. PATIENT ASKED 3 TIMES WHAT FACILITY AND WHERE IT WAS LOCATED DURING THE CONVERSATION. [facility] INITIATED, LOC TRIGGERED "POTENTIAL DENIAL REFER TO [facility]" CALLED THRIVE IN TO DISCUSS THIS- NO ANSWER, S/W [facility] THEY REPORT THIS [facility] ASSESSMENT HAS TO BE DONE PRIOR TO ADMIT OR MEDICAID WILL NOT PAY FOR STAY AT SNF Initialized on 10/06/24 15:58 - END OF NOTE Assessment/Plan (1) Flutter-fibrillation Current Visit: No Status: Acute Code(s): FKP6263 - (2) Chest pain Current Visit: Yes Status: Acute Code(s): R07.9 - CHEST PAIN, UNSPECIFIED (3) Nausea Current Visit: Yes Status: Acute Code(s): R11.0 - NAUSEA (4) Dementia Current Visit: Yes Status: Chronic Code(s): F03.90 - UNSP DEMENTIA, UNSP SEVERITY, WITHOUT BEH/PSYCH/MOOD/ANX (5) Hypothyroidism Current Visit: Yes Status: Chronic Code(s): E03.9 - HYPOTHYROIDISM, UNSPECIFIED (6) HTN (hypertension) Current Visit: Yes Status: Chronic Code(s): I10 - ESSENTIAL (PRIMARY) HYPERTENSION (7) Tobacco dependence Current Visit: Yes Status: Chronic Code(s): F17.200 - NICOTINE DEPENDENCE, UNSPECIFIED, UNCOMPLICATED (8) Type 2 diabetes mellitus Current Visit: Yes Status: Chronic (9) CAD (coronary artery disease) Current Visit: Yes Status: Chronic Qualifiers: Coronary Disease-Associated Artery/Lesion type: bypass graft [place] vs. transplanted heart: [place] heart Associated angina: without angina Qualified Code(s): I25.810 - Atherosclerosis of coronary artery bypass graft(s) without angina pectoris Code(s): I25.10 - ATHSCL HEART DISEASE OF [place] CORONARY ARTERY W/O ANG PCTRS (10) Iuzmg-nz-tboalhu renal failure Current Visit: Yes Status: Resolved Code(s): N17.9 - ACUTE KIDNEY FAILURE, UNSPECIFIED; N18.9 - CHRONIC KIDNEY DISEASE, UNSPECIFIED (11) Constipation Current Visit: Yes Status: Resolved Code(s): K59.00 - CONSTIPATION, UNS PECIFIED (12) Hypernatremia Current Visit: Yes Status: Resolved Assessment & Plan: (1) Flutter-fibrillation Current Visit: No Status: Acute Assessment & Plan: - Cardiology consult- reviewed note and agree with plan of care. - Metoprolol succinate increased to 25 mg BID - Continue Xarelto - CBC, CMP reviewed - TELE - EKG - Echo: TRANSTHORACIC ECHOCARDIOGRAM 10/04/2024: 1. Mildly dilated atria. Normal ventricular chamber sizes. 2. Mild concentric left ventricular hypertrophy. 3. Mildly depressed left ventricular systolic function due to mild global hypokinesis. Estimated EF 40-45%. 4. Unable to determine grade of diastolic dysfunction due to underlying atrial flutter. 5. Normal right ventricular systolic function. 6. Mild aortic sclerosis without stenosis. 7. Doppler: Mild tricuspid regurgitation. 8. Normal PA systolic pressure (25 mmHg). 9. Normal right atrial pressure (3 mmHg). 10. No pericardial effusion. 11. Pacer lead noted in right atrium and right ventricle. Code(s): HCF0504 - (2) Chest pain Current Visit: Yes Status: Acute Assessment & Plan: - CXR reviewed - TROPS negative - Echo reviewed - Metoprolol succinate increased to 25 mg BID by cardiology - F/U OP with cardiology - CP resolved Code(s): R07.9 - CHEST PAIN, UNSPECIFIED (3) Nausea Current Visit: Yes Status: Acute Assessment & Plan: - Zofran ODT PRN Code(s): R11.0 - NAUSEA (4) Dementia Current Visit: Yes Status: Chronic Assessment & Plan: - Sxs worsen at night - Needs placement- CM to assist - Continue home meds Code(s): F03.90 - UNSP DEMENTIA, UNSP SEVERITY, WITHOUT BEH/PSYCH/MOOD/ANX (5) Hypothyroidism Current Visit: Yes Status: Chronic Assessment & Plan: - TSH pending - Continue Synthroid Code(s): E03.9 - HYPOTHYROIDISM, UNSPECIFIED (6) HTN (hypertension) Current Visit: Yes Status: Chronic Assessment & Plan: - Continue Metoprolol Code(s): I10 - ESSENTIAL (PRIMARY) HYPERTENSION (7) Tobacco dependence Current Visit: Yes Status: Chronic Assessment & Plan: - Advised cessation - Nicotine patch Code(s): F17.200 - NICOTINE DEPENDENCE, UNSPECIFIED, UNCOMPLICATED (8) Type 2 diabetes mellitus Current Visit: Yes Status: Chronic Assessment & Plan: -ADA diet -SSI/ accuchecks ac/hs -A1c 6.75- controlled (9) CAD (coronary artery disease) Current Visit: Yes Status: Chronic Assessment & Plan: -Status post CABG - Resume Xarelto and start metoprolol per cardiology recs Code(s): I25.10 - ATHSCL HEART DISEASE OF [place] CORONARY ARTERY W/O ANG PCTRS (10) [id number] renal failure Current Visit: Yes Status: Resolved Assessment & Plan: - At baseline renal function after reviewing old labs. Code(s): N17.9 - ACUTE KIDNEY FAILURE, UNSPECIFIED; N18.9 - CHRONIC KIDNEY DISEASE, UNSPECIFIED (11) Constipation Current Visit: Yes Status: Resolved Assessment & Plan: - + BM - resolved - Abd pain resolved - CT abd/pelvis reviewed Code(s): K59.00 - CONSTIPATION, UNSPECIFIED (12) Hypernatremia Current Visit: Yes Status: Resolved Assessment & Plan: - resolved Code(s): E87.0 - HYPEROSMOLALITY AND HYPERNATREMIA (13) Delirium Current Visit: Yes Status: Acute Assessment & Plan: - 2:2 hospital stay - Open blinds, keep lights on during the day. VTE: Xarelto Next of KIN: CORINNE Mitchell- [phone] D/C plan: pending placement Code status: Full Code(s): R41.0 - DISORIENTATION, UNSPECIFIED
[2024-10-08 05:07] LABS: Hematocrit 46.4 % (40.1-51.0); Hemoglobin 15.6 g/dL (13.7-17.5); Mean Cell Volume 92.8 fL (79.0-92.2); Mean Corpuscular Hemoglobin 31.2 pg (25.7-32.2); Mean Corpuscular Hgb Concent. 33.6 g/dL (32.3-36.5); Mean Platelet Volume 10.5 fL (9.4-12.4); Platelet Count 174 x10^3/uL (163-337); White Blood Count 8.6 x10^3/uL (4.23-9.07)
[2024-10-08 05:26] LABS: ALBUMIN 3.9 g/dL (3.5-5.0); ANION GAP 13.6 MEQ/L (5-15); BILIRUBIN,TOTAL 1.1 mg/dL (0.2-1.3); Calcium 9.1 mg/dL (8.4-10.2); Creatinine 1 1.34 mg/dL (0.66-1.25); EST GLOMERULAR FILTRATION RATE 54.9 ML/MIN; Potassium 4.4 mmol/L (3.5-5.1); Total Protein 6.7 g/dL (6.3-8.2)
[2024-10-08] MEDS ORDERED: Sodium Chloride 0.9% 1000 ML 1,000 ML IV SCH (08:15)
--- NOTE | 2024-10-08 11:14 | PCM.DS ---
Discharge Summary Date of Admission: 10/02/24 20:12 Date of Discharge: 10/08/24 Admitting Physician: KAN FONG MD Consults: Consults on Case 10/03/24 12:27 Consult Cardiology ROUTINE Primary Care Provider: LUANA RAMSTRONG Allergies Allergies No Known Drug Allergies Allergy (Verified 10/02/24 13:43) Hospital Summary - Hospital Course Hospital Course: 10/06/24 The patient is a 74-year-old male with a history of dementia, coronary artery disease (s/p CABG), atrial flutter, hypertension, type 2 diabetes, hypothyroidism, and gout, who has been hospitalized for 5 days following presentation with localized chest pain radiating to his left arm, jaw, and right ear, associated with nausea. Initial evaluation ruled out acute coronary syndrome (ACS) with negative troponins and unremarkable imaging. During hospitalization, the patient experienced intermittent chest discomfort and atrial flutter, which was poorly controlled due to non-adherence to his metoprolol regimen. Cardiology was consulted, and the metoprolol dose was increased to 25 mg BID. An echocardiogram showed mild left ventricular hypertrophy and a reduced ejection fraction (4045%), but no acute cardiac issues. His kidney function returned to baseline, and constipation was resolved. Due to marked cognitive impairment and an inability to safely manage medications, the patient is not safe for discharge home and is being considered for placement in a shelter facility. The patient is stable with controlled heart rate, and case management is coordinating discharge. He reports feeling fine and is ready for discharge. Pt is psychologically stable and not a danger to himself or others. 10/07/24 Plan was for pt to d/c yesterday however this was denied per case management. They are currently working on a d/c plan. He continues to be confused and the longer pt is in the hospital the more confused he is getting. He appears to have hospital related delirium. Will keep blinds open and lights on during the day. Pt only oriented to self today. He denies any further concerns at this time. 10/08/24 Pt agreeable to d/c plan today to [facility]. He continues to have confusion and withing the same conversation will become confused about what is being discussed. He is alert to person and intermittently place. He denies any further concerns at this time. - Vitals & Intake/Output Vital Signs: Vital Signs Temperature 97.3 F 10/08/24 08:00 Pulse Rate 63 10/08/24 08:00 Respiratory Rate 18 10/08/24 08:00 Blood Pressure 122/66 10/08/24 08:00 O2 Sat by Pulse Oximetry 98 10/08/24 08:00 Intake & Output: Intake & Output 10/05/24 10/06/24 10/07/24 10/08/24 11:59 11:59 11:59 11:59 Intake Total 1320 1420 1300 2080 Output Total 2300 Balance 1320 -880 1300 2080 - Lab Result Diagrams: 10/08/24 05:02 10/08/24 05:02 Lab Results-Last 24 Hrs: Lab Results-Last 24 Hours 10/07/24 10/07/24 10/07/24 Range/Units 11:34 16:03 21:49 WBC (4.23-9.07) x10^3/uL RBC (4.63-6.08) x10^6/uL Hgb (13.7-17.5) g/dL Hct (40.1-51.0) % MCV (79.0-92.2) fL MCH (25.7-32.2) pg MCHC (32.3-36.5) g/dL RDW (11.6-14.4) % Plt Count (163-337) x10^3/uL MPV (9.4-12.4) fL Sodium (135-145) mmol/L Potassium (3.5-5.1) mmol/L Chloride (98-107) mmol/L Carbon Dioxide (22-30) mmol/L Anion Gap (5-15) MEQ/L BUN (9-20) mg/dL Creatinine (0.66-1.25) mg/dL Estimated GFR ML/MIN Glucose (74-106) mg/dL POC Glucometer 176 H TNP 128 H (74 to 106) mg/dL Calcium (8.4-10.2) mg/dL Total Bilirubin (0.2-1.3) mg/dL AST (17-59) U/L ALT (0-50) U/L Alkaline Phosphatase (38-126) U/L Serum Total Protein (6.3-8.2) g/dL Albumin (3.5-5.0) g/dL 10/08/24 10/08/24 10/08/24 Range/Units 05:02 05:02 08:25 WBC 8.6 (4.23-9.07) x10^3/uL RBC 5.00 (4.63-6.08) x10^6/uL Hgb 15.6 (13.7-17.5) g/dL Hct 46.4 (40.1-51.0) % MCV 92.8 H (79.0-92.2) fL MCH 31.2 (25.7-32.2) pg MCHC 33.6 (32.3-36.5) g/dL RDW 14.0 (11.6-14.4) % Plt Count 174 (163-337) x10^3/uL MPV 10.5 (9.4-12.4) fL Sodium 139 (135-145) mmol/L Potassium 4.4 (3.5-5.1) mmol/L Chloride 106 (98-107) mmol/L Carbon Dioxide 23 (22-30) mmol/L Anion Gap 13.6 (5-15) MEQ/L BUN 32 H (9-20) mg/dL Creatinine 1.34 H (0.66-1.25) mg/dL Estimated GFR 54.9 ML/MIN Glucose 125 H (74-106) mg/dL POC Glucometer 113 H (74 to 106) mg/dL Calcium 9.1 (8.4-10.2) mg/dL Total Bilirubin 1.10 (0.2-1.3) mg/dL AST 29 (17-59) U/L ALT 23 (0-50) U/L Alkaline Phosphatase 59 (38-126) U/L Serum Total Protein 6.7 (6.3-8.2) g/dL Albumin 3.9 (3.5-5.0) g/dL Micro Results-Entire Visit: Accuchecks Date 10/08/24 Date 10/07/24 Date 10/07/24 Time 08:43 Time 16:19 Time 11:43 - Procedures and Test Procedures and Tests throughout Hospitalization: Therapy Orders & Screens 10/03/24 07:51 EKG STAT Comment: Diagnosis: Chest pain, ACS Discharge Exam General Appearance: no apparent distress, alert Neurologic Exam: alert, oriented x 3, cooperative, normal mood/affect, nml cerebellar function, sensation nml, confusion, No motor deficits Eye Exam: PERRL, EOMI, eyes nml inspection Ears, Nose, Throat Exam: normal ENT inspection, pharynx normal, moist mucous membranes Neck Exam: normal inspection, non-tender, supple, full range of motion Respiratory Exam: normal breath sounds, lungs clear, No respiratory distress Cardiovascular Exam: regular rate/rhythm, normal heart sounds Gastrointestinal/Abdomen Exam: soft, No tenderness, No mass Male Genitalia Exam: deferred Rectal Exam: deferred Back Exam: normal inspection, normal range of motion, No CVA tenderness, No vertebral tenderness Extremity Exam: normal inspection, normal range of motion Skin Exam: normal color, warm, dry Final Diagnosis/Problem List - Final Discharge Diagnosis/Problem (1) Flutter-fibrillation Current Visit: No Status: Acute Code(s): JSA9203 - (2) Chest pain Current Visit: Yes Status: Acute Code(s): R07.9 - CHEST PAIN, UNSPECIFIED (3) Nausea Current Visit: Yes Status: Acute Code(s): R11.0 - NAUSEA (4) Dementia Current Visit: Yes Status: Chronic Code(s): F03.90 - UNSP DEMENTIA, UNSP SEVERITY, WITHOUT BEH/PSYCH/MOOD/ANX (5) Hypothyroidism Current Visit: Yes Status: Chronic Code(s): E03.9 - HYPOTHYROIDISM, UNSPECIFIED (6) HTN (hypertension) Current Visit: Yes Status: Chronic Code(s): I10 - ESSENTIAL (PRIMARY) HYPERTENSION (7) Tobacco dependence Current Visit: Yes Status: Chronic Code(s): F17.200 - NICOTINE DEPENDENCE, UNSPECIFIED, UNCOMPLICATED (8) Type 2 diabetes mellitus Current Visit: Yes Status: Chronic (9) CAD (coronary artery disease) Current Visit: Yes Status: Chronic Code(s): I25.10 - ATHSCL HEART DISEASE OF [place] CORONARY ARTERY W/O ANG PCTRS (10) [id number] renal failure Current Visit: Yes Status: Resolved Code(s): N17.9 - ACUTE KIDNEY FAILURE, UNSPECIFIED; N18.9 - CHRONIC KIDNEY DISEASE, UNSPECIFIED (11) Constipation Current Visit: Yes Status: Resolved Code(s): K59.00 - CONSTIPATION, UNSPECIFIED (12) Hypernatremia Current Visit: Yes Status: Resolved Code(s): E87.0 - HYPEROSMOLALITY AND HYPERNATREMIA (13) Delirium Current Visit: Yes Status: Acute Assessment & Plan: (1) Flutter-fibrillation Current Visit: No Status: Acute Assessment & Plan: - Cardiology consult- reviewed note and agree with plan of care. - Metoprolol succinate increased to 25 mg BID - Continue Xarelto - CBC, CMP reviewed - TELE - EKG - Echo: TRANSTHORACIC ECHOCARDIOGRAM 10/04/2024: 1. Mildly dilated atria. Normal ventricular chamber sizes. 2. Mild concentric left ventricular hypertrophy. 3. Mildly depressed left ventricular systolic function due to mild global hypokinesis. Estimated EF 40-45%. 4. Unable to determine grade of diastolic dysfunction due to underlying atrial flutter. 5. Normal right ventricular systolic function. 6. Mild aortic sclerosis without stenosis. 7. Doppler: Mild tricuspid regurgitation. 8. Normal PA systolic pressure (25 mmHg). 9. Normal right atrial pressure (3 mmHg). 10. No pericardial effusion. 11. Pacer lead noted in right atrium and right ventricle. Code(s): ERB1400 - (2) Chest pain Current Visit: Yes Status: Acute Assessment & Plan: - CXR reviewed - TROPS negative - Echo reviewed - Metoprolol succinate increased to 25 mg BID by cardiology - F/U OP with cardiology - CP resolved Code(s): R07.9 - CHEST PAIN, UNSPECIFIED (3) Nausea Current Visit: Yes Status: Acute Assessment & Plan: - Zofran ODT PRN Code(s): R11.0 - NAUSEA (4) Dementia Current Visit: Yes Status: Chronic Assessment & Plan: - Sxs worsen at night - Needs placement- to assist - Continue home meds Code(s): F03.90 - UNSP DEMENTIA, UNSP SEVERITY, WITHOUT BEH/PSYCH/MOOD/ANX (5) Hypothyroidism Current Visit: Yes Status: Chronic Assessment & Plan: - TSH pending - Continue Synthroid Code(s): E03.9 - HYPOTHYROIDISM, UNSPECIFIED (6) HTN (hypertension) Current Visit: Yes Status: Chronic Assessment & Plan: - Continue Metoprolol Code(s): I10 - ESSENTIAL (PRIMARY) HYPERTENSION (7) Tobacco dependence Current Visit: Yes Status: Chronic Assessment & Plan: - Advised cessation - Nicotine patch Code(s): F17.200 - NICOTINE DEPENDENCE, UNSPECIFIED, UNCOMPLICATED (8) Type 2 diabetes mellitus Current Visit: Yes Status: Chronic Assessment & Plan: -ADA diet -SSI/ accuchecks ac/hs -A1c 6.75- controlled (9) CAD (coronary artery disease) Current Visit: Yes Status: Chronic Assessment & Plan: -Status post CABG - Resume Xarelto and start metoprolol per cardiology recs Code(s): I25.10 - ATHSCL HEART DISEASE OF [place] CORONARY ARTERY W/O ANG PCTRS (10) [id number] renal failure Current Visit: Yes Status: Resolved Assessment & Plan: - At baseline renal function after reviewing old labs. Code(s): N17.9 - ACUTE KIDNEY FAILURE, UNSPECIFIED; N18.9 - CHRONIC KIDNEY DISEASE, UNSPECIFIED (11) Constipation Current Visit: Yes Status: Resolved Assessment & Plan: - + BM - resolved - Abd pain resolved - CT abd/pelvis reviewed Code(s): K59.00 - CONSTIPATION, UNSPECIFIED (12) Hypernatremia Current Visit: Yes Status: Resolved Assessment & Plan: - resolved Code(s): E87.0 - HYPEROSMOLALITY AND HYPERNATREMIA (13) Delirium Current Visit: Yes Status: Acute Assessment & Plan: - 2:2 hospital stay - Open blinds, keep lights on during the day. Code(s): R41.0 - DISORIENTATION, UNSPECIFIED - Discharge Discharge Date: 10/08/24 ([facility]) Disposition: XFER OTHER Condition: Stable Prescriptions: New Metoprolol Succinate 25 mg Xl* [Toprol-Xl 25MG Tablets] 25 mg PO BID 30 Days #60 tablet Rivaroxaban [Xarelto] 15 mg PO HS 21 Days #21 tablet Continue Tamsulosin HCl 0.4 mg [Flomax 0.4 MG] 0.8 mg PO DAILY Nitroglycerin 0.4 mg SL .PRN PRN PRN Reason: Chest Pain Atorvastatin Calcium [Lipitor 40Mg] 40 mg PO HS Ranolazine 500 MG [Ranexa 500 MG] 1,000 mg PO DAILY Memantine HCl 5 mg [Namenda 5 MG] 10 mg PO BID Donepezil HCl 10 mg [Aricept 10 MG] 23 mg PO HS Aspirin EC 81 mg [Ecotrin 81 mg] 81 mg PO DAILY #60 tablet Midodrine HCl 2.5 mg PO TID Levothyroxine Sodium 25 mcg PO DAILY Aripiprazole 10 mg [Abilify 10 MG] 5 mg PO DAILY Metformin HCl [Metformin HCl ER] 1,000 mg PO DAILY Discontinued Metoprolol Succinate 50 mg [Toprol Xl 50 MG] 25 mg PO DAILY Additional Instructions: SENIOR LIVING ORDERS: ADMIT TO NURSING FACILITY [address] ACTIVITY TOLERATED SEE ATTACHED MED LIST Follow up with: LUANA ARMSTRONG MD [Primary Care Provider, [facility]] - 10/07/24 3:00 pm
[2024-10-08 11:37] VITALS: BP 116/64; PULSE 58; RESP 16; TEMP 97.9; O2SAT 95
== END 2024-10-08 12:27 ==
LOC: ED 13:25 → MED SURG 20:12
PROVIDERS: ADMIT Internal Medicine; ATTEND Internal Medicine
DX: I48.3 Typical atrial flutter (principal); R07.9 Chest pain, unspecified; Z59.811 Housing instability, housed, with risk of homelessness; I25.10 Atherosclerotic heart disease of native coronary artery without angina pectoris; E03.9 Hypothyroidism, unspecified; M10.9 Gout, unspecified; R11.0 Nausea; F03.90 Unspecified dementia, unspecified severity, without behavioral disturbance, psychotic disturbance, mood disturbance, and anxiety; F17.200 Nicotine dependence, unspecified, uncomplicated; E11.22 Type 2 diabetes mellitus with diabetic chronic kidney disease; I12.9 Hypertensive chronic kidney disease with stage 1 through stage 4 chronic kidney disease, or unspecified chronic kidney disease; N18.9 Chronic kidney disease, unspecified; N17.9 Acute kidney failure, unspecified; K59.00 Constipation, unspecified; E87.0 Hyperosmolality and hypernatremia; E87.1 Hypo-osmolality and hyponatremia; Z79.01 Long term (current) use of anticoagulants; Z79.899 Other long term (current) drug therapy; Z95.0 Presence of cardiac pacemaker
CPT/HCPCS: 36415; 71045; 74176; 80048; 80053; 80307; 82947; 83036; 83690; 83735; 83880; 84443; 84484; 85025; 85027; 85379; 93005; 93041; 93306; 94760; 99285; Q3014; 93268; Q0162; A9270-GY; G0378